=== PATIENT | male | born 1940 | race African-American/Black ===

== ENCOUNTER 2017-11-29 15:18 | Emergency (ER) | payer OTHER ==
[2017-11-29 15:54] LABS: Absolute Lymphocytes (CBC) 2.2 K/uL (0.7-4.9); Absolute Monocytes 0.5 K/uL (0.1-1.3); Absolute Neutrophil 1.8 K/uL (1.8-8.0); Basophils % 1.3 % (0-1.3); Eosinophils % 7.2 % (0-4.4); Hematocrit 39.6 % (39.6-49.0); Lymphocytes % 45.1 % (15.3-44.8); MCH 29.2 pg (27.0-35.0); MCV 89.7 fL (80-100); MPV 8.9 fL (7.6-11.3); Monocytes % 9.9 % (3.3-12.3); RBC Red Blood Cell Count 4.41 M/uL (4.33-5.43)
[2017-11-29 16:01] LABS: Protime INR 0.99
[2017-11-29 16:14] LABS: Albumin 3.4 g/dL (3.4-5.0); Bilirubin Direct 0.1 mg/dL (0-0.2); Bilirubin Total 0.4 mg/dL (0.2-1.0); Magnesium 2.3 mg/dL (1.8-2.4); Protein, Total 7.1 g/dL (6.4-8.2)
--- NOTE | 2017-11-29 17:22 | RAD REPORT ---
EXAM DESCRIPTION: [facility] Single View11/29/2017 3:54 pm CLINICAL HISTORY: Chest pain COMPARISON: May 2017 FINDINGS: The lungs appear clear of acute infiltrate. The heart is normal size IMPRESSION: No acute abnormalities displayed
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
[2017-11-29] MEDS ORDERED: ASPIRIN 81 MG CHEWABLE TABLET ONE (17:38)
[2017-11-29] MEDS ORDERED: PANTOPRAZOLE 40MG TABLET PO ONE (17:39)
[2017-11-29 17:42] LABS: Urine Blood NEGATIVE (NEG); Urine Glucose NEGATIVE (NEG); Urine Protein NEGATIVE (NEG); Urine Specific Gravity 1.015 (1.005-1.030)
[2017-11-29] MEDS ORDERED: NA CHLORIDE 0.9% 500 ML ONE (17:49)
--- NOTE | 2017-11-29 17:53 | ER ---
Nurse's Notes [facility] Name: Ruperto Villegas Age: 77 yrs Sex: Male : 1940 Arrival Date: 11/29/2017 Time: 15:20 Bed 8 Private MD: Moiz Buenrostro Diagnosis: Chest pain, unspecified Presentation: 11/29 15:21 Presenting complaint: Patient states: "my blood pressure was 167/95 Friday and today I aa5 woke up with dizziness, tired, blurry spots, and now the left side of my chest hurts". Pt also reports SOB. 15:21 Transition of care: patient was not received from another setting of care. Onset of aa5 symptoms was November 29, 2017. Risk Assessment: Do you want to hurt yourself or someone else? Patient reports no desire to harm self or others. Initial Sepsis Screen: Does the patient meet any 2 criteria? No. Patient's initial sepsis screen is negative. Does the patient have a suspected source of infection? No. Patient's initial sepsis screen is negative. Care prior to arrival: None. 15:21 Method Of Arrival: Ambulatory aa5 15:21 Acuity: HENRIK 3 aa5 Historical: - Home Meds: 16:08 Tramadol Oral [Active]; Metoprolol Tartrate Oral [Active]; benzonatate Oral [Active]; tw2 cyanocobalamin (vit B-12) miscellaneous [Active]; Famotidine Oral [Active]; ferrous fumarate Oral [Active]; loratadine Oral [Active]; prazosin 5 mg Oral cap at bedtime [Active]; multivitamin Oral [Active]; pregabalin Oral [Active]; - PMHx: 15:27 Diabetes - NIDDM; Hypertension; Myocardial infarction; Prostate Cancer; aa5 - PSHx: 15:27 Appendectomy; rotator cuff- right; aa5 - Immunization history:: Adult Immunizations. - Ebola Screening: : No symptoms or risks identified at this time. - Social history:: Smoking status: Patient/guardian denies using tobacco. Screenin:08 Abuse screen: Denies threats or abuse. Nutritional screening: No deficits noted. tw2 Tuberculosis screening: No symptoms or risk factors identified. Fall Risk None identified. Assessment: 15:35 General: Appears in no apparent distress. Behavior is calm, cooperative, appropriate tw2 for age. Pain: Complains of pain in anterior aspect of left upper chest Pain radiates to left arm Pain began 1 day ago. Neuro: Level of Consciousness is awake, alert, obeys commands, Oriented to person, place, time, situation. Cardiovascular: Reports chest pain, shortness of breath. Cardiovascular: Reports fatigue, Heart tones S1 S2 Capillary refill < 3 seconds Patient's skin is warm and dry. Respiratory: Airway is patent Respiratory effort is even, unlabored, Respiratory pattern is regular, symmetrical, Breath sounds are clear bilaterally. GI: Abdomen is round obese, Bowel sounds present X 4 quads. : No signs and/or symptoms were reported regarding the genitourinary system. Derm: Skin is intact, is healthy with good turgor, Skin is dry. Musculoskeletal: Range of motion:. 16:00 Reassessment: Per provider, hold aspirin until CT results reviewed by provider. ae1 16:50 Reassessment: Patient appears in no apparent distress at this time. No changes from tw2 previously documented assessment. Patient and/or family updated on plan of care and expected duration. Pain level reassessed. Patient is alert, oriented x 3, equal unlabored respirations, skin warm/dry/pink. 17:35 Reassessment: Patient appears in no apparent distress at this time. No changes from tw2 previously documented assessment. Patient and/or family updated on plan of care and expected duration. Pain level reassessed. Patient is alert, oriented x 3, equal unlabored respirations, skin warm/dry/pink. provider at bedside at this time going over results. 18:27 Reassessment: Patient appears in no apparent distress at this time. No changes from tw2 previously documented assessment. Patient and/or family updated on plan of care and expected duration. Pain level reassessed. Patient is alert, oriented x 3, equal unlabored respirations, skin warm/dry/pink. Vital Signs: 15:23 BP 176 / 102; Pulse 70; Resp 18 S; Pulse Ox 98% on R/A; aa5 16:08 BP 147 / 87; Pulse 57; Resp 18; Pulse Ox 96% on R/A; tw2 17:22 BP 165 / 88; Pulse 54; Resp 14; Pulse Ox 98% on R/A; tw2 17:40 Pulse 48; tw2 17:41 Temp 97.9; tw2 18:03 BP 155 / 91; Pulse 65; Resp 20; Pulse Ox 100% on R/A; tw2 18:06 Pulse 43; tw2 18:12 Pulse 60; tw2 18:12 Pulse 43; tw2 18:25 BP 155 / 91; Pulse 59; Resp 17; Pulse Ox 100% ; tw2 17:40 pt asymptomatic, provider notified. no further orders at this time, will continue to tw2 monitor 18:06 pt asymptomatic, NAD, A\\T\\O3 provider notified. tw2 18:12 pt asymptomatic, NAD, provider notified, no further orders tw2 18:25 provider aware of heart rate drops, no further orders, discharge as ordered tw2 ED Course: 15:20 Patient arrived in ED. mr 15:21 Moiz Buenrostro MD is Private Physician. mr 15:21 Chintan Hallman, ADRI is PHCP. pm1 15:21 Fareed Mac MD is Attending Physician. pm1 15:21 Arm band placed on. aa5 15:25 No provider procedures requiring assistance completed. Inserted saline lock: 20 gauge tw2 in right antecubital area, using aseptic technique. Blood collected. Patient maintains SpO2 saturation greater than 95% on room air. 15:26 Triage completed. aa5 15:28 Keesha Avila, DELIO is Primary Nurse. tw2 15:29 Placed in gown. Bed in low position. potline monitor on. Pulse ox on. NIBP on. tw2 15:49 Radiology exam delayed due to lab results not completed at this time. (BUN/Creatinine). cw1 15:53 X-ray completed. Portable x-ray completed in exam room. Patient tolerated procedure la2 well. 15:54 XRAY Chest (1 view) In Process Unspecified. EDMS 16:58 CT Traumagram (Head C Spine CAP W Con) In Process Unspecified. EDMS 16:58 CT completed. Patient tolerated procedure well. Patient moved back from CT. vr 17:52 Amadeo Velasquez MD is Referral Physician. pm1 17:53 Awaiting: awaiting completion of IV fluids PRIOR to discharge. tw2 18:29 IV discontinued, intact, bleeding controlled, No redness/swelling at site. Pressure tw2 dressing applied. Administered Medications: 17:38 Drug: Aspirin Chewable Tablet 324 mg Route: PO; tw2 17:38 Follow up: Response: No adverse reaction tw2 17:38 Drug: Pantoprazole 40 mg Route: PO; tw2 17:38 Follow up: Response: No adverse reaction tw2 17:48 Drug: NS 0.9% 500 ml Route: IV; Rate: bolus; Site: right antecubital; tw2 18:25 Follow up: Response: No adverse reaction; IV Status: Completed infusion; IV Intake: tw2 500ml Intake: 18:25 IV: 500ml; Total: 500ml. tw2 Outcome: 17:52 Discharge ordered by MD. pm1 18:28 Discharged to home ambulatory. tw2 18:28 Condition: stable 18:28 Discharge instructions given to patient, Instructed on discharge instructions, follow up and referral plans. medication usage, Pt has appt with Dr. Velasquez 8:30 am Friday, pt VU Demonstrated understanding of instructions, follow-up care, medications, Prescriptions given X 1. 18:29 Patient left the ED. tw2 Signatures: Dispatcher [employer] EDMN Shiela Cowan Audri, RN RN bc5 Phylicia Crawford Crystal cw1 Chintan Hallman, ADRI COMMUTATOR UNDERCUTTER pm1 Keesha Avila RN RN tw2 Rich Andrade RN RN ae1 Ligia Hankins la2 Corrections: (The following items were deleted from the chart) 18:13 17:40 Pulse 48bpm; provider notified.; tw2 tw2 18:28 18:06 Pulse 43bpm; provider notified.; tw2 tw2 18:28 17:40 Pulse 48bpm; provider notified. no further orders at this time, will continue to tw2 monitor; tw2 18:28 18:12 Pulse 43bpm; provider notified, no further orders; tw2 tw2
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
[2017-11-29 19:01] VITALS: TEMP 97.9
[2017-11-29 19:03] VITALS: BP 125/81; O2SAT 99
--- NOTE | 2017-12-01 07:45 | EKG ---
Test Date: 2017-11-29 Test Time: 15:28:23 Chinese Medicine Practitioner: MB MEASUREMENT RESULTS: Intervals: Rate: 66 MA: 156 QRSD: 96 QT: 378 QTc: 396 [place]: P: 45 MA: 156 QRS: -10 T: 25 INTERPRETIVE STATEMENTS: Normal sinus rhythm Minimal voltage criteria for LVH, may be normal variant Borderline ECG Compared to ECG 11/28/2016 06:44:52 Left ventricular hypertrophy now present Sinus bradycardia no longer present Sinus arrhythmia no longer present Electronically Signed On 12-01-17 07:44:43 CDT by Cleveland Jensen
== END 2017-11-29 18:29 | disposition home or self-care (01) ==
LOC: ER 15:18
DX: R07.9 Chest pain, unspecified (principal); I10 Essential (primary) hypertension; E11.9 Type 2 diabetes mellitus without complications; I25.2 Old myocardial infarction; Z85.46 Personal history of malignant neoplasm of prostate
CPT/HCPCS: 36415; 70450; 71045; 71260; 72125; 74177; 80048; 80076; 81003; 82550; 82553; 83735; 83880; 84484; 85025; 85610; 85730; 93005; 96360; 99285; Q9967

== ENCOUNTER 2017-12-26 11:16 | Emergency (ER) | payer OTHER ==
[2017-12-26] MEDS ORDERED: HYDROCODONE/APAP 5/325 MG TAB ONE (12:33)
--- NOTE | 2017-12-26 13:31 | RAD REPORT ---
EXAM DESCRIPTION: US - Scrotum Testicles - 12/26/2017 1:13 pm CLINICAL HISTORY: Right-sided scrotal pain COMPARISON: None. FINDINGS: Testicles are similar in size. Testicular tissue is heterogeneous over what is typically s een. The pattern is similar within each testicle. No focal testicular mass identifiable. Doppler eval uation shows a normal blood flow pattern within each testicle. Moderate-size left varicocele is present. A 4 millimeter right epididymal cyst is present. Epididymal tissue is heterogeneous and relatively hyperemic. Minimal hydroceles are present. IMPRESSION: Blood flow is demonstrated within each testicle. Torsion is not suspected. Heterogeneous epididymal tissue. An epididymo-orchitis would be a consideration. Moderate-size left varicocele.
[2017-12-26 13:40] LABS: Urine Bacteria 20-50 /HPF (NONE SEEN); Urine Culture Reflex Order REFLEXED; Urine RBC <5 /HPF (NONE SEEN)
[2017-12-26 13:41] LABS: Urine Blood NEGATIVE (NEG); Urine Glucose NEGATIVE (NEG); Urine Protein NEGATIVE (NEG); Urine Specific Gravity >1.030 (1.005-1.030); Urine pH 5.5 (5.0-7.0)
[2017-12-26 13:41] LABS: Urine Mucus 2+ /HPF (NONE SEEN)
--- NOTE | 2017-12-26 13:41 | EDPHYS ---
Physician Documentation [facility] Name: Ruperto Villegas Age: 77 yrs Sex: Male : 1940 Arrival Date: 12/26/2017 Time: 11:19 Bed 19 Private MD: Moiz Buenrostro ED Physician Yun Cory HPI: 12/26 12:17 This 77 yrs old Black Male presents to ER via Ambulatory with complaints of Testicular jmm Swelling, Abdominal Pain. 12:17 The patient presents with scrotal pain, of the right side, in the area of the jmm epidydimis, with swelling. Onset: The symptoms/episode began/occurred gradually, 2 day(s) ago. Associated signs and symptoms: Pertinent positives: abdominal pain, dysuria, Pertinent negatives: fever. This is a 77 year old male that presents to the ED with right sided scrotal pain for approx 1 year worsening over the past 2 days with dysuria and scrotal swelling. Patient denies fever. States the pain radiates into his abdomen. Denies vomiting, diarrhea. Patient has had an appendectomy in the past. . Historical: - Allergies: 11:33 No Known Allergies; la1 - PMHx: 11:33 Diabetes - NIDDM; Hypertension; Myocardial infarction; Prostate Cancer; la1 - Immunization history:: Adult Immunizations up to date. - Social history:: Smoking status: Patient/guardian denies using tobacco. - Ebola Screening: : No symptoms or risks identified at this time. ROS: 12:17 Constitutional: Negative for fever, chills, and weight loss, Cardiovascular: Negative jmm for chest pain, palpitations, and edema, Respiratory: Negative for shortness of breath, cough, wheezing, and pleuritic chest pain. 12:17 Constitutional: Negative for fever. 12:17 Abdomen/GI: Positive for abdominal pain. 12:17 : Positive for testicular pain 12:17 All other systems are negative. Exam: 12:17 Constitutional: This is a well developed, well nourished patient who is awake, alert, jmm and in no acute distress. Head/Face: atraumatic. Chest/axilla: Normal chest wall appearance and motion. Cardiovascular: Regular rate and rhythm. No edema appreciated Respiratory: Normal respirations, no respiratory distress appreciated 12:17 Abdomen/GI: Inspection: abdomen appears normal, Bowel sounds: normal, Palpation: abdomen is soft and non-tender, in all quadrants. 12:17 Back: ROM is normal. 12:17 : Male external genitalia: tenderness, of the epididymis area, that is moderate. 12:17 Skin: Appearance: Color: normal in color. 12:17 Neuro: Orientation: is normal, Mentation: is normal, Memory: is normal. 12:17 Psych: Behavior/mood is pleasant, cooperative. Vital Signs: 11:33 Pulse 64; Resp 15; Temp 97.2(TE); Pulse Ox 97% on R/A; Weight 117.93 kg; Height 5 ft. 6 la1 in. (167.64 cm); 11:33 BP 118 / 83; la1 12:45 BP 139 / 75; Pulse 71; Resp 16; Pulse Ox 99% on R/A; Pain 5/10; em 13:23 BP 130 / 82; Pulse 64; Resp 17; Pulse Ox 99% ; mh5 14:06 BP 132 / 87; Pulse 62; Resp 17; Pulse Ox 98% on R/A; Pain 2/10; em 11:33 Body Mass Index 41.96 (117.93 kg, 167.64 cm) la1 MDM: 12:03 Patient medically screened. [facility] 12:20 Data reviewed: vital signs, nurses notes. [facility] 13:40 Data reviewed: radiologic studies, ultrasound. Counseling: I had a detailed discussion geovani with the patient and/or guardian regarding: the historical points, exam findings, and any diagnostic results supporting the discharge/admit diagnosis, radiology results, the need for outpatient follow up, to return to the emergency department if symptoms worsen or persist or if there are any questions or concerns that arise at home. 12/26 13:20 Order name: Urine Microscopic Only; Complete Time: 13:42 em 12/26 13:29 Order name: Urine Dipstick--Ancillary (enter results); Complete Time: 13:42 12/26 12:07 Order name: US Scrotum Testicles; Complete Time: 13:35 [facility] 12/26 12:07 Order name: Urine Dipstick-Ancillary (obtain specimen); Complete Time: 13:20 [facility] 12/26 13:41 Order name: Urine Culture EDMS Administered Medications: 12:34 Drug: Golden 5 mg-325 mg 1 tabs Route: PO; em 14:05 Follow up: Response: No adverse reaction; Pain is decreased em Disposition: 12/26/17 13:40 Discharged to Home. Impression: Epididymo-orchitis. - Condition is Stable. - Discharge Instructions: Epididymitis, Orchitis. - Prescriptions for Cephalexin 500 mg Oral Capsule - take 1 capsule by ORAL route every 12 hours for 10 days; 20 capsule. Tylenol- Codeine #3 300-30 mg Oral Tablet - take 1 tablet by ORAL route every 6 hours As needed; 20 tablet. - Medication Reconciliation Form, Thank You Letter, Antibiotic Education, Prescription Opioid Use form. - Follow up: Daisy Al MD; When: 2 - 3 days; Reason: Recheck today's complaints, Continuance of care, Re-evaluation by your physician. Addendum: 12/27/2017 16:06 Co-signature as Attending Physician, Cory Malcolm MD. g s Signatures: Dispatcher [employer] EDMS Ritesh Collazo PA PA jmm Munoz, Edgar, STEREO EQUIPMENT INSTALLER STEREO EQUIPMENT INSTALLER em Harris Zhu RN RN la1 Cory Malcolm MD MD Corrections: (The following items were deleted from the chart) 12/26 14:08 13:40 12/26/2017 13:40 Discharged to Home. Impression: Epididymo-orchitis. Condition is em Stable. Forms are Medication Reconciliation Form, Thank You Letter, Antibiotic Education, Prescription Opioid Use. Follow up: Daisy Al; When: 2 - 3 days; Reason: Recheck today's complaints, Continuance of care, Re-evaluation by your physician. raúl
--- NOTE | 2017-12-26 13:41 | ER ---
Nurse's Notes [facility] Name: Ruperto Villegas Age: 77 yrs Sex: Male : 1940 Arrival Date: 12/26/2017 Time: 11:19 Bed 19 Private MD: Moiz Buenrostro Diagnosis: Epididymo-orchitis Presentation: 12/26 11:31 Presenting complaint: Patient states: Right testicular pain for one year, right la1 testicular pain radiating to right flank for one week, pain with urination, frequency, blood in urine for the last week and erectile dysfunction for the past year. Hx of prostate CA with radiation [place] in 1999. Transition of care: patient was not received from another setting of care. Onset of symptoms was December 26, 2017. Risk Assessment: Do you want to hurt yourself or someone else? Patient reports no desire to harm self or others. Initial Sepsis Screen: Does the patient meet any 2 criteria? No. Patient's initial sepsis screen is negative. Does the patient have a suspected source of infection? No. Patient's initial sepsis screen is negative. Care prior to arrival: None. 11:31 Method Of Arrival: Ambulatory la1 11:31 Acuity: HENRIK 3 la1 Historical: - Allergies: 11:33 No Known Allergies; la1 - PMHx: 11:33 Diabetes - NIDDM; Hypertension; Myocardial infarction; Prostate Cancer; la1 - Immunization history:: Adult Immunizations up to date. - Social history:: Smoking status: Patient/guardian denies using tobacco. - Ebola Screening: : No symptoms or risks identified at this time. Screenin:46 Abuse screen: Denies threats or abuse. Nutritional screening: No deficits noted. em Tuberculosis screening: No symptoms or risk factors identified. Fall Risk None identified. Assessment: 12:10 General: Appears in no apparent distress. distressed, Behavior is calm, cooperative. em Pain: Complains of pain in left testicle Pain radiates to abdomen Pain currently is 6 out of 10 on a pain scale. Neuro: Level of Consciousness is awake, alert, obeys commands, Oriented to person, place, time, situation. Cardiovascular: Capillary refill < 3 seconds Patient's skin is warm and dry. Respiratory: Airway is patent Respiratory effort is even, unlabored, Respiratory pattern is regular, symmetrical. GI: Abdomen is round Bowel sounds present X 4 quads. Abd is soft and non tender X 4 quads. : Genitalia appear normal on penis on scrotum Reports burning with urination, pain urinary frequency. EENT: No signs and/or symptoms were reported regarding the EENT system. Derm: Skin is intact, Skin is pink, warm \T\ dry. Musculoskeletal: Capillary refill < 3 seconds, Range of motion: intact in all extremities. 12:20 Reassessment: Patient appears in no apparent distress at this time. I agree with above iw assessment by Miguel Teixeira LVN. 13:00 Reassessment: Patient appears in no apparent distress at this time. Patient and/or em family updated on plan of care and expected duration. Pain level reassessed. Patient is alert, oriented x 3, equal unlabored respirations, skin warm/dry/pink. 14:06 Reassessment: Patient appears in no apparent distress at this time. Patient and/or em family updated on plan of care and expected duration. Pain level reassessed. Patient is alert, oriented x 3, equal unlabored respirations, skin warm/dry/pink. rates pain 2/10 Patient states feeling better. Vital Signs: 11:33 Pulse 64; Resp 15; Temp 97.2(TE); Pulse Ox 97% on R/A; Weight 117.93 kg; Height 5 ft. 6 la1 in. (167.64 cm); 11:33 BP 118 / 83; la1 12:45 BP 139 / 75; Pulse 71; Resp 16; Pulse Ox 99% on R/A; Pain 5/10; em 13:23 BP 130 / 82; Pulse 64; Resp 17; Pulse Ox 99% ; mh5 14:06 BP 132 / 87; Pulse 62; Resp 17; Pulse Ox 98% on R/A; Pain 2/10; em 11:33 Body Mass Index 41.96 (117.93 kg, 167.64 cm) la1 ED Course: 11:19 Patient arrived in ED. mr 11:19 Moiz Buenrostro MD is Private Physician. mr 11:32 Triage completed. la1 11:33 Arm band placed on left wrist. la1 11:50 Ritesh Collazo PA is PHCP. [facility] 11:50 Cory Malcolm MD is Attending Physician. [facility] 12:01 Teixeira, Miguel, SKIN CARVER is Primary Nurse. em 12:32 Note: us done portable/bedside. aa4 12:46 Patient has correct armband on for positive identification. Placed in gown. Bed in low em position. Call light in reach. Adult w/ patient. 12:46 No provider procedures requiring assistance completed. em 13:07 Ultrasound completed. Patient tolerated well. aa4 13:07 US Scrotum Testicles In Process Unspecified. EDMS 13:40 Daisy Al MD is Referral Physician. [facility] 14:07 Patient did not have IV access during this emergency room visit. em Administered Medications: 12:34 Drug: Euclid 5 mg-325 mg 1 tabs Route: PO; em 14:05 Follow up: Response: No adverse reaction; Pain is decreased em Outcome: 13:40 Discharge ordered by MD. [facility] 14:07 Discharged to home ambulatory, with family. em 14:07 Condition: good 14:07 Discharge instructions given to patient, family, Instructed on discharge instructions, follow up and referral plans. no drinking with medication, no driving heavy equipment, medication usage, Demonstrated understanding of instructions, follow-up care, medications, Prescriptions given X 2. 14:08 Patient left the ED. em Addendum: 12/30/2017 08:26 Addendum: Culture Results: Positive urine culture. Bacteria is resistant to, has s s intermediate sensitivity, or is not tested against prescribed antibiotics. Report given to HALIMA for further evaluation and then to capacitor pack press operator for follow up with patient. Phone call Attempt #1 ATTEMPTED TO CALL TO FOLLOW UP WITH PATIENT. NO ANSWER, LEFT VOICEMAIL. Certified letter sent to listed address for patient. 12/31/2017 09:52 Addendum: Other pt called back, called in prescription to [facility] Suprax 200 mg 1 i w tab PO BID # 20, no refills. Signatures: Dispatcher [employer] EDMS Ritesh Collazo PA PA jmm Rivera, Maria mr Puneet, Miguel, SKIN CARVER SKIN CARVER em Lisbeth Esparza RN RN iw Frazier, Amanda aa4 Keerthi Burns RN RN ss Harris Zhu RN RN Shiela Little [facility]
[2017-12-26 14:12] VITALS: TEMP 97.2
[2017-12-26 14:16] VITALS: BP 132/87; O2SAT 98
== END 2017-12-26 14:08 | disposition home or self-care (01) ==
LOC: ER 11:16
DX: N45.3 Epididymo-orchitis (principal); I10 Essential (primary) hypertension; I25.2 Old myocardial infarction; Z85.46 Personal history of malignant neoplasm of prostate
CPT/HCPCS: 76870; 81003; 81015; 87077; 87086; 87088; 87186; 99283

== ENCOUNTER 2018-09-28 08:31 | Day surgery (SDC) | payer OTHER ==
--- NOTE | 2018-09-25 09:11 | RAD REPORT ---
EXAM DESCRIPTION: RAD - Chest Pa And Lat (2 Views) - 09/25/2018 9:01 am CLINICAL HISTORY: preop Chest pain. COMPARISON: Chest Single View dated 11/29/2017; Chest Pa And Lat (2 Views) dated 05/21/2017; Chest Sin gle View dated 11/27/2016; Abdomen 1 View (KUB) dated 02/14/2016 FINDINGS: The lungs are clear. The heart is normal in size. No displaced fractures. IMPRESSION: No acute or concerning finding suspected.
[2018-09-25 09:59] LABS: Absolute Lymphocytes (CBC) 1.7 K/uL (0.7-4.9); Absolute Monocytes 0.4 K/uL (0.1-1.3); Absolute Neutrophil 1.5 K/uL (1.8-8.0); Basophils % 1.1 % (0-1.3); Eosinophils % 11.5 % (0-4.4); Hematocrit 38.3 % (39.6-49.0); Lymphocytes % 41.3 % (15.3-44.8)
[2018-09-25 10:13] LABS: Potassium 3.9 mmol/L (3.5-5.1)
--- NOTE | 2018-09-25 14:45 | EKG ---
Test Date: 2018-09-25 Test Time: 08:40:10 Assembler Camper: ABIODUN MEASUREMENT RESULTS: Intervals: Rate: 76 MN: 154 QRSD: 96 QT: 392 QTc: 441 [place]: P: 46 MN: 154 QRS: 12 T: 33 INTERPRETIVE STATEMENTS: Normal sinus rhythm Normal ECG Compared to ECG 11/29/2017 15:28:23 Left ventricular hypertrophy no longer present Electronically Signed On 09-25-18 14:44:49 CDT by Cleveland Jensen
[2018-09-28] MEDS ORDERED: Ringers Lactate 1,000 ML IV ONE (09:04)
[2018-09-28] MEDS ORDERED: CEFAZOLIN/SWI 1gm 1 GM/10 ML SYR ONE (09:38)
[2018-09-28] MEDS ORDERED: FENTANYL CITR 100 MCG/2 ML ONE (10:06)
[2018-09-28] MEDS ORDERED: PROPOFOL 200 MG/20 ML VIAL IV ONE (10:06)
[2018-09-28] MEDS ORDERED: LIDOCAINE 2% MPF 5 ML VIAL ONE (10:06)
[2018-09-28] MEDS ORDERED: ONDANSETRON 4 MG/2 ML VIAL ONE (10:13)
[2018-09-28] MEDS ORDERED: GLYCOPYRROLATE 0.2 MG/ML SYR ONE (10:27)
[2018-09-28] MEDS ORDERED: EPHEDRINE SULF 50 MG/ML VIAL ONE (10:28)
--- NOTE | 2018-09-28 10:37 | P.BOP ---
Preoperative diagnosis: tender upper back subcutaneous mass Postoperative diagnosis: same Primary procedure: Excisional biopsy of tender upper back subcutaneous mass 7x6cm Estimated blood loss: <10cc Specimen: mass Findings: see dictation Anesthesia: General Complications: None Transferred to: Recovery Room Condition: Good
[2018-09-28] MEDS: HYDROMORPHONE HCL 1 MG/ML INJ ONE ×2 (11:14→11:21)
[2018-09-28 11:27] VITALS: O2SAT 95
[2018-09-28] MEDS ORDERED: CODEINE 30MG/APAP 300MG TAB PO ONE (12:00)
[2018-09-28] MEDS ORDERED: CODEINE 30MG/APAP 300MG TAB ONE (12:06)
[2018-09-28 15:42] VITALS: BP 172/97; TEMP 98
--- NOTE | 2018-09-28 18:16 | DS ---
Date of Discharge: 09/28/2018 Diagnosis: Tender upper back subcutaneous mass. Procedure: Excisional biopsy of tender upper back subcutaneous mass. Disposition: Home. Activity: As tolerated. No heavy lifting. Followup: Follow up in my office in 1 week. Call for appointment [phone]. Keep area dry for 48 delvis rs, then may shower. Keep Steri-Strips intact. MARY/ENEDELIA Voice ID: [id number] Report ID: [id number]
--- NOTE | 2018-09-28 18:34 | OP ---
Date of Procedure: 09/28/2018 Surgeon: Reynaldo Dawn MD Preoperative Diagnosis: Tender upper back subcutaneous mass. Postoperative Diagnosis: Tender upper back subcutaneous mass. Procedure: Excisional biopsy of tender upper back subcutaneous mass 7 x 6 cm. Anesthesia: General plus local. Indications: This is a case of a 78-year-old patient, comes to us with a tender upper mass, want to excise. Benefits, alternatives and risks of excision fully explained, which include but are not limi nathaniel to infection, bleeding, damage to adjacent structures, anesthesia complication, recurrence, AR, a nd even . He also understands this may not relieve any symptoms. He might need more than one s urgical intervention. The area of concern was marked by me and the patient in the holding room. Description Of Procedure: The patient was brought to the operating room, placed in supine position. Anesthesia was done without complication. The patient was placed in lateral decubitus position with proper protection. The area was prepped and draped in a sterile fashion. A time-out was called. A n incision was made over the area of the mass. Incision was carried down to deep subcutaneous tissue . This mass lies right on the top muscle and fascia deep to the subcutaneous tissue, but it was comp letely found, the compartments were opened carefully allowing the mass to come with blunt dissection completely with finger-like projections. The mass was removed in one unit. A mass next to it was al so removed with the specimen, probably a small tumor of the same kind. The area was irrigated. Hemo stasis was obtained and then this area was closed in layers with 2-0 chromic deep and 3-0 chromic mor e superficial. The patient tolerated the procedure well. Hemostasis was obtained. The patient was sent to Recovery in stable condition. I have to mention at the beginning of the case, we put some local anes thetic. MARY/ENEDELIA Voice ID: [id number] Report ID: [id number]
== END 2018-09-28 12:40 | disposition home or self-care (01) ==
LOC: OR 08:31
PROVIDERS: ATTEND Surgery
PROC: 0JB70ZZ Excision of Back Subcutaneous Tissue and Fascia, Open Approach (ICD-10-PCS; principal; 2018-09-28 10:30)
DX: D17.1 Benign lipomatous neoplasm of skin and subcutaneous tissue of trunk (principal); R22.2 Localized swelling, mass and lump, trunk
CPT/HCPCS: 21931; 93005; 85025; 80048; 36415; 88304; 71046; J2704; J3010; J1170; J0690; J2405

== ENCOUNTER 2020-12-19 13:08 | Emergency (ER) | payer OTHER ==
--- OUTSIDE RECORDS SUMMARY | 2020-12-19 13:16 | XMS REPORT | Continuity of Care Document ---
:1940 Author Organization [facility] t Address [address] [place] [address] Care Team Providers Name Role Phone Unavailable Unavailable Unavailable Problems This patient has no known problems. Allergies, Adverse Reactions, Alerts Allergy Allergy Status Severity Reaction(s) Onset Inactive Treating Comm ents Source Name Type Date Date Clinician Jalil Adverse Active Info Not [facility] Medications Ordered Filled Start Stop Current Ordering Indication Dosage Frequency Signature Comments Components Source Medication Medication Date Date Medication? Clinician (SIG) Name Name Juan Martinez 2019-0 2020- No Manjula [address] [facility] 8 11-06 [facility] :00 l [facility] Clinics Enalapril Enalapril 2019-0 Yes Manjula [address] [facility] Maleate Maleate 2-18 Millender as needed [facility]: for BP > [facility] 00 or = l 150[facility] Prazosin Prazosin Yes Manjula [address] HCl HCl Millender at bedtime [facility] Finasteride Finasteride Yes Manjula [address] [facility] [address] [facility] Procedures This patient has no known procedures. Encounters Start End Encounter Admission Attending Care Care Encounter Source Date/Time Date/Time Type Type Clinicians Facility Department ID 2020-08-30 2020-08-30 [facility] [id number] [facility] 2020-05-23 2020-05-23 [facility] [id number] [facility] 2020-05-19 2020-05-19 Out[facility] [id number] [facility] 2020-05-14 2020-05-14 [facility] [id number] [facility] 2020-05-10 2020-05-10 Out[facility] [id number] [facility] 2020-05-09 2020-05-09 Out[facility] [id number] [facility] 2020-04-20 2020-04-20 Out[facility] [id number] [facility] 2020-04-04 2020-04-04 Out[facility] [id number] [facility] 2019-12-22 2019-12-22 [facility] [id number] [facility] 13:19:00 13:19:00 [facility] Clinics 2019-12-19 2019-12-19 [facility] [id number] 01:36:00 01:36:00 t [facility] Out[facility] Clinics 2019-12-17 2019-12-17 [facility] [id number] 14:34:00 14:34:00 t [facility] Road [facility] Outpat[facility] Clinics 2019-12-14 2019-12-14 [facility] [id number] 16:40:00 16:40:00 [facility] 2019-10-05 2019-10-05 Outpatient Madhav Dickinson [id number] [facility] 16:31:00 16:31:00 [facility] 2019-06-29 2019-06-29 Outpatient Madhav Dickinson [id number] 11:00:00 11:00:00 [facility] 2019-06-03 2019-06-03 Outpatient Madhav Dickinson [id number] 14:00:00 14:00:00 [facility] ent Clinics Results This patient has no known results.
[2020-12-19 14:29] LABS: Absolute Lymphocytes (CBC) 0.8 K/uL (0.7-4.9); Basophils % 0.4 % (0-1.3); Lymphocytes % 9.7 % (15.3-44.8); MPV 8.4 fL (7.6-11.3); RBC Red Blood Cell Count 4.31 M/uL (4.33-5.43)
[2020-12-19] MEDS ORDERED: ACETAMINOPHEN 325 MG TABLET ONE (14:38)
[2020-12-19 14:42] LABS: Ferritin 1202.8 ng/mL (26-388); Potassium 3.6 mmol/L (3.5-5.1)
--- NOTE | 2020-12-19 14:59 | RAD REPORT ---
EXAM DESCRIPTION: RAD - Chest Pa And Lat (2 Views) - 12/19/2020 2:34 pm CLINICAL HISTORY: PAIN Chest pain. COMPARISON: Chest Pa And Lat (2 Views) dated 09/25/2018; Chest Single View dated 11/29/2017; Chest Pa And Lat (2 Views) dated 05/21/2017; Chest Single View dated 11/27/2016 FINDINGS: Mild bilateral pulmonary opacities are noted, greatest in the right lung base. This likely represents pulmonary infection/ developing pneumonia, particularly in the right base. The heart is m ildly prominent in size. No displaced fractures.
[2020-12-19 15:41] LABS: SARS-COV-2 RT PCR POSITIVE (NEGATIVE)
--- NOTE | 2020-12-19 16:52 | EDPHYS ---
Physician Documentation [facility] Name: Ruperto Villegas Age: 80 yrs Sex: Male : 1940 Arrival Date: 12/19/2020 Time: 13:12 Bed 11 Private MD: ED Physician Fareed Mac HPI: 12/19 14:38 This 80 yrs old Black Male presents to ER via Ambulatory with complaints of Fever, rn Dizziness, Cough, fatigue. 14:38 The patient reports fever, that was measured at 101.2 degrees Fahrenheit. Onset: The rn symptoms/episode began/occurred 3 day(s) ago. Modifying factors: there are no obvious modifying factors. Associated signs and symptoms: Pertinent positives: chills, cough, myalgias, Pertinent negatives: abdominal pain, altered mental status, skin rash, swelling, vomiting. Severity of symptoms: At their worst the symptoms were mild in the emergency department the symptoms are unchanged. The patient has experienced a previous episode. The patient has not recently seen a physician. Patient reports 3 days of fever, chills, myalgias, cough. When out of town to [place] 1 week ago. Is Covid vaccinated. Denies abdominal issues. No chest pain.. Historical: - Allergies: 13:42 No Known Allergies; kg - Home Meds: 13:42 Tramadol Oral [Active]; pregabalin Oral [Active]; prazosin 5 mg Oral cap at bedtime kg [Active]; multivitamin Oral [Active]; Metoprolol Tartrate Oral [Active]; loratadine Oral [Active]; ferrous fumarate Oral [Active]; Famotidine Oral [Active]; cyanocobalamin (vit B-12) miscellaneous [Active]; benzonatate Oral [Active]; finasteride oral [Active]; tamsulosin 0.4 mg oral cap [Active]; - PMHx: 13:42 Hypertension; Myocardial infarction; Prostate Cancer; kg - Immunization history:: Client reports receiving the 2nd dose of the Covid vaccine, Date received: July 2020 [id number] Client reports receiving the 1st dose of the Covid vaccine, June 2020 [id number]. - Social history:: Smoking status: Patient denies any tobacco usage or history of. - Family history:: not pertinent. - Hospitalizations: : No recent hospitalization is reported. ROS: 14:38 Constitutional: Positive for fever and chills Eyes: Negative for injury, pain, redness, rn and discharge, ENT: Negative for injury, pain, and discharge, Neck: Negative for injury, pain, and swelling, Cardiovascular: Negative for chest pain, palpitations, and edema, Respiratory: Positive for cough and mild shortness of breath Abdomen/GI: Negative for abdominal pain, nausea, vomiting, diarrhea, and constipation, Back: Negative for injury and pain, MS/Extremity: Negative for injury and deformity, Skin: Negative for injury, rash, and discoloration, Neuro: Negative for headache, numbness, tingling, and seizure. 14:41 All other systems are negative. rn Exam: 14:38 Constitutional: This is a well developed, well nourished patient who is awake, alert, rn and in no acute distress. Head/Face: Normocephalic, atraumatic. Eyes: Pupils equal round and reactive to light, extra-ocular motions intact. Lids and lashes normal. Conjunctiva and sclera are non-icteric and not injected. Cornea within normal limits. Periorbital areas with no swelling, redness, or edema. ENT: No stridor Cardiovascular: Regular rate and rhythm with a normal S1 and S2. No gallops, murmurs, or rubs. Normal PMI, no JVD. No pulse deficits. Respiratory: Mild tachypnea, no retractions. Speaking full sentences Abdomen/GI: Soft, non-tender Skin: Warm, dry MS/ Extremity: Pulses equal, no cyanosis. Neuro: Awake and alert, GCS 15 Vital Signs: 13:40 BP 117 / 70; Pulse 103; Resp 20; Temp 101; Pulse Ox 95% on R/A; Weight 108.86 kg (R); kg Height 5 ft. 7 in. (170.18 cm); Pain 4/10; 13:52 BP 123 / 69; Pulse 99; Resp 17; Temp 101.2(O); Pulse Ox 97% on R/A; Weight 108.8 kg; ld1 Height 5 ft. 11 in. (180.34 cm); 15:32 BP 118 / 83; Pulse 90; Resp 16; Pulse Ox 95% on R/A; ld1 16:48 BP 107 / 73; Pulse 87; Resp 18; Temp 98.9(O); Pulse Ox 96% on R/A; ld1 13:52 Body Mass Index 33.45 (108.80 kg, 180.34 cm) ld1 MDM: 13:50 Patient medically screened. rn 16:47 Differential diagnosis: viral Infection, bacterial infection, URI, bronchitis, rn pneumonia. Data reviewed: vital signs, nurses notes, lab test result(s), radiologic studies, plain films, and as a result, I will discharge patient. 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 Interpretation: acceptable. Test interpretation: by ED physician or midlevel provider: plain radiologic studies, Chest x-ray with mild bilateral infiltrates consistent with pneumonia.. Counseling: I had a detailed discussion with the patient and/or guardian regarding: the historical points, exam findings, and any diagnostic results supporting the discharge/admit diagnosis, lab results, radiology results, the need for outpatient follow up, to return to the emergency department if symptoms worsen or persist or if there are any questions or concerns that arise at home. Response to treatment: the patient's symptoms have mildly improved after treatment, and as a result, I will admit patient. Special discussion: I discussed with the patient/guardian in detail that at this point there is no indication for admission to the hospital. It is understood, however, that if the symptoms persist or worsen the patient needs to return immediately for re-evaluation. Based on the history and exam findings, there is no indication for further emergent testing or inpatient evaluation. I discussed with the patient/guardian the need to see the primary care provider for further evaluation of the symptoms. ED course: Patient without indication for emergent admission, oxygen 95 to 96%, but does meet requirement for Regeneron given age and comorbidities. Will DC home with return precautions and PCP follow-up. Advised patient to notify other people that they were in contact with given they traveled out of town in a group in the same vehicle.. 12/19 13:57 Order name: CBC with Diff; Complete Time: 15:03 rn 12/19 13:57 Order name: Basic Metabolic Panel; Complete Time: 15:03 rn 12/19 13:57 Order name: Blood Culture Adult (2) rn 12/19 13:57 Order name: Procalcitonin; Complete Time: 15:27 rn 12/19 13:40 Order name: XRAY Chest Pa And Lat (2 Views); Complete Time: 15:03 kg 12/19 13:57 Order name: IV Start; Complete Time: 14:14 rn 12/19 13:57 Order name: Ferritin; Complete Time: 15:03 rn 12/19 15:41 Order name: COVID-19/FLU A+B EDMS Administered Medications: 14:17 Drug: Tylenol 650 mg Route: PO; ld1 17:23 Drug: REGEN-COV Dose Pack 120 mg/mL-120 mg/mL (EUA) 600 mg Route: IV; Rate: calculated iw rate; Site: left antecubital; Disposition Summary: 12/19/20 16:51 Discharge Ordered Location: Home rn Problem: new rn Symptoms: have improved rn Condition: Stable rn Diagnosis - Pneumonia due to SARS-associated coronavirus rn - Fever, unspecified rn Followup: rn - With: Private Physician - When: As needed - Reason: Recheck today's complaints, Re-evaluation by your physician Discharge Instructions: - Discharge Summary Sheet rn - Fever, Adult rn - COVID-19 rn Forms: - Medication Reconciliation Form rn - Thank You Letter rn - Antibiotic securities attorney - Prescription Opioid Use rn Signatures: Dispatcher [employer] EDLisbeth Pruett RN RN iw Fareed Mac MD MD rn Dibbern, Lauren, RN RN ld1 Elham Lambert, DELIO RN kg Corrections: (The following items were deleted from the chart) 13:45 13:42 PMHx: Diabetes - NIDDM; kg kg 14:36 13:41 CORONAVIRUS+MR.LAB.BRZ ordered. EDMS EDMS 14:52 13:41 Influenza Screen (A \T\ B)+BA.LAB.BRZ ordered. EDMS EDMS
--- NOTE | 2020-12-19 16:52 | ER ---
Nurse's Notes [facility] Name: Ruperto Villegas Age: 80 yrs Sex: Male : 1940 Arrival Date: 12/19/2020 Time: 13:12 Bed 11 Private MD: Diagnosis: Pneumonia due to SARS-associated coronavirus;Fever, unspecified Presentation: 12/19 13:40 Chief complaint: Patient states: Cough, Pain in chest with coughing, Fever x 3 days. kg Coronavirus screen: Client denies travel out of the [place] in the last 14 days. At this time, unable to obtain information related to travel outside the [place] Coronavirus screen: Client presents with at least one sign or symptom that may indicate coronavirus-19. Standard/surgical mask placed on the client. Provider contacted for isolation considerations. Ebola Screen: Patient negative for fever greater than or equal to 101.5 degrees Fahrenheit, and additional compatible Ebola Virus Disease symptoms Patient denies exposure to infectious person. Patient denies travel to an Ebola-affected area in the 21 days before illness onset. Initial Sepsis Screen: Does the patient meet any 2 criteria? No. Patient's initial sepsis screen is negative. Does the patient have a suspected source of infection? No. Patient's initial sepsis screen is negative. Risk Assessment: Do you want to hurt yourself or someone else? Patient reports no desire to harm self or others. Onset of symptoms was December 16, 2020. 13:40 Method Of Arrival: Ambulatory kg 13:40 Acuity: HENRIK 4 kg 13:57 Acuity: HENRIK 3 iw Triage Assessment: 13:46 General: Appears in no apparent distress. Behavior is calm, cooperative, quiet. Pain: kg Complains of pain in anterior aspect of right upper chest, anterior aspect of left upper chest, mid-sternal area, right breast and left breast Pain currently is 0 out of 10 on a pain scale. at worst was 4 out of 10 on a pain scale. level that patient reports is acceptable is 3 out of 10 on a pain scale. Quality of pain is described as sharp, stabbing. Historical: - Allergies: 13:42 No Known Allergies; kg - Home Meds: 13:42 Tramadol Oral [Active]; pregabalin Oral [Active]; prazosin 5 mg Oral cap at bedtime kg [Active]; multivitamin Oral [Active]; Metoprolol Tartrate Oral [Active]; loratadine Oral [Active]; ferrous fumarate Oral [Active]; Famotidine Oral [Active]; cyanocobalamin (vit B-12) miscellaneous [Active]; benzonatate Oral [Active]; finasteride oral [Active]; tamsulosin 0.4 mg oral cap [Active]; - PMHx: 13:42 Hypertension; Myocardial infarction; Prostate Cancer; kg - Immunization history:: Client reports receiving the 2nd dose of the Covid vaccine, Date received: July 2020 [employer] Client reports receiving the 1st dose of the Covid vaccine, June 2020 [employer]. - Social history:: Smoking status: Patient denies any tobacco usage or history of. - Family history:: not pertinent. - Hospitalizations: : No recent hospitalization is reported. Screenin:47 Abuse screen: Denies threats or abuse. Denies injuries from another. Nutritional kg screening: No deficits noted. Tuberculosis screening: No symptoms or risk factors identified. Fall Risk None identified. Assessment: 13:52 General: Appears in no apparent distress. uncomfortable, Behavior is calm, cooperative, ld1 appropriate for age. Pain: Denies pain. Neuro: Level of Consciousness is awake, alert, obeys commands, Oriented to person, place, time, situation. Cardiovascular: Capillary refill < 3 seconds Patient's skin is warm and dry. Respiratory: Reports cough that is Airway is patent Respiratory effort is even, unlabored, Respiratory pattern is regular, symmetrical. GI: Abdomen is flat, non-distended. : No signs and/or symptoms were reported regarding the genitourinary system. EENT: No signs and/or symptoms were reported regarding the EENT system. Derm: No signs and/or symptoms reported regarding the dermatologic system. Musculoskeletal: No signs and/or symptoms reported regarding the musculoskeletal system. 15:32 Reassessment: Patient appears in no apparent distress at this time. Patient is alert, ld1 oriented x 3, equal unlabored respirations, skin warm/dry/pink. Patient denies pain at this time. 16:48 Reassessment: Patient appears in no apparent distress at this time. Patient and/or ld1 family updated on plan of care and expected duration. Pain level reassessed. Patient is alert, oriented x 3, equal unlabored respirations, skin warm/dry/pink. 17:24 Reassessment: Patient appears in no apparent distress at this time. Patient and/or iw family updated on plan of care and expected duration. Pain level reassessed. Patient is alert, oriented x 3, equal unlabored respirations, skin warm/dry/pink. Vital Signs: 13:40 BP 117 / 70; Pulse 103; Resp 20; Temp 101; Pulse Ox 95% on R/A; Weight 108.86 kg (R); kg Height 5 ft. 7 in. (170.18 cm); Pain 4/10; 13:52 BP 123 / 69; Pulse 99; Resp 17; Temp 101.2(O); Pulse Ox 97% on R/A; Weight 108.8 kg; ld1 Height 5 ft. 11 in. (180.34 cm); 15:32 BP 118 / 83; Pulse 90; Resp 16; Pulse Ox 95% on R/A; ld1 16:48 BP 107 / 73; Pulse 87; Resp 18; Temp 98.9(O); Pulse Ox 96% on R/A; ld1 13:52 Body Mass Index 33.45 (108.80 kg, 180.34 cm) ld1 ED Course: 13:12 Patient arrived in ED. mr 13:42 Triage completed. kg 13:46 Arm band placed on left wrist. kg 13:47 Patient has correct armband on for positive identification. kg 13:47 No provider procedures requiring assistance completed. kg 13:50 Fareed Mac MD is Attending Physician. rn 13:52 Elvira Pelaez RN is Primary Nurse. ld1 14:34 XRAY Chest Pa And Lat (2 Views) In Process Unspecified. EDMS 17:24 Primary Nurse role handed off by Elvira Pelaez, DELIO iw 17:24 Lisbeth Esparza, DELIO is Primary Nurse. iw Administered Medications: 14:17 Drug: Tylenol 650 mg Route: PO; ld1 17:23 Drug: REGEN-COV Dose Pack 120 mg/mL-120 mg/mL (EUA) 600 mg Route: IV; Rate: calculated iw rate; Site: left antecubital; Outcome: 16:51 Discharge ordered by . rn 18:44 Patient left the ED. iw Signatures: Dispatcher [employer] EDND [place] mr Lisbeth Esparza, RN Fareed Joseph MD MD rn Dibbern, Lauren, RN RN ld1 Elham Lambert RN RN kg Corrections: (The following items were deleted from the chart) 13:45 13:42 PMHx: Diabetes - NIDDM; kg kg
[2020-12-19] MEDS ORDERED: CASIRIVIMAB/IMDEVIMAB 10 ML in NA CHLORIDE 0.9% 250 ML IV ONE (17:00)
[2020-12-19 18:56] VITALS: BP 107/73; TEMP 98.9; O2SAT 96
== END 2020-12-19 18:44 | disposition home or self-care (01) ==
LOC: ER 13:08
DX: U07.1 COVID-19 (principal); J12.82 Pneumonia due to coronavirus disease 2019; I10 Essential (primary) hypertension; I25.2 Old myocardial infarction
CPT/HCPCS: 87040 ×2; 85025; 80048; 36415; 82728; 84145; 0240U; 71046; 96374; 99283; J7050

== ENCOUNTER 2020-12-29 15:43 | Emergency (ER) | payer OTHER ==
--- OUTSIDE RECORDS SUMMARY | 2020-12-29 15:48 | XMS REPORT | Continuity of Care Document ---
:1940 Author Organization [facility] Address [address] [place] [address] Care Team Providers Name Role Phone Unavailable Unavailable Unavailable Problems This patient has no known problems. Allergies, Adverse Reactions, Alerts Allergy Allergy Status Severity Reaction(s) Onset Inactive Treating Comm ents Source Name Type Date Date Clinician Jalil Adverse Active Info Not [facility] Reaction Available [facility] ent Clinics Medications Ordered Filled Start Stop Current Ordering Indication Dosage Frequency Signature Comments Components Source Medication Medication Date Date Medication? Clinician (SIG) Name Name Juan Martinez 2020-0 2020- No Manjula [address] [facility] 8-09 11-06 [facility]00 l [facility] ent [facility] Enalapril Enalapril 2020-0 Yes Manjula [address] [facility] Maleate [facility]ate 2-18 Millender as needed [facility] - 00[facility]: for BP > [facility] 00 or = l 150/90 [facility] ent Clinics Prazosin Prazosin Yes Manjula [address] HCl HCl Millender at bedtime [facility] ent Clinics Finasteride Finasteride Yes Manjula [address] [facility] [address] [facility] ent Clinics Procedures This patient has no known procedures. Encounters Start End Encounter Admission Attending Care Care Encounter Source Date/Time Date/Time Type Type Clinicians Facility Department ID 2020-08-30 2020-08-30 Outpatient [facility] [id number] [facility] 2020-05-23 2020-05-23 Outpatient [facility] [id number] [facility] 2020-05-19 2020-05-19 Outpatient [facility] [id number] [facility] 2020-05-14 2020-05-14 Outpatient [facility] [id number] [facility] 2020-05-10 2020-05-10 Outpatient [facility] [id number] [facility] 2020-05-09 2020-05-09 Outpatient [facility] [id number] [facility] 2020-04-20 2020-04-20 Outpatient [facility] [id number] [facility] 2020-04-04 2020-04-04 Outpatient [facility] [id number] [facility] 2019-12-22 2019-12-22 [facility] [id number] [facility] 13:19:00 13:19:00 t [facility] Medicine Outpat[facility] Clinics 2019-12-19 2019-12-19 [facility] [id number] 01:36:00 01:36:00 t [facility] Medicine Outpat[facility] Clinics 2019-12-17 2019-12-17 [facility] [id number] [facility] 14:34:00 14:34:00 t [facility] Medicine l Medicine Outpati ent Clinics 2019-12-14 2019-12-14 [facility] [id number] [facility] 16[facility]40:00 16:40:00 t [facility] Outpat[facility] Clinics 2019-10-05 2019-10-05 Outpatient Madhav Dickinson [id number] [facility] 16:31:00 16:31:00 [facility] 2019-06-29 2019-06-29 Outpatient Madhav Dickinson [id number] [facility] 11:00:00 11:00:00 [facility] 2019-06-03 2019-06-03 Outpatient Madhav Dickinson [id number] [facility] 14:00:00 14:00:00 [facility] ent Clinics Results This patient has no known results.
--- NOTE | 2020-12-29 17:18 | RAD REPORT ---
EXAM DESCRIPTION: [place] Single View12/29/2020 5:08 pm CLINICAL HISTORY: Chest pain COMPARISON: December 20, 2019 FINDINGS: Moderate bilateral pulmonary opacities have progressed. Heart is normal size IMPRESSION: Moderate bilateral pulmonary opacities probably pneumonia
[2020-12-29 18:10] LABS: Protime INR 1.15
[2020-12-29 18:28] LABS: ALT/SGPT 33 U/L (12-78); AST/SGOT 17 U/L (15-37); Alkaline Phosphatase 60 U/L (45-117); BUN Blood Urea Nitrogen 17 mg/dL (7-18); Bicarbonate 26 mmol/L (21-32); Bilirubin Direct 0.1 mg/dL (0-0.2); Bilirubin Total 0.4 mg/dL (0.2-1.0); Glucose Level 76 mg/dL (74-106); Magnesium 2.4 mg/dL (1.8-2.4); NT PRO-BNP 61 pg/mL (<450); Potassium 4.3 mmol/L (3.5-5.1); Sodium Level 139 mmol/L (136-145); Troponin (Emerg Dept Use Only) < 0.02 ng/mL (0.0-0.045)
[2020-12-29 18:46] LABS: Absolute Lymphocytes (CBC) 2.1 K/uL (0.7-4.9); Basophils % 1.3 % (0-1.3); Hematocrit 37.3 % (39.6-49.0); Lymphocytes % 36.6 % (15.3-44.8); RBC Red Blood Cell Count 4.19 M/uL (4.33-5.43)
--- NOTE | 2020-12-29 19:45 | RAD REPORT ---
EXAM DESCRIPTION: CT - Chest For Pe Angio - 12/29/2020 7:32 pm CLINICAL HISTORY: sob COMPARISON: 2016 TECHNIQUE: Dynamically enhanced axial 3 mm thick images of the chest were obtained during administra tion of <100> mL Isovue 370 IV contrast. Coronal and oblique reconstruction images were generated and reviewed. Exam utilizes a protocol for optimal evaluation of pulmonary arterial tree. Maximum intensity projections 3D imaging was utilized All CT scans are performed using dose optimization technique as appropriate and may include automated exposure control or mA/KV adjustment according to patient size. FINDINGS: A pulmonary embolus is not seen. A thoracic aortic aneurysm is not noted. A pleural effusion is not seen. A pericardial effusion is not seen. Moderate bilateral ground-glass opacities within the lungs our IMPRESSION: Negative for a pulmonary embolism. Moderate bilateral ground-glass opacities within the lungs can be seen with Covid pneumonia
--- NOTE | 2020-12-29 20:27 | EDPHYS ---
Physician Documentation [facility] Name: Ruperto Villegas Age: 80 yrs Sex: Male : 1940 Arrival Date: 12/29/2020 Time: 15:45 Bed 14 Private MD: ED Physician Benton Starr HPI: 12/29 16:55 This 80 yrs old Black Male presents to ER via Ambulatory with complaints of covid+, jmm Cough, Chest Tightness, General Weakness. 16:55 Onset: The symptoms/episode began/occurred gradually, 1 week(s) ago. Modifying factors: jmm The symptoms are alleviated by nothing. the symptoms are aggravated by nothing. Associated signs and symptoms: Pertinent positives: chest pain, with cough. This is an 80-year-old male with a history of hypertension that presents to the emergency department with complaints of progressively worsening shortness of breath over the past week. Patient was recently diagnosed with coronavirus. Patient is currently taking azithromycin.. Historical: - Allergies: 16:39 No Known Allergies; kg - Home Meds: 16:39 benzonatate Oral [Active]; cyanocobalamin (vit B-12) miscellaneous [Active]; Famotidine kg Oral [Active]; ferrous fumarate Oral [Active]; finasteride Oral [Active]; loratadine Oral [Active]; Metoprolol Tartrate Oral [Active]; multivitamin Oral [Active]; prazosin 5 mg Oral cap at bedtime [Active]; pregabalin Oral [Active]; tamsulosin 0.4 mg Oral cap [Active]; Tramadol Oral [Active]; - PMHx: 16:39 Hypertension; Myocardial infarction; Prostate Cancer; kg - Immunization history:: Adult Immunizations up to date, Client reports receiving the 2nd dose of the Covid vaccine, Date received: July 07, 2020 [employer] Client reports receiving the 1st dose of the Covid vaccine, June 09, 2020 [employer]. - Social history:: Smoking status: Patient denies any tobacco usage or history of. Patient uses. ROS: 16:55 Constitutional: Negative for fever, chills, and weight loss, Cardiovascular: Negative jmm for chest pain, palpitations, and edema. 16:55 Abdomen/GI: Negative for abdominal pain, nausea, vomiting, diarrhea, and constipation, Back: Negative for injury and pain, Skin: Negative for injury, rash, and discoloration. 16:55 Respiratory: Positive for cough. 16:55 All other systems are negative. Exam: 16:55 Constitutional: This is a well developed, well nourished patient who is awake, alert, jmm and in no acute distress. Head/Face: atraumatic. Eyes: EOMI, no conjunctival erythema appreciated ENT: Moist Mucus Membranes Neck: Trachea midline, Supple Chest/axilla: Normal chest wall appearance and motion. Cardiovascular: Regular rate and rhythm. No edema appreciated Respiratory: Normal respirations, no respiratory distress appreciated Abdomen/GI: Non distended, soft Back: Normal ROM Skin: General appearance color normal MS/ Extremity: Moves all extremities, no obvious deformities appreciated, no edema noted to the lower extremities Neuro: Awake and alert, normal gait Psych: Behavior is normal, Mood is normal, Patient is cooperative and pleasant Vital Signs: 16:34 BP 139 / 95; Pulse 81; Resp 20; Temp 98.2(O); Pulse Ox 99% on R/A; Weight 108.86 kg kg (R); Height 5 ft. 7 in. (170.18 cm); Pain 0/10; 19:51 BP 153 / 89; Pulse 73; Resp 18; Pulse Ox 96% ; Pain 0/10; zb 16:34 Body Mass Index 37.59 (108.86 kg, 170.18 cm) kg MDM: 16:55 Patient medically screened. [facility] 20:25 Data reviewed: vital signs, nurses notes. Counseling: I had a detailed discussion with [facility] the patient and/or guardian regarding: the historical points, exam findings, and any diagnostic results supporting the discharge/admit diagnosis, lab results, radiology results, the need for outpatient follow up, to return to the emergency department if symptoms worsen or persist or if there are any questions or concerns that arise at home. ED course: Patient is alert and nontoxic in appearance in the ER. Pulse oximetry is normal. CTA of the chest does not show signs of pulmonary embolism. Patient will be prescribed with medication to help relieve symptomatology and is otherwise given strict return precautions. Patient understood and agrees to plan of care.. 12/29 16:55 Order name: Basic Metabolic Panel [facility] 12/29 16:55 Order name: CBC with Diff [facility] 12/29 16: Order name: LFT's; Complete Time: 18:34 [facility] 12/29 16:55 Order name: Magnesium; Complete Time: 18:34 [facility] 12/29 16:55 Order name: NT PRO-BNP; Complete Time: 18:34 [facility] 12/29 16:55 Order name: PT-INR; Complete Time: 18:34 [facility] 12/29 16:55 Order name: Troponin (emerg Dept Use Only); Complete Time: 18:34 [facility] 12/29 16:55 Order name: XRAY Chest (1 view); Complete Time: 17:20 [facility] 12/29 16:55 Order name: EKG; Complete Time: 16:56 [facility] 12/29 16:55 Order name: Cardiac monitoring; Complete Time: 19:46 [facility] 12/29 16:55 Order name: EKG - Nurse/Tech; Complete Time: 19:46 [facility] 12/29 16:56 Order name: Basic Metabolic Panel; Complete Time: 18:34 [facility] 12/29 16:56 Order name: CBC with Automated Diff; Complete Time: 18:52 [facility] 12/29 18:59 Order name: CT Chest For PE Angio; Complete Time: 19:47 [facility] 12/29 16:55 Order name: IV Saline Lock; Complete Time: 19:49 [facility] 12/29 16:55 Order name: Labs collected and sent; Complete Time: 19:49 [facility] 12/29 16:55 Order name: O2 Per Protocol; Complete Time: 19:49 [facility] 12/29 16:55 Order name: O2 Sat Monitoring; Complete Time: 19:49 [facility] Administered Medications: No medications were administered Disposition Summary: 12/29/20 20:26 Discharge Ordered Location: Home [facility] Condition: Stable [facility] Diagnosis - Coronavirus infection, unspecified [facility] Followup: [facility] - With: Private Physician - When: 2 - 3 days - Reason: Recheck today's complaints, Continuance of care, Re-evaluation by your physician Discharge Instructions: - Discharge Summary Sheet [facility] - COVID-19 [facility] Forms: - Medication Reconciliation Form [facility] - Thank You Letter [facility] - Antibiotic Education [facility] - Prescription Opioid Use [facility] Prescriptions: - ivermectin 3 mg Oral tablet - take 6 tablet by ORAL route as directed 6 tablets now and another 6 on day 3; [facility] 12 tablet; Refills: 0, Product Selection Permitted - Prednisone 20 mg Oral Tablet - take 3 tablets by ORAL route once daily for 5 days; 15 tablet; Refills: 0, raúl Product Selection Permitted Addendum: 12/31/2020 09:08 Co-signature as Attending Physician, Benton Starr MD I agree with the assessment and k plan of care. Signatures: Dispatcher [employer] EDBenton Cannon MD MD kdr Mickail, Joel, PA PA jmm Graham, Kristen, RN RN kg
--- NOTE | 2020-12-29 20:27 | ER ---
Nurse's Notes [facility] Name: Ruperto Villegas Age: 80 yrs Sex: Male : 1940 Arrival Date: 12/29/2020 Time: 15:45 Bed 14 Private MD: Diagnosis: Coronavirus infection, unspecified Presentation: 12/29 16:34 Chief complaint: Patient states: Coughing, chest pain, abdominal pain x1 day was sent kg over Dr. Bro. Coronavirus screen: Client denies travel out of the [place] in the last 14 days. At this time, unable to obtain information related to travel outside the [place] Client presents with at least one sign or symptom that may indicate coronavirus-19. Standard/surgical mask placed on the client. Provider contacted for isolation considerations. Client reports previous positive COVID test result. 16:34 Method Of Arrival: Ambulatory kg 16:34 Coronavirus screen: Client reports previous positive COVID test result. Date of kg collection: December 20, 2020. Ebola Screen: Patient negative for fever greater than or equal to 101.5 degrees Fahrenheit, and additional compatible Ebola Virus Disease symptoms Patient denies exposure to infectious person. Patient denies travel to an Ebola-affected area in the 21 days before illness onset. Initial Sepsis Screen: Does the patient meet any 2 criteria? No. Patient's initial sepsis screen is negative. Does the patient have a suspected source of infection? No. Patient's initial sepsis screen is negative. Risk Assessment: Do you want to hurt yourself or someone else? Patient reports no desire to harm self or others. Onset of symptoms was December 29, 2020. 16:34 Acuity: HENRIK 4 kg Triage Assessment: 16:39 General: Appears in no apparent distress. Behavior is calm, cooperative, appropriate kg for age, quiet. Pain: Complains of pain in epigastric area Pain currently is 4 out of 10 on a pain scale. at worst was 8 out of 10 on a pain scale. level that patient reports is acceptable is 3 out of 10 on a pain scale. Cardiovascular: Reports chest pain. Respiratory: Reports shortness of breath at rest cough that is productive. Historical: - Allergies: 16:39 No Known Allergies; kg - Home Meds: 16:39 benzonatate Oral [Active]; cyanocobalamin (vit B-12) miscellaneous [Active]; Famotidine kg Oral [Active]; ferrous fumarate Oral [Active]; finasteride Oral [Active]; loratadine Oral [Active]; Metoprolol Tartrate Oral [Active]; multivitamin Oral [Active]; prazosin 5 mg Oral cap at bedtime [Active]; pregabalin Oral [Active]; tamsulosin 0.4 mg Oral cap [Active]; Tramadol Oral [Active]; - PMHx: 16:39 Hypertension; Myocardial infarction; Prostate Cancer; kg - Immunization history:: Adult Immunizations up to date, Client reports receiving the 2nd dose of the Covid vaccine, Date received: July 07, 2020 [employer] Client reports receiving the 1st dose of the Covid vaccine, June 09, 2020 [employer]. - Social history:: Smoking status: Patient denies any tobacco usage or history of. Patient uses. Screenin:42 Abuse screen: Denies threats or abuse. Denies injuries from another. Nutritional kg screening: No deficits noted. Tuberculosis screening: No symptoms or risk factors identified. Fall Risk None identified. Assessment: 20:50 Also complains of no other symptoms. Pain: Denies pain. Neuro: No deficits noted. ms4 Cardiovascular: No deficits noted. Respiratory: No deficits noted. 20:51 Pain: Pain began suddenly. ms4 20:52 Pain: Pain does not radiate. ms4 Vital Signs: 16:34 BP 139 / 95; Pulse 81; Resp 20; Temp 98.2(O); Pulse Ox 99% on R/A; Weight 108.86 kg kg (R); Height 5 ft. 7 in. (170.18 cm); Pain 0/10; 19:51 BP 153 / 89; Pulse 73; Resp 18; Pulse Ox 96% ; Pain 0/10; zb 16:34 Body Mass Index 37.59 (108.86 kg, 170.18 cm) kg ED Course: 15:45 Patient arrived in ED. am2 16:39 Triage completed. kg 16:39 Ritesh Collazo PA is PHCP. [facility] 16:39 Benton Starr MD is Attending Physician. [facility] 16:39 Arm band placed on right wrist. kg 16:42 Patient has correct armband on for positive identification. kg 16:42 Patient maintains SpO2 saturation greater than 95% on room air. kg 17:08 XRAY Chest (1 view) In Process Unspecified. EDMS 19:31 CT Chest For PE Angio In Process Unspecified. EDMS 19:48 Basic Metabolic Panel Sent. zb 19:49 CBC with Diff Sent. zb 20:50 No provider procedures requiring assistance completed. IV discontinued, intact, ms4 bleeding controlled. 20:51 monitoring coordinator on. ms4 Administered Medications: No medications were administered Outcome: 20:26 Discharge ordered by . jmm 20:51 Discharged to home ambulatory. ms4 20:51 Condition: stable 20:51 Discharge instructions given to patient, Instructed on discharge instructions, follow up and referral plans. Demonstrated understanding of instructions, follow-up care, Prescriptions given X 2. 20:52 Patient left the ED. ms4 Signatures: Dispatcher [employer] EDMS Ritesh Collazo PA PA Lina Shine Zipporah, RN RN zb Graham, Kristen, RN RN kg Velia Saavedra RN RN ms4
[2020-12-29 20:58] VITALS: TEMP 98.2
[2020-12-29 20:59] VITALS: BP 153/89; O2SAT 96
--- NOTE | 2020-12-31 10:43 | EKG ---
Test Date: 2020-12-29 Test Time: 19:41:48 Butcher Assistant: KAREN MEASUREMENT RESULTS: Intervals: Rate: 74 IA: 170 QRSD: 90 QT: 404 QTc: 448 Brock: P: 51 IA: 170 QRS: 23 T: 42 INTERPRETIVE STATEMENTS: Normal sinus rhythm Normal ECG Compared to ECG 09/25/2018 08:40:10 No significant changes Electronically Signed On 12-31-20 10:40:09 CDT by Amadeo Velasquez
== END 2020-12-29 20:52 | disposition home or self-care (01) ==
LOC: ER 15:43
DX: U07.1 COVID-19 (principal); I10 Essential (primary) hypertension; I25.2 Old myocardial infarction; Z85.46 Personal history of malignant neoplasm of prostate
CPT/HCPCS: 93005; 85025; 80048; 36415; 83735; 85610; 80076; 84484; 83880; 71275; 71045; 99284; Q9967

== ENCOUNTER 2021-02-26 16:53 | Emergency (ER) | payer OTHER ==
--- NOTE | 2021-02-26 18:00 | RAD REPORT ---
EXAM DESCRIPTION: RAD - Chest Single View - 02/26/2021 5:39 pm CLINICAL HISTORY: Cough;Congestion COMPARISON: December [address] chest TECHNIQUE: AP portable chest image was obtained 02/26/2021 5:39 pm . FINDINGS: Lung volumes are low. Portable technique and body habitus further accentuate the exam limi tations. No new mass or consolidations seen. Interstitial markings are prominent. There is some minimal lower lung field airspace opacification which could be acute edema, acute infiltrate or remnant from the si gnificant pneumonia findings seen late December. Heart size is prominent. Central vasculature mildly prominent as well. No measurable pleural effusio n and no pneumothorax. No acute bony abnormality seen. No acute aortic findings suspected. IMPRESSION: Heart, vasculature and lung markings are mildly prominent. Pattern suggests mild failure or volume overload. This needs clinical correlation. Minimal lung base opacification may be remnant from the significant pneumonia findings seen in December . Recurrent infiltrate or acute edema are possible.
[2021-02-26 18:26] LABS: ALT/SGPT 25 U/L (12-78); AST/SGOT 17 U/L (15-37); Albumin 3.1 g/dL (3.4-5.0); Alkaline Phosphatase 58 U/L (45-117); BUN Blood Urea Nitrogen 14 mg/dL (7-18); Bicarbonate 28 mmol/L (21-32); Bilirubin Direct < 0.1 mg/dL (0-0.2); Bilirubin Total 0.4 mg/dL (0.2-1.0); Glucose Level 83 mg/dL (74-106); NT PRO-BNP 48 pg/mL (<450); Potassium 3.9 mmol/L (3.5-5.1); Protein, Total 6.7 g/dL (6.4-8.2); Sodium Level 142 mmol/L (136-145); Troponin (Emerg Dept Use Only) < 0.02 ng/mL (0.0-0.045)
--- NOTE | 2021-02-26 19:15 | EDPHYS ---
Physician Documentation [facility] Name: Ruperto Villegas Age: 81 yrs Sex: Male : 1940 Arrival Date: 02/26/2021 Time: 16:59 Bed 8 Private MD: ED Physician Roxy Bro HPI: 02/26 17:29 This 81 yrs old Black Male presents to ER via Ambulatory with complaints of Cough, kb Congestion. 17:29 The patient or guardian reports cough, that is intermittent, described as moderate, kb with productive sputum. Onset: The symptoms/episode began/occurred 18 day(s) ago. Severity of symptoms: At their worst the symptoms were moderate, in the emergency department the symptoms are unchanged. Modifying factors: The symptoms are alleviated by nothing, the symptoms are aggravated by nothing. Associated signs and symptoms: Pertinent positives: chest pain, Pertinent negatives: diarrhea, ear ache, fever, nausea, rhinorrhea, sore throat, vomiting. The patient has not experienced similar symptoms in the past. The patient has not recently seen a physician. Pt reports cough, congestion and chest pain that started on 02/09/21 after getting a covid booster and flu shot. 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 States chest pain on left side of chest, worse with cough, but always there. Had covid in December and tested negative since then. . Historical: - Allergies: 17:13 No Known Allergies; ld1 - Home Meds: 17:13 tamsulosin 0.4 mg Oral cap [Active]; losartan 25 mg oral tab [Active]; omeprazole 20 mg ld1 Oral TbEC [Active]; - PMHx: 17:13 Hypertension; Myocardial infarction; Prostate Cancer; ld1 - PSHx: 17:13 right shoulder; ld1 17:14 Appendectomy; ld1 - Immunization history:: Adult Immunizations Adult Immunizations up to date, Client reports receiving the 2nd dose of the Covid vaccine. - Social history:: Smoking status: Patient denies any tobacco usage or history of. Patient/guardian denies using alcohol, street drugs. ROS: 17:28 Constitutional: Negative for fever, chills, and weight loss. kb 17:28 Cardiovascular: Positive for chest pain, of the anterior aspect of left upper chest. 17:28 Respiratory: Positive for cough, "sounds productive". 17:28 All other systems are negative. Exam: 17:29 Constitutional: This is a well developed, well nourished patient who is awake, alert, kb and in no acute distress. Head/Face: Normocephalic, atraumatic. ENT: Moist Mucous membranes Cardiovascular: Regular rate and rhythm with a normal S1 and S2. No gallops, murmurs, or rubs. No pulse deficits. Respiratory: Respirations even and unlabored. No increased work of breathing, no retractions or nasal flaring. Skin: Warm, dry with normal turgor. Normal color. MS/ Extremity: Pulses equal, no cyanosis. Neurovascular intact. Full, normal range of motion. Neuro: Awake and alert, GCS 15, oriented to person, place, time, and situation. Moves all extremities. Normal gait. Psych: Awake, alert, with orientation to person, place and time. Behavior, mood, and affect are within normal limits. Vital Signs: 17:09 BP 135 / 80; Pulse 65; Resp 18; Temp 98.3(O); Pulse Ox 98% on R/A; Weight 110.22 kg; ld1 Height 5 ft. 7 in. (170.18 cm); Pain 8/10; 17:58 BP 130 / 83; Pulse 59; Resp 21; Pulse Ox 97% on R/A; mh5 19:00 BP 139 / 78; Pulse 54; Resp 17; Pulse Ox 100% ; bp 17:09 Body Mass Index 38.06 (110.22 kg, 170.18 cm) ld1 MDM: 17:18 Patient medically screened. kb 17:28 Data reviewed: vital signs, nurses notes. Data interpreted: Pulse oximetry: on room air kb is 98 %. Interpretation: normal. 19:14 Counseling: I had a detailed discussion with the patient and/or guardian regarding: the kb historical points, exam findings, and any diagnostic results supporting the discharge/admit diagnosis, lab results, radiology results, the need for outpatient follow up, a family practitioner, to return to the emergency department if symptoms worsen or persist or if there are any questions or concerns that arise at home. 19:44 ED course: Discussed admission with pt. Pt does not want to be admitted at this time. kb States he has already been cleared by cardiology and will follow up with Dr Bro. States he just needs something for the cough and congestion. 02/26 17:27 Order name: Basic Metabolic Panel kb 02/26 17:27 Order name: CBC with Diff kb 02/26 17:27 Order name: LFT's; Complete Time: 18:28 kb 02/26 17:27 Order name: Magnesium; Complete Time: 18:28 kb 02/26 17:27 Order name: NT PRO-BNP; Complete Time: 18:28 kb 02/26 17:27 Order name: PT-INR; Complete Time: 19:28 kb 02/26 17:18 Order name: Chest Single View XRAY; Complete Time: 18:01 kb 02/26 17:27 Order name: Troponin (emerg Dept Use Only); Complete Time: 18:28 kb 02/26 17:27 Order name: EKG; Complete Time: 17:27 kb 02/26 17:27 Order name: Cardiac monitoring; Complete Time: 17:56 kb 02/26 17:27 Order name: Basic Metabolic Panel; Complete Time: 18:28 EDMS 02/26 17:27 Order name: CBC with Automated Diff; Complete Time: 19:28 EDMS 02/26 17:27 Order name: EKG - Nurse/Tech; Complete Time: 17:56 kb 02/26 17:27 Order name: IV Saline Lock; Complete Time: 17:56 kb 02/26 17:27 Order name: Labs collected and sent; Complete Time: 17:56 kb 02/26 17:27 Order name: O2 Per Protocol; Complete Time: 17:56 kb 02/26 17:27 Order name: O2 Sat Monitoring; Complete Time: 17:56 kb Administered Medications: 19:25 Drug: Rocephin (cefTRIAXone) 1 grams Route: IV; Rate: calculated rate; Site: left df1 antecubital; 19:40 Drug: Zofran (Ondansetron) 4 mg Route: IVP; Site: left antecubital; df1 Disposition: 02/27 14:24 Co-signature as Attending Physician, Roxy Bro MD I agree with the assessment and sp3 plan of care. Disposition Summary: 02/26/21 19:14 Discharge Ordered Location: Home kb Condition: Stable kb Diagnosis - Cough kb Followup: kb - With: Emergency Department - When: As needed - Reason: Worsening of condition Followup: kb - With: Private Physician - When: 2 - 3 days - Reason: Recheck today's complaints, Continuance of care, Re-evaluation by your physician Discharge Instructions: - Discharge Summary Sheet kb - Cough, Adult, [id number] kb Forms: - Medication Reconciliation Form kb - Thank You Letter kb - Antibiotic Education kb - Prescription Opioid Use kb Prescriptions: - Tessalon Perles 100 mg Oral Capsule - take 1 capsule by ORAL route every 8 hours As needed; 15 capsule; Refills: 0, kb Product Selection Permitted - Zithromax 500 mg Oral Tablet - take 1 tablet by ORAL route once daily for 5 days; 5 tablet; Refills: 0, kb Product Selection Permitted Signatures: Dispatcher [employer] EDJayne Farmer, JONATHAN-C JONATHAN-Elvira Byrd RN RN ld1 Roxy Bro MD MD sp3 Jenny Aguilar df1
--- NOTE | 2021-02-26 19:15 | ER ---
Nurse's Notes [facility] Name: Ruperto Villegas Age: 81 yrs Sex: Male : 1940 Arrival Date: 02/26/2021 Time: 16:59 Bed 8 Private MD: Diagnosis: Cough Presentation: 02/26 17:09 Chief complaint: Patient states: "I got my booster shot and flu shot on 02/08/2021." ld1 Cough, congestion since 02/09/2021. C/O chest pain due to coughing. Pt saw Dr. Sierra 02/22/2021, reports no issues. Denies fever. Coronavirus screen: Client presents with at least one sign or symptom that may indicate coronavirus-19. Ebola Screen: No symptoms or risks identified at this time. Initial Sepsis Screen: Does the patient meet any 2 criteria? No. Patient's initial sepsis screen is negative. Does the patient have a suspected source of infection? No. Patient's initial sepsis screen is negative. Risk Assessment: Do you want to hurt yourself or someone else? Patient reports no desire to harm self or others. Onset of symptoms was February 09, 2021. 17:09 Method Of Arrival: Ambulatory ld1 17:09 Acuity: HENRIK 3 ld1 Triage Assessment: 17:14 General: Appears in no apparent distress. comfortable, Behavior is calm, cooperative, ld1 appropriate for age. Pain: Complains of pain in anterior aspect of left upper chest and left breast Pain radiates to right subscapular area Pain currently is 8 out of 10 on a pain scale. Quality of pain is described as pressure, throbbing, Pain began Is intermittent. EENT: No signs and/or symptoms were reported regarding the EENT system. Neuro: Level of Consciousness is awake, alert, obeys commands, Oriented to person, place, time, situation. Cardiovascular: Reports chest pain, Capillary refill < 3 seconds Patient's skin is warm and dry. Respiratory: Airway is patent Respiratory effort is even, unlabored, Respiratory pattern is regular, symmetrical, Breath sounds are clear bilaterally. GI: Abdomen is round non-distended. : No signs and/or symptoms were reported regarding the genitourinary system. Derm: No signs and/or symptoms reported regarding the dermatologic system. Musculoskeletal: Reports pain in left scapular area, left subscapular area, anterior aspect of left upper chest and left breast. Historical: - Allergies: 17:13 No Known Allergies; ld1 - Home Meds: 17:13 tamsulosin 0.4 mg Oral cap [Active]; losartan 25 mg oral tab [Active]; omeprazole 20 mg ld1 Oral TbEC [Active]; - PMHx: 17:13 Hypertension; Myocardial infarction; Prostate Cancer; ld1 - PSHx: 17:13 right shoulder; ld1 17:14 Appendectomy; ld1 - Immunization history:: Adult Immunizations Adult Immunizations up to date, Client reports receiving the 2nd dose of the Covid vaccine. - Social history:: Smoking status: Patient denies any tobacco usage or history of. Patient/guardian denies using alcohol, street drugs. Screenin:15 Abuse screen: Denies threats or abuse. Denies injuries from another. Nutritional bp screening: No deficits noted. Tuberculosis screening: No symptoms or risk factors identified. Fall Risk None identified. Assessment: 17:15 General: SEE TRIAGE NOTE. bp Vital Signs: 17:09 BP 135 / 80; Pulse 65; Resp 18; Temp 98.3(O); Pulse Ox 98% on R/A; Weight 110.22 kg; ld1 Height 5 ft. 7 in. (170.18 cm); Pain 8/10; 17:58 BP 130 / 83; Pulse 59; Resp 21; Pulse Ox 97% on R/A; mh5 19:00 BP 139 / 78; Pulse 54; Resp 17; Pulse Ox 100% ; bp 17:09 Body Mass Index 38.06 (110.22 kg, 170.18 cm) ld1 ED Course: 16:59 Patient arrived in ED. ds1 17:13 Triage completed. ld1 17:14 Arm band placed on right wrist. ld1 17:18 Jayne Bess FNP-C is PHCP. kb 17:18 Roxy Bro MD is Attending Physician. kb 17:39 Chest Single View XRAY In Process Unspecified. EDMS 17:56 Basic Metabolic Panel Sent. mh5 17:56 CBC with Automated Diff Sent. mh5 17:56 Basic Metabolic Panel Sent. mh5 17:56 CBC with Diff Sent. mh5 17:56 LFT's Sent. mh5 17:57 Patient has correct armband on for positive identification. Bed in low position. Call [facility] light in reach. Side rails up X 1. Warm blanket given. monitor car operator on. Pulse ox on. NIBP on. 17:[address] [facility] 17:57 NT PRO-BNP Sent. [facility] 17:57 PT-INR Sent. [facility] 17:57 Troponin (emerg Dept Use Only) Sent. [facility] 17:57 Initial lab(s) drawn, by nm, sent to lab. Inserted saline lock: [address] [facility] antecubital area, using aseptic technique. Blood collected. 19:02 Roni Curran, RN is Primary Nurse. bp 19:54 No provider procedures requiring assistance completed. IV discontinued, intact. df1 Administered Medications: 19:25 Drug: Rocephin (cefTRIAXone) 1 grams Route: IV; Rate: calculated rate; Site: left df1 antecubital; 19:40 Drug: Zofran (Ondansetron) 4 mg Route: IVP; Site: left antecubital; df1 Outcome: 19:14 Discharge ordered by . kb 19:54 Discharged to home ambulatory. df1 19:54 Condition: good 19:54 Discharge instructions given to patient, Instructed on discharge instructions, Demonstrated understanding of instructions, follow-up care, medications, Prescriptions given X 2. 19:56 Patient left the ED. df1 Signatures: Dispatcher [employer] EDMS Jayne Bess, JET BLADE POLISHERMainor JET BLADE POLISHER-Yareli Motley dsShiela [facility] Roni Curran, RN RN bp Elvira Pelaez RN RN ld1 Jenny Aguilar df1
[2021-02-26 19:23] LABS: Absolute Lymphocytes (CBC) 2.3 K/uL (0.7-4.9); Basophils % 0.9 % (0-1.3); Hematocrit 36.5 % (39.6-49.0); Lymphocytes % 47.9 % (15.3-44.8); MPV 8.3 fL (7.6-11.3); Protime INR 1.09; RBC Red Blood Cell Count 4.08 M/uL (4.33-5.43)
[2021-02-26] MEDS ORDERED: CEFTRIAXONE 1000 MG/VIAL ONE (19:45)
[2021-02-26] MEDS ORDERED: ONDANSETRON 4 MG/2 ML VIAL ONE (19:54)
[2021-02-26 20:02] VITALS: TEMP 98.3
[2021-02-26 20:05] VITALS: BP 139/78; O2SAT 100
--- NOTE | 2021-02-27 16:45 | EKG ---
Test Date: 2021-02-26 Test Time: 17:38:45 Glove Parts Inspector: KAREN MEASUREMENT RESULTS: Intervals: Rate: 63 CA: 152 QRSD: 94 QT: 420 QTc: 429 Newman: P: 54 CA: 152 QRS: 8 T: 25 INTERPRETIVE STATEMENTS: Sinus rhythm with premature supraventricular complexes Minimal voltage criteria for LVH, may be normal variant Borderline ECG Compared to ECG 12/29/2020 19:41:48 Atrial premature complex(es) now present Left ventricular hypertrophy now present Electronically Signed On 02-27-21 16:41:16 CDT by Amadeo Velasquez
== END 2021-02-26 19:56 | disposition home or self-care (01) ==
LOC: ER 16:53
DX: R05.9 Cough, unspecified (principal); I10 Essential (primary) hypertension; I25.2 Old myocardial infarction; Z86.16 Personal history of COVID-19; Z85.46 Personal history of malignant neoplasm of prostate
CPT/HCPCS: 93005; 85025; 80048; 36415; 83735; 85610; 80076; 84484; 83880; 71045; 96375; 96374; 99284; J2405

== ENCOUNTER 2021-06-19 08:01 | Day surgery (SDC) | payer OTHER ==
[2021-06-14 13:19] LABS: Hematocrit 39.8 % (39.6-49.0); Lymphocytes % 41.1 % (15.3-44.8); MPV 8.3 fL (7.6-11.3); Protime INR 0.97; RBC Red Blood Cell Count 4.36 M/uL (4.33-5.43)
--- NOTE | 2021-06-14 13:27 | RAD REPORT ---
EXAM DESCRIPTION: RAD - Chest Pa And Lat (2 Views) - 06/14/2021 1:08 pm CLINICAL HISTORY: pre op pending turp Chest pain. COMPARISON: Chest Single View dated 02/26/2021; Chest Single View dated 12/29/2020; Chest Pa And Lat (2 Views) dated 12/19/2020; Chest Pa And Lat (2 Views) dated 09/25/2018 FINDINGS: The lungs are clear. The heart is upper limit of normal in size. No displaced fractures.
[2021-06-14 14:04] LABS: BUN Blood Urea Nitrogen 13 mg/dL (7-18); Bicarbonate 28 mmol/L (21-32); Glucose Level 92 mg/dL (74-106); Potassium 4.2 mmol/L (3.5-5.1); Sodium Level 140 mmol/L (136-145)
[2021-06-14 15:05] LABS: Blood Morphology Comment NOT SEEN (NOT SEEN); Platelet Estimate ADEQ
[~2021-06-19 08:01] MED LIST: AMPICILLIN SODIUM 2 GM in NA CHLORIDE 0.9% 100 ML IVPB SCH; Gentamicin Inj 240 MG in NA CHLORIDE 0.9% 100 ML IV SCH
[2021-06-19] MEDS ORDERED: Ringers Lactate 1,000 ML IV ONE (08:27)
[2021-06-19] MEDS ORDERED: CELECOXIB 100 MG CAPSULE ONE (08:46)
[2021-06-19] MEDS ORDERED: ACETAMINOPHEN 500 MG TAB ONE (08:46)
[2021-06-19] MEDS ORDERED: FENTANYL CITR 100 MCG/2 ML ONE (10:03)
[2021-06-19] MEDS ORDERED: LIDOCAINE 1% MPF 5 ML VIAL ONE (10:04)
[2021-06-19] MEDS ORDERED: propofoL 200 MG/20 ML VIAL IV ONE (10:04)
[2021-06-19] MEDS ORDERED: ONDANSETRON 4 MG/2 ML VIAL ONE ×2 (10:29→11:52)
[2021-06-19] MEDS ORDERED: KETOROLAC 30 MG/ML INJ ONE (10:36)
[2021-06-19] MEDS: HYDROMORPHONE HCL 1 MG/ML INJ ONE ×4 (11:42→11:49)
[2021-06-19 11:52] VITALS: O2SAT 99
[2021-06-19] MEDS ORDERED: OPIUM/BELLADONNA SUPPOS (30-16.2 MG) PR ONE (11:54)
[2021-06-19 12:15] VITALS: TEMP 96.8
[2021-06-19] MEDS ORDERED: CODEINE 30MG/APAP 300MG TAB ONE ×2 (13:09→14:53)
[2021-06-19] MEDS: CODEINE 30MG/APAP 300MG TAB PO PRN ×2 (13:10→14:53)
--- NOTE | 2021-06-19 13:25 | OP ---
Surgeon: REAL HAWK Preoperative Diagnosis: Benign prostatic hypertrophy with lower urinary tract obstruction and sympto ms. Postoperative Diagnosis: Benign prostatic hypertrophy with lower urinary tract obstruction and sympt oms. Principle Procedure: 1.Bipolar transurethral resection of the prostate. 2.Meatal dilation using sounds. Indication For Procedure: Mr. Villegas is an 81-year-old gentleman, who presented to the Urology Clini c with bothersome urinary symptoms and cystoscopic evidence of significant lateral lobar hypertrophy with median lobar intravesical projection causing obstruction. He was counseled on options for manag ement and recommended for bipolar TURP given the intravesical component of his gland. Risks and side effects were discussed in detail and he consented to proceed today. Procedure In Detail: The patient was consented in the preoperative holding area before being transfe rred to operative suite where general anesthesia was induced. He was given ampicillin 2 g and gentam icin IV antimicrobial prophylaxis. Pneumo boots were provided for DVT prophylaxis. He was placed in the lithotomy position, padded and secured to the table appropriately. His genitalia were prepped u sing Hibiclens and draped in standard fashion. The case was begun using urethral sounds to dilate th e meatus and fossa navicularis to 30-Persian. Then using a visual obturator and the 26-Persian resecto scope, the urethra was traversed and the bladder entered. Of note, there was some mild strictured na rrowing in the region of the bulb, which was able to be traversed via pressure with the resectoscope. The prostatic urethra was traversed and the bladder was entered. It was decompressed of fluid and urine, and then refilled and distended accordingly. The ureteral orifices were then visualized and t he median lobar intravesical projection was then resected removing it from abutting the trigone with each ureteral orifice under direct visualization before the remainder of the median lobe was resected down to the level of the bladder neck. The resection then continued down through the midportion of the prostate to the level of the verumontanum creating a nice smooth trough. Once created, I then co ntinued the resection up the left lateral wall of the prostate to the anterior zone, initially at the bladder neck and then resecting the adenoma extending apically. I then completed the same approach on the right side until a nice trough was created. Prostate chips were Ellik evacuated from the [facility] em at various stages along the process, and continued resection was performed in order to create a s mooth trough from the bladder neck down to the level of the verumontanum. The interdigitating and ov erlapping anterior apical overhanging was resected until the lateral lobes were no longer kissing at the level of the verumontanum. Once completely resected, I carefully fulgurated each and all bleedin g vessels, and again Fidel evacuated any prostate chips from within the bladder. With the bladder de compressed, additional fulguration was performed of any venous ooze until the prostatic fossa was com pletely hemostatic. I then filled the bladder and removed the resectoscope before replacing a 24-Donte nch 3-way Mendez catheter into his bladder with ease. A 50 cc of sterile water was placed in the ball oon and the catheter was placed on moderate traction. He was taken out of the lithotomy position, aw akened from general anesthesia, transferred to a stretcher and then transferred to the recovery room in good condition. Complications: None. Discharge Disposition: He should follow up in the Urology Clinic on Friday or Friday for catheter re moval and voiding trial. If done on Friday, we will provide an additional dose of antimicrobial prop hylaxis, but if done on Friday, he has a prescription for Bactrim that will carry him through. VIK/ENEDELIA Voice ID: [id number] Report ID: [id number]
[2021-06-19 15:33] VITALS: BP 153/90
--- NOTE | 2021-06-20 12:50 | EKG ---
Test Date: 2021-06-19 Test Time: 09:00:13 Policy Checker: ALEJANDRO MEASUREMENT RESULTS: Intervals: Rate: 55 MD: 166 QRSD: 92 QT: 414 QTc: 396 [place]: P: 83 MD: 166 QRS: 24 T: 37 INTERPRETIVE STATEMENTS: Sinus bradycardia Otherwise normal ECG Compared to ECG 02/26/2021 17:38:45 Sinus rhythm no longer present Atrial premature complex(es) no longer present Left ventricular hypertrophy no longer present Electronically Signed On 06-20-21 12:46:54 DEPARTMENT CLERK by Amadeo Velasquez
== END 2021-06-19 14:55 | disposition home or self-care (01) ==
LOC: OR 08:01
PROVIDERS: ATTEND Urology
PROC: 0T7D8ZZ Dilation of Urethra, Via Natural or Artificial Opening Endoscopic (ICD-10-PCS; 2021-06-19)
PROC: 0VT08ZZ Resection of Prostate, Via Natural or Artificial Opening Endoscopic (ICD-10-PCS; principal; 2021-06-19 09:00)
DX: N40.1 Benign prostatic hyperplasia with lower urinary tract symptoms (principal); Z20.822 Contact with and (suspected) exposure to COVID-19
CPT/HCPCS: 93005; 87088; 85025; 87086; 80048; 36415; 85610; 88305; 71046; 52601; 52281; U0002; J2704; J1580; J3010; J1170; J7120; J2405 ×2; J0290

== ENCOUNTER 2021-10-02 16:46 | Emergency (ER) | payer OTHER ==
--- OUTSIDE RECORDS SUMMARY | 2021-10-02 16:49 | XMS REPORT | Continuity of Care Document ---
:1940 Author Organization [facility] t Address [address] [place] [address] Dr. Segovia [address] [place] [address] Care Team Providers Name Role Phone Anthony Bro Attending Clinician Unavailable Simin Attending Clinician Unavailable Anthony MENDOZA Attending Clinician Unavailable Payers Payer Name Policy Type Policy Number Effective Date Expiration Date S [place] [facility] [id number] 2019 00:00:00 HMO Problems This patient has no known problems. Allergies, Adverse Reactions, Alerts Allergy Allergy Status Severity Reaction(s) Onset Inactive Treating Comm ents Source Name Type Date Date Clinician NO KNOWN Drug Active [facility]ERGIE [facility] Adverse Active Info Not Commo n in HCl Reaction Available Sp[facility] t [facility] Medications Ordered Filled Start Stop Current Ordering Indication Dosage Frequency Signature Comments Components Source Medication Medication Date Date Medication? Clinician (SIG) Name Name Juan Martinez 2020- No Manjula 1 capsule Common 12-18 11-06 [facility] 00:00: 00:00 - [facility] 00 :00 [facility] Enalapril Enalapril 2019-0 Yes Manjula 1 tablet Common Maleate Maleate 2-18 Millender as needed Spirit 00:00: for BP > - [facility] 00 or = [facility] 150[facility]90 [facility] Prazosin Prazosin Yes Manjula 1 capsule C ommon HCl HCl Millender at bedtime Spir it - [facility] Finasteride Finasteride Yes Manjula 1 tablet Common [facility] - [facility] Procedures This patient has no known procedures. Encounters Start End Encounter Admission Attending Care Care Encounter Source Date/Time Date/Time Type Type Clinicians Facility Department ID 2021-10-02 Outpatient Bro, [facility] Common 10:41:01 [facility] 2021-07-03 Outpatient Bro, [facility] Common 09:55:00 [facility] 2021-06-06 Outpatient Bro, [facility] Common 14:08:59 [facility] 2021-06-06 Outpatient Bro, [facility] Common 13:56:13 Alfredo [id number] [facility] 2021-06-06 Outpatient Bro, [facility] Common 13:55:45 Alfredo [id number] [facility] 2021-06-06 Outpatient Bro, [facility] Common 13:55:30 Alfredo [id number] [facility] 2021-06-06 Outpatient Bro, [facility] Common 13:48:21 Alfredo [facility] 2021-06-06 Outpatient Bro, [facility] Common 13:38:04 Alfredo [id number] [facility] 2021-06-06 Outpatient Bro, [facility] Common 12:54:27 Alfredo [id number] [facility] 2021-06-06 Outpatient Bro, [facility] Common 12:32:42 Alfredo [id number] [facility] 2021-06-06 Outpatient Bro, [facility] Common 12:31:53 Alfredo [id number] [facility] 2021-06-06 Outpatient Bro, [facility] Common 12:24:28 Alfredo [id number] [facility] 2021-06-06 Outpatient [facility] [id number] Common 12:07:49 [id number] [facility] 2021-06-06 Outpatient Millender, [facility]C [facility] [id number] Common 12:07:22 Manjula [id number] [facility] 2021-06-06 Outpatient Millender, [facility] [id number] Common 11:02:56 Manjula [id number] [facility] 2021-06-06 Outpatient Millender, [facility]C [facility] [id number] Common 11:02:49 Manjula [id number] [facility] 2021-09-20 2021-09-20 ambulatory [facility] [id number] Common 00:00:00 00:00:00 [facility] 2021-09-12 2021-09-12 ambulatory [facility] [id number] Common 00:00:00 00:00:00 [facility] 2021-09-12 2021-09-12 ambulatory [facility] [id number] Common 00:00:00 00:00:00 [facility] 2021-08-22 2021-08-22 ambulatory [facility] [id number] Common 00:00:00 00:00:00 [facility] 2021-07-19 2021-07-19 ambulatory [facility] [id number] Common 00:00:00 00:00:00 [facility] 2021-07-03 2021-07-03 ambulatory [facility] [id number] Common 00:00:00 00:00:00 [facility] 2021-07-03 2021-07-03 ambulatory [facility] [id number] Common 00:00:00 00:00:00 [facility] 2021-06-29 2021-06-29 ambulatory [facility] [id number] Common 00:00:00 00:00:00 [facility] 2021-06-22 2021-06-22 ambulatory [facility] [id number] Common 00:00:00 00:00:00 [facility] 2021-05-28 2021-05-28 ambulatory [facility] [id number] Common 00:00:00 00:00:00 [facility] 2021-05-23 2021-05-23 ambulatory [facility] [id number] Common 00:00:00 00:00:00 [facility] 2021-03-15 2021-03-15 ambulatory [facility] [id number] Common 00:00:00 00:00:00 [facility] 2021-03-07 2021-03-07 Outpatient [facility] [id number] Common 00:00:00 00:00:00 [facility] 2021-02-26 2021-02-26 Outpatient [facility] [id number] Common 00:00:00 00:00:00 [facility] 2021-02-12 2021-02-12 Outpatient [facility] [id number] Common 00:00:00 00:00:00 [facility] 2021-02-12 2021-02-12 Outpatient [facility] [id number] Common 00:00:00 00:00:00 [facility] 2021-02-12 2021-02-12 Outpatient [facility] [id number] Common 00:00:00 00:00:00 [facility] 2021-01-03 2021-01-03 Outpatient [facility] [id number] Common 00:00:00 00:00:00 [facility] 2021-01-03 2021-01-03 Outpatient [facility] [id number] Common 00:00:00 00:00:00 [facility] 2020-12-29 2020-12-29 Outpatient [facility] [id number] Common 00:00:00 00:00:00 [facility] 2020-08-30 2020-08-30 Outpatient [facility] [id number] Common 00:00:00 00:00:00 [facility] 2020-07-07 2020-07-07 Outpatient R [facility] [id number] Univers 10:30:00 10:30:00 [id number] [facility] 2020-07-07 2020-07-07 Outpatient R REJI, [facility] [id number] Univers 10:30:00 10:30:00 MARISEL [facility] 2020-06-30 2020-06-30 Outpatient R REJI, [facility] [id number] Univers 10:30:00 10:30:00 MARISEL [id number] [facility] 2020-06-30 2020-06-30 Outpatient R REJI, [facility] [id number] Univers 10:30:00 10:30:00 [facility]ISEL [facility] 2020-06-09 2020-06-09 Outpatient R REJI, [facility] [id number] Univers 09:50:00 09:50:00 MARISEL [facility] 2020-05-23 2020-05-23 Outpatient [facility] [id number] Common 00:00:00 00:00:00 [facility] 2020-05-19 2020-05-19 Outpatient [facility] [id number] Common 00:00:00 00:00:00 [facility] 2020-05-14 2020-05-14 Outpatient [facility] [id number] Common 00:00:00 00:00:00 [facility] 2020-05-10 2020-05-10 Outpatient [facility] [id number] Common 00:00:00 00:00:00 [facility] 2020-05-09 2020-05-09 Outpatient [facility] [id number] Common 00:00:00 00:00:00 [facility] 2020-04-20 2020-04-20 Outpatient [facility] [id number] Common 00:00:00 00:00:00 [facility] 2020-04-04 2020-04-04 Outpatient [facility] [id number] Common 00:00:00 00:00:00 [facility] 2019-12-22 2019-12-22 [id number] Common 13:19:00 13:19:[address] [facility] 2019-12-19 2019-12-19 [facility] [id number] Common 01:36:00 01:36:[address] [facility] 2019-12-17 2019-12-17 [facility] [id number] Common 14:34:00 14:34:[address] [facility] 2019-12-14 2019-12-14 [facility] [id number] Common 16:40:00 16:40:[address] [facility] 2019-10-05 2019-10-05 [facility] [id number] Common 16:31:00 16:31:[address] [facility] 2019-06-29 2019-06-29 [facility] [id number] Common 11:00:00 11:00:[address] [facility] 2019-06-03 2019-06-03 [facility] [id number] Common 14:00:00 14:00:[address] [facility] Results This patient has no known results.
[2021-10-02] MEDS ORDERED: NA CHLORIDE 0.9% 500 ML ONE (17:37)
[2021-10-02 17:57] LABS: Absolute Lymphocytes (CBC) 2.5 K/uL (0.7-4.9); Hematocrit 38.9 % (39.6-49.0); Lymphocytes % 46.2 % (15.3-44.8); MPV 8.1 fL (7.6-11.3)
[2021-10-02 18:16] LABS: Potassium 3.8 mmol/L (3.5-5.1)
[2021-10-02] MEDS ORDERED: OSELTAMIVIR 75 MG CAP ONE (18:31)
--- NOTE | 2021-10-02 18:51 | EDPHYS ---
Physician Documentation [facility] Name: Ruperto Villegas Age: 81 yrs Sex: Male : 1940 Arrival Date: 10/02/2021 Time: 16:48 Bed 17 Private MD: Dieud[facility] ED Physician Fareed Mac HPI: 10/02 17:58 This 81 yrs old Black Male presents to ER via Ambulatory with complaints of Dizziness, rn Weakness, Cough, Fatigue. 18:00 The patient or guardian reports cough, that is intermittent, described as mild, with rn productive sputum. Onset: The symptoms/episode began/occurred 4 day(s) ago. Severity of symptoms: At their worst the symptoms were mild, in the emergency department the symptoms are unchanged. Modifying factors: The symptoms are alleviated by nothing, the symptoms are aggravated by nothing. Associated signs and symptoms: Pertinent positives: rhinorrhea, Pertinent negatives: chest pain, fever, vomiting. The patient has experienced similar episodes in the past. The patient has not recently seen a physician. Pt reports 4-5 days of cough, productive sputum, sinus pressure, congestion, chills, fatigue, malaise. NO sob. Reports hx of pneumonia. . Historical: - Allergies: 17:14 No Known Allergies; aa5 - PMHx: 17:14 Hypertension; Myocardial infarction; Prostate Cancer; aa5 - PSHx: 17:14 Appendectomy; right shoulder; aa5 - Immunization history:: Adult Immunizations up to date. - Social history:: Smoking status: Patient denies any tobacco usage or history of. - Family history:: not pertinent. - Hospitalizations: : No recent hospitalization is reported. ROS: 18:00 Constitutional: Negative for fever, chills, and weight loss, Eyes: Negative for injury, rn pain, redness, and discharge, ENT: + sinus pressure and congestion Cardiovascular: Negative for chest pain, palpitations, and edema, Respiratory: + cough Abdomen/GI: Negative for abdominal pain, nausea, vomiting, diarrhea, and constipation, MS/Extremity: Negative for injury and deformity, Skin: Negative for injury, rash, and discoloration, Neuro: + generalized weakness Exam: 18:00 Constitutional: This is a well developed, well nourished patient who is awake, alert, rn and in no acute distress. Ambulatory to and from bathroom without assistance. Head/Face: Normocephalic, atraumatic. Eyes: Periorbital areas with no swelling, redness, or edema. Cardiovascular: Regular rate and rhythm. No pulse deficits. Respiratory: No increased work of breathing, no retractions or nasal flaring. Abdomen/GI: soft, non-tender Skin: Warm, dry MS/ Extremity: Pulses equal, no cyanosis. Neuro: Awake and alert, GCS 15 Vital Signs: 17:14 BP 140 / 81; Pulse 81; Resp 16 S; Temp 97.7(O); Pulse Ox 98% on R/A; Weight 111.58 kg aa5 (R); Height 5 ft. 7 in. (170.18 cm) (R); 17:55 BP 142 / 93; Pulse 64; Pulse Ox 97% on R/A; ap3 18:42 BP 136 / 81; ap3 17:14 Body Mass Index 38.53 (111.58 kg, 170.18 cm) aa5 MDM: 17:18 Patient medically screened. rn 18:43 Differential Diagnosis: Bronchitis Influenza Upper Respiratory Infection Sinusitis rn Pharyngitis Viral Syndrome Pneumonia. 18:50 Data reviewed: vital signs, nurses notes, lab test result(s), radiologic studies, plain rn films, and as a result, I will discharge patient. Counseling: I had a detailed discussion with the patient and/or guardian regarding: the historical points, exam findings, and any diagnostic results supporting the discharge/admit diagnosis, lab results, radiology results, the need for outpatient follow up, to return to the emergency department if symptoms worsen or persist or if there are any questions or concerns that arise at home. Medical screen evaluation completed. [facility] emergency medical condition absent. Response to treatment: the patient's symptoms have mildly improved after treatment, and as a result, I will discharge patient. Special discussion: I discussed with the patient/guardian in detail that at this point there is no indication for admission to the hospital. It is understood, however, that if the symptoms persist or worsen the patient needs to return immediately for re-evaluation. 10/02 17:30 Order name: CBC with Diff; Complete Time: 18:10 rn 10/02 17:30 Order name: Basic Metabolic Panel; Complete Time: 18:17 rn 10/02 17:30 Order name: Procalcitonin; Complete Time: 18:42 rn 10/02 17:30 Order name: Flu; Complete Time: 18:42 rn 10/02 17:30 Order name: SARS-COV-2 RT PCR (Document "Date of Onset" if Symptomatic); Complete Time: rn 18:50 10/02 17:30 Order name: Strep; Complete Time: 18:17 rn 10/02 17:30 Order name: IV Start; Complete Time: 17:47 rn 10/02 17:30 Order name: XRAY Chest (1 view) rn 10/02 17:30 Order name: Cardiac monitoring; Complete Time: 17:47 rn 10/02 17:30 Order name: O2 Sat Monitoring; Complete Time: 17:30 rn 10/02 18:17 Order name: Throat Culture EDMS Administered Medications: 17:47 Drug: NS 0.9% 500 ml Route: IV; Rate: bolus; Site: left antecubital; ap3 18:32 Drug: Tamiflu (oseltamivir) 75 mg Route: PO; ap3 18:58 Follow up: Response: No adverse reaction ap3 Disposition Summary: 10/02/21 18:50 Discharge Ordered Location: Home rn Problem: new rn Symptoms: have improved rn Condition: Stable rn Diagnosis - Influenza due to other identified influenza virus with other respiratory rn manifestations Followup: rn - With: Private Physician - When: As needed - Reason: Recheck today's complaints, Re-evaluation by your physician Discharge Instructions: - Discharge Summary Sheet rn - Influenza, Adult rn Forms: - Medication Reconciliation Form rn - Thank You Letter rn - Antibiotic field return repairer - Prescription Opioid Use rn Prescriptions: - Tamiflu 75 mg Oral Capsule - take 1 tablet by ORAL route every 12 hours for 5 days; 10 tablet; Refills: 0, rn Product Selection Permitted Signatures: Dispatcher [employer] EDMS Fareed Mac MD MD rn Calderon, Audri, RN RN aa5 Lina Sanchez RN RN ap3
--- NOTE | 2021-10-02 18:51 | ER ---
Nurse's Notes [facility] Name: Ruperto Villegas Age: 81 yrs Sex: Male : 1940 Arrival Date: 10/02/2021 Time: 16:48 Bed 17 Private MD: Alfredo Bro Diagnosis: Influenza due to other identified influenza virus with other respiratory manifestations Presentation: 10/02 17:13 Chief complaint: Patient states: fatigue, cough, generalized weakness, headache, chest aa5 pain, and chills that began 5 days ago. 17:13 Method Of Arrival: Ambulatory aa5 17:13 Acuity: HENRIK 3 aa5 17:13 Onset of symptoms was September 2021. aa5 17:14 Coronavirus screen: cough unrelated to allergies, fatigue. Ebola Screen: No symptoms or aa5 risks identified at this time. Initial Sepsis Screen: Does the patient meet any 2 criteria? No. Patient's initial sepsis screen is negative. Does the patient have a suspected source of infection? No. Patient's initial sepsis screen is negative. Risk Assessment: Do you want to hurt yourself or someone else? Patient reports no desire to harm self or others. Triage Assessment: 17:20 General: Appears in no apparent distress. comfortable, Behavior is calm, cooperative, ap3 appropriate for age. Historical: - Allergies: 17:14 No Known Allergies; aa5 - PMHx: 17:14 Hypertension; Myocardial infarction; Prostate Cancer; aa5 - PSHx: 17:14 Appendectomy; right shoulder; aa5 - Immunization history:: Adult Immunizations up to date. - Social history:: Smoking status: Patient denies any tobacco usage or history of. - Family history:: not pertinent. - Hospitalizations: : No recent hospitalization is reported. Screenin:20 Abuse screen: Denies threats or abuse. Nutritional screening: No deficits noted. ap3 Tuberculosis screening: No symptoms or risk factors identified. Fall Risk None identified. Assessment: 17:29 General: Appears in no apparent distress. comfortable, Behavior is calm, cooperative, ap3 appropriate for age. Pain: Complains of pain in generalized body aches Pain began gradually, 2-3 days ago. Neuro: Level of Consciousness is awake, alert, obeys commands, Oriented to person, place, time, situation, Appropriate for age Gait is steady, Speech is normal. Cardiovascular: Patient's skin is warm and dry. Respiratory: Reports cough that is non-productive, Airway is patent Respiratory effort is even, unlabored. 18:42 Reassessment: Patient and/or family updated on plan of care and expected duration. Pain ap3 level reassessed. Patient is alert, oriented x 3, equal unlabored respirations, skin warm/dry/pink. Vital Signs: 17:14 BP 140 / 81; Pulse 81; Resp 16 S; Temp 97.7(O); Pulse Ox 98% on R/A; Weight 111.58 kg aa5 (R); Height 5 ft. 7 in. (170.18 cm) (R); 17:55 BP 142 / 93; Pulse 64; Pulse Ox 97% on R/A; ap3 18:42 BP 136 / 81; ap3 17:14 Body Mass Index 38.53 (111.58 kg, 170.18 cm) aa5 ED Course: 16:48 Patient arrived in ED. mr 16:48 Alfredo Bro, is Private Physician. mr 17:13 Arm band placed on. aa5 17:14 Triage completed. aa5 17:18 Fareed Mac MD is Attending Physician. rn 17:19 Lina Sanchez, DELIO is Primary Nurse. ap3 17:19 Patient has correct armband on for positive identification. Bed in low position. Call ap3 light in reach. Side rails up X 1. Door closed. Noise minimized. 17:46 Inserted saline lock: 20 gauge in left antecubital area, using aseptic technique. Blood ap3 collected. 17:47 Flu Sent. ap3 17:47 Strep Sent. ap3 17:47 SARS-COV-2 RT PCR (Document "Date of Onset" if Symptomatic) Sent. ap3 17:47 Initial lab(s) drawn, by me, sent to lab. COVID swab sent to lab. Flu and/or RSV swab ap3 sent to lab. Strep swab sent to lab. 18:18 ED physician to see patient. ap3 18:19 No provider procedures requiring assistance completed. ap3 18:28 XRAY Chest (1 view) In Process Unspecified. EDMS 18:58 IV discontinued, intact, bleeding controlled, No redness/swelling at site. Pressure ap3 dressing applied. Administered Medications: 17:47 Drug: NS 0.9% 500 ml Route: IV; Rate: bolus; Site: left antecubital; ap3 18:32 Drug: Tamiflu (oseltamivir) 75 mg Route: PO; ap3 18:58 Follow up: Response: No adverse reaction ap3 Medication: 17:20 VIS not applicable for this client. ap3 Outcome: 18:50 Discharge ordered by . rn 18:58 Discharged to home ambulatory. ap3 18:58 Condition: good 18:58 Discharge instructions given to patient, Instructed on discharge instructions, follow up and referral plans. medication usage, Demonstrated understanding of instructions, follow-up care, medications, Prescriptions given X 1. 18:58 Patient left the ED. ap3 Signatures: Dispatcher [employer] [facility] Le Cowan Roman, MD MD rn Calderon, Audri RN RN aa5 Lina Sanchez RN RN ap3
--- NOTE | 2021-10-02 19:17 | RAD REPORT ---
EXAM DESCRIPTION: RAD - Chest Single View - 10/02/2021 6:27 pm CLINICAL HISTORY: COUGH COMPARISON: Two view chest 06/14/2021 TECHNIQUE: AP portable chest image was obtained 10/02/2021 6:27 pm . FINDINGS: Lung volumes are low. Large body habitus and under penetrated technique accentuate chest f indings. No focal mass or consolidation. Heart and vasculature are normal. No measurable pleural effu sravan and no pneumothorax. No acute bony abnormality seen. No acute aortic findings suspected. IMPRESSION: Limited portable study without acute cardiopulmonary finding.
[2021-10-02 19:26] VITALS: TEMP 97.7
[2021-10-02 19:27] VITALS: O2SAT 97
[2021-10-02 19:28] VITALS: BP 136/81
== END 2021-10-02 18:58 | disposition home or self-care (01) ==
LOC: ER 16:46
DX: J10.1 Influenza due to other identified influenza virus with other respiratory manifestations (principal); I10 Essential (primary) hypertension; I25.2 Old myocardial infarction; Z20.822 Contact with and (suspected) exposure to COVID-19; Z85.46 Personal history of malignant neoplasm of prostate
CPT/HCPCS: 87070; 85025; 80048; 36415; 87081; 84145; 87804 ×2; 71045; 99284; U0003; J7040

== ENCOUNTER 2023-08-17 20:10 | Emergency (ER) | payer MEDICARE, OTHER ==
--- OUTSIDE RECORDS SUMMARY | 2023-08-17 20:18 | XMS REPORT | Continuity of Care Document ---
Author Name Unknown Address [address] [place] [address] [facility] thconnect Address [address] [place] [address] Care Team Providers Care Dice Table Operator Name Role Phone Alfredo Bro Primary Care Physician [phone] Alfredo Bro Attending Clinician Unavailable Manjula Duval Attending Clinician Unavailable Adri Infante MD Attending Clinician [phone] Heaven Walters Attending Clinician Doctor Unassigned, [place] Attending Clinician U navailable BREEZY JEAN BAPTISTE Attending Clinician Unavailable Breezy Jean Baptiste MD Attending Clinician [phone] ADRI INFANTE Attending Clinician Unavailable Cam Del Valle MD Attending Clinician [phone] CAM DEL VALLE Attending Clinician Unavail able CAM DEL VALLE Attending Clinician Unavail able NEISHA BRUCE Attending Clinician Unavailable Neisha Bruce MD Attending Clinician [phone] MARISEL MENDOZA Attending Clinician Unavailable Alfredo Bro Admitting Clinician Unavailable NEISHA BRUCE Admitting Clinician Unavailable Payers Payer Name Policy Type Policy Number Effective Date Expirati on Date Source [employer] [place] O [id number] 2023 00:00:00 [place] [id number] 2021 00:00:00 [place] [id number] 2021 00:00:00 [place] [id number] 2021 00:00:00 [facility] HUMANA GOLD PLS O [id number] 2019 00:00:00 Problems Condition Name Condition Details Condition Category Status Onset Date Resolution Date Last Treatment Date Treating Clinician Comments Source History of TIA (transient ischemic attack) History of TIA (transient ischemic attack) Disease Active 2022-05 00:00: 00 [facility] Hypertensi on, unspecifie d type Hypertensi on, unspecifie d type Disease Active 2022-05 00:00: 00 [facility] 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 Disease Active 2022-05 00:00: 00 [facility] [id number] History of prostate cancer Problem [facility] [id number] Constipati on, unspecifie d constipati on type Problem [facility] [id number] Mixed hyperlipid emia Problem [facility] [id number] Lumbago with sciatica, left side Problem [facility] [id number] Forgetfuln ess Problem [facility] Obesity Obesity (BMI 30-39.9) Problem [facility] [id number] OAB (overactiv e bladder) Problem [facility] [id number] BPH loc w urin obs/LUTS Problem [facility] [id number] S/P radiation therapy Problem [facility] [id number] S/P TURP Problem Commo n [facility] [id number] Adenocarci noma of prostate Problem [facility] Allergic rhinitis Acute allergic rhinitis due to fungal spores Problem [facility] [id number] Redundant prepuce Problem [facility] [id number] Cancer of prostate with intermedia te recurrence risk (stage T2b-c or Carmela 7 or PSA 10-20) Problem [facility] [id number] Chronic fatigue Problem [facility] [id number] Urge incontinen ce Problem Common [facility] Amnesia Memory changes Problem [facility] [id number] 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 Problem [facility] [id number] Gross hematuria Problem [facility] [id number] Acute cystitis with hematuria Problem [facility] [id number] Postproced ural bulbous urethral stricture Problem [facility] Postoperat rodolfo urethral stricture Postproced ural bulbous urethral stricture, male Problem [facility] [id number] Fever with chills Problem [facility] [id number] Glaucoma of both eyes, unspecifie d glaucoma type Problem [facility] [id number] Right testicular pain Problem [facility] [id number] Pain in right leg Problem [facility] [id number] Pain in left leg Problem [facility] [id number] Other chronic pain Problem [facility] [id number] Lumbago with sciatica, right side Problem [facility] [id number] Encounter for general adult medical examinatio n with abnormal findings Problem [facility] [id number] Sore throat Problem [facility] [id number] Cough Problem [facility] [id number] Essential (primary) hypertensi on Problem [facility] [id number] GERD without esophagiti s Problem [facility] [id number] Testicular swelling Problem [facility] [id number] Elevated blood pressure reading without diagnosis of hypertensi on Problem [facility] [id number] Detrusor instabilit y Problem [facility] Impotence of organic origin Erectile dysfunctio n, unspecifie d erectile dysfunctio n type Problem [facility] [id number] Morbid obesity due to excess calories Problem [facility] Left testicular pain Left testicular pain Problem [facility] Allergies, Adverse Reactions, Alerts Allergy Name Allergy Type Status Severity Reaction(s) Onset Date Inactive Date Treating Clinician Comments Source STRAWBER RY DRUG INGREDI Active Unknown-Cmnt 2022-05 00:00: 00 [facility] Strawber ry Propensi ty to adverse reaction s Active Unknown - See comments 2022-05 00:00: 00 [facility] NO KNOWN ALLERGIE S Drug Class Active [facility] Social History Social Habit Start Date Stop Date Quantity Comments Source [facility] of [facility] use Passive smoker [facility] Tobacco use and exposure 2023-03-25 00:00:00 2023-03-25 00:00:00 Smokeless tobacco non-user [facility] History of Social function 2023-03-25 00:00:00 2023-03-25 00:00:00 [facility] Sex Ass[birth year] At 1940 00:00:00 1940 00:00:00 [facility] Smoking Status Start Date Stop Date Source Tobacco smoking consumption unknown [facility] Never Smoker [facility] Ex-smoker 2023-03-25 00:00:00 2023-03-25 00:00:00 [facility] Medications Ordered Medication Name Filled Medication Name Start Date Stop Date Current Medication? Ordering Clinician Indication Dosage Frequency Signature (SIG) Comments Components Source aspirin 81 mg chewable tablet 08-14 09:49: 31 Yes 81mg Take 1 tablet by mouth in the morning. [facility] metoprolol tartrate 25 mg tablet 08-14 09:48: 51 Yes 12.5mg Take 0.5 tablets by mouth in the morning and 0.5 tablets in the evening. [facility] NaCl 0.9% (NS) injection 6 mL 06-10 21:00: 00 06-10 20:17 :00 No [id number] 6mL [facility] alprostadiL (EDEX) injection 25 mcg 06-10 20:45: 00 06-10 20:17 :00 No [id number] 25ug [facility] phenylephri ne (VAZCULEP) injection 0.2 mg 06-10 20:45: 00 06-10 20:17 :00 No [id number] .2mg [facility] phenylephri ne (VAZCULEP) injection 0.2 mg 06-10 20:45: 00 06-10 20:17 :00 No [id number] 200ug 0.2 mg (200 mcg), Intravenou s, ONCE, 1 dose, On Fri06/10/23 at 1445, Routine [facility] sulfur hexafluorid e microsphr (LUMASON) injection 5 mL 05-14 22:00: 00 05-14 21:50 :00 No [id number] 5mL 5 mL, Intravenou s, ONCE, 1 dose, On Fri05/14/23 at 1600, Routine
member services representative approving Restricted medication : CAL VELARDE [facility] donepeziL 5 mg tablet 2022-05 2-04 00:00: 00 Yes [facility] sildenafiL 100 mg tablet 2022-05 00:00: 00 Yes PLEASE SEE ATTACHED FOR DETAILED DIRECTIONS [facility] atorvastati n 20 mg tablet 2022-05- 00:00: 00 Yes [id number] 20mg Take 1 tablet by mouth in the morning. [facility] aspirin tablet 325 mg 2022-05 23:30: 00 03-02 23:31 :00 No 325mg 325 mg, Oral, ONCE, 1 dose, On 03/02/23 at 1830, STAT [facility] iopamidol (ISOVUE 370-500 mL) injection 90 mL 2022-05 23:15: 00 03-02 23:15 :00 No [id number] 90mL 90 mL, Intravenou s, ONCE, 1 dose, On Fri03/02/23 at 1815, Routine [facility] NaCl 0.9% (NS) injection 5 mL 2022-05 21:43: 56 Yes 5mL 5 mL, Slow IV Push, PRN - SEE INSTRUCTIO NS, Starting on Fri03/02/23 at 1643, Until Discontinu ed, 10 mL [facility] Benzonatate 200 MG Benzonatate 200 MG 2022-05 0 00:00: 00 No 1{capsu le_as_n eeded} Benzonatat e 200 MG methylPREDN ISolone 4 MG methylPREDN ISolone 4 MG 2022-05 0 00:00: 00 No QD methylPRED NISolone 4 MG Azithromyci n 250 MG Azithromyci n 250 MG 2022-05 00:00: 00 No QD Azithromyc in 250 MG LUMIGAN 0.01 % ophthalmic drops 2022-05 0 00:00: 00 Yes [facility] solifenacin 10 mg tablet 02-04 00:00: 00 Yes [facility] finasteride 5 mg tablet 12-10 00:00: 00 Yes 5mg 1 tablet. [facility] gabapentin 300 mg capsule 12-10 00:00: 00 Yes 300mg 1 capsule. [facility] tamsulosin 0.4 mg 24 hr capsule 12-10 00:00: 00 Yes .8mg 2 capsules. [facility] furosemide 40 mg tablet 12-10 00:00: 00 Yes 40mg 1 tablet. [facility] enalapril 10 mg tablet 12-10 00:00: 00 08-14 00:00 :00 No 10mg Take 1 tablet by mouth in the morning and 1 tablet in the evening. [facility] Viagra 100 MG Viagra 100 MG 2021-05 2 00:00: 00 11-07 00:00 :00 No QD Viagra 100 MG Viagra 100 MG Viagra 100 MG 2021-05 2- 00:00: 00 11-07 00:00 :00 No QD Viagra 100 MG Viagra 100 MG Viagra 100 MG 2021-05 2- 00:00: 00 11-07 00:00 :00 No QD Viagra 100 MG Viagra 100 MG Viagra 100 MG 2021-05 2- 00:00: 00 11-07 00:00 :00 No QD Viagra 100 MG Viagra 100 MG Viagra 100 MG 2021-05 00:00: 00 11-07 00:00 :00 No QD Viagra 100 MG Benzonatate 200 MG Benzonatate 200 MG 2021-05 00:00: 00 04-23 00:00 :00 No 1{capsu le_as_n eeded} Benzonatat e 200 MG Benzonatate 200 MG Benzonatate 200 MG 2021-05 00:00: 00 04-23 00:00 :00 No 1{capsu le_as_n eeded} Benzonatat e 200 MG Benzonatate 200 MG Benzonatate 200 MG 2021-05 00:00: 00 04-23 00:00 :00 No 1{capsu le_as_n eeded} Benzonatat e 200 MG Benzonatate 200 MG Benzonatate 200 MG 2021-05 00:00: 00 04-23 00:00 :00 No 1{capsu le_as_n eeded} Benzonatat e 200 MG Benzonatate 200 MG Benzonatate 200 MG 2021-05 00:00: 00 04-23 00:00 :00 No 1{capsu le_as_n eeded} Benzonatat e 200 MG methylPREDN ISolone 4 MG methylPREDN ISolone 4 MG 2021-05 00:00: 00 04-15 00:00 :00 No QD methylPRED NISolone 4 MG methylPREDN ISolone 4 MG methylPREDN ISolone 4 MG 2021-05 00:00: 00 04-15 00:00 :00 No QD methylPRED NISolone 4 MG methylPREDN ISolone 4 MG methylPREDN ISolone 4 MG 2021-05 00:00: 00 04-15 00:00 :00 No QD methylPRED NISolone 4 MG methylPREDN ISolone 4 MG methylPREDN ISolone 4 MG 2021-05 00:00: 00 04-15 00:00 :00 No QD methylPRED NISolone 4 MG Azithromyci n 250 MG Azithromyci n 250 MG 2021-05 00:00: 00 04-14 00:00 :00 No QD Azithromyc in 250 MG Azithromyci n 250 MG Azithromyci n 250 MG 2021-05 00:00: 00 04-14 00:00 :00 No QD Azithromyc in 250 MG Azithromyci n 250 MG Azithromyci n 250 MG 2021-05 00:00: 00 04-14 00:00 :00 No QD Azithromyc in 250 MG Myrbetriq 25 MG Myrbetriq 25 MG 2-0 8-03 00:00: 00 08-13 00:00 :00 No 1{table t} QD Myrbetriq 25 MG Myrbetriq 25 MG Myrbetriq 25 MG 2-0 8-03 00:00: 00 08-13 00:00 :00 No 1{table t} QD Myrbetriq 25 MG Myrbetriq 25 MG Myrbetriq 25 MG 2-0 8-03 00:00: 00 08-13 00:00 :00 No 1{table t} QD Myrbetriq 25 MG Myrbetriq 25 MG Myrbetriq 25 MG 2-0 8-03 00:00: 00 08-13 00:00 :00 No 1{table t} QD Myrbetriq 25 MG Myrbetriq 25 MG Myrbetriq 25 MG 2-0 8-03 00:00: 00 04-11 00:00 :00 No 1{table t} QD Myrbetriq 25 MG Myrbetriq 25 MG Myrbetriq 25 MG 2022-0 8-03 00:00: 00 04-11 00:00 :00 No 1{table t} QD Myrbetriq 25 MG Myrbetriq 25 MG Myrbetriq 25 MG 2022-0 8-03 00:00: 00 04-11 00:00 :00 No 1{table t} QD Myrbetriq 25 MG Myrbetriq 25 MG Myrbetriq 25 MG 2022-0 8-03 00:00: 00 04-11 00:00 :00 No 1{table t} QD Myrbetriq 25 MG Myrbetriq 25 MG Myrbetriq 25 MG 2-0 8-03 00:00: 00 04-11 00:00 :00 No 1{table t} QD Myrbetriq 25 MG Myrbetriq 25 MG Myrbetriq 25 MG 2-0 8-03 00:00: 00 04-11 00:00 :00 No 1{table t} QD Myrbetriq 25 MG Myrbetriq 25 MG Myrbetriq 25 MG 2-0 8-03 00:00: 00 04-11 00:00 :00 No 1{table t} QD Myrbetriq 25 MG Myrbetriq 25 MG Myrbetriq 25 MG 2022-0 8-03 00:00: 00 04-11 00:00 :00 No 1{table t} QD Myrbetriq 25 MG Myrbetriq 25 MG Myrbetriq 25 MG 2-0 8-03 00:00: 00 04-11 00:00 :00 No 1{table t} QD Myrbetriq 25 MG Amoxicillin -Pot Clavulanate 875-125 MG Amoxicillin -Pot Clavulanate 875-125 MG 2-0 7-05 00:00: 00 11-23 00:00 :00 No 1{table t} BID Amoxicilli n-Pot Clavulanat e 875-125 MG VESIcare 10 MG VESIcare 10 MG 2-0 5-04 00:00: 00 No 1{table t} QD VESIcare 10 MG VESIcare 10 MG VESIcare 10 MG 2022-0 5-04 00:00: 00 No 1{table t} QD VESIcare 10 MG VESIcare 10 MG VESIcare 10 MG 2022-0 5-04 00:00: 00 No 1{table t} QD VESIcare 10 MG VESIcare 10 MG VESIcare 10 MG 2022-0 5-04 00:00: 00 No 1{table t} QD VESIcare 10 MG VESIcare 10 MG VESIcare 10 MG 2022-0 5-04 00:00: 00 No 1{table t} QD VESIcare 10 MG VESIcare 10 MG VESIcare 10 MG 2022-0 5-04 00:00: 00 No 1{table t} QD VESIcare 10 MG VESIcare 10 MG VESIcare 10 MG 2022-0 5-04 00:00: 00 No 1{table t} QD VESIcare 10 MG VESIcare 10 MG VESIcare 10 MG 2022-0 5-04 00:00: 00 No 1{table t} QD VESIcare 10 MG VESIcare 10 MG VESIcare 10 MG 2022-0 5-04 00:00: 00 No 1{table t} QD VESIcare 10 MG VESIcare 10 MG VESIcare 10 MG 2022-0 5-04 00:00: 00 No 1{table t} QD VESIcare 10 MG VESIcare 10 MG VESIcare 10 MG 2022-0 5-04 00:00: 00 No 1{table t} QD VESIcare 10 MG VESIcare 10 MG VESIcare 10 MG 2022-0 5-04 00:00: 00 30 00:00 :00 No 1{table t} QD VESIcare 10 MG VESIcare 10 MG VESIcare 10 MG 2022-0 5-04 00:00: 00 -30 00:00 :00 No 1{table t} QD VESIcare 10 MG VESIcare 10 MG VESIcare 10 MG 2022-0 5-04 00:00: 00 01-10 00:00 :00 No 1{table t} QD VESIcare 10 MG VESIcare 10 MG VESIcare 10 MG 2022-0 5-04 00:00: 00 01-10 00:00 :00 No 1{table t} QD VESIcare 10 MG VESIcare 5 MG VESIcare 5 MG 4-13 00:00: 00 01-19 00:00 :00 No 1{table t} QD VESIcare 5 MG VESIcare 5 MG VESIcare 5 MG 2020-05 1-04 00:00: 00 06-12 00:00 :00 No 1{table t} QD VESIcare 5 MG VESIcare 5 MG 2020-05 1-04 00:00: 00 06-12 00:00 :00 No 1{table t} QD VESIcare 5 MG ProAir HFA 108 (90 Base) MCG/ACT ProAir HFA 108 (90 Base) MCG/ACT 2020- 8 00:00: 00 No 2{puffs _as_nee ded} ProAir HFA 108 (90 Base) MCG/ACT ProAir HFA 108 (90 Base) MCG/ACT ProAir HFA 108 (90 Base) MCG/ACT 2020-01-03 00:00: 00 No 2{puffs _as_nee ded} ProAir HFA 108 (90 Base) MCG/ACT Pulse Oximeter For Finger - Pulse Oximeter For Finger - 2020-1 2 00:00: 00 No Pulse Oximeter For Finger - Pulse Oximeter For Finger - Pulse Oximeter For Finger - 2020-1 2 00:00: 00 No Pulse Oximeter For Finger - Pulse Oximeter For Finger - Pulse Oximeter For Finger - 2020-1 2 00:00: 00 No Pulse Oximeter For Finger - Pulse Oximeter For Finger - Pulse Oximeter For Finger - 2020-1 230 00:00: 00 No Pulse Oximeter For Finger - Pulse Oximeter For Finger - Pulse Oximeter For Finger - 2020-1 2 00:00: 00 No Pulse Oximeter For Finger - Pulse Oximeter For Finger - Pulse Oximeter For Finger - 2020-1 2 00:00: 00 No Pulse Oximeter For Finger - Pulse Oximeter For Finger - Pulse Oximeter For Finger - 2020-1 2 00:00: 00 No Pulse Oximeter For Finger - Pulse Oximeter For Finger - Pulse Oximeter For Finger - 2020-1 2 00:00: 00 No Pulse Oximeter For Finger - Pulse Oximeter For Finger - Pulse Oximeter For Finger - 2019-05 00:00: 00 No Pulse Oximeter For Finger - Pulse Oximeter For Finger - Pulse Oximeter For Finger - 2019-05 00:00: 00 No Pulse Oximeter For Finger - Pulse Oximeter For Finger - Pulse Oximeter For Finger - 2019-05 00:00: 00 No Pulse Oximeter For Finger - Pulse Oximeter For Finger - Pulse Oximeter For Finger - 2019-05 00:00: 00 No Pulse Oximeter For Finger - Pulse Oximeter For Finger - Pulse Oximeter For Finger - 2019-05 00:00: 00 No Pulse Oximeter For Finger - Pulse Oximeter For Finger - Pulse Oximeter For Finger - 2019-05 00:00: 00 No Pulse Oximeter For Finger - Pulse Oximeter For Finger - Pulse Oximeter For Finger - 2019-05 00:00: 00 No Pulse Oximeter For Finger - Pulse Oximeter For Finger - Pulse Oximeter For Finger - 2019-05 00:00: 00 No Pulse Oximeter For Finger - Albuterol Sulfate HFA 108 (90 Base) MCG/ACT Albuterol Sulfate HFA 108 (90 Base) MCG/ACT 2019-05 00:00: 00 No 2{puffs _as_nee ded} 6xD Albuterol Sulfate HFA 108 (90 Base) MCG/ACT Pulse Oximeter For Finger - Pulse Oximeter For Finger - 2019-05 00:00: 00 No Pulse Oximeter For Finger - Pulse Oximeter For Finger - Pulse Oximeter For Finger - 2019-05 00:00: 00 No Pulse Oximeter For Finger - Fluticasone Propionate 50 MCG/ACT Fluticasone Propionate 50 MCG/ACT 2019-05 00:00: 00 No 2{spray s_in_ea ch_nost ril} BID Fluticason e Propionate 50 MCG/ACT Meclizine HCl 12.5 MG Meclizine HCl 12.5 MG 2019-05 00:00: 00 No 2{table ts_as_n eeded} QD Meclizine HCl 12.5 MG Pulse Oximeter For Finger - Pulse Oximeter For Finger - 2019-05 00:00: 00 No Pulse Oximeter For Finger - Fluticasone Propionate 50 MCG/ACT Fluticasone Propionate 50 MCG/ACT 2019- 00:00: 00 No 2{spray s_in_ea ch_nost ril} BID Fluticason e Propionate 50 MCG/ACT Albuterol Sulfate HFA 108 (90 Base) MCG/ACT Albuterol Sulfate HFA 108 (90 Base) MCG/ACT 2019- 00:00: 00 No 2{puffs _as_nee ded} 6xD Albuterol Sulfate HFA 108 (90 Base) MCG/ACT Pulse Oximeter For Finger - Pulse Oximeter For Finger - 2019- 00:00: 00 No Pulse Oximeter For Finger - Meclizine HCl 12.5 MG Meclizine HCl 12.5 MG 2019-05 00:00: 00 No 2{table ts_as_n eeded} QD Meclizine HCl 12.5 MG Pulse Oximeter For Finger - Pulse Oximeter For Finger - 2019- 00:00: 00 No Pulse Oximeter For Finger - Pulse Oximeter For Finger - Pulse Oximeter For Finger - 2019- 00:00: 00 No Pulse Oximeter For Finger - Pulse Oximeter For Finger - Pulse Oximeter For Finger - 2019-1 00:00: 00 No Pulse Oximeter For Finger - Pulse Oximeter For Finger - Pulse Oximeter For Finger - 2019- 00:00: 00 No Pulse Oximeter For Finger - Pulse Oximeter For Finger - Pulse Oximeter For Finger - 2019-1 00:00: 00 No Pulse Oximeter For Finger - Pulse Oximeter For Finger - Pulse Oximeter For Finger - 2019-1 00:00: 00 No Pulse Oximeter For Finger - Pulse Oximeter For Finger - Pulse Oximeter For Finger - 2019-1 00:00: 00 No Pulse Oximeter For Finger - Pulse Oximeter For Finger - Pulse Oximeter For Finger - 2019-1 00:00: 00 No Pulse Oximeter For Finger - Pulse Oximeter For Finger - Pulse Oximeter For Finger - 2019-1 00:00: 00 No Pulse Oximeter For Finger - Pulse Oximeter For Finger - Pulse Oximeter For Finger - 2019-05 00:00: 00 No Pulse Oximeter For Finger - Pulse Oximeter For Finger - Pulse Oximeter For Finger - 2019-05 00:00: 00 No Pulse Oximeter For Finger - Pulse Oximeter For Finger - Pulse Oximeter For Finger - 2019-05 00:00: 00 No Pulse Oximeter For Finger - Pulse Oximeter For Finger - Pulse Oximeter For Finger - 2019-05 00:00: 00 No Pulse Oximeter For Finger - Pulse Oximeter For Finger - Pulse Oximeter For Finger - 2019-05 00:00: 00 No Pulse Oximeter For Finger - Pulse Oximeter For Finger - Pulse Oximeter For Finger - 2019-05 00:00: 00 No Pulse Oximeter For Finger - Lumigan 0.01 % Lumigan 0.01 % 12-18 00:00: 00 No QD Lumigan 0.01 % Lumigan 0.01 % Lumigan 0.01 % 12-18 00:00: 00 No QD Lumigan 0.01 % Lumigan 0.01 % Lumigan 0.01 % 12-18 00:00: 00 No QD Lumigan 0.01 % Lumigan 0.01 % Lumigan 0.01 % 12-18 00:00: 00 No QD Lumigan 0.01 % Lumigan 0.01 % Lumigan 0.01 % 0 12-18 00:00: 00 No QD Lumigan 0.01 % Lumigan 0.01 % Lumigan 0.01 % 12-18 00:00: 00 No QD Lumigan 0.01 % Lumigan 0.01 % Lumigan 0.01 % 0 12-18 00:00: 00 No QD Lumigan 0.01 % Lumigan 0.01 % Lumigan 0.01 % 0 12-18 00:00: 00 No QD Lumigan 0.01 % Lumigan 0.01 % Lumigan 0.01 % 12-18 00:00: 00 No QD Lumigan 0.01 % Lumigan 0.01 % Lumigan 0.01 % 12-18 00:00: 00 No QD Lumigan 0.01 % Lumigan 0.01 % Lumigan 0.01 % 12-18 00:00: 00 No QD Lumigan 0.01 % Lumigan 0.01 % Lumigan 0.01 % 12-18 00:00: 00 No QD Lumigan 0.01 % Lumigan 0.01 % Lumigan 0.01 % 12-18 00:00: 00 No QD Lumigan 0.01 % Lumigan 0.01 % Lumigan 0.01 % 12-18 00:00: 00 No QD Lumigan 0.01 % Lumigan 0.01 % Lumigan 0.01 % 12-18 00:00: 00 No QD Lumigan 0.01 % Lumigan 0.01 % Lumigan 0.01 % 12-18 00:00: 00 No QD Lumigan 0.01 % Lumigan 0.01 % Lumigan 0.01 % 12-18 00:00: 00 No QD Lumigan 0.01 % Lumigan 0.01 % Lumigan 0.01 % 12-18 00:00: 00 No QD Lumigan 0.01 % Lumigan 0.01 % Lumigan 0.01 % 12-18 00:00: 00 No QD Lumigan 0.01 % Lumigan 0.01 % Lumigan 0.01 % 12-18 00:00: 00 No QD Lumigan 0.01 % Lumigan 0.01 % Lumigan 0.01 % 12-18 00:00: 00 No QD Lumigan 0.01 % Lumigan 0.01 % Lumigan 0.01 % 12-18 00:00: 00 No QD Lumigan 0.01 % Lumigan 0.01 % Lumigan 0.01 % 12-18 00:00: 00 No QD Lumigan 0.01 % Lumigan 0.01 % Lumigan 0.01 % 12-18 00:00: 00 No QD Lumigan 0.01 % Lumigan 0.01 % Lumigan 0.01 % 12-18 00:00: 00 No QD Lumigan 0.01 % Lumigan 0.01 % Lumigan 0.01 % 12-18 00:00: 00 No QD Lumigan 0.01 % Lumigan 0.01 % Lumigan 0.01 % 12-18 00:00: 00 No QD Lumigan 0.01 % Lumigan 0.01 % Lumigan 0.01 % 12-18 00:00: 00 No QD Lumigan 0.01 % Lumigan 0.01 % Lumigan 0.01 % 12-18 00:00: 00 No QD Lumigan 0.01 % Lumigan 0.01 % Lumigan 0.01 % 12-18 00:00: 00 No QD Lumigan 0.01 % Lumigan 0.01 % Lumigan 0.01 % 12-18 00:00: 00 No QD Lumigan 0.01 % Lumigan 0.01 % Lumigan 0.01 % 12-18 00:00: 00 No QD Lumigan 0.01 % Lumigan 0.01 % Lumigan 0.01 % 12-18 00:00: 00 No QD Lumigan 0.01 % Lumigan 0.01 % Lumigan 0.01 % 12-18 00:00: 00 No QD Lumigan 0.01 % Lumigan 0.01 % Lumigan 0.01 % 12-18 00:00: 00 No QD Lumigan 0.01 % Linzess Linzess 12-18 00:00: 00 03-17 00:00 :00 No Manjula Millender 1 capsule [facility] Enalapril Maleate Enalapril Maleate 06-29 00:00: 00 Yes Manjula Millender 1 tablet as needed for BP > or = 150/90 [facility] Prazosin HCl Prazosin HCl Yes Manjula Millender 1 capsule at bedtime [facility] Finasteride Finasteride Yes Manjula Millender 1 tablet [facility] Aspirin 81 81 MG Aspirin 81 81 MG No 1{table t} QD Aspirin 81 81 MG VESIcare 10 MG VESIcare 10 MG No 1{table t} QD VESIcare 10 MG Losartan Potassium 25 MG Losartan Potassium 25 MG No Losartan Potassium 25 MG Tadalafil 20 MG Tadalafil 20 MG No 1{table t_as_ne eded} Tadalafil 20 MG Fluticasone Propionate 50 MCG/ACT Fluticasone Propionate 50 MCG/ACT No 2{spray s_in_ea ch_nost ril} BID Fluticason e Propionate 50 MCG/ACT Fluticasone Propionate 50 MCG/ACT Fluticasone Propionate 50 MCG/ACT No 2{spray s_in_ea ch_nost ril} BID Fluticason e Propionate 50 MCG/ACT Aspirin 81 81 MG Aspirin 81 81 MG No 1{table t} QD Aspirin 81 81 MG Losartan Potassium 25 MG Losartan Potassium 25 MG No Losartan Potassium 25 MG Tadalafil 20 MG Tadalafil 20 MG No 1{table t_as_ne eded} Tadalafil 20 MG VESIcare 10 MG VESIcare 10 MG No 1{table t} QD VESIcare 10 MG Fluticasone Propionate 50 MCG/ACT Fluticasone Propionate 50 MCG/ACT No 2{spray s_in_ea ch_nost ril} BID Fluticason e Propionate 50 MCG/ACT Aspirin 81 81 MG Aspirin 81 81 MG No 1{table t} QD Aspirin 81 81 MG Losartan Potassium 25 MG Losartan Potassium 25 MG No Losartan Potassium 25 MG Tadalafil 20 MG Tadalafil 20 MG No 1{table t_as_ne eded} Tadalafil 20 MG VESIcare 10 MG VESIcare 10 MG No 1{table t} QD VESIcare 10 MG Fluticasone Propionate 50 MCG/ACT Fluticasone Propionate 50 MCG/ACT No 2{spray s_in_ea ch_nost ril} BID Fluticason e Propionate 50 MCG/ACT Aspirin 81 81 MG Aspirin 81 81 MG No 1{table t} QD Aspirin 81 81 MG Losartan Potassium 25 MG Losartan Potassium 25 MG No Losartan Potassium 25 MG Tadalafil 20 MG Tadalafil 20 MG No 1{table t_as_ne eded} Tadalafil 20 MG VESIcare 10 MG VESIcare 10 MG No 1{table t} QD VESIcare 10 MG Omeprazole 20 MG Omeprazole 20 MG No QD Omeprazole 20 MG Fluticasone Propionate 50 MCG/ACT Fluticasone Propionate 50 MCG/ACT No 2{spray s_in_ea ch_nost ril} BID Fluticason e Propionate 50 MCG/ACT Aspirin 81 81 MG Aspirin 81 81 MG No 1{table t} QD Aspirin 81 81 MG Losartan Potassium 25 MG Losartan Potassium 25 MG No Losartan Potassium 25 MG Tadalafil 20 MG Tadalafil 20 MG No 1{table t_as_ne eded} Tadalafil 20 MG VESIcare 10 MG VESIcare 10 MG No 1{table t} QD VESIcare 10 MG Omeprazole 20 MG Omeprazole 20 MG No QD Omeprazole 20 MG Fluticasone Propionate 50 MCG/ACT Fluticasone Propionate 50 MCG/ACT No 2{spray s_in_ea ch_nost ril} BID Fluticason e Propionate 50 MCG/ACT Aspirin 81 81 MG Aspirin 81 81 MG No 1{table t} QD Aspirin 81 81 MG Losartan Potassium 25 MG Losartan Potassium 25 MG No Losartan Potassium 25 MG Tadalafil 20 MG Tadalafil 20 MG No 1{table t_as_ne eded} Tadalafil 20 MG VESIcare 10 MG VESIcare 10 MG No 1{table t} QD VESIcare 10 MG Omeprazole 20 MG Omeprazole 20 MG No QD Omeprazole 20 MG Omeprazole 20 MG Omeprazole 20 MG No QD Omeprazole 20 MG Fluticasone Propionate 50 MCG/ACT Fluticasone Propionate 50 MCG/ACT No 2{spray s_in_ea ch_nost ril} BID Fluticason e Propionate 50 MCG/ACT Fluticasone Propionate 50 MCG/ACT Fluticasone Propionate 50 MCG/ACT No 2{spray s_in_ea ch_nost ril} BID Fluticason e Propionate 50 MCG/ACT Aspirin 81 81 MG Aspirin 81 81 MG No 1{table t} QD Aspirin 81 81 MG Losartan Potassium 25 MG Losartan Potassium 25 MG No Losartan Potassium 25 MG Tadalafil 20 MG Tadalafil 20 MG No 1{table t_as_ne eded} Tadalafil 20 MG VESIcare 10 MG VESIcare 10 MG No 1{table t} QD VESIcare 10 MG Omeprazole 20 MG Omeprazole 20 MG No QD Omeprazole 20 MG Aspirin 81 81 MG Aspirin 81 81 MG No 1{table t} QD Aspirin 81 81 MG Fluticasone Propionate 50 MCG/ACT Fluticasone Propionate 50 MCG/ACT No 2{spray s_in_ea ch_nost ril} BID Fluticason e Propionate 50 MCG/ACT Aspirin 81 81 MG Aspirin 81 81 MG No 1{table t} QD Aspirin 81 81 MG Losartan Potassium 25 MG Losartan Potassium 25 MG No Losartan Potassium 25 MG Tadalafil 20 MG Tadalafil 20 MG No 1{table t_as_ne eded} Tadalafil 20 MG VESIcare 10 MG VESIcare 10 MG No 1{table t} QD VESIcare 10 MG Omeprazole 20 MG Omeprazole 20 MG No QD Omeprazole 20 MG Fluticasone Propionate 50 MCG/ACT Fluticasone Propionate 50 MCG/ACT No 2{spray s_in_ea ch_nost ril} BID Fluticason e Propionate 50 MCG/ACT Aspirin 81 81 MG Aspirin 81 81 MG No 1{table t} QD Aspirin 81 81 MG Tadalafil 20 MG Tadalafil 20 MG No 1{table t_as_ne eded} Tadalafil 20 MG Losartan Potassium 25 MG Losartan Potassium 25 MG No Losartan Potassium 25 MG Tadalafil 20 MG Tadalafil 20 MG No 1{table t_as_ne eded} Tadalafil 20 MG VESIcare 10 MG VESIcare 10 MG No 1{table t} QD VESIcare 10 MG Omeprazole 20 MG Omeprazole 20 MG No QD Omeprazole 20 MG Fluticasone Propionate 50 MCG/ACT Fluticasone Propionate 50 MCG/ACT No 2{spray s_in_ea ch_nost ril} BID Fluticason e Propionate 50 MCG/ACT Aspirin 81 81 MG Aspirin 81 81 MG No 1{table t} QD Aspirin 81 81 MG Losartan Potassium 25 MG Losartan Potassium 25 MG No Losartan Potassium 25 MG Docusate Sodium Docusate Sodium No Docusate Sodium Tadalafil 20 MG Tadalafil 20 MG No 1{table t_as_ne eded} Tadalafil 20 MG VESIcare 10 MG VESIcare 10 MG No 1{table t} QD VESIcare 10 MG Omeprazole 20 MG Omeprazole 20 MG No QD Omeprazole 20 MG traMADol HCl 50 MG traMADol HCl 50 MG No traMADol HCl 50 MG Fluticasone Propionate 50 MCG/ACT Fluticasone Propionate 50 MCG/ACT No 2{spray s_in_ea ch_nost ril} BID Fluticason e Propionate 50 MCG/ACT Aspirin 81 81 MG Aspirin 81 81 MG No 1{table t} QD Aspirin 81 81 MG Losartan Potassium 25 MG Losartan Potassium 25 MG No Losartan Potassium 25 MG Tadalafil 20 MG Tadalafil 20 MG No 1{table t_as_ne eded} Tadalafil 20 MG VESIcare 10 MG VESIcare 10 MG No 1{table t} QD VESIcare 10 MG Losartan Potassium 25 MG Losartan Potassium 25 MG No Losartan Potassium 25 MG Omeprazole 20 MG Omeprazole 20 MG No QD Omeprazole 20 MG HYDROcodone -Acetaminop hen 5-325 MG HYDROcodone -Acetaminop hen 5-325 MG No HYDROcodon e-Acetamin ophen 5-325 MG VESIcare 10 MG VESIcare 10 MG No 1{table t} QD VESIcare 10 MG Losartan Potassium 25 MG Losartan Potassium 25 MG No Losartan Potassium 25 MG Fluticasone Propionate 50 MCG/ACT Fluticasone Propionate 50 MCG/ACT No 2{spray s_in_ea ch_nost ril} BID Fluticason e Propionate 50 MCG/ACT Tadalafil 20 MG Tadalafil 20 MG No 1{table t_as_ne eded} Tadalafil 20 MG Aspirin 81 81 MG Aspirin 81 81 MG No 1{table t} QD Aspirin 81 81 MG Omeprazole 20 MG Omeprazole 20 MG No QD Omeprazole 20 MG VESIcare 10 MG VESIcare 10 MG No 1{table t} QD VESIcare 10 MG Losartan Potassium 25 MG Losartan Potassium 25 MG No Losartan Potassium 25 MG Fluticasone Propionate 50 MCG/ACT Fluticasone Propionate 50 MCG/ACT No 2{spray s_in_ea ch_nost ril} BID Fluticason e Propionate 50 MCG/ACT Tadalafil 20 MG Tadalafil 20 MG No 1{table t_as_ne eded} Tadalafil 20 MG Aspirin 81 81 MG Aspirin 81 81 MG No 1{table t} QD Aspirin 81 81 MG Omeprazole 20 MG Omeprazole 20 MG No QD Omeprazole 20 MG VESIcare 10 MG VESIcare 10 MG No 1{table t} QD VESIcare 10 MG Losartan Potassium 25 MG Losartan Potassium 25 MG No Losartan Potassium 25 MG Fluticasone Propionate 50 MCG/ACT Fluticasone Propionate 50 MCG/ACT No 2{spray s_in_ea ch_nost ril} BID Fluticason e Propionate 50 MCG/ACT Tadalafil 20 MG Tadalafil 20 MG No 1{table t_as_ne eded} Tadalafil 20 MG Aspirin 81 81 MG Aspirin 81 81 MG No 1{table t} QD Aspirin 81 81 MG Omeprazole 20 MG Omeprazole 20 MG No Omeprazole 20 MG Losartan Potassium 25 MG Losartan Potassium 25 MG No Losartan Potassium 25 MG Omeprazole 20 MG Omeprazole 20 MG No Omeprazole 20 MG Fluticasone Propionate 50 MCG/ACT Fluticasone Propionate 50 MCG/ACT No 2{spray s_in_ea ch_nost ril} BID Fluticason e Propionate 50 MCG/ACT VESIcare 10 MG VESIcare 10 MG No 1{table t} QD VESIcare 10 MG Tadalafil 20 MG Tadalafil 20 MG No 1{table t_as_ne eded} Tadalafil 20 MG Aspirin 81 81 MG Aspirin 81 81 MG No 1{table t} QD Aspirin 81 81 MG HYDROcodone -Acetaminop hen 5-325 MG HYDROcodone -Acetaminop hen 5-325 MG No HYDROcodon e-Acetamin ophen 5-325 MG Losartan Potassium 25 MG Losartan Potassium 25 MG No Losartan Potassium 25 MG Omeprazole 20 MG Omeprazole 20 MG No Omeprazole 20 MG Fluticasone Propionate 50 MCG/ACT Fluticasone Propionate 50 MCG/ACT No 2{spray s_in_ea ch_nost ril} BID Fluticason e Propionate 50 MCG/ACT VESIcare 10 MG VESIcare 10 MG No 1{table t} QD VESIcare 10 MG Tadalafil 20 MG Tadalafil 20 MG No 1{table t_as_ne eded} Tadalafil 20 MG Aspirin 81 81 MG Aspirin 81 81 MG No 1{table t} QD Aspirin 81 81 MG Tadalafil 20 MG Tadalafil 20 MG No 1{table t_as_ne eded} Tadalafil 20 MG Losartan Potassium 25 MG Losartan Potassium 25 MG No Losartan Potassium 25 MG Omeprazole 20 MG Omeprazole 20 MG No QD Omeprazole 20 MG Fluticasone Propionate 50 MCG/ACT Fluticasone Propionate 50 MCG/ACT No 2{spray s_in_ea ch_nost ril} BID Fluticason e Propionate 50 MCG/ACT VESIcare 10 MG VESIcare 10 MG No 1{table t} QD VESIcare 10 MG Tadalafil 20 MG Tadalafil 20 MG No 1{table t_as_ne eded} Tadalafil 20 MG Aspirin 81 81 MG Aspirin 81 81 MG No 1{table t} QD Aspirin 81 81 MG Omeprazole 20 MG Omeprazole 20 MG No QD Omeprazole 20 MG Docusate Sodium Docusate Sodium No Docusate Sodium traMADol HCl 50 MG traMADol HCl 50 MG No traMADol HCl 50 MG Losartan Potassium 25 MG Losartan Potassium 25 MG No Losartan Potassium 25 MG Prazosin HCl 5 MG Prazosin HCl 5 MG No 1{capsu le_at_b edtime} QD Omeprazole 20 MG Omeprazole 20 MG No QD Omeprazole 20 MG Losartan Potassium 25 MG Losartan Potassium 25 MG No Losartan Potassium 25 MG Docusate Sodium Docusate Sodium No Docusate Sodium traMADol HCl 50 MG traMADol HCl 50 MG No traMADol HCl 50 MG Tadalafil 20 MG Tadalafil 20 MG No 1{table t_as_ne eded} Tadalafil 20 MG Prazosin HCl 5 MG Prazosin HCl 5 MG No 1{capsu le_at_b edtime} QD Prazosin HCl 5 MG HYDROcodone -Acetaminop hen 5-325 MG HYDROcodone -Acetaminop hen 5-325 MG No HYDROcodon e-Acetamin ophen 5-325 MG Finasteride 5 MG Finasteride 5 MG No 1{table t} QD Finasterid e 5 MG Aspirin 81 81 MG Aspirin 81 81 MG No 1{table t} QD Aspirin 81 81 MG Tamsulosin HCl 0.4 MG Tamsulosin HCl 0.4 MG No 1{capsu le} QD Tamsulosin HCl 0.4 MG Tadalafil 20 MG Tadalafil 20 MG No 1{table t_as_ne eded} Tadalafil 20 MG traMADol HCl 50 MG traMADol HCl 50 MG No traMADol HCl 50 MG HYDROcodone -Acetaminop hen 5-325 MG HYDROcodone -Acetaminop hen 5-325 MG No HYDROcodon e-Acetamin ophen 5-325 MG Docusate Sodium Docusate Sodium No Docusate Sodium Finasteride 5 MG Finasteride 5 MG No 1{table t} QD Finasterid e 5 MG Prazosin HCl 5 MG Prazosin HCl 5 MG No 1{capsu le_at_b edtime} QD Prazosin HCl 5 MG Losartan Potassium 25 MG Losartan Potassium 25 MG No Losartan Potassium 25 MG Aspirin 81 81 MG Aspirin 81 81 MG No 1{table t} QD Aspirin 81 81 MG Omeprazole 20 MG Omeprazole 20 MG No QD Omeprazole 20 MG Fluticasone Propionate 50 MCG/ACT Fluticasone Propionate 50 MCG/ACT No 2{spray s_in_ea ch_nost ril} BID Fluticason e Propionate 50 MCG/ACT Tamsulosin HCl 0.4 MG Tamsulosin HCl 0.4 MG No 1{capsu le} QD Tamsulosin HCl 0.4 MG Docusate Sodium Docusate Sodium No Docusate Sodium HYDROcodone -Acetaminop hen 5-325 MG HYDROcodone -Acetaminop hen 5-325 MG No HYDROcodon e-Acetamin ophen 5-325 MG Tadalafil 20 MG Tadalafil 20 MG No 1{table t_as_ne eded} Tadalafil 20 MG Omeprazole 20 MG Omeprazole 20 MG No QD Omeprazole 20 MG Tamsulosin HCl 0.4 MG Tamsulosin HCl 0.4 MG No 1{capsu le} QD Tamsulosin HCl 0.4 MG Losartan Potassium 25 MG Losartan Potassium 25 MG No Losartan Potassium 25 MG Aspirin 81 81 MG Aspirin 81 81 MG No 1{table t} QD Aspirin 81 81 MG Finasteride 5 MG Finasteride 5 MG No 1{table t} QD Finasterid e 5 MG Fluticasone Propionate 50 MCG/ACT Fluticasone Propionate 50 MCG/ACT No 2{spray s_in_ea ch_nost ril} BID Fluticason e Propionate 50 MCG/ACT traMADol HCl 50 MG traMADol HCl 50 MG No traMADol HCl 50 MG Fluticasone Propionate 50 MCG/ACT Fluticasone Propionate 50 MCG/ACT No 2{spray s_in_ea ch_nost ril} BID Fluticason e Propionate 50 MCG/ACT Losartan Potassium 25 MG Losartan Potassium 25 MG No Losartan Potassium 25 MG Omeprazole 20 MG Omeprazole 20 MG No QD Omeprazole 20 MG Finasteride 5 MG Finasteride 5 MG No 1{table t} QD Finasterid e 5 MG Aspirin 81 81 MG Aspirin 81 81 MG No 1{table t} QD Aspirin 81 81 MG Tamsulosin HCl 0.4 MG Tamsulosin HCl 0.4 MG No 1{capsu le} QD Tamsulosin HCl 0.4 MG Docusate Sodium Docusate Sodium No Docusate Sodium traMADol HCl 50 MG traMADol HCl 50 MG No traMADol HCl 50 MG HYDROcodone -Acetaminop hen 5-325 MG HYDROcodone -Acetaminop hen 5-325 MG No HYDROcodon e-Acetamin ophen 5-325 MG Tadalafil 20 MG Tadalafil 20 MG No 1{table t_as_ne eded} Tadalafil 20 MG Fluticasone Propionate 50 MCG/ACT Fluticasone Propionate 50 MCG/ACT No 2{spray s_in_ea ch_nost ril} BID Fluticason e Propionate 50 MCG/ACT Aspirin 81 81 MG Aspirin 81 81 MG No 1{table t} QD Aspirin 81 81 MG Docusate Sodium Docusate Sodium No Docusate Sodium Omeprazole 20 MG Omeprazole 20 MG No QD Omeprazole 20 MG Tadalafil 20 MG Tadalafil 20 MG No 1{table t_as_ne eded} Tadalafil 20 MG HYDROcodone -Acetaminop hen 5-325 MG HYDROcodone -Acetaminop hen 5-325 MG No HYDROcodon e-Acetamin ophen 5-325 MG traMADol HCl 50 MG traMADol HCl 50 MG No traMADol HCl 50 MG Losartan Potassium 25 MG Losartan Potassium 25 MG No Losartan Potassium 25 MG Fluticasone Propionate 50 MCG/ACT Fluticasone Propionate 50 MCG/ACT No 2{spray s_in_ea ch_nost ril} BID Fluticason e Propionate 50 MCG/ACT Aspirin 81 81 MG Aspirin 81 81 MG No 1{table t} QD Aspirin 81 81 MG Docusate Sodium Docusate Sodium No Docusate Sodium Omeprazole 20 MG Omeprazole 20 MG No QD Omeprazole 20 MG Tadalafil 20 MG Tadalafil 20 MG No 1{table t_as_ne eded} Tadalafil 20 MG HYDROcodone -Acetaminop hen 5-325 MG HYDROcodone -Acetaminop hen 5-325 MG No HYDROcodon e-Acetamin ophen 5-325 MG traMADol HCl 50 MG traMADol HCl 50 MG No traMADol HCl 50 MG Losartan Potassium 25 MG Losartan Potassium 25 MG No Losartan Potassium 25 MG Fluticasone Propionate 50 MCG/ACT Fluticasone Propionate 50 MCG/ACT No 2{spray s_in_ea ch_nost ril} BID Fluticason e Propionate 50 MCG/ACT Aspirin 81 81 MG Aspirin 81 81 MG No 1{table t} QD Aspirin 81 81 MG Docusate Sodium Docusate Sodium No Docusate Sodium Omeprazole 20 MG Omeprazole 20 MG No QD Omeprazole 20 MG Tadalafil 20 MG Tadalafil 20 MG No 1{table t_as_ne eded} Tadalafil 20 MG HYDROcodone -Acetaminop hen 5-325 MG HYDROcodone -Acetaminop hen 5-325 MG No HYDROcodon e-Acetamin ophen 5-325 MG traMADol HCl 50 MG traMADol HCl 50 MG No traMADol HCl 50 MG Losartan Potassium 25 MG Losartan Potassium 25 MG No Losartan Potassium 25 MG Fluticasone Propionate 50 MCG/ACT Fluticasone Propionate 50 MCG/ACT No 2{spray s_in_ea ch_nost ril} BID Fluticason e Propionate 50 MCG/ACT Aspirin 81 81 MG Aspirin 81 81 MG No 1{table t} QD Aspirin 81 81 MG Docusate Sodium Docusate Sodium No Docusate Sodium Omeprazole 20 MG Omeprazole 20 MG No QD Omeprazole 20 MG Tadalafil 20 MG Tadalafil 20 MG No 1{table t_as_ne eded} Tadalafil 20 MG HYDROcodone -Acetaminop hen 5-325 MG HYDROcodone -Acetaminop hen 5-325 MG No HYDROcodon e-Acetamin ophen 5-325 MG traMADol HCl 50 MG traMADol HCl 50 MG No traMADol HCl 50 MG Losartan Potassium 25 MG Losartan Potassium 25 MG No Losartan Potassium 25 MG HYDROcodone -Acetaminop hen 5-325 MG HYDROcodone -Acetaminop hen 5-325 MG No HYDROcodon e-Acetamin ophen 5-325 MG Fluticasone Propionate 50 MCG/ACT Fluticasone Propionate 50 MCG/ACT No 2{spray s_in_ea ch_nost ril} BID Fluticason e Propionate 50 MCG/ACT Aspirin 81 81 MG Aspirin 81 81 MG No 1{table t} QD Aspirin 81 81 MG Omeprazole 20 MG Omeprazole 20 MG No QD Omeprazole 20 MG Tadalafil 20 MG Tadalafil 20 MG No 1{table t_as_ne eded} Tadalafil 20 MG Docusate Sodium Docusate Sodium No Docusate Sodium Losartan Potassium 25 MG Losartan Potassium 25 MG No Losartan Potassium 25 MG traMADol HCl 50 MG traMADol HCl 50 MG No traMADol HCl 50 MG HYDROcodone -Acetaminop hen 5-325 MG HYDROcodone -Acetaminop hen 5-325 MG No HYDROcodon e-Acetamin ophen 5-325 MG Fluticasone Propionate 50 MCG/ACT Fluticasone Propionate 50 MCG/ACT No 2{spray s_in_ea ch_nost ril} BID Fluticason e Propionate 50 MCG/ACT Aspirin 81 81 MG Aspirin 81 81 MG No 1{table t} QD Aspirin 81 81 MG Omeprazole 20 MG Omeprazole 20 MG No QD Omeprazole 20 MG Tadalafil 20 MG Tadalafil 20 MG No 1{table t_as_ne eded} Tadalafil 20 MG Docusate Sodium Docusate Sodium No Docusate Sodium Losartan Potassium 25 MG Losartan Potassium 25 MG No Losartan Potassium 25 MG traMADol HCl 50 MG traMADol HCl 50 MG No traMADol HCl 50 MG traMADol HCl 50 MG traMADol HCl 50 MG No traMADol HCl 50 MG HYDROcodone -Acetaminop hen 5-325 MG HYDROcodone -Acetaminop hen 5-325 MG No HYDROcodon e-Acetamin ophen 5-325 MG Aspirin 81 81 MG Aspirin 81 81 MG No 1{table t} QD Aspirin 81 81 MG Omeprazole 20 MG Omeprazole 20 MG No QD Omeprazole 20 MG Docusate Sodium Docusate Sodium No Docusate Sodium Losartan Potassium 25 MG Losartan Potassium 25 MG No Losartan Potassium 25 MG Fluticasone Propionate 50 MCG/ACT Fluticasone Propionate 50 MCG/ACT No 2{spray s_in_ea ch_nost ril} BID Fluticason e Propionate 50 MCG/ACT Tadalafil 20 MG Tadalafil 20 MG No 1{table t_as_ne eded} Tadalafil 20 MG Aspirin 81 81 MG Aspirin 81 81 MG No 1{table t} QD Aspirin 81 81 MG Fluticasone Propionate 50 MCG/ACT Fluticasone Propionate 50 MCG/ACT No 2{spray s_in_ea ch_nost ril} BID Fluticason e Propionate 50 MCG/ACT Omeprazole 20 MG Omeprazole 20 MG No QD Omeprazole 20 MG Tadalafil 20 MG Tadalafil 20 MG No 1{table t_as_ne eded} Tadalafil 20 MG HYDROcodone -Acetaminop hen 5-325 MG HYDROcodone -Acetaminop hen 5-325 MG No HYDROcodon e-Acetamin ophen 5-325 MG Docusate Sodium Docusate Sodium No Docusate Sodium Losartan Potassium 25 MG Losartan Potassium 25 MG No Losartan Potassium 25 MG traMADol HCl 50 MG traMADol HCl 50 MG No traMADol HCl 50 MG Aspirin 81 81 MG Aspirin 81 81 MG No 1{table t} QD Aspirin 81 81 MG Fluticasone Propionate 50 MCG/ACT Fluticasone Propionate 50 MCG/ACT No 2{spray s_in_ea ch_nost ril} BID Fluticason e Propionate 50 MCG/ACT Omeprazole 20 MG Omeprazole 20 MG No QD Omeprazole 20 MG Tadalafil 20 MG Tadalafil 20 MG No 1{table t_as_ne eded} Tadalafil 20 MG HYDROcodone -Acetaminop hen 5-325 MG HYDROcodone -Acetaminop hen 5-325 MG No HYDROcodon e-Acetamin ophen 5-325 MG Docusate Sodium Docusate Sodium No Docusate Sodium Losartan Potassium 25 MG Losartan Potassium 25 MG No Losartan Potassium 25 MG traMADol HCl 50 MG traMADol HCl 50 MG No traMADol HCl 50 MG Omeprazole 20 MG Omeprazole 20 MG No QD Omeprazole 20 MG Aspirin 81 81 MG Aspirin 81 81 MG No 1{table t} QD Aspirin 81 81 MG Docusate Sodium Docusate Sodium No Docusate Sodium Fluticasone Propionate 50 MCG/ACT Fluticasone Propionate 50 MCG/ACT No 2{spray s_in_ea ch_nost ril} BID Fluticason e Propionate 50 MCG/ACT Losartan Potassium 25 MG Losartan Potassium 25 MG No Losartan Potassium 25 MG traMADol HCl 50 MG traMADol HCl 50 MG No traMADol HCl 50 MG Tadalafil 20 MG Tadalafil 20 MG No 1{table t_as_ne eded} Tadalafil 20 MG HYDROcodone -Acetaminop hen 5-325 MG HYDROcodone -Acetaminop hen 5-325 MG No HYDROcodon e-Acetamin ophen 5-325 MG Tadalafil 20 MG Tadalafil 20 MG No 1{table t_as_ne eded} Tadalafil 20 MG Omeprazole 20 MG Omeprazole 20 MG No QD Omeprazole 20 MG Docusate Sodium Docusate Sodium No Docusate Sodium Losartan Potassium 25 MG Losartan Potassium 25 MG No Losartan Potassium 25 MG Fluticasone Propionate 50 MCG/ACT Fluticasone Propionate 50 MCG/ACT No 2{spray s_in_ea ch_nost ril} BID Fluticason e Propionate 50 MCG/ACT Aspirin 81 81 MG Aspirin 81 81 MG No 1{table t} QD Aspirin 81 81 MG traMADol HCl 50 MG traMADol HCl 50 MG No traMADol HCl 50 MG HYDROcodone -Acetaminop hen 5-325 MG HYDROcodone -Acetaminop hen 5-325 MG No HYDROcodon e-Acetamin ophen 5-325 MG Tadalafil 20 MG Tadalafil 20 MG No 1{table t_as_ne eded} Tadalafil 20 MG VESIcare 10 MG VESIcare 10 MG No 1{table t} QD VESIcare 10 MG Aspirin 81 81 MG Aspirin 81 81 MG No 1{table t} QD Aspirin 81 81 MG Losartan Potassium 25 MG Losartan Potassium 25 MG No Losartan Potassium 25 MG Omeprazole 20 MG Omeprazole 20 MG No QD Omeprazole 20 MG Fluticasone Propionate 50 MCG/ACT Fluticasone Propionate 50 MCG/ACT No 2{spray s_in_ea ch_nost ril} BID Fluticason e Propionate 50 MCG/ACT Finasteride 5 MG Finasteride 5 MG 05-13 00:00 :00 No 1{table t} QD Finasterid e 5 MG Immunizations Ordered Immunization Name Filled Immunization Name Date Status Comments Source Pfizer COVID-19 Vaccine Pfizer COVID-19 Vaccine 2021-02-08 10:32:00 Completed [facility] Pfizer COVID-19 Vaccine Pfizer COVID-19 Vaccine 2021-02-08 10:32:00 Completed [facility] Pfizer COVID-19 Vaccine Pfizer COVID-19 Vaccine 2021-02-08 10:32:00 Completed [facility] Pfizer COVID-19 Vaccine Pfizer COVID-19 Vaccine 2021-02-08 10:32:00 Completed [facility] Pfizer COVID-19 Vaccine Pfizer COVID-19 Vaccine 2021-02-08 10:32:00 Completed [facility] Pfizer COVID-19 Vaccine Pfizer COVID-19 Vaccine 2021-02-08 10:32:00 Completed [facility] Pfizer COVID-19 Vaccine Pfizer COVID-19 Vaccine 2021-02-08 10:32:00 Completed [facility] Pfizer COVID-19 Vaccine Pfizer COVID-19 Vaccine 2021-02-08 10:32:00 Completed [facility] Pfizer COVID-19 Vaccine Pfizer COVID-19 Vaccine 2021-02-08 10:32:00 Completed [facility] Pfizer COVID-19 Vaccine Pfizer COVID-19 Vaccine 2021-02-08 10:32:00 Completed [facility] Pfizer COVID-19 Vaccine Pfizer COVID-19 Vaccine 2021-02-08 10:32:00 Completed [facility] Pfizer COVID-19 Vaccine Pfizer COVID-19 Vaccine 2021-02-08 10:32:00 Completed [facility] Pfizer COVID-19 Vaccine Pfizer COVID-19 Vaccine 2021-02-08 10:32:00 Completed [facility] Pfizer COVID-19 Vaccine Pfizer COVID-19 Vaccine 2021-02-08 10:32:00 Completed [facility] Pfizer COVID-19 Vaccine Pfizer COVID-19 Vaccine 2021-02-08 10:32:00 Completed [facility] Pfizer COVID-19 Vaccine Pfizer COVID-19 Vaccine 2021-02-08 10:32:00 Completed [facility] Pfizer COVID-19 Vaccine Pfizer COVID-19 Vaccine 2021-02-08 10:32:00 Completed [facility] Pfizer COVID-19 Vaccine Pfizer COVID-19 Vaccine 2021-02-08 10:32:00 Completed [facility] Pfizer COVID-19 Vaccine Pfizer COVID-19 Vaccine 2021-02-08 10:32:00 Completed [facility] Pfizer COVID-19 Vaccine Pfizer COVID-19 Vaccine 2021-02-08 10:32:00 Completed [facility] Pfizer COVID-19 Vaccine Pfizer COVID-19 Vaccine 2021-02-08 10:32:00 Completed [facility] Pfizer COVID-19 Vaccine Pfizer COVID-19 Vaccine 2021-02-08 10:32:00 Completed [facility] Pfizer COVID-19 Vaccine Pfizer COVID-19 Vaccine 2021-02-08 10:32:00 Completed [facility] Pfizer COVID-19 Vaccine Pfizer COVID-19 Vaccine 2021-02-08 10:32:00 Completed [facility] Pfizer COVID-19 Vaccine Pfizer COVID-19 Vaccine 2021-02-08 10:32:00 Completed [facility] Pfizer COVID-19 Vaccine Pfizer COVID-19 Vaccine 2021-02-08 10:32:00 Completed [facility] Pfizer COVID-19 Vaccine Pfizer COVID-19 Vaccine 2021-02-08 10:32:00 Completed [facility] Pfizer COVID-19 Vaccine Pfizer COVID-19 Vaccine 2021-02-08 10:32:00 Completed [facility] Pfizer COVID-19 Vaccine Pfizer COVID-19 Vaccine 2021-02-08 10:32:00 Completed [facility] Pfizer COVID-19 Vaccine Pfizer COVID-19 Vaccine 2021-02-08 10:32:00 Completed [facility] Pfizer COVID-19 Vaccine Pfizer COVID-19 Vaccine 2021-02-08 10:32:00 Completed [facility] Pfizer COVID-19 Vaccine Pfizer COVID-19 Vaccine 2021-02-08 10:32:00 Completed [facility] Pfizer COVID-19 Vaccine Pfizer COVID-19 Vaccine 2021-02-08 10:32:00 Completed [facility] Pfizer COVID-19 Vaccine Pfizer COVID-19 Vaccine 2021-02-08 10:32:00 Completed [facility] FLUZONE HIGH DOSE OVER 65 FLUZONE HIGH DOSE OVER 65 2021-02-08 10:31:00 Completed [facility] FLUZONE HIGH DOSE OVER 65 FLUZONE HIGH DOSE OVER 65 2021-02-08 10:31:00 Completed [facility] FLUZONE HIGH DOSE OVER 65 FLUZONE HIGH DOSE OVER 65 2021-02-08 10:31:00 Completed [facility] FLUZONE HIGH DOSE OVER 65 FLUZONE HIGH DOSE OVER 65 2021-02-08 10:31:00 Completed [facility] FLUZONE HIGH DOSE OVER 65 FLUZONE HIGH DOSE OVER 65 2021-02-08 10:31:00 Completed [facility] FLUZONE HIGH DOSE OVER 65 FLUZONE HIGH DOSE OVER 65 2021-02-08 10:31:00 Completed [facility] FLUZONE HIGH DOSE OVER 65 FLUZONE HIGH DOSE OVER 65 2021-02-08 10:31:00 Completed [facility] FLUZONE HIGH DOSE OVER 65 FLUZONE HIGH DOSE OVER 65 2021-02-08 10:31:00 Completed [facility] FLUZONE HIGH DOSE OVER 65 FLUZONE HIGH DOSE OVER 65 2021-02-08 10:31:00 Completed [facility] FLUZONE HIGH DOSE OVER 65 FLUZONE HIGH DOSE OVER 65 2021-02-08 10:31:00 Completed [facility] FLUZONE HIGH DOSE OVER 65 FLUZONE HIGH DOSE OVER 65 2021-02-08 10:31:00 Completed [facility] FLUZONE HIGH DOSE OVER 65 FLUZONE HIGH DOSE OVER 65 2021-02-08 10:31:00 Completed [facility] FLUZONE HIGH DOSE OVER 64 FLUZONE HIGH DOSE OVER 65 2021-02-08 10:31:00 Completed [facility] FLUZONE HIGH DOSE OVER 65 FLUZONE HIGH DOSE OVER 65 2021-02-08 10:31:00 Completed [facility] FLUZONE HIGH DOSE OVER 64 FLUZONE HIGH DOSE OVER 65 2021-02-08 10:31:00 Completed [facility] FLUZONE HIGH DOSE OVER 65 FLUZONE HIGH DOSE OVER 65 2021-02-08 10:31:00 Completed [facility] FLUZONE HIGH DOSE OVER 65 FLUZONE HIGH DOSE OVER 65 2021-02-08 10:31:00 Completed [facility] FLUZONE HIGH DOSE OVER 64 FLUZONE HIGH DOSE OVER 65 2021-02-08 10:31:00 Completed [facility] FLUZONE HIGH DOSE OVER 65 FLUZONE HIGH DOSE OVER 65 2021-02-08 10:31:00 Completed [facility] FLUZONE HIGH DOSE OVER 65 FLUZONE HIGH DOSE OVER 65 2021-02-08 10:31:00 Completed [facility] FLUZONE HIGH DOSE OVER 65 FLUZONE HIGH DOSE OVER 65 2021-02-08 10:31:00 Completed [facility] FLUZONE HIGH DOSE OVER 65 FLUZONE HIGH DOSE OVER 65 2021-02-08 10:31:00 Completed [facility] FLUZONE HIGH DOSE OVER 65 FLUZONE HIGH DOSE OVER 65 2021-02-08 10:31:00 Completed [facility] FLUZONE HIGH DOSE OVER 65 FLUZONE HIGH DOSE OVER 65 2021-02-08 10:31:00 Completed [facility] FLUZONE HIGH DOSE OVER 65 FLUZONE HIGH DOSE OVER 65 2021-02-08 10:31:00 Completed [facility] FLUZONE HIGH DOSE OVER 65 FLUZONE HIGH DOSE OVER 65 2021-02-08 10:31:00 Completed [facility] FLUZONE HIGH DOSE OVER 65 FLUZONE HIGH DOSE OVER 65 2021-02-08 10:31:00 Completed [facility] FLUZONE HIGH DOSE OVER 65 FLUZONE HIGH DOSE OVER 65 2021-02-08 10:31:00 Completed [facility] FLUZONE HIGH DOSE OVER 65 FLUZONE HIGH DOSE OVER 65 2021-02-08 10:31:00 Completed [facility] FLUZONE HIGH DOSE OVER 65 FLUZONE HIGH DOSE OVER 65 2021-02-08 10:31:00 Completed [facility] FLUZONE HIGH DOSE OVER 65 FLUZONE HIGH DOSE OVER 65 2021-02-08 10:31:00 Completed [facility] FLUZONE HIGH DOSE OVER 65 FLUZONE HIGH DOSE OVER 65 2021-02-08 10:31:00 Completed [facility] FLUZONE HIGH DOSE OVER 65 FLUZONE HIGH DOSE OVER 65 2021-02-08 10:31:00 Completed [facility] FLUZONE HIGH DOSE OVER 65 FLUZONE HIGH DOSE OVER 65 2021-02-08 10:31:00 Completed [facility] Pfizer COVID-19 Vaccine Pfizer COVID-19 Vaccine 2020-07-07 10:31:00 Completed [facility] Pfizer COVID-19 Vaccine Pfizer COVID-19 Vaccine 2020-07-07 10:31:00 Completed [facility] Pfizer COVID-19 Vaccine Pfizer COVID-19 Vaccine 2020-07-07 10:31:00 Completed [facility] Pfizer COVID-19 Vaccine Pfizer COVID-19 Vaccine 2020-07-07 10:31:00 Completed [facility] Pfizer COVID-19 Vaccine Pfizer COVID-19 Vaccine 2020-07-07 10:31:00 Completed [facility] Pfizer COVID-19 Vaccine Pfizer COVID-19 Vaccine 2020-07-07 10:31:00 Completed [facility] Pfizer COVID-19 Vaccine Pfizer COVID-19 Vaccine 2020-07-07 10:31:00 Completed [facility] Pfizer COVID-19 Vaccine Pfizer COVID-19 Vaccine 2020-07-07 10:31:00 Completed [facility] Pfizer COVID-19 Vaccine Pfizer COVID-19 Vaccine 2020-07-07 10:31:00 Completed [facility] Pfizer COVID-19 Vaccine Pfizer COVID-19 Vaccine 2020-07-07 10:31:00 Completed [facility] Pfizer COVID-19 Vaccine Pfizer COVID-19 Vaccine 2020-07-07 10:31:00 Completed [facility] Pfizer COVID-19 Vaccine Pfizer COVID-19 Vaccine 2020-07-07 10:31:00 Completed [facility] Pfizer COVID-19 Vaccine Pfizer COVID-19 Vaccine 2020-07-07 10:31:00 Completed [facility] Pfizer COVID-19 Vaccine Pfizer COVID-19 Vaccine 2020-07-07 10:31:00 Completed [facility] Pfizer COVID-19 Vaccine Pfizer COVID-19 Vaccine 2020-07-07 10:31:00 Completed [facility] Pfizer COVID-19 Vaccine Pfizer COVID-19 Vaccine 2020-07-07 10:31:00 Completed [facility] Pfizer COVID-19 Vaccine Pfizer COVID-19 Vaccine 2020-07-07 10:31:00 Completed [facility] Pfizer COVID-19 Vaccine Pfizer COVID-19 Vaccine 2020-07-07 10:31:00 Completed [facility] Pfizer COVID-19 Vaccine Pfizer COVID-19 Vaccine 2020-07-07 10:31:00 Completed [facility] Pfizer COVID-19 Vaccine Pfizer COVID-19 Vaccine 2020-07-07 10:31:00 Completed [facility] Pfizer COVID-19 Vaccine Pfizer COVID-19 Vaccine 2020-07-07 10:31:00 Completed [facility] Pfizer COVID-19 Vaccine Pfizer COVID-19 Vaccine 2020-07-07 10:31:00 Completed [facility] Pfizer COVID-19 Vaccine Pfizer COVID-19 Vaccine 2020-07-07 10:31:00 Completed [facility] Pfizer COVID-19 Vaccine Pfizer COVID-19 Vaccine 2020-07-07 10:31:00 Completed [facility] Pfizer COVID-19 Vaccine Pfizer COVID-19 Vaccine 2020-07-07 10:31:00 Completed [facility] Pfizer COVID-19 Vaccine Pfizer COVID-19 Vaccine 2020-07-07 10:31:00 Completed [facility] Pfizer COVID-19 Vaccine Pfizer COVID-19 Vaccine 2020-07-07 10:31:00 Completed [facility] Pfizer COVID-19 Vaccine Pfizer COVID-19 Vaccine 2020-07-07 10:31:00 Completed [facility] Pfizer COVID-19 Vaccine Pfizer COVID-19 Vaccine 2020-07-07 10:31:00 Completed [facility] Pfizer COVID-19 Vaccine Pfizer COVID-19 Vaccine 2020-07-07 10:31:00 Completed [facility] Pfizer COVID-19 Vaccine Pfizer COVID-19 Vaccine 2020-07-07 10:31:00 Completed [facility] Pfizer COVID-19 Vaccine Pfizer COVID-19 Vaccine 2020-07-07 10:31:00 Completed [facility] Pfizer COVID-19 Vaccine Pfizer COVID-19 Vaccine 2020-07-07 10:31:00 Completed [facility] Pfizer COVID-19 Vaccine Pfizer COVID-19 Vaccine 2020-07-07 10:31:00 Completed [facility] Pfizer COVID-19 Vaccine Pfizer COVID-19 Vaccine 2020-06-09 10:31:00 Completed [facility] Pfizer COVID-19 Vaccine Pfizer COVID-19 Vaccine 2020-06-09 10:31:00 Completed [facility] Pfizer COVID-19 Vaccine Pfizer COVID-19 Vaccine 2020-06-09 10:31:00 Completed [facility] Pfizer COVID-19 Vaccine Pfizer COVID-19 Vaccine 2020-06-09 10:31:00 Completed [facility] Pfizer COVID-19 Vaccine Pfizer COVID-19 Vaccine 2020-06-09 10:31:00 Completed [facility] Pfizer COVID-19 Vaccine Pfizer COVID-19 Vaccine 2020-06-09 10:31:00 Completed [facility] Pfizer COVID-19 Vaccine Pfizer COVID-19 Vaccine 2020-06-09 10:31:00 Completed [facility] Pfizer COVID-19 Vaccine Pfizer COVID-19 Vaccine 2020-06-09 10:31:00 Completed [facility] Pfizer COVID-19 Vaccine Pfizer COVID-19 Vaccine 2020-06-09 10:31:00 Completed [facility] Pfizer COVID-19 Vaccine Pfizer COVID-19 Vaccine 2020-06-09 10:31:00 Completed [facility] Pfizer COVID-19 Vaccine Pfizer COVID-19 Vaccine 2020-06-09 10:31:00 Completed [facility] Pfizer COVID-19 Vaccine Pfizer COVID-19 Vaccine 2020-06-09 10:31:00 Completed [facility] Pfizer COVID-19 Vaccine Pfizer COVID-19 Vaccine 2020-06-09 10:31:00 Completed [facility] Pfizer COVID-19 Vaccine Pfizer COVID-19 Vaccine 2020-06-09 10:31:00 Completed [facility] Pfizer COVID-19 Vaccine Pfizer COVID-19 Vaccine 2020-06-09 10:31:00 Completed [facility] Pfizer COVID-19 Vaccine Pfizer COVID-19 Vaccine 2020-06-09 10:31:00 Completed [facility] Pfizer COVID-19 Vaccine Pfizer COVID-19 Vaccine 2020-06-09 10:31:00 Completed [facility] Pfizer COVID-19 Vaccine Pfizer COVID-19 Vaccine 2020-06-09 10:31:00 Completed [facility] Pfizer COVID-19 Vaccine Pfizer COVID-19 Vaccine 2020-06-09 10:31:00 Completed [facility] Pfizer COVID-19 Vaccine Pfizer COVID-19 Vaccine 2020-06-09 10:31:00 Completed [facility] Pfizer COVID-19 Vaccine Pfizer COVID-19 Vaccine 2020-06-09 10:31:00 Completed [facility] Pfizer COVID-19 Vaccine Pfizer COVID-19 Vaccine 2020-06-09 10:31:00 Completed [facility] Pfizer COVID-19 Vaccine Pfizer COVID-19 Vaccine 2020-06-09 10:31:00 Completed [facility] Pfizer COVID-19 Vaccine Pfizer COVID-19 Vaccine 2020-06-09 10:31:00 Completed [facility] Pfizer COVID-19 Vaccine Pfizer COVID-19 Vaccine 2020-06-09 10:31:00 Completed [facility] Pfizer COVID-19 Vaccine Pfizer COVID-19 Vaccine 2020-06-09 10:31:00 Completed [facility] Pfizer COVID-19 Vaccine Pfizer COVID-19 Vaccine 2020-06-09 10:31:00 Completed [facility] Pfizer COVID-19 Vaccine Pfizer COVID-19 Vaccine 2020-06-09 10:31:00 Completed [facility] Pfizer COVID-19 Vaccine Pfizer COVID-19 Vaccine 2020-06-09 10:31:00 Completed [facility] Pfizer COVID-19 Vaccine Pfizer COVID-19 Vaccine 2020-06-09 10:31:00 Completed [facility] Pfizer COVID-19 Vaccine Pfizer COVID-19 Vaccine 2020-06-09 10:31:00 Completed [facility] Pfizer COVID-19 Vaccine Pfizer COVID-19 Vaccine 2020-06-09 10:31:00 Completed [facility] Pfizer COVID-19 Vaccine Pfizer COVID-19 Vaccine 2020-06-09 10:31:00 Completed [facility] Pfizer COVID-19 Vaccine Pfizer COVID-19 Vaccine 2020-06-09 10:31:00 Completed [facility] Pneumovax (PPSV23) Pneumovax (PPSV23) 2017-02-09 10:30:00 Completed [facility] Pneumovax (PPSV23) Pneumovax (PPSV23) 2017-02-09 10:30:00 Completed [facility] Pneumovax (PPSV23) Pneumovax (PPSV23) 2017-02-09 10:30:00 Completed [facility] Pneumovax (PPSV23) Pneumovax (PPSV23) 2017-02-09 10:30:00 Completed [facility] Pneumovax (PPSV23) Pneumovax (PPSV23) 2017-02-09 10:30:00 Completed [facility] Pneumovax (PPSV23) Pneumovax (PPSV23) 2017-02-09 10:30:00 Completed [facility] Pneumovax (PPSV23) Pneumovax (PPSV23) 2017-02-09 10:30:00 Completed [facility] Pneumovax (PPSV23) Pneumovax (PPSV23) 2017-02-09 10:30:00 Completed [facility] Pneumovax (PPSV23) Pneumovax (PPSV23) 2017-02-09 10:30:00 Completed [facility] Pneumovax (PPSV23) Pneumovax (PPSV23) 2017-02-09 10:30:00 Completed [facility] Pneumovax (PPSV23) Pneumovax (PPSV23) 2017-02-09 10:30:00 Completed [facility] Pneumovax (PPSV23) Pneumovax (PPSV23) 2017-02-09 10:30:00 Completed [facility] Pneumovax (PPSV23) Pneumovax (PPSV23) 2017-02-09 10:30:00 Completed [facility] Pneumovax (PPSV23) Pneumovax (PPSV23) 2017-02-09 10:30:00 Completed [facility] Pneumovax (PPSV23) Pneumovax (PPSV23) 2017-02-09 10:30:00 Completed [facility] Pneumovax (PPSV23) Pneumovax (PPSV23) 2017-02-09 10:30:00 Completed [facility] Pneumovax (PPSV23) Pneumovax (PPSV23) 2017-02-09 10:30:00 Completed [facility] Pneumovax (PPSV23) Pneumovax (PPSV23) 2017-02-09 10:30:00 Completed [facility] Pneumovax (PPSV23) Pneumovax (PPSV23) 2017-02-09 10:30:00 Completed [facility] Pneumovax (PPSV23) Pneumovax (PPSV23) 2017-02-09 10:30:00 Completed [facility] Pneumovax (PPSV23) Pneumovax (PPSV23) 2017-02-09 10:30:00 Completed [facility] Pneumovax (PPSV23) Pneumovax (PPSV23) 2017-02-09 10:30:00 Completed [facility] Pneumovax (PPSV23) Pneumovax (PPSV23) 2017-02-09 10:30:00 Completed [facility] Pneumovax (PPSV23) Pneumovax (PPSV23) 2017-02-09 10:30:00 Completed [facility] Pneumovax (PPSV23) Pneumovax (PPSV23) 2017-02-09 10:30:00 Completed [facility] Pneumovax (PPSV23) Pneumovax (PPSV23) 2017-02-09 10:30:00 Completed [facility] Pneumovax (PPSV23) Pneumovax (PPSV23) 2017-02-09 10:30:00 Completed [facility] Pneumovax (PPSV23) Pneumovax (PPSV23) 2017-02-09 10:30:00 Completed [facility] Pneumovax (PPSV23) Pneumovax (PPSV23) 2017-02-09 10:30:00 Completed [facility] Pneumovax (PPSV23) Pneumovax (PPSV23) 2017-02-09 10:30:00 Completed [facility] Pneumovax (PPSV23) Pneumovax (PPSV23) 2017-02-09 10:30:00 Completed [facility] Pneumovax (PPSV23) Pneumovax (PPSV23) 2017-02-09 10:30:00 Completed [facility] Pneumovax (PPSV23) Pneumovax (PPSV23) 2017-02-09 10:30:00 Completed [facility] Pneumovax (PPSV23) Pneumovax (PPSV23) 2017-02-09 10:30:00 Completed [facility] Pfizer COVID-19 Vaccine Pfizer COVID-19 Vaccine Unknown Completed [facility] Pfizer COVID-19 Vaccine Pfizer COVID-19 Vaccine Unknown Completed [facility] Pfizer COVID-19 Vaccine Pfizer COVID-19 Vaccine Unknown Completed [facility] Pneumovax (PPSV23) Pneumovax (PPSV23) Unknown Completed [facility] FLUZONE HIGH DOSE OVER 65 FLUZONE HIGH DOSE OVER 65 Unknown Completed [facility] Pfizer COVID-19 Vaccine Pfizer COVID-19 Vaccine Unknown Completed [facility] Pfizer COVID-19 Vaccine Pfizer COVID-19 Vaccine Unknown Completed [facility] Pfizer COVID-19 Vaccine Pfizer COVID-19 Vaccine Unknown Completed [facility] Pneumovax (PPSV23) Pneumovax (PPSV23) Unknown Completed [facility] FLUZONE HIGH DOSE OVER 65 FLUZONE HIGH DOSE OVER 65 Unknown Completed [facility] Pfizer COVID-19 Vaccine Pfizer COVID-19 Vaccine Unknown Completed [facility] Pfizer COVID-19 Vaccine Pfizer COVID-19 Vaccine Unknown Completed [facility] Pfizer COVID-19 Vaccine Pfizer COVID-19 Vaccine Unknown Completed [facility] Pneumovax (PPSV23) Pneumovax (PPSV23) Unknown Completed [facility] FLUZONE HIGH DOSE OVER 65 FLUZONE HIGH DOSE OVER 65 Unknown Completed [facility] Pfizer COVID-19 Vaccine Pfizer COVID-19 Vaccine Unknown Completed [facility] Pfizer COVID-19 Vaccine Pfizer COVID-19 Vaccine Unknown Completed [facility] Pfizer COVID-19 Vaccine Pfizer COVID-19 Vaccine Unknown Completed [facility] Pneumovax (PPSV23) Pneumovax (PPSV23) Unknown Completed [facility] FLUZONE HIGH DOSE OVER 65 FLUZONE HIGH DOSE OVER 65 Unknown Completed [facility] Pfizer COVID-19 Vaccine Pfizer COVID-19 Vaccine Unknown Completed [facility] Pfizer COVID-19 Vaccine Pfizer COVID-19 Vaccine Unknown Completed [facility] Pfizer COVID-19 Vaccine Pfizer COVID-19 Vaccine Unknown Completed [facility] Pneumovax (PPSV23) Pneumovax (PPSV23) Unknown Completed [facility] FLUZONE HIGH DOSE OVER 65 FLUZONE HIGH DOSE OVER 65 Unknown Completed [facility] Pfizer COVID-19 Vaccine Pfizer COVID-19 Vaccine Unknown Completed [facility] Pfizer COVID-19 Vaccine Pfizer COVID-19 Vaccine Unknown Completed [facility] Pfizer COVID-19 Vaccine Pfizer COVID-19 Vaccine Unknown Completed [facility] Pneumovax (PPSV23) Pneumovax (PPSV23) Unknown Completed [facility] FLUZONE HIGH DOSE OVER 65 FLUZONE HIGH DOSE OVER 65 Unknown Completed [facility] Pfizer COVID-19 Vaccine Pfizer COVID-19 Vaccine Unknown Completed [facility] Pfizer COVID-19 Vaccine Pfizer COVID-19 Vaccine Unknown Completed [facility] Pfizer COVID-19 Vaccine Pfizer COVID-19 Vaccine Unknown Completed [facility] Pneumovax (PPSV23) Pneumovax (PPSV23) Unknown Completed [facility] FLUZONE HIGH DOSE OVER 65 FLUZONE HIGH DOSE OVER 65 Unknown Completed [facility] Pfizer COVID-19 Vaccine Pfizer COVID-19 Vaccine Unknown Completed [facility] Pfizer COVID-19 Vaccine Pfizer COVID-19 Vaccine Unknown Completed [facility] Pfizer COVID-19 Vaccine Pfizer COVID-19 Vaccine Unknown Completed [facility] Pneumovax (PPSV23) Pneumovax (PPSV23) Unknown Completed [facility] FLUZONE HIGH DOSE OVER 65 FLUZONE HIGH DOSE OVER 65 Unknown Completed [facility] Pfizer COVID-19 Vaccine Pfizer COVID-19 Vaccine Unknown Completed [facility] Pfizer COVID-19 Vaccine Pfizer COVID-19 Vaccine Unknown Completed [facility] Pfizer COVID-19 Vaccine Pfizer COVID-19 Vaccine Unknown Completed [facility] Pneumovax (PPSV23) Pneumovax (PPSV23) Unknown Completed [facility] FLUZONE HIGH DOSE OVER 65 FLUZONE HIGH DOSE OVER 65 Unknown Completed [facility] Pfizer COVID-19 Vaccine Pfizer COVID-19 Vaccine Unknown Completed [facility] Pfizer COVID-19 Vaccine Pfizer COVID-19 Vaccine Unknown Completed [facility] Pfizer COVID-19 Vaccine Pfizer COVID-19 Vaccine Unknown Completed [facility] Pneumovax (PPSV23) Pneumovax (PPSV23) Unknown Completed [facility] FLUZONE HIGH DOSE OVER 65 FLUZONE HIGH DOSE OVER 65 Unknown Completed [facility] Pfizer COVID-19 Vaccine Pfizer COVID-19 Vaccine Unknown Completed [facility] Pfizer COVID-19 Vaccine Pfizer COVID-19 Vaccine Unknown Completed [facility] Pfizer COVID-19 Vaccine Pfizer COVID-19 Vaccine Unknown Completed [facility] Pneumovax (PPSV23) Pneumovax (PPSV23) Unknown Completed [facility] FLUZONE HIGH DOSE OVER 65 FLUZONE HIGH DOSE OVER 65 Unknown Completed [facility] Pfizer COVID-19 Vaccine Pfizer COVID-19 Vaccine Unknown Completed [facility] Pfizer COVID-19 Vaccine Pfizer COVID-19 Vaccine Unknown Completed [facility] Pfizer COVID-19 Vaccine Pfizer COVID-19 Vaccine Unknown Completed [facility] Pneumovax (PPSV23) Pneumovax (PPSV23) Unknown Completed [facility] FLUZONE HIGH DOSE OVER 65 FLUZONE HIGH DOSE OVER 65 Unknown Completed [facility] Pfizer COVID-19 Vaccine Pfizer COVID-19 Vaccine Unknown Completed [facility] Pfizer COVID-19 Vaccine Pfizer COVID-19 Vaccine Unknown Completed [facility] Pfizer COVID-19 Vaccine Pfizer COVID-19 Vaccine Unknown Completed [facility] Pneumovax (PPSV23) Pneumovax (PPSV23) Unknown Completed [facility] FLUZONE HIGH DOSE OVER 65 FLUZONE HIGH DOSE OVER 65 Unknown Completed [facility] Pfizer COVID-19 Vaccine Pfizer COVID-19 Vaccine Unknown Completed [facility] Pfizer COVID-19 Vaccine Pfizer COVID-19 Vaccine Unknown Completed [facility] Pfizer COVID-19 Vaccine Pfizer COVID-19 Vaccine Unknown Completed [facility] Pneumovax (PPSV23) Pneumovax (PPSV23) Unknown Completed [facility] FLUZONE HIGH DOSE OVER 65 FLUZONE HIGH DOSE OVER 65 Unknown Completed [facility] Pfizer COVID-19 Vaccine Pfizer COVID-19 Vaccine Unknown Completed [facility] Pfizer COVID-19 Vaccine Pfizer COVID-19 Vaccine Unknown Completed [facility] Pfizer COVID-19 Vaccine Pfizer COVID-19 Vaccine Unknown Completed [facility] Pneumovax (PPSV23) Pneumovax (PPSV23) Unknown Completed [facility] FLUZONE HIGH DOSE OVER 65 FLUZONE HIGH DOSE OVER 65 Unknown Completed [facility] Pfizer COVID-19 Vaccine Pfizer COVID-19 Vaccine Unknown Completed [facility] Pfizer COVID-19 Vaccine Pfizer COVID-19 Vaccine Unknown Completed [facility] Pfizer COVID-19 Vaccine Pfizer COVID-19 Vaccine Unknown Completed [facility] Pneumovax (PPSV23) Pneumovax (PPSV23) Unknown Completed [facility] FLUZONE HIGH DOSE OVER 65 FLUZONE HIGH DOSE OVER 65 Unknown Completed [facility] Pfizer COVID-19 Vaccine Pfizer COVID-19 Vaccine Unknown Completed [facility] Pfizer COVID-19 Vaccine Pfizer COVID-19 Vaccine Unknown Completed [facility] Pfizer COVID-19 Vaccine Pfizer COVID-19 Vaccine Unknown Completed [facility] Pneumovax (PPSV23) Pneumovax (PPSV23) Unknown Completed [facility] FLUZONE HIGH DOSE OVER 65 FLUZONE HIGH DOSE OVER 65 Unknown Completed [facility] SARS-COV-2 COVID-19 PFIZER VACCINE Unknown Completed [facility] SARS-COV-2 COVID-19 PFIZER VACCINE Unknown Completed [facility] SARS-COV-2 COVID-19 PFIZER VACCINE Unknown Completed [facility] SARS-COV-2 COVID-19 PFIZER VACCINE Unknown Completed [facility] SARS-COV-2 COVID-19 PFIZER VACCINE Unknown Completed [facility] SARS-COV-2 COVID-19 PFIZER VACCINE Unknown Completed [facility] SARS-COV-2 COVID-19 PFIZER VACCINE Unknown Completed [facility] SARS-COV-2 COVID-19 PFIZER VACCINE Unknown Completed [facility] SARS-COV-2 COVID-19 PFIZER VACCINE Unknown Completed [facility] SARS-COV-2 COVID-19 PFIZER VACCINE Unknown Completed [facility] SARS-COV-2 COVID-19 PFIZER VACCINE Unknown Completed [facility] SARS-COV-2 COVID-19 PFIZER VACCINE Unknown Completed [facility] SARS-COV-2 COVID-19 PFIZER VACCINE Unknown Completed [facility] SARS-COV-2 COVID-19 PFIZER VACCINE Unknown Completed [facility] SARS-COV-2 COVID-19 PFIZER VACCINE Unknown Completed [facility] SARS-COV-2 COVID-19 PFIZER VACCINE Unknown Completed [facility] SARS-COV-2 COVID-19 PFIZER VACCINE Unknown Completed [facility] SARS-COV-2 COVID-19 PFIZER VACCINE Unknown Completed [facility] SARS-COV-2 COVID-19 PFIZER VACCINE Unknown Completed [facility] SARS-COV-2 COVID-19 PFIZER VACCINE Unknown Completed [facility] SARS-COV-2 COVID-19 PFIZER VACCINE Unknown Completed [facility] SARS-COV-2 COVID-19 PFIZER VACCINE Unknown Completed [facility] SARS-COV-2 COVID-19 PFIZER VACCINE Unknown Completed [facility] SARS-COV-2 COVID-19 PFIZER VACCINE Unknown Completed [facility] SARS-COV-2 COVID-19 PFIZER VACCINE Unknown Completed [facility] SARS-COV-2 COVID-19 PFIZER VACCINE Unknown Completed [facility] SARS-COV-2 COVID-19 PFIZER VACCINE Unknown Completed [facility] SARS-COV-2 COVID-19 PFIZER VACCINE Unknown Completed [facility] SARS-COV-2 COVID-19 PFIZER VACCINE Unknown Completed [facility] SARS-COV-2 COVID-19 PFIZER VACCINE Unknown Completed [facility] Vital Signs Vital Name Observation Time Observation Value Comments S [place] height 2023-07-17 13:50:00 67 [in_i] Commo n [facility] weight 2023-07-17 13:50:00 250.0 [lb_av] Co mmon [facility] temperature 2023-07-17 13:50:00 97.4 [degF] Com mon [facility] bmi 2023-07-17 13:50:00 39.15 kg/m2 Comm on [facility] oximetry 2023-07-17 13:50:00 96 % Commo n [facility] respiratory rate 2023-07-17 13:50:00 17 /min [facility] blood pressure systolic 2023-07-17 13:50:00 130 mm[Hg] [facility] blood pressure diastolic 2023-07-17 13:50:00 73 mm[Hg] [facility] Systolic blood pressure 2023-06-10 20:16:00 134 mm[Hg] Post [facility] Diastolic blood pressure 2023-06-10 20:16:00 79 mm[Hg] Post [facility] Heart rate 2023-06-10 16:41:00 82 /min [facility] Body temperature 2023-06-10 16:41:00 36.72 Joya [facility] Respiratory rate 2023-06-10 16:41:00 18 /min [facility] Body height 2023-06-10 16:41:00 170.2 cm [facility] Body weight 2023-06-10 16:41:00 116.574 kg [facility] BMI 2023-06-10 16:41:00 40.25 kg/m2 [facility] Oxygen saturation in Arterial blood by Pulse oximetry 2023-06-10 16:41:00 94 /min [facility] height 2023-06-04 15:00:00 67 [in_i] Commo n [facility] weight 2023-06-04 15:00:00 260.0 [lb_av] Co mmon [facility] temperature 2023-06-04 15:00:00 97.7 [degF] Com mon [facility] bmi 2023-06-04 15:00:00 40.72 kg/m2 Comm on [facility] oximetry 2023-06-04 15:00:00 97 % Commo n [facility] respiratory rate 2023-06-04 15:00:00 18 /min Common [facility] blood pressure systolic 2023-06-04 15:00:00 141 mm[Hg] Common [facility] blood pressure diastolic 2023-06-04 15:00:00 81 mm[Hg] [facility] Systolic blood pressure 2023-04-15 16:34:00 114 mm[Hg] [facility] Diastolic blood pressure 2023-04-15 16:34:00 72 mm[Hg] [facility] Heart rate 2023-04-15 16:34:00 71 /min [facility] Body temperature 2023-04-15 16:34:00 36.28 Joya [facility] Respiratory rate 2023-04-15 16:34:00 18 /min [facility] Body height 2023-04-15 16:34:00 170.2 cm [facility] Body weight 2023-04-15 16:34:00 116.711 kg [facility] BMI 2023-04-15 16:34:00 40.30 kg/m2 [facility] Oxygen saturation in Arterial blood by Pulse oximetry 2023-04-15 16:34:00 95 /min [facility] Systolic blood pressure 2023-03-25 20:07:00 141 mm[Hg] [facility] Diastolic blood pressure 2023-03-25 20:07:00 88 mm[Hg] [facility] Heart rate 2023-03-25 19:50:00 58 /min [facility] Body height 2023-03-25 19:50:00 170.2 cm [facility] Body weight 2023-03-25 19:50:00 115.577 kg [facility] BMI 2023-03-25 19:50:00 39.91 kg/m2 [facility] height 2023-03-20 10:50:00 67 [in_i] Commo n [facility] weight 2023-03-20 10:50:00 252.0 [lb_av] Co mmon [facility] temperature 2023-03-20 10:50:00 97.7 [degF] Com mon [facility] bmi 2023-03-20 10:50:00 39.46 kg/m2 Comm on [facility] oximetry 2023-03-20 10:50:00 98 % Commo n [facility] respiratory rate 2023-03-20 10:50:00 16 /min [facility] blood pressure systolic 2023-03-20 10:50:00 138 mm[Hg] [facility] blood pressure diastolic 2023-03-20 10:50:00 74 mm[Hg] [facility] Systolic blood pressure 2023-03-02 23:30:00 145 mm[Hg] [facility] Diastolic blood pressure 2023-03-02 23:30:00 88 mm[Hg] [facility] Heart rate 2023-03-02 23:30:00 62 /min [facility] Respiratory rate 2023-03-02 23:30:00 20 /min [facility] Oxygen saturation in Arterial blood by Pulse oximetry 2023-03-02 23:30:00 96 /min [facility] Body temperature 2023-03-02 21:45:00 36.39 Joya [facility] Body height 2023-03-02 21:45:00 170.2 cm [facility] Body weight 2023-03-02 21:45:00 111.131 kg [facility] BMI 2023-03-02 21:45:00 38.37 kg/m2 [facility] height 2023-02-19 14:20:00 67 [in_i] Commo n [facility] weight 2023-02-19 14:20:00 250 [lb_av] Comm on [facility] bmi 2023-02-19 14:20:00 39.15 kg/m2 Comm on [facility] height 2022-11-26 10:20:00 67 [in_i] Commo n [facility] weight 2022-11-26 10:20:00 254 [lb_av] Comm on [facility] temperature 2022-11-26 10:20:00 97.7 [degF] Com [facility] bmi 2022-11-26 10:20:00 39.78 kg/m2 Comm on [facility] oximetry 2022-11-26 10:20:00 93 % Commo n [facility] respiratory rate 2022-11-26 10:20:00 16 /min [facility] blood pressure systolic 2022-11-26 10:20:00 138 mm[Hg] [facility] blood pressure diastolic 2022-11-26 10:20:00 80 mm[Hg] [facility] height 2022-11-26 10:40:00 67 [in_i] Commo n [facility] weight 2022-11-26 10:40:00 254 [lb_av] Comm on [facility] temperature 2022-11-26 10:40:00 97.7 [degF] Com [facility] bmi 2022-11-26 10:40:00 39.78 kg/m2 Comm on [facility] oximetry 2022-11-26 10:40:00 93 % Commo n [facility] respiratory rate 2022-11-26 10:40:00 16 /min [facility] blood pressure systolic 2022-11-26 10:40:00 138 mm[Hg] Common [facility] blood pressure diastolic 2022-11-26 10:40:00 80 mm[Hg] [facility] height 2022-11-21 08:45:00 67 [in_i] Commo n [facility] weight 2022-11-21 08:45:00 253 [lb_av] Comm on [facility] temperature 2022-11-21 08:45:00 98.0 [degF] Com [facility] bmi 2022-11-21 08:45:00 39.62 kg/m2 Comm on [facility] oximetry 2022-11-21 08:45:00 97 % Commo n [facility] respiratory rate 2022-11-21 08:45:00 18 /min [facility] blood pressure systolic 2022-11-21 08:45:00 134 mm[Hg] Common [facility] blood pressure diastolic 2022-11-21 08:45:00 82 mm[Hg] Common [facility] height 2022-07-26 10:30:00 67 [in_i] Commo n [facility] weight 2022-07-26 10:30:00 254 [lb_av] Comm on [facility] temperature 2022-07-26 10:30:00 97.4 [degF] Com [facility] bmi 2022-07-26 10:30:00 39.78 kg/m2 Comm on [facility] oximetry 2022-07-26 10:30:00 96 % Commo n [facility] respiratory rate 2022-07-26 10:30:00 16 /min Common [facility] blood pressure systolic 2022-07-26 10:30:00 139 mm[Hg] Common [facility] blood pressure diastolic 2022-07-26 10:30:00 87 mm[Hg] Common [facility] height 2022-04-11 13:00:00 67 [in_i] Commo n [facility] weight 2022-04-11 13:00:00 250 [lb_av] Comm on [facility] temperature 2022-04-11 13:00:00 99.0 [degF] Com mon [facility] bmi 2022-04-11 13:00:00 39.15 kg/m2 Comm on [facility] oximetry 2022-04-11 13:00:00 96 % Commo n [facility] respiratory rate 2022-04-11 13:00:00 16 /min Common [facility] blood pressure systolic 2022-04-11 13:00:00 161 mm[Hg] Common [facility] blood pressure diastolic 2022-04-11 13:00:00 96 mm[Hg] Common [facility] height 2022-04-09 11:20:00 67 [in_i] Commo n [facility] weight 2022-04-09 11:20:00 250 [lb_av] Comm on [facility] temperature 2022-04-09 11:20:00 97.5 [degF] Com [facility] bmi 2022-04-09 11:20:00 39.15 kg/m2 Comm on [facility] height 2022-03-19 09:20:00 67 [in_i] Commo n [facility] weight 2022-03-19 09:20:00 250.0 [lb_av] Co mmon [facility] temperature 2022-03-19 09:20:00 97.2 [degF] Com [facility] bmi 2022-03-19 09:20:00 39.15 kg/m2 Comm on [facility] oximetry 2022-03-19 09:20:00 94 % Commo n [facility] respiratory rate 2022-03-19 09:20:00 16 /min Common [facility] blood pressure systolic 2022-03-19 09:20:00 139 mm[Hg] [facility] blood pressure diastolic 2022-03-19 09:20:00 74 mm[Hg] Common [facility] height 2022-03-19 09:30:00 67 [in_i] Commo n [facility] weight 2022-03-19 09:30:00 250.0 [lb_av] Co mmon [facility] temperature 2022-03-19 09:30:00 97.2 [degF] Com mon [facility] bmi 2022-03-19 09:30:00 39.15 kg/m2 Comm on [facility] oximetry 2022-03-19 09:30:00 94 % Commo n [facility] respiratory rate 2022-03-19 09:30:00 16 /min Common [facility] blood pressure systolic 2022-03-19 09:30:00 139 mm[Hg] Common [facility] blood pressure diastolic 2022-03-19 09:30:00 74 mm[Hg] Common [facility] height 2022-01-10 13:00:00 67 [in_i] Commo n [facility] weight 2022-01-10 13:00:00 257 [lb_av] Comm on [facility] temperature 2022-01-10 13:00:00 97.2 [degF] Com mon [facility] bmi 2022-01-10 13:00:00 40.25 kg/m2 Comm on [facility] oximetry 2022-01-10 13:00:00 99 % Commo n [facility] respiratory rate 2022-01-10 13:00:00 16 /min Common [facility] blood pressure systolic 2022-01-10 13:00:00 183 mm[Hg] Common [facility] blood pressure diastolic 2022-01-10 13:00:00 104 mm[Hg] Common [facility] height 2021-12-12 10:00:00 67 [in_i] Commo n [facility] weight 2021-12-12 10:00:00 253 [lb_av] Comm on [facility] temperature 2021-12-12 10:00:00 98.2 [degF] Com mon [facility] bmi 2021-12-12 10:00:00 39.62 kg/m2 Comm on [facility] oximetry 2021-12-12 10:00:00 99 % Commo n [facility] respiratory rate 2021-12-12 10:00:00 18 /min [facility] blood pressure systolic 2021-12-12 10:00:00 135 mm[Hg] Common [facility] blood pressure diastolic 2021-12-12 10:00:00 76 mm[Hg] Common [facility] height 2021-11-13 09:50:00 67 [in_i] Commo n [facility] weight 2021-11-13 09:50:00 250 [lb_av] Comm on [facility] temperature 2021-11-13 09:50:00 97 [degF] Comm on [facility] bmi 2021-11-13 09:50:00 39.15 kg/m2 Comm on [facility] blood pressure systolic 2021-11-13 09:50:00 129 mm[Hg] Common [facility] blood pressure diastolic 2021-11-13 09:50:00 84 mm[Hg] Common [facility] height 2021-10-02 15:00:00 67 [in_i] Commo n [facility] weight 2021-10-02 15:00:00 256 [lb_av] Comm on [facility] bmi 2021-10-02 15:00:00 40.09 kg/m2 Comm on [facility] height 2021-09-12 11:45:00 67 [in_i] Commo n [facility] weight 2021-09-12 11:45:00 256 [lb_av] Comm on [facility] temperature 2021-09-12 11:45:00 97.6 [degF] Com [facility] bmi 2021-09-12 11:45:00 40.09 kg/m2 Comm on [facility] oximetry 2021-09-12 11:45:00 96 % Commo n [facility] respiratory rate 2021-09-12 11:45:00 16 /min Common [facility] blood pressure systolic 2021-09-12 11:45:00 176 mm[Hg] Common [facility] blood pressure diastolic 2021-09-12 11:45:00 91 mm[Hg] Common [facility] height 2021-08-22 13:00:00 67 [in_i] Commo n [facility] weight 2021-08-22 13:00:00 252 [lb_av] Comm on [facility] temperature 2021-08-22 13:00:00 97.7 [degF] Com [facility] bmi 2021-08-22 13:00:00 39.46 kg/m2 Comm on [facility] oximetry 2021-08-22 13:00:00 94 % Commo n [facility] respiratory rate 2021-08-22 13:00:00 16 /min Common [facility] blood pressure systolic 2021-08-22 13:00:00 149 mm[Hg] Common [facility] blood pressure diastolic 2021-08-22 13:00:00 81 mm[Hg] Common [facility] height 2021-07-19 13:30:00 67 [in_i] Commo n [facility] weight 2021-07-19 13:30:00 252 [lb_av] Comm on [facility] temperature 2021-07-19 13:30:00 97.0 [degF] Com mon [facility] bmi 2021-07-19 13:30:00 39.46 kg/m2 Comm on [facility] oximetry 2021-07-19 13:30:00 96 % Commo n [facility] respiratory rate 2021-07-19 13:30:00 17 /min Common [facility] blood pressure systolic 2021-07-19 13:30:00 140 mm[Hg] [facility] blood pressure diastolic 2021-07-19 13:30:00 89 mm[Hg] Common [facility] height 2021-07-03 09:40:00 67 [in_i] Commo n [facility] weight 2021-07-03 09:40:00 257 [lb_av] Comm on [facility] temperature 2021-07-03 09:40:00 97.3 [degF] Com [facility] bmi 2021-07-03 09:40:00 40.25 kg/m2 Comm on [facility] oximetry 2021-07-03 09:40:00 96 % Commo n [facility] respiratory rate 2021-07-03 09:40:00 19 /min Common [facility] blood pressure systolic 2021-07-03 09:40:00 134 mm[Hg] Common [facility] blood pressure diastolic 2021-07-03 09:40:00 82 mm[Hg] Common [facility] height 2021-06-22 10:30:00 67 [in_i] Commo n [facility] weight 2021-06-22 10:30:00 244 [lb_av] Comm on [facility] temperature 2021-06-22 10:30:00 97.8 [degF] Com [facility] bmi 2021-06-22 10:30:00 38.21 kg/m2 Comm on [facility] oximetry 2021-06-22 10:30:00 99 % Commo n [facility] respiratory rate 2021-06-22 10:30:00 18 /min [facility] blood pressure systolic 2021-06-22 10:30:00 160 mm[Hg] Common [facility] blood pressure diastolic 2021-06-22 10:30:00 83 mm[Hg] Common [facility] height 2021-05-28 16:45:00 67 [in_i] Commo n [facility] weight 2021-05-28 16:45:00 245 [lb_av] Comm on [facility] temperature 2021-05-28 16:45:00 98 [degF] Comm on [facility] bmi 2021-05-28 16:45:00 38.37 kg/m2 Comm on [facility] oximetry 2021-05-28 16:45:00 98 % Commo n [facility] respiratory rate 2021-05-28 16:45:00 18 /min [facility] blood pressure systolic 2021-05-28 16:45:00 111 mm[Hg] Common [facility] blood pressure diastolic 2021-05-28 16:45:00 65 mm[Hg] Common [facility] height 2021-05-23 11:00:00 67 [in_i] Commo n [facility] weight 2021-05-23 11:00:00 245 [lb_av] Comm on [facility] temperature 2021-05-23 11:00:00 97.5 [degF] Com mon [facility] bmi 2021-05-23 11:00:00 38.37 kg/m2 Comm on [facility] oximetry 2021-05-23 11:00:00 97 % Commo n [facility] respiratory rate 2021-05-23 11:00:00 18 /min Common [facility] blood pressure systolic 2021-05-23 11:00:00 165 mm[Hg] Common [facility] blood pressure diastolic 2021-05-23 11:00:00 85 mm[Hg] Common [facility] height 2021-03-15 13:30:00 67 [in_i] Commo n [facility] weight 2021-03-15 13:30:00 253 [lb_av] Comm on [facility] temperature 2021-03-15 13:30:00 97.2 [degF] Com [facility] bmi 2021-03-15 13:30:00 39.62 kg/m2 Comm on [facility] oximetry 2021-03-15 13:30:00 96 % Commo n [facility] blood pressure systolic 2021-03-15 13:30:00 137 mm[Hg] Common [facility] blood pressure diastolic 2021-03-15 13:30:00 72 mm[Hg] Common [facility] height 2021-03-07 08:50:00 67 [in_i] Commo n [facility] weight 2021-03-07 08:50:00 251.2 [lb_av] Co mmon [facility] temperature 2021-03-07 08:50:00 97.0 [degF] Com [facility] bmi 2021-03-07 08:50:00 39.34 kg/m2 Comm on [facility] oximetry 2021-03-07 08:50:00 86 % Commo n [facility] respiratory rate 2021-03-07 08:50:00 18 /min Common [facility] blood pressure systolic 2021-03-07 08:50:00 133 mm[Hg] Common [facility] blood pressure diastolic 2021-03-07 08:50:00 82 mm[Hg] Common [facility] Procedures Procedure Date / Time Performed Performing Clinician Source DISCLOSURE AND CONSENT, MEDICAL AND SURGICAL PROCEDURES 2023-06-19 06:01:00 Doctor Unassigned, [facility] PATIENT QUESTIONNAIRE 2023-06-10 06:01:00 Doctor Unassigned, [facility] INSURANCE CORRESPONDENCE 2023-05-15 06:01:00 Doc tor Unassigned, [facility] TRANSTHORACIC ECHO (TTE) COMPLETE W/ CONTRAST 2023-05-14 22:03:51 Adri Infante [facility] INSURANCE CORRESPONDENCE 2023-05-07 06:01:00 Doc tor Unassigned, [facility] URINALYSIS 2023-03-02 23:05:00 Neisha [facility] STROKE ANGIOGRAM HEAD 2023-03-02 22:22:25 Garcia Bruce [facility] CT STROKE ANGIOGRAM NECK 2023-03-02 22:22[facility]AGE >30DAYS[facility] 2023-03-02 21:55:00 Neisha Bruce [facility] POCT GLUCOSE (AUTOMATED) 2023-03-02 21:54[facility]00 [facility] 2023-03-02 21:51:00 Neisha [facility] BASIC METABOLIC PANEL (NA, K, CL, CO2, GLUCOSE, BUN, CREATININE, CA) 2023-03-02 21:51:00 Neisha Bruce [facility] CBC WITHOUT DIFF 2023-03-02 21:51:00 Neisha Bruce [facility] PROTHROMBIN TIME / INR 2023-03-02 21:51:00 Edgard Bruce [facility] ACTIVATED PARTIAL THRMPLAS JUAN ALBERTO 2023-03-02 21:51:00 Neisha Bruce [facility] NOTICE OF PRIVACY PRACTICES 2023-03-02 21:35:44 Doctor Unassigned, [facility] CONSENT/REFUSAL FOR DIAGNOSIS AND TREATMENT 2023-03-02 21:35:17 Doctor Unassigned, [facility] PVR 2022-11-21 00:00:00 Common S [facility] Encounters Start Date/Time End Date/Time Encounter Type Admission Type Attending Clinicians Care Facility Care Department Encounter ID Source 2023-07-17 13:43:00 Outpatient Bro, Alfredo STLC STLMLC [id number] [facility] 2023-07-15 15:06:00 Outpatient Bro, Alfredo STLC STLML[facility] [id number] [facility] 2023-07-14 11:14:00 Outpatient Bro, Alfredo STLC STLML[facility] [id number] [facility] 2022-11-26 10:24:00 Outpatient Bro, Alfredo STLC STLMLC [id number] [facility] 2022-03-21 14:37:01 Outpatient Bro, Alfredo STLC STLMLC [id number] [facility] 2022-03-15 10:09:00 Outpatient Bro, Alfredo STLC STLMLC [id number] [facility] 2021-10-02 10:41:01 Outpatient Bro, Alfredo STLC STL[facility] [id number] [facility] 2021-07-03 09:55:00 Outpatient Bro, Alfredo ST[facility] STL[facility] [id number] [facility] 2021-06-06 14:08:59 Outpatient Bro, Alfredo [facility] STL[facility] [id number] [facility] 2021-06-06 13:56:13 Outpatient Bro, Aflredo STLC STLMLC [id number] [facility] 2021-06-06 13:55:45 Outpatient Bro, Alfredo STLC STLMLC [id number] [facility] 2021-06-06 13:55:30 Outpatient Bro, Alfredo ST[facility] STLML[facility] [id number] [facility] 2021-06-06 13:48:21 Outpatient Bro, Alfredo STSRIKAN[facility] ST[facility] [id number] [facility] 2021-06-06 13:38:04 Outpatient Bro, Alfredo STLC STLC [id number] [facility] 2021-06-06 12:54:27 Outpatient Bro, Alfredo STLC STLC [id number] [facility] 2021-06-06 12:32:42 Outpatient Bro, Alfredo STLC STLC [id number] [facility] 2021-06-06 12:31:53 Outpatient Bro, Alfredo STLC STLC [id number] [facility] 2021-06-06 12:24:28 Outpatient Bro, Alfredo [facility] ST[facility] [id number] [facility] 2021-06-06 12:07:49 Outpatient STSRIKAN[facility] ST[facility] [id number] [facility] 2021-06-06 12:07:22 Outpatient Manjula Duval [facility]CHR[facility] ST[facility] [id number] [facility] 2021-06-06 11:02:56 Outpatient Manjula Duval ST[facility] STLC [id number] [facility] 2021-06-06 11:02:49 Outpatient Manjula Duval [facility] STLC [id number] [facility] 2023-08-15 00:00:00 2023-08-15 00:00:00 Telephone Adri Infante [facility] [id number] [facility] 2023-08-12 00:00:00 2023-08-12 00:00:00 (TEL) [facility] [id number] [facility] 2023-08-05 13:00:00 2023-08-05 14:00:00 Initial D2Me Sera Iyanoye [id number] [address] 2023-07-28 00:00:00 2023-07-28 00:00:00 (TEL) [facility] [id number] [facility] 2023-07-17 00:00:00 2023-07-17 00:00:00 OFFICE VISIT ESTAB PT LEVEL 4 [facility] [id number] [facility] 2023-06-19 00:00:00 2023-06-19 00:00:00 Orders Only Doctor Unassigned, [facility] 1..114 [id number] [facility] 2023-06-17 14:30:00 2023-06-17 14:30:00 Outpatient R ISMAEL [facility] [id number] [facility] 2023-06-10 10:30:00 2023-06-10 12:18:41 Outpatient R SHANDRA [facility] [id number] [facility] 2023-06-10 10:30:00 2023-06-10 12:18:41 [facility] [place] [place] 1..114 [id number] [facility] 2023-06-10 00:00:00 2023-06-10 00:00:00 Orders Only Doctor Unassigned, [facility] 1.0.114 [id number] 4.2.7.2.686 [id number] [facility] 2023-06-04 00:00:00 2023-06-04 00:00:00 OFFICE VISIT ESTAB PT LEVEL 5 STLMLC STLC [id number] [facility] 2023-05-28 00:00:00 2023-05-28 00:00:00 (TEL) STLMLC STLMLC [id number] [facility] 2023-05-25 00:00:00 2023-05-25 00:00:00 (TEL) STLMLC STLC [id number] [facility] 2023-05-15 00:00:00 2023-05-15 00:00:00 Orders Only Doctor Unassigned, [facility] 1..114 350.1.13.10 4.2.7.2.686 [id number] [facility] 2023-05-14 15:56:26 2023-05-14 23:59:00 Outpatient R [facility]LIS [facility] [id number] [facility] 2023-05-14 15:56:26 2023-05-14 23:59:00 Hospital Encounter [facility] BUILDING 1.84.114 350.1.13.10 4.2.7.2.686 [id number] [facility] 2023-05-14 15:00:00 2023-05-14 15:55:00 Hospital Encounter [facility] BUILDING 1.840.114 350.1.13.10 4.2.7.2.686 [id number] [facility] 2023-05-07 00:00:00 2023-05-07 00:00:00 Orders Only Doctor Unassigned, [facility] 1.0.114 350.1.13.10 4.2.7.2.686 [id number] [facility] 2023-04-15 10:30:00 2023-04-15 11:15:50 [facility] 1..840.114 350.1.13.10 4.2.7.2.686 [id number] [facility] 2023-04-15 10:30:00 2023-04-15 11:15:50 [facility] [id number] [facility] 2023-04-01 00:00:00 2023-04-01 00:00:00 Refill Eligio Cam [facility] BU[facility] 1..840.114 350.1.13.10 4.2.7.2.686 [id number] [facility] 2023-03-25 14:00:00 2023-03-25 16:09:54 Outpatient CAM PETTITOCHCAM Gordillo [facility] [id number] [facility] 2023-03-25 14:00:00 2023-03-25 16:09:54 Office Visit Cam Del Valle [facility] MEDICAL OFFICE BUILDING 1..840.114 350.1.13.10 4.2.7.2.686 [id number] [facility] 2023-03-20 00:00:00 2023-03-20 00:00:00 OFFICE VISIT ESTAB PT LEVEL 4 STLMLC STLMLC [id number] [facility] 2023-03-02 16:35:00 2023-03-02 18:47:00 Emergency X NEISHA BRUCE [facility] [id number] [facility] 2023-03-02 16:35:00 2023-03-02 18:47:00 Emergency Neisha Bruce [facility] 1..840.114 350.1.13.10 4.2.7.2.686 [id number] [facility] 2023-02-19 00:00:00 2023-02-19 00:00:00 OFFICE VISIT ESTAB PT LEVEL 3 STLMLC STLMLC [id number] [facility] 2023-02-19 00:00:00 2023-02-19 00:00:00 (TEL) STLMLC STLMLC [id number] [facility] 2023-01-16 00:00:00 2023-01-16 00:00:00 (TEL) STLMLC STLMLC [id number] [facility] 2022-11-26 00:00:00 2022-11-26 00:00:00 OFFICE VISIT ESTAB PT LEVEL 4 STLMLC STLMLC [id number] [facility] 2022-11-26 00:00:00 2022-11-26 00:00:00 SUB ANNUAL [facility] WELLNESS VISIT STLMLC STLMLC [id number] [facility] 2022-11-26 00:00:00 2022-11-26 00:00:00 (TEL) STLMLC STLMLC [id number] [facility] 2022-11-21 00:00:00 2022-11-21 00:00:00 OFFICE VISIT ESTAB PT LEVEL 4 STLMLC STLMLC [id number] [facility] 2022-10-10 00:00:00 2022-10-10 00:00:00 (PROC) Procedure STLMLC STLMLC [id number] [facility] 2022-09-27 00:00:00 2022-09-27 00:00:00 (TEL) STLMLC STLMLC [id number] [facility] 2022-07-26 00:00:00 2022-07-26 00:00:00 OFFICE VISIT ESTAB PT LEVEL 4 STLMLC STLMLC [id number] [facility] 2022-06-19 00:00:00 2022-06-19 00:00:00 (TEL) STLMLC STLMLC [id number] [facility] 2022-04-12 00:00:00 2022-04-12 00:00:00 (TEL) STLMLC STLMLC [id number] [facility] 2022-04-11 00:00:00 2022-04-11 00:00:00 OFFICE VISIT EST PT LEVEL 3 STLMLC STLMLC [id number] [facility] 2022-04-09 00:00:00 2022-04-09 00:00:00 (TEL) STLMLC STLMLC [id number] [facility] 2022-04-09 00:00:00 2022-04-09 00:00:00 OFFICE VISIT EST PT LEVEL 3 STLMLC STLMLC [id number] [facility] 2022-04-08 00:00:00 2022-04-08 00:00:00 (TEL) STLMLC STLMLC [id number] [facility] 2022-04-08 00:00:00 2022-04-08 00:00:00 (TEL) STLMLC STLMLC [id number] [facility] 2022-04-08 00:00:00 2022-04-08 00:00:00 (TEL) STLMLC STLMLC [id number] [facility] 2022-03-21 00:00:00 2022-03-21 00:00:00 (TEL) STLMLC STLMLC [id number] [facility] 2022-03-19 00:00:00 2022-03-19 00:00:00 OFFICE VISIT ESTAB PT LEVEL 4 STLMLC STLMLC [id number] [facility] 2022-03-19 00:00:00 2022-03-19 00:00:00 SUB ANNUAL [facility] WELLNESS VISIT STLMLC STLMLC [id number] [facility] 2022-02-14 00:00:00 2022-02-14 00:00:00 (TEL) STLMLC STLMLC [id number] [facility] 2022-01-10 00:00:00 2022-01-10 00:00:00 OFFICE VISIT EST PT LEVEL 3 STLMLC STLMLC [id number] [facility] 2021-12-17 00:00:00 2021-12-17 00:00:00 (TEL) STLMLC STLMLC [id number] [facility] 2021-12-12 00:00:00 2021-12-12 00:00:00 OFFICE VISIT ESTAB PT LEVEL 4 STLMLC STLMLC [id number] [facility] 2021-11-30 00:00:00 2021-11-30 00:00:00 (TEL) STLMLC STLMLC [id number] [facility] 2021-11-13 00:00:00 2021-11-13 00:00:00 OFFICE VISIT ESTAB PT LEVEL 4 STLMLC STLMLC [id number] [facility] 2021-10-02 00:00:00 2021-10-02 00:00:00 OFFICE VISIT EST PT LEVEL 3 STLMLC STLMLC [id number] [facility] 2021-10-02 00:00:00 2021-10-02 00:00:00 (TEL) STLMLC STLMLC [id number] [facility] 2021-09-20 00:00:00 2021-09-20 00:00:00 (TEL) STLMLC STLMLC [id number] [facility] 2021-09-12 00:00:00 2021-09-12 00:00:00 OFFICE VISIT ESTAB PT LEVEL 5 STLMLC STLMLC [id number] [facility] 2021-09-12 00:00:00 2021-09-12 00:00:00 (TEL) STLMLC STLMLC [id number] [facility] 2021-08-22 00:00:00 2021-08-22 00:00:00 OFFICE VISIT EST PT LEVEL 3 STLMLC STLMLC [id number] [facility] 2021-07-19 00:00:00 2021-07-19 00:00:00 OFFICE VISIT ESTAB PT LEVEL 2 STLMLC STLMLC [id number] [facility] 2021-07-03 00:00:00 2021-07-03 00:00:00 OFFICE VISIT ESTAB PT LEVEL 4 STLMLC STLMLC [id number] [facility] 2021-07-03 00:00:00 2021-07-03 00:00:00 (TEL) STLMLC STLMLC [id number] [facility] 2021-06-29 00:00:00 2021-06-29 00:00:00 (TEL) STLMLC STLMLC [id number] [facility] 2021-06-22 00:00:00 2021-06-22 00:00:00 Postop visit STLMLC STLMLC [id number] [facility] 2021-05-28 00:00:00 2021-05-28 00:00:00 OFFICE VISIT ESTAB PT LEVEL 2 STLMLC STLMLC [id number] [facility] 2021-05-23 00:00:00 2021-05-23 00:00:00 OFFICE VISIT ESTAB PT LEVEL 4 STLMLC STLMLC [id number] [facility] 2021-03-15 00:00:00 2021-03-15 00:00:00 OFFICE VISIT NEW PT LEVEL 5 STLMLC STLMLC [id number] [facility] 2021-03-07 00:00:00 2021-03-07 00:00:00 OFFICE VISIT EST PT LEVEL 3 STLMLC STLMLC [id number] [facility] 2021-02-26 00:00:00 2021-02-26 00:00:00 (TEL) STLMLC STLMLC [id number] [facility] 2021-02-12 00:00:00 2021-02-12 00:00:00 Outpatient STLMLC STLMLC [id number] [facility] 2021-02-12 00:00:00 2021-02-12 00:00:00 Outpatient STLMLC STLMLC [id number] [facility] 2021-02-12 00:00:00 2021-02-12 00:00:00 Outpatient STLMLC STLMLC [id number] [facility] 2021-01-03 00:00:00 2021-01-03 00:00:00 Outpatient STLMLC STLMLC [id number] [facility] 2021-01-03 00:00:00 2021-01-03 00:00:00 Outpatient STLMLC STLMLC [id number] [facility] 2020-12-29 00:00:00 2020-12-29 00:00:00 Outpatient STLMLC STLMLC [id number] [facility] 2020-08-30 00:00:00 2020-08-30 00:00:00 Outpatient STLMLC STLMLC [id number] [facility] 2020-07-07 10:30:00 2020-07-07 10:30:00 Outpatient R [facility] [id number] [facility] 2020-07-07 10:30:00 2020-07-07 10:30:00 Outpatient MARISEL BRADY [facility] [id number] [facility] 2020-06-30 10:30:00 2020-06-30 10:30:00 Outpatient MARISEL BRADY [facility] [id number] [facility] 2020-06-30 10:30:00 2020-06-30 10:30:00 Outpatient MARISEL BRADY [facility] [id number] [facility] 2020-06-09 09:50:00 2020-06-09 09:50:00 Outpatient MARISEL BRADY [facility] [id number] [facility] 2020-05-23 00:00:00 2020-05-23 00:00:00 Outpatient STLMLC STLMLC [id number] [facility] 2020-05-19 00:00:00 2020-05-19 00:00:00 Outpatient STLMLC STLMLC [id number] [facility] 2020-05-14 00:00:00 2020-05-14 00:00:00 Outpatient STLMLC STLMLC [id number] [facility] 2020-05-10 00:00:00 2020-05-10 00:00:00 Outpatient STLMLC STLMLC [id number] [facility] 2020-05-09 00:00:00 2020-05-09 00:00:00 Outpatient STLMLC STLMLC [id number] [facility] 2020-04-20 00:00:00 2020-04-20 00:00:00 Outpatient STLMLC STLMLC [id number] [facility] 2020-04-04 00:00:00 2020-04-04 00:00:00 Outpatient STLMLC STLMLC [id number] [facility] 2019-12-22 13:19:00 2019-12-22 13:19:00 [facility] [id number] [facility] 2019-12-19 01:36:00 2019-12-19 01:36:00 [facility] [id number] [facility] 2019-12-17 14:34:00 2019-12-17 14:34:[address] [facility] [id number] [facility] 2019-12-14 16:40:00 2019-12-14 16:40:[address] [facility] [facility] [address] [address] [facility] [id number] [facility] 2019-10-05 16:31:00 2019-10-05 16:31:[address] [place] [facility] [id number] [facility] 2019-06-29 11:00:00 2019-06-29 11:00:00 [facility] [id number] 2019-06-03 14:00:00 2019-06-03 14:00:00 Outpatient [facility] [id number] [facility] Results Test Description Test Time Test Comments Results Result Co mments Source [facility] [id number] 00:00:00* Test Item Value Reference Range Interpretation Comme nts HEMOGLOBIN A1c (test code = 4548-4) 5.2 % See_Comment [Automated messa ge] The system which generated this result transmitted reference range: 4.2-5.6 %. The reference range was not used to interpret this result as normal/abnormal. TSH REFLEX TO FREE [id number] 00:00:00* Test Item Value Reference Range Interpretation Comme nts TSH REFLEX TO FREE T4 (test code = 40986-2) 1.220 UIU/ML See_Comment [Automated messa ge] The system which generated this result transmitted reference range: 0.400-4.100 UIU/ML. The reference range was not used to interpret this result as normal/abnormal. LIPID PANEL WITH REFLEX DIRECT [id number] 00:00:00* Test Item Value Reference Range Interpretation Comme nts CALC LDL CHOL (test code = 20729-7) 123 MG/DL See_Comment H [Automated messa ge] The system which generated this result transmitted reference range: <100 MG/DL. The reference range was not used to interpret this result as normal/abnormal. CHOLESTEROL (test code = 2093-3) 190 MG/DL See_Comment [Automated messa ge] The system which generated this result transmitted reference range: <200 MG/DL. The reference range was not used to interpret this result as normal/abnormal. HDL CHOLESTEROL (test code = 2085-9) 41 MG/DL See_Comment [Automated messa ge] The system which generated this result transmitted reference range: >39 MG/DL. The reference range was not used to interpret this result as normal/abnormal. RISK RATIO LDL/HDL (test code = 22576-5) 3.00 RATIO See_Comment [Automated message] The system which generated this result transmitted reference range: <3.55 RATIO. The reference range was not used to interpret this result as normal/abnormal. TRIGLYCERIDES (test code = 2571-8) 144 MG/DL See_Comment [Automated messa ge] The system which generated this result transmitted reference range: <150 MG/DL. The reference range was not used to interpret this result as normal/abnormal. PATHOLOGIST SMEAR [id number] 00:00:00* Test Item Value Reference Range Interpretation Comme nts BASOPHILS (test code = 96425-4) 0.9 % DIAGNOSIS: (test code = 49390-7) (NOTE) COMMENTS (test code = 60122-1) (NOTE) EOSINOPHILS (test code = 91566-0) 12.3 % HEMATOCRIT (test code = 86294-3) 37.8 % See_Comment L [Automated messa ge] The system which generated this result transmitted reference range: 40.0-51.0 %. The reference range was not used to interpret this result as normal/abnormal. HEMOGLOBIN (test code = 718-7) 12.1 G/DL See_Comment L [Automated messa ge] The system which generated this result transmitted reference range: 13.5-17.0 G/DL. The reference range was not used to interpret this result as normal/abnormal. LYMPHOCYTES (test code = 22794-6) 41.8 % MCH (test code = 37004-8) 29.5 PG See_Comment [Automated messa ge] The system which generated this result transmitted reference range: 25.0-33.0 PG. The reference range was not used to interpret this result as normal/abnormal. MCHC (test code = 98206-4) 32.0 G/DL See_Comment [Automated messa ge] The system which generated this result transmitted reference range: 31.0-36.0 G/DL. The reference range was not used to interpret this result as normal/abnormal. MCV (test code = 40177-7) 92.2 fL See_Comment [Automated messa ge] The system which generated this result transmitted reference range: 80.0-99.0 fL. The reference range was not used to interpret this result as normal/abnormal. MONOCYTES (test code = 21847-7) 9.0 % NEUTROPHILS (test code = 52992-3) 35.6 % NUCLEATED RBCS (test code = 24070-3) 0.0 /100 WBC'S See_Comment [Automated messa ge] The system which generated this result transmitted reference range: 0.0 /100 WBC'S. The reference range was not used to interpret this result as normal/abnormal. PATHOLOGIST: (test code = 36069-9) (NOTE) PLATELET COUNT (test code = 63789-0) 168 K/UL See_Comment [Automated messa ge] The system which generated this result transmitted reference range: 130-400 K/UL. The reference range was not used to interpret this result as normal/abnormal. RBC (test code = 80423-6) 4.10 M/UL See_Comment L [Automated messa ge] The system which generated this result transmitted reference range: 4.50-6.10 M/UL. The reference range was not used to interpret this result as normal/abnormal. RDW (test code = 82244-7) 12.1 % See_Comment [Automated messa ge] The system which generated this result transmitted reference range: 11.5-15.0 %. The reference range was not used to interpret this result as normal/abnormal. WBC (test code = 07656-0) 4.6 K/UL See_Comment [Automated messa ge] The system which generated this result transmitted reference range: 3.5-11.0 K/UL. The reference range was not used to interpret this result as normal/abnormal. COMPREHENSIVE METABOLIC [id number] 00:00:00* Test Item Value Reference Range Interpretation Comme nts ALBUMIN (test code = 1751-7) 3.6 G/DL See_Comment [Automated messa ge] The system which generated this result transmitted reference range: 3.5-5.2 G/DL. The reference range was not used to interpret this result as normal/abnormal. ALKALINE PHOSPHATASE (test code = 6768-6) 77 U/L See_Comment [Automated message] The system which generated this result transmitted reference range: 40-125 U/L. The reference range was not used to interpret this result as normal/abnormal. BILIRUBIN, TOTAL (test code = 1975-2) 0.2 MG/DL See_Comment [Automated message] The system which generated this result transmitted reference range: <=1.2 MG/DL. The reference range was not used to interpret this result as normal/abnormal. BUN (test code = 3094-0) 17 MG/DL See_Comment [Automated messa ge] The system which generated this result transmitted reference range: 8-23 MG/DL. The reference range was not used to interpret this result as normal/abnormal. CALCIUM (test code = 67782-4) 8.7 MG/DL See_Comment [Automated messa ge] The system which generated this result transmitted reference range: 8.5-10.5 MG/DL. The reference range was not used to interpret this result as normal/abnormal. CALC A/G RATIO (test code = 1759-0) 1.6 RATIO See_Comment [Automated messa ge] The system which generated this result transmitted reference range: 1.0-2.6 RATIO. The reference range was not used to interpret this result as normal/abnormal. CALC BUN/CREAT (test code = 3097-3) 17 RATIO See_Comment [Automated messa ge] The system which generated this result transmitted reference range: 6-28 RATIO. The reference range was not used to interpret this result as normal/abnormal. CALC GLOBULIN (test code = 17673-1) 2.2 G/DL See_Comment [Automated messa ge] The system which generated this result transmitted reference range: 1.9-3.7 G/DL. The reference range was not used to interpret this result as normal/abnormal. CARBON DIOXIDE (test code = 1963-8) 26 MEQ/L See_Comment [Automated messa ge] The system which generated this result transmitted reference range: 19-31 MEQ/L. The reference range was not used to interpret this result as normal/abnormal. CHLORIDE (test code = 2075-0) 109 MEQ/L See_Comment H [Automated messa ge] The system which generated this result transmitted reference range: 95-107 MEQ/L. The reference range was not used to interpret this result as normal/abnormal. CREATININE (test code = 2160-0) 1.02 MG/DL See_Comment [Automated messa ge] The system which generated this result transmitted reference range: 0.80-1.40 MG/DL. The reference range was not used to interpret this result as normal/abnormal. eGFR (2020 CKD-EPI) (test code = 04748-4) 72 ML/MIN/1.73 See_Comment [Automated messa ge] The system which generated this result transmitted reference range: >60 ML/MIN/1.73. The reference range was not used to interpret this result as normal/abnormal. GLUCOSE (test code = 1558-6) 101 MG/DL See_Comment H [Automated messa ge] The system which generated this result transmitted reference range: 70-99 MG/DL. The reference range was not used to interpret this result as normal/abnormal. POTASSIUM (test code = 2823-3) 4.4 MEQ/L See_Comment [Automated messa ge] The system which generated this result transmitted reference range: 3.5-5.4 MEQ/L. The reference range was not used to interpret this result as normal/abnormal. PROTEIN, TOTAL (test code = 2885-2) 5.8 G/DL See_Comment L [Automated messa ge] The system which generated this result transmitted reference range: 6.1-8.3 G/DL. The reference range was not used to interpret this result as normal/abnormal. AST (test code = 1920-8) 14 U/L See_Comment [Automated messa ge] The system which generated this result transmitted reference range: 9-50 U/L. The reference range was not used to interpret this result as normal/abnormal. ALT (test code = 1742-6) 12 U/L See_Comment [Automated messa ge] The system which generated this result transmitted reference range: 5-50 U/L. The reference range was not used to interpret this result as normal/abnormal. SODIUM (test code = 2951-2) 143 MEQ/L See_Comment [Automated messa ge] The system which generated this result transmitted reference range: 133-146 MEQ/L. The reference range was not used to interpret this result as normal/abnormal. Troponin I - Code [id number] 22:19:23* Test Item Value Reference Range Interpretation Comme nts TROPONIN I (test code = 2993290978) 0.001 ng/mL <=0.034 REY (test code = REY) Reference (Normal) Range (defined by the 99th percentile reference limit): <= 0.034 ng/mL Note: Cardiac troponin begins to rise 3-4 hours after the onset of ischemia. Repeat in 4-6 hours if the sample was drawn within 3-4 hours of the onset of the symptom and found normal. Diagnosis of myocardial injury is made with acute changes in cTn concentrations with at least one serial sample above the 99th percentile upper reference limit (URL), taken together with the patient's clinical presentation. Biotin has been reported to cause a negative bias, interpret results relative to patient's use of biotin. Lab Interpretation (test code = 98974-3) Normal [facility] - Code [id number] 22:09:00* Test Item Value Reference Range Interpretation Comme nts APTT Patient (test code = 3173-2) 25 See_Comment [Automated message] The system which generated this result transmitted reference range: 23 - 38 Seconds. The reference range was not used to interpret this result as normal/abnormal. REY (test code = REY) The [facility] patient population mean normal value for aPTT is 30 seconds. Lab Interpretation (test code = 55897-8) Normal [facility] (NA, K, CL, CO2, Glucose, BUN, Creatinine, CA) - Code [id number] 22:07:20* Test Item Value Reference Range Interpretation Comme [facility] NA (test code = 5979319264) 139 mmol/L 135-145 K (test code = 9113986011) 3.9 mmol/L 3.5-5.0 CL (test code = 6798723105) 105 mmol/L 98-108 CO2 TOTAL (test code = 6544585949) 25 mmol/L 23-31 AGAP (test code = 5906610943) 9 2-16 BUN (test code = 6565118757) 21 mg/dL 7-23 GLUCOSE (test code = 4359351797) 89 mg/dL 70-110 CREATININE (test code = 7607015080) 0.87 mg/dL 0.60-1.25 CALCIUM (test code = 0612285761) 8.6 mg/dL 8.6-10.6 eGFR (test code = 2662926678) 83.6 mL/min/1.73m2 REY (test code = REY) Association of Glomerular Filtration Rate (GFR) and Staging of Kidney Disease* + + +- +| GFR (mL/min/1.73 m2) ?| With Kidney Damage ?| ?Without Kidney Damage+ ------+ ----+ ------+| ?>90 ?| ?Stage one ?| ? Normal ?+ -+ + -+| ?60-89 ?| ?Stage two ?| ? Decreased GFR ? + + +- +| ?30-59 ?| ?Stage three ?| ? Stage three ? + + +- +| ?15-29 ?| ?Stage four ? | ? Stage four ?+ -+ + -+| ?<15 (or dialysis) ? ?| ?Stage five ? | ? Stage five ?+ -+ + -+ *Each stage assumes the associated GFR level has been in effect for at least three months. ?Stages 1 to 5, with or without kidney disease, indicate chronic kidney disease. Notes: Determination of stages one and two (with eGFR >59mL/min/1.73 m2) requires estimation of kidney damage for at least three months as defined by structural or functional abnormalities of the kidney, manifested by either:Pathological abnormalities or Markers of kidney damage (including abnormalities in the composition of the blood or urine or abnormalities in imaging tests). [facility] CenterProth[facility]bin Time / INR - Code [id number] 22:06:59* Test Item Value Reference Range Interpretation Comme nts PROTIME PATIENT (test code = 5964-2) 13.4 See_Comment [Traity] The system which generated this result transmitted reference range: 12.0 - 14.7 Seconds. The reference range was not used to interpret this result as normal/abnormal. INR (test code = 6301-6) 1.0 Normal INR <1.1; Warfarin Therapeutic range 2.0 to 3.0 or 2.5 to 3.5, depending upon the indications. Lab Interpretation (test code = 41901-6) [facility] [id number] 21:58:20* Test Item Value Reference Range Interpretation Comme nts WBC (test code = 6690-2) 5.90 See_Comment [Automated [employer]] The system which generated this result transmitted reference range: 4.20 - 10.70 10*3/?L. The reference range was not used to interpret this result as normal/abnormal. RBC (test code = 789-8) 4.27 See_Comment [Traity] The system which generated this result transmitted reference range: 4.26 - 5.52 10*6/?L. The reference range was not used to interpret this result as normal/abnormal. HGB (test code = 718-7) 12.6 g/dL 12.2-16.4 HCT (test code = 4544-3) 39.7 % 38.4-49.3 MCH (test code = 785-6) 29.5 pg 26.1-32.7 MCV (test code = 787-2) 93.0 fL 81.7-95.6 MCHC (test code = 786-4) 31.7 g/dL 31.2-35.0 PLT (test code = 777-3) 169 See_Comment [Automated messa ge] The system which generated this result transmitted reference range: 150 - 328 10*3/?L. The reference range was not used to interpret this result as normal/abnormal. MPV (test code = 90687-0) 10.1 fL 9.8-13.0 RDW-CV (test code = 788-0) 13.3 % 12.1-15.4 RDW-SD (test code = 95445-8) 44.8 fL 38.5-51.6 NRBC x10^3 (test code = 4723892358) See_Comment [Automated me ssage] The system which generated this result transmitted reference range: 10*3/?L. The reference range was not used to interpret this result as normal/abnormal. NRBC/100 WBC (test code = 6745852330) 0.0 See_Comment [Automated me ssage] The system which generated this result transmitted reference range: 0.0 - 10.0 /100 WBCs. The reference range was not used to interpret this result as normal/abnormal. IPF % (test code = 2749242986) [facility] GLUCOSE (AUTOMATED)2023-03-02 21:57:10* Test Item Value Reference Range Interpretation Comme nts POCT GLU (test code = 7278806075) 54 mg/dL 70-110 L Lab Interpretation (test cod e = 11179-4) Abnormal [facility] Glucose (Age >30 Days) - Code Stroke 2023-03-02 21:55:00* Test Item Value Reference Range Interpretation Comme nts POCT Glu (age>30days) (test code = 3342) 54 mg/dL 70-110 A Lab Interpretation (test cod e = 70036-4) [facility] [id number] 00:00:00* Test Item Value Reference Range Interpretation Comme nts BASOPHILS (test code = 10849-1) 0.8 % DIAGNOSIS: (test code = 96834-5) (NOTE) COMMENTS (test code = 57693-7) (NOTE) EOSINOPHILS (test code = 43373-2) 10.9 % HEMATOCRIT (test code = 20564-1) 37.4 % See_Comment L [Automated messa ge] The system which generated this result transmitted reference range: 40.0-51.0 %. The reference range was not used to interpret this result as normal/abnormal. HEMOGLOBIN (test code = 718-7) 12.0 G/DL See_Comment L [Automated messa ge] The system which generated this result transmitted reference range: 13.5-17.0 G/DL. The reference range was not used to interpret this result as normal/abnormal. LYMPHOCYTES (test code = 40331-3) 41.4 % MCH (test code = 63852-2) 28.8 PG See_Comment [Automated messa ge] The system which generated this result transmitted reference range: 25.0-33.0 PG. The reference range was not used to interpret this result as normal/abnormal. MCHC (test code = 60946-2) 32.1 G/DL See_Comment [Automated messa ge] The system which generated this result transmitted reference range: 31.0-36.0 G/DL. The reference range was not used to interpret this result as normal/abnormal. MCV (test code = 20793-9) 89.9 fL See_Comment [Automated messa ge] The system which generated this result transmitted reference range: 80.0-99.0 fL. The reference range was not used to interpret this result as normal/abnormal. MICROSCOPIC DESCRIPTION: (test code = 02007-2) (NOTE) MONOCYTES (test code = 62846-8) 9.5 % NEUTROPHILS (test code = 72216-5) 37.0 % NUCLEATED RBCS (test code = 01850-0) 0.0 /100 WBC'S See_Comment [Automated messa ge] The system which generated this result transmitted reference range: 0.0 /100 WBC'S. The reference range was not used to interpret this result as normal/abnormal. PATHOLOGIST: (test code = 93371-9) (NOTE) PLATELET COUNT (test code = 27965-4) 190 K/UL See_Comment [Automated messa ge] The system which generated this result transmitted reference range: 130-400 K/UL. The reference range was not used to interpret this result as normal/abnormal. RBC (test code = 05272-1) 4.16 M/UL See_Comment L [Automated messa ge] The system which generated this result transmitted reference range: 4.50-6.10 M/UL. The reference range was not used to interpret this result as normal/abnormal. RDW (test code = 67413-9) 12.1 % See_Comment [Automated [employer]] The system which generated this result transmitted reference range: 11.5-15.0 %. The reference range was not used to interpret this result as normal/abnormal. WBC (test code = 22838-7) 4.9 K/UL See_Comment [Automated messa ge] The system which generated this result transmitted reference range: 3.5-11.0 K/UL. The reference range was not used to interpret this result as normal/abnormal. COMPREHENSIVE METABOLIC [id number] 00:00:00* Test Item Value Reference Range Interpretation Comme nts ALBUMIN (test code = 1751-7) 3.8 G/DL See_Comment [Automated [employer]] The system which generated this result transmitted reference range: 3.5-5.2 G/DL. The reference range was not used to interpret this result as normal/abnormal. ALKALINE PHOSPHATASE (test code = 6768-6) 76 U/L See_Comment [Automated message] The system which generated this result transmitted reference range: 40-125 U/L. The reference range was not used to interpret this result as normal/abnormal. BILIRUBIN, TOTAL (test code = 1975-2) 0.3 MG/DL See_Comment [Automated message] The system which generated this result transmitted reference range: <=1.2 MG/DL. The reference range was not used to interpret this result as normal/abnormal. BUN (test code = 3094-0) 14 MG/DL See_Comment [Automated messa ge] The system which generated this result transmitted reference range: 8-23 MG/DL. The reference range was not used to interpret this result as normal/abnormal. CALCIUM (test code = 20543-7) 8.6 MG/DL See_Comment [Automated messa ge] The system which generated this result transmitted reference range: 8.5-10.5 MG/DL. The reference range was not used to interpret this result as normal/abnormal. CALC A/G RATIO (test code = 1759-0) 1.6 RATIO See_Comment [Automated messa ge] The system which generated this result transmitted reference range: 1.0-2.6 RATIO. The reference range was not used to interpret this result as normal/abnormal. CALC BUN/CREAT (test code = 3097-3) 13 RATIO See_Comment [Automated messa ge] The system which generated this result transmitted reference range: 6-28 RATIO. The reference range was not used to interpret this result as normal/abnormal. CALC GLOBULIN (test code = 05952-6) 2.4 G/DL See_Comment [Automated messa ge] The system which generated this result transmitted reference range: 1.9-3.7 G/DL. The reference range was not used to interpret this result as normal/abnormal. CARBON DIOXIDE (test code = 1963-8) 25 MEQ/L See_Comment [Automated messa ge] The system which generated this result transmitted reference range: 19-31 MEQ/L. The reference range was not used to interpret this result as normal/abnormal. CHLORIDE (test code = 2075-0) 108 MEQ/L See_Comment H [Automated messa ge] The system which generated this result transmitted reference range: 95-107 MEQ/L. The reference range was not used to interpret this result as normal/abnormal. CREATININE (test code = 2160-0) 1.07 MG/DL See_Comment [Automated messa ge] The system which generated this result transmitted reference range: 0.80-1.40 MG/DL. The reference range was not used to interpret this result as normal/abnormal. eGFR (2020 CKD-EPI) (test code = 23894-3) 69 ML/MIN/1.73 See_Comment [Automated messa ge] The system which generated this result transmitted reference range: >60 ML/MIN/1.73. The reference range was not used to interpret this result as normal/abnormal. GLUCOSE (test code = 1558-6) 102 MG/DL See_Comment H [Automated messa ge] The system which generated this result transmitted reference range: 70-99 MG/DL. The reference range was not used to interpret this result as normal/abnormal. POTASSIUM (test code = 2823-3) 4.1 MEQ/L See_Comment [Automated messa ge] The system which generated this result transmitted reference range: 3.5-5.4 MEQ/L. The reference range was not used to interpret this result as normal/abnormal. PROTEIN, TOTAL (test code = 2885-2) 6.2 G/DL See_Comment [Automated messa ge] The system which generated this result transmitted reference range: 6.1-8.3 G/DL. The reference range was not used to interpret this result as normal/abnormal. AST (test code = 1920-8) 14 U/L See_Comment [Automated messa ge] The system which generated this result transmitted reference range: 9-50 U/L. The reference range was not used to interpret this result as normal/abnormal. ALT (test code = 1742-6) 13 U/L See_Comment [Automated messa ge] The system which generated this result transmitted reference range: 5-50 U/L. The reference range was not used to interpret this result as normal/abnormal. SODIUM (test code = 2951-2) 144 MEQ/L See_Comment [Automated messa ge] The system which generated this result transmitted reference range: 133-146 MEQ/L. The reference range was not used to interpret this result as normal/abnormal. Notes Date/Time Note Provider Source 2023-08-15 09:45:22 [id number]+[id number] 09:45:22 Images from the original note were not included.Patient notified of results. He verbalized understanding of results/recommendations via teach back. No further questions or concerns at this time.While on the phone patient mentioned that [facility] had taken him off enalapril and placed him on metoprolol. He reports he is still taking aspirin and atorvastatin. He states since the medication change he has been feeling more tired and sleeping more but otherwise feeling well/no symptoms. Encouraged patient to discuss this with PCP/possible side effect of beta titus. He verbalized understanding via teach back.Adri Infante MD P Cardiology NursePlease let Mr. 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 This finding is unlikely to be related to any of your symptoms.I believe we need to continue on the same treatment as of now. Most importantly baby aspirin (as long as it is tolerated) and atorvastatin.Regards,Danie Boateng professor.Division of cardiovascular medicineUT 76017-3Rswjgyciw encounter [id number]:50:23Telephone encounter [id number]. [id number] for patient whhy31135-4QgkgBYYMYZRGDQGBmidhudir C-CDA narrative [id number] Belen [address] M[id number] 2ORYQMHJQAEHPZVQBWBYGPT5717-88-10T4 9:50:231.2.840.351062.1.72.3.15|1.2 .840.0[id number]_2 [id number] Sanjana Glover RN [facility]"
[2023-08-17] MEDS ORDERED: HYDROCODONE/APAP 10/325 TAB ONE (20:49)
--- NOTE | 2023-08-17 21:06 | RAD REPORT ---
EXAM DESCRIPTION: CT - CTHCSPWOC - 08/17/2023 8:58 pm CLINICAL HISTORY: Trauma, head and neck injury. TRAUMA COMPARISON: No comparisons TECHNIQUE: Axial 5 mm thick images of the head were obtained. Axial 2 mm thick images of the cervical spine were obtained with sagittal and coronal reconstruction images generated and reviewed. All CT scans are performed using dose optimization technique as appropriate and may include automated exposure control or mA/KV adjustment according to patient size. FINDINGS: CT HEAD WITHOUT CONTRAST: No acute hemorrhage, hydrocephalus or extra-axial collection is identified.No areas of brain edema or midline shift. Mild chronic small vessel ischemic changes. The paranasal sinuses and mastoids are clear.The calvarium is intact. CT CERVICAL SPINE WITHOUT CONTRAST: No fracture or subluxation.No prevertebral soft tissues swelling is identified. Multilevel degenerati ve changes are present in the spine. Varying degrees of neural foraminal narrowing. No high-grade stan tral spinal stenosis identified . IMPRESSION: No acute intracranial or cervical spine findings.
--- NOTE | 2023-08-17 21:09 | RAD REPORT ---
EXAM DESCRIPTION: CT - CTFB CLINICAL HISTORY: TRAUMA COMPARISON: Head C Spine Mpr Wo Con dated 08/17/2023 TECHNIQUE: Axial 2 mm thick images of the face were obtained with sagittal and coronal reconstructio n images. All CT scans are performed using dose optimization technique as appropriate and may include automated exposure control or mA/KV adjustment according to patient size. FINDINGS: No acute facial bone fracture is seen.The mandible is intact. The globes and orbital contents are grossly unremarkable.Mild thickening in left maxillary sinus. The frontal sinus opacification. Scattered ethmoid air cell thickening. IMPRESSION: Negative for facial bone fracture.
--- NOTE | 2023-08-17 21:19 | EDPHYS ---
Physician Documentation [facility] Name: Ruperto Villegas Age: 83 yrs Sex: Male : 1940 Arrival Date: 08/17/2023 Time: 20:10 Bed 13 Private MD: ED Physician Cornelius Jenkins HPI: 08/16 20:48 This 83 yrs old Black Male presents to ER via Ambulatory with complaints of Fall rt Injury, Nose Pain, Headache, Dizziness. 20:48 Patient presents to the ED with mechanical trip and fall 2 days ago. Patient did hit rt his nose. Reported some nosebleeding at that time. States that he is up-to-date on his tetanus immunization. Reports a bite to his lower lip, small laceration there. Reports intermittent headache since then. Denies loss of consciousness. Denies other injuries, other acute complaints, symptoms are moderate severity, no other aggravating or alleviating factors.. Historical: - Allergies: 20:37 No Known Allergies; bm8 - Home Meds: 20:37 enalapril maleate 2.5 mg oral tablet 0.5 tabs 2 times per day [Active]; tamsulosin 0.4 bm8 mg Oral cap [Active]; unknown memory medication 0.4 mg Oral cap [Active]; - PMHx: 20:37 Hypertension; Myocardial infarction; Prostate Cancer; bm8 - PSHx: 20:37 Appendectomy; right shoulder; bm8 - Immunization history:: Adult Immunizations up to date. - Infectious Disease History:: Denies. - Social history:: Smoking status: Patient denies any tobacco usage or history of. Patient/guardian denies using alcohol, street drugs. - Family history:: not pertinent. ROS: 20:48 Constitutional: Negative for fever, chills, and weight loss, Cardiovascular: Negative rt for chest pain, palpitations, and edema, Respiratory: Negative for shortness of breath, cough, wheezing, and pleuritic chest pain, Abdomen/GI: Negative for abdominal pain, nausea, vomiting, diarrhea, and constipation, Skin: Negative for injury, rash, and discoloration, 20:48 ENT: Positive for Nasal pain, epistaxis, 20:48 Neuro: Positive for headache, Negative for loss of consciousness, Exam: 20:48 Constitutional: This is a well developed, well nourished patient who is awake, alert, rt and in no acute distress. Head/Face: Normocephalic, atraumatic. Chest/axilla: Normal chest wall appearance and motion. Nontender with no deformity. No lesions are appreciated. Cardiovascular: Regular rate and rhythm with a normal S1 and S2. No gallops, murmurs, or rubs. Normal PMI, no JVD. No pulse deficits. Respiratory: Lungs have equal breath sounds bilaterally, clear to auscultation and percussion. No rales, rhonchi or wheezes noted. No increased work of breathing, no retractions or nasal flaring. Abdomen/GI: Soft, non-tender, with normal bowel sounds. No distension or tympany. No guarding or rebound. No evidence of tenderness throughout. Skin: Warm, dry with normal turgor. Normal color with no rashes, no lesions, and no evidence of cellulitis. MS/ Extremity: Pulses equal, no cyanosis. Neurovascular intact. Full, normal range of motion. Neuro: Awake and alert, GCS 15, oriented to person, place, time, and situation. Cranial nerves II-XII grossly intact. Motor strength 5/5 in all extremities. Sensory grossly intact. Cerebellar exam normal. Normal gait. 20:48 ENT: Partially healed laceration to the bridge of the nose, no active epistaxis, there is a partially healed 0.5 cm laceration to the mucosa of the lower lip.. 20:48 Neck: No posterior cervical midline tenderness, Vital Signs: 20:34 BP 161 / 81; Pulse 56; Resp 18; Temp 98.2; Pulse Ox 94% on R/A; Weight 113.4 kg; Height bm8 5 ft. 7 in. ; Pain 8/10; 20:34 Body Mass Index 39.16 (113.40 kg, 170.18 cm) bm8 20:34 Pain Scale: Adult bm8 Kent Coma Score: 20:34 Eye Response: spontaneous(4). Motor Response: obeys commands(6). Verbal Response: bm8 oriented(5). Total: 15. MDM: 20:29 Patient medically screened. rt 21:19 Differential diagnosis: abrasion, closed head injury, contusion. Data reviewed: vital rt signs, nurses notes, radiologic studies. Independent interpretation of the following test(s) in the Emergency Department CT Scan: My interpretation is No intracranial hemorrhage syndrome interpretation of CT scan images. Care significantly affected by the following chronic conditions: Hypertension. Counseling: I had a detailed discussion with the patient and/or guardian regarding the historical points, exam findings, and any diagnostic results supporting the discharge/admit diagnosis, radiology results, the need for outpatient follow up, to return to the emergency department if symptoms worsen or persist or if there are any questions or concerns that arise at home. 08/16 20:44 Order name: CT Head C Spine; Complete Time: 21:12 rt 08/16 20:44 Order name: Facial Bones W/O Con CT; Complete Time: 21:12 rt Administered Medications: 20:51 Drug: Phillips PO 10 mg-325 mg 1 tabs PO once Route: PO; cp4 21:25 Follow up: Response: No adverse reaction; Pain is decreased cp4 Disposition Summary: 08/17/23 21:18 Discharge Ordered Notes: Location: Home rt Problem: new rt Symptoms: have improved rt Condition: Stable rt Diagnosis - Closed head injury rt - Abrasion of nose rt Followup: rt - With: Private Physician - When: 2 - 3 days - Reason: Discharge Instructions: - Discharge Summary Sheet rt - Head Injury, Adult rt Forms: - Medication Reconciliation Form rt - Thank You Letter rt - Antibiotic Education rt - Prescription Opioid Use rt - Patient Portal Instructions rt - Leadership Thank You Letter rt Signatures: Dispatcher [employer] Cornelius Beeeb MD MD rt Ninoska White cp4 Amauri Edwards, RN RN bm8
--- NOTE | 2023-08-17 21:19 | ER ---
Nurse's Notes [facility] Name: Ruperto Villegas Age: 83 yrs Sex: Male : 1940 Arrival Date: 08/17/2023 Time: 20:10 Bed 13 Private MD: Diagnosis: Closed head injury;Abrasion of nose Presentation: 08/16 20:34 Chief complaint: Patient states: I was walking up a ramp that wasn't well maintained bm8 and tripped. I struck my face on the concrete. I have headache and nose pain. this happened around 1530 on Friday. Coronavirus screen: Vaccine status: Patient reports receiving the 2nd dose of the covid vaccine. At this time, the client does not indicate any symptoms associated with coronavirus-19. Ebola Screen: Patient negative for fever greater than or equal to 101.5 degrees Fahrenheit, and additional compatible Ebola Virus Disease symptoms Patient denies exposure to infectious person. Patient denies travel to an Ebola-affected area in the 21 days before illness onset. No symptoms or risks identified at this time. Mechanism of Injury: resulted from impacting a hard surface, hitting concrete. Initial Sepsis Screen: Does the patient meet any 2 criteria? No. Patient's initial sepsis screen is negative. Does the patient have a suspected source of infection? No. Patient's initial sepsis screen is negative. Risk Assessment: Do you want to hurt yourself or someone else? Patient reports no desire to harm self or others. 20:34 Method Of Arrival: Ambulatory bm8 20:34 Acuity: HENRIK 3 bm8 21:27 Onset of symptoms was August 14, 2023. cp4 Triage Assessment: 20:37 General: Appears in no apparent distress. comfortable, Behavior is calm, cooperative, bm8 appropriate for age. Pain: Complains of pain in face Pain does not radiate. Pain currently is 8 out of 10 on a pain scale. Quality of pain is described as aching. EENT: No deficits noted. No signs and/or symptoms were reported regarding the EENT system. Nares abrasion to bridge of nose. swelling to both lips. Neuro: Level of Consciousness is awake, alert, obeys commands, Oriented to person, place, time, situation, Appropriate for age Gunner Mate are equal bilaterally Moves all extremities. Full function Gait is steady, Reports dizziness, since [place] afternoon headache frontal area. Cardiovascular: No deficits noted. Heart tones S1 S2 present Capillary refill < 3 seconds Patient's skin is warm and dry. Respiratory: No deficits noted. Airway is patent Respiratory effort is even, unlabored, Respiratory pattern is regular, symmetrical. GI: No deficits noted. No signs and/or symptoms were reported involving the gastrointestinal system. : No deficits noted. No signs and/or symptoms were reported regarding the genitourinary system. Derm: Wound noted nose and left eye Wound is abrasion to bridge of nose, mild swelling to both lips of mouth. Historical: - Allergies: 20:37 No Known Allergies; bm8 - Home Meds: 20:37 enalapril maleate 2.5 mg oral tablet 0.5 tabs 2 times per day [Active]; tamsulosin 0.4 bm8 mg Oral cap [Active]; unknown memory medication 0.4 mg Oral cap [Active]; - PMHx: 20:37 Hypertension; Myocardial infarction; Prostate Cancer; bm8 - PSHx: 20:37 Appendectomy; right shoulder; bm8 - Immunization history:: Adult Immunizations up to date. - Infectious Disease History:: Denies. - Social history:: Smoking status: Patient denies any tobacco usage or history of. Patient/guardian denies using alcohol, street drugs. - Family history:: not pertinent. Screenin:25 [facility] [place] ED Fall Risk Assessment (Adult) History of falling in the last 3 months, cp4 including since admission Yes- single mechanical fall (1 pt) Confusion or Disorientation No (0 pts) Intoxicated or Sedated No (0 pts) Impaired Gait No (0 pts) Mobility Assist Device Used No (0 pt) Altered Elimination No (0 pt) Score/Fall Risk Level 0 - 2 = Low Risk Oriented to surroundings, Maintained a safe environment, Assessed \T\ reinforced patient's understanding of fall precautions, Hourly rounding (assess needs \T\ fall precautionary measures) done. Abuse screen: Denies threats or abuse. Nutritional screening: No deficits noted. Tuberculosis screening: No symptoms or risk factors identified. Assessment: 21:25 General: Appears in no apparent distress. Behavior is calm, cooperative, appropriate cp4 for age. Pain:. Vital Signs: 20:34 BP 161 / 81; Pulse 56; Resp 18; Temp 98.2; Pulse Ox 94% on R/A; Weight 113.4 kg; Height bm8 5 ft. 7 in. ; Pain 8/10; 20:34 Body Mass Index 39.16 (113.40 kg, 170.18 cm) bm8 20:34 Pain Scale: Adult bm8 Trent Coma Score: 20:34 Eye Response: spontaneous(4). Motor Response: obeys commands(6). Verbal Response: bm8 oriented(5). Total: 15. ED Course: 20:16 Patient arrived in ED. ra3 20:18 Cornelius Jenkins MD is Attending Physician. rt 20:37 Triage completed. bm8 20:37 Arm band placed on left wrist. Patient placed in an exam room, on a stretcher. bm8 20:45 Ninoska White is Primary Nurse. cp4 20:58 CT Head C Spine In Process Unspecified. EDMS 20:58 Facial Bones W/O Con CT In Process Unspecified. EDMS 21:25 Bed in low position. Call light in reach. Side rails up X 1. Provided Education on: cp4 falls. 21:25 No provider procedures requiring assistance completed. Patient did not have IV access cp4 during this emergency room visit. Administered Medications: 20:51 Drug: Terra [place] PO 10 mg-325 mg 1 tabs PO once Route: PO; cp4 21:25 Follow up: Response: No adverse reaction; Pain is decreased cp4 Medication: 21:25 VIS not applicable for this client. cp4 Outcome: 21:18 Discharge ordered by . rt 21:25 Discharged to home ambulatory, cp4 21:25 Condition: stable 21:25 Discharge instructions given to patient, Instructed on discharge instructions, follow up and referral plans. Demonstrated understanding of instructions, follow-up care, 21:27 Patient left the ED. cp4 Signatures: Dispatcher [employer] [facility] Cornelius Jenkins MD MD rt Ninoska White cp4 Violeta Higgins ra3 Amauri Edwards, RN RN bm8
[2023-08-18 04:40] VITALS: BP 161/81; TEMP 98.2; O2SAT 94
== END 2023-08-17 21:27 | disposition home or self-care (01) ==
LOC: ER 20:10
DX: S09.90XA Unspecified injury of head, initial encounter (principal); S00.31XA Abrasion of nose, initial encounter; I10 Essential (primary) hypertension; I25.2 Old myocardial infarction; W01.0XXA Fall on same level from slipping, tripping and stumbling without subsequent striking against object, initial encounter
CPT/HCPCS: 70450; 70486; 72125; 76377; 99283

== ENCOUNTER 2024-07-30 14:34 | Emergency (ER) | payer OTHER ==
--- OUTSIDE RECORDS SUMMARY | 2024-07-30 14:40 | XMS REPORT | Continuity of Care Document ---
Author Name Unknown Address [address] [place] [address] [facility] Address [address] [place] [address] Care Team Providers Care Director Integrated Name Role Phone GALO BRO Primary Care Physician Unavailab Galo Larry Attending Clinician Unavailable Manjula Duval Attending Clinician Unavailable BREEZY DEVI Attending Clinician Unavailable Adri Infante MD Attending Clinician [phone] Heaven Walters Attending Clinician Doctor Unassigned, [place] Attending Clinician U laverneailBreezy Klein MD Attending Clinician [phone] ADRI INFANTE Attending Clinician Unavailable Cam Del Valle MD Attending Clinician [phone] CAM DEL VALLE Attending Clinician Unavail able CAM DEL VALLE Attending Clinician Unavail able NEISHA BRUCE Attending Clinician Unavailable Neisha Bruce MD Attending Clinician [phone] MARISEL MENDOZA Attending Clinician Unavailable Galo Bro Admitting Clinician Unavailable NEISHA BRUCE Admitting Clinician Unavailable Payers Payer Name Policy Type Policy Number Effective Date Expirati on Date Source [facility] [id number] 2019 00:00:00 [facility] [place] PREMIUM O [id number] 2023 00:00:00 [place] [id number] 2021 00:00:00 [place] [id number] 2021 00:00:00 [place] [id number] 2021 00:00:00 [facility] HUMANA GOLD PLS O [id number] 2019 00:00:00 Problems Condition Name Condition Details [...] Disease Active 2022-05 00:00: 00 [facility] [id number] History of prostate cancer Problem [facility] [id number] Constipati on, unspecifie d constipati on type Problem [facility] [id number] Mixed hyperlipid emia Problem [facility] [id number] Lumbago with sciatica, left side Problem [facility] [id number] Forgetfuln ess Problem [facility] Obesity Obesity (BMI 30-39.9) Problem [facility] [id number] OAB (overactiv e bladder) Problem [facility] [id number] Lower urinary tract symptoms (LUTS) Problem [facility] Anemia Anemia, unspecifie d type Problem [facility] [id number] BPH loc w urin obs/LUTS Problem [facility] [id number] S/P radiation therapy Problem [facility] [id number] S/P TURP (status post transureth ral resection of prostate) Problem [facility] [id number] Adenocarci noma of prostate Problem [facility] Allergic rhinitis Non-season al allergic rhinitis, unspecifie d trigger Problem [facility] [id number] Redundant prepuce Problem [facility] [id number] Cancer of prostate with intermedia te recurrence risk (stage T2b-c or Carmela 7 or PSA 10-20) Problem [facility] 53090052 Chronic fatigue Problem [facility] 37507237 Urge incontinen ce Problem [facility] Amnesia Memory changes Problem [facility] 22413071 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 Problem [facility] 540414889 Gross hematuria Problem [facility] 99027962 Acute cystitis with hematuria Problem [facility] [id number] Postproced ural bulbous urethral stricture Problem [facility] Postoperat rodolfo urethral stricture Postproced ural bulbous urethral stricture, male Problem [facility] [id number] Fever with chills Problem [facility] 95964257 Glaucoma of both eyes, unspecifie d glaucoma type Problem [facility] [id number] Right testicular pain Problem [facility] [id number] Pain in right leg Problem [facility] 359924563 Pain in left leg Problem [facility] 20727124 Other chronic pain Problem [facility] [id number] Lumbago with sciatica, right side Problem [facility] 578848126 Encounter for general adult medical examinatio n with abnormal findings Problem [facility] 304650736 Sore throat Problem [facility] [id number] Cough Problem [facility] 83037285 Essential (primary) hypertensi on Problem [facility] [id number] GERD without esophagiti s Problem [facility] 565839087 Testicular swelling Problem [facility] 752323481 Elevated blood pressure reading without diagnosis of hypertensi on Problem [facility] 841067351 Detrusor instabilit y Problem [facility] 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 of tobacco use Passive smoker [facility] Tobacco use and exposure 2023-03-25 00:00:00 2023-03-25 00:00:00 Smokeless tobacco non-user [facility] History of Social function 2023-03-25 00:00:00 2023-03-25 00:00:00 [facility] Sex Ass[birth year] At 1940 00:00:00 1940 00:00:00 [facility] Smoking Status Start Date Stop Date Source Tobacco smoking consumption unknown [facility] Never Smoker [facility] Ex-smoker 2023-03-25 00:00:00 2023-03-25 00:00:00 [facility] Medications Ordered Medication Name Filled Medication Name Start Date Stop Date Current Medication? Ordering Clinician Indication Dosage Frequency Signature (SIG) Comments Components Source Promethazin e HCl 6.25 MG/5ML Promethazin e HCl 6.25 MG/5ML 2025-0 3-13 00:00: 00 No 10{ml_a s_neede d} TID Promethazi ne HCl 6.25 MG/5ML Azithromyci n 250 MG Azithromyci n 250 MG 07-22 00:00: 00 No QD Azithromyc in 250 MG Albuterol Sulfate HFA 108 (90 Base) MCG/ACT Albuterol Sulfate HFA 108 (90 Base) MCG/ACT 07-22 00:00: 00 No 1{puff_ as_need ed} 6xD Albuterol Sulfate HFA 108 (90 Base) MCG/ACT Nitroglycer in 0.4 MG Nitroglycer in 0.4 MG 06-16 00:00: 00 No TID Nitroglyce rin 0.4 MG aspirin 81 mg chewable tablet 08-14 09:49: 31 Yes 81mg Take 1 tablet by mouth in the morning. [facility] NaCl 0.9% (NS) injection 6 mL 06-10 21:00: 00 06-10 20:17 :00 No [id number] 6mL [facility] alprostadiL (EDEX) injection 25 mcg 06-10 20:45: 00 06-10 20:17 :00 No [id number] 25ug [facility] phenylephri ne (VAZCULEP) injection 0.2 mg 06-10 20:45: 00 06-10 20:17 :00 No [id number] .2mg [facility] phenylephri ne (VAZCULEP) injection 0.2 mg 06-10 20:45: 00 06-10 20:17 :00 No [id number] 200ug 0.2 mg (200 mcg), Intravenou s, ONCE, 1 dose, On Fri06/10/23 at 1445, Routine Univers [facility] sulfur hexafluorid e microsphr (LUMASON) injection 5 mL 05-14 22:00: 00 05-14 21:50 :00 No [id number] 5mL 5 mL, Intravenou s, ONCE, 1 dose, On Fri05/14/23 at 1600, Routine
rail crew member approving Restricted medication : CAL VELARDE [facility] donepeziL 5 mg tablet 2022-05 2-04 00:00: 00 Yes [facility] sildenafiL 100 mg tablet 2022-05 00:00: 00 Yes PLEASE SEE ATTACHED FOR DETAILED DIRECTIONS [facility] atorvastati n 20 mg tablet 2022-05 00:00: 00 Yes [id number] 20mg Take 1 tablet by mouth in the morning. [facility] omeprazole 20 mg capsule 2022-05 00:00: 00 Yes [facility] aspirin tablet 325 mg 2022-05 23:30: 00 03-02 23:31 :00 No 325mg 325 mg, Oral, ONCE, 1 dose, On Fri03/02/23 at 1830, STAT [facility] iopamidol (ISOVUE 370-500 mL) injection 90 mL 2022-05 23:15: 00 03-02 23:15 :00 No [id number] 90mL 90 mL, Intravenou s, ONCE, 1 dose, On Fri03/02/23 at 1815, Routine [facility] NaCl 0.9% (NS) injection 5 mL 2022-05 21:43: 56 Yes 5mL 5 mL, Slow IV Push, PRN - SEE INSTRUCTIO NS, Starting on [place] 03/02/23 at 1643, Until Discontinu ed, 10 mL [facility] LUMIGAN 0.01 % ophthalmic drops 2022-05 00:00: 00 Yes [facility] solifenacin 10 mg tablet 02-04 00:00: 00 Yes [facility] finasteride 5 mg tablet 12-10 00:00: 00 Yes 5mg 1 tablet. [facility] gabapentin 300 mg capsule 12-10 00:00: 00 Yes [facility] t[facility].4 mg 24 hr capsule 12-10 00:00: 00 Yes .8mg 2 capsules. [facility] furosemide 40 mg tablet 12-10 00:00: 00 Yes 40mg 1 tablet. [facility] enalapril 10 mg tablet 12-10 00:00: 00 08-14 00:00 :00 No 10mg Take 1 tablet by mouth in the morning and 1 tablet in the evening. [facility] Pulse Oximeter For Finger - Pulse Oximeter For Finger - 2019- 00:00: 00 No Pulse Oximeter For Finger - Lumigan 0.01 % Lumigan 0.01 % 12-18 00:00: 00 No QD Lumigan 0.01 % VESIcare 10 MG VESIcare 10 MG No 1{table t} QD VESIcare 10 MG Tadalafil 20 MG Tadalafil 20 MG No 1{table t_as_ne eded} Tadalafil 20 MG Fluticasone Propionate 50 MCG/ACT Fluticasone Propionate 50 MCG/ACT No 2{spray s_in_ea ch_nost ril} BID Fluticason e Propionate 50 MCG/ACT Aspirin 81 81 MG Aspirin 81 81 MG No 1{table t} QD Aspirin 81 81 MG Metoprolol Tartrate 25 MG Metoprolol Tartrate 25 MG No BID Metoprolol Tartrate 25 MG methylPREDN ISolone 4 MG methylPREDN ISolone 4 MG No QD methylPRED NISolone 4 MG Benzonatate 200 MG Benzonatate 200 MG No 1{capsu le_as_n eeded} Benzonatat e 200 MG Immunizations Ordered Immunization Name Filled Immunization Name Date Status Comments Source Pfizer COVID-19 Vaccine Pfizer COVID-19 Vaccine 2021-02-08 10:32:00 Completed [facility] Pfizer COVID-19 Vaccine Pfizer COVID-19 Vaccine 2021-02-08 10:32:00 Completed [facility] Pfizer COVID-19 Vaccine Pfizer COVID-19 Vaccine 2021-02-08 10:32:00 Completed [facility] Pfizer COVID-19 Vaccine Pfizer COVID-19 Vaccine 2021-02-08 10:32:00 Completed [facility] Pfizer COVID-19 Vaccine Pfizer COVID-19 Vaccine 2021-02-08 10:32:00 Completed [facility] Pfizer COVID-19 Vaccine Pfizer COVID-19 Vaccine 2021-02-08 10:32:00 Completed [facility] Pfizer COVID-19 Vaccine Pfizer COVID-19 Vaccine 2021-02-08 10:32:00 Completed [facility] Pfizer COVID-19 Vaccine Pfizer COVID-19 Vaccine 2021-02-08 10:32:00 Completed [facility] Pfizer COVID-19 Vaccine Pfizer COVID-19 Vaccine 2021-02-08 10:32:00 Completed [facility] Pfizer COVID-19 Vaccine Pfizer COVID-19 Vaccine 2021-02-08 10:32:00 Completed [facility] Pfizer COVID-19 Vaccine Pfizer COVID-19 Vaccine 2021-02-08 10:32:00 Completed [facility] Pfizer COVID-19 Vaccine Pfizer COVID-19 Vaccine 2021-02-08 10:32:00 Completed [facility] Pfizer COVID-19 Vaccine Pfizer COVID-19 Vaccine 2021-02-08 10:32:00 Completed [facility] Pfizer COVID-19 Vaccine Pfizer COVID-19 Vaccine 2021-02-08 10:32:00 Completed [facility] Pfizer COVID-19 Vaccine Pfizer COVID-19 Vaccine 2021-02-08 10:32:00 Completed [facility] Pfizer COVID-19 Vaccine Pfizer COVID-19 Vaccine 2021-02-08 10:32:00 Completed [facility] Pfizer COVID-19 Vaccine Pfizer COVID-19 Vaccine 2021-02-08 10:32:00 Completed [facility] Pfizer COVID-19 Vaccine Pfizer COVID-19 Vaccine 2021-02-08 10:32:00 Completed [facility] FLUZONE HIGH DOSE OVER 65 FLUZONE HIGH DOSE OVER 65 2021-02-08 10:31:00 Completed [facility] FLUZONE HIGH DOSE OVER 65 FLUZONE HIGH DOSE OVER 65 2021-02-08 10:31:00 Completed [facility] FLUZONE HIGH DOSE OVER 65 FLUZONE HIGH DOSE OVER 65 2021-02-08 10:31:00 Completed [facility] FLUZONE HIGH DOSE OVER 65 FLUZONE HIGH DOSE OVER 65 2021-02-08 10:31:00 Completed [facility] FLUZONE HIGH DOSE OVER 65 FLUZONE HIGH DOSE OVER 65 2021-02-08 10:31:00 Completed [facility] FLUZONE HIGH DOSE OVER 65 FLUZONE HIGH DOSE OVER 65 2021-02-08 10:31:00 Completed [facility] FLUZONE HIGH DOSE OVER 65 FLUZONE HIGH DOSE OVER 65 2021-02-08 10:31:00 Completed [facility] FLUZONE HIGH DOSE OVER 65 FLUZONE HIGH DOSE OVER 65 2021-02-08 10:31:00 Completed [facility] FLUZONE HIGH DOSE OVER 65 FLUZONE HIGH DOSE OVER 65 2021-02-08 10:31:00 Completed [facility] FLUZONE HIGH DOSE OVER 65 FLUZONE HIGH DOSE OVER 65 2021-02-08 10:31:00 Completed [facility] FLUZONE HIGH DOSE OVER 65 FLUZONE HIGH DOSE OVER 65 2021-02-08 10:31:00 Completed [facility] FLUZONE HIGH DOSE OVER 65 FLUZONE HIGH DOSE OVER 65 2021-02-08 10:31:00 Completed [facility] FLUZONE HIGH DOSE OVER 65 FLUZONE HIGH DOSE OVER 65 2021-02-08 10:31:00 Completed [facility] FLUZONE HIGH DOSE OVER 65 FLUZONE HIGH DOSE OVER 65 2021-02-08 10:31:00 Completed [facility] FLUZONE HIGH DOSE OVER 65 FLUZONE HIGH DOSE OVER 65 2021-02-08 10:31:00 Completed [facility] FLUZONE HIGH DOSE OVER 65 FLUZONE HIGH DOSE OVER 65 2021-02-08 10:31:00 Completed [facility] FLUZONE HIGH DOSE OVER 65 FLUZONE HIGH DOSE OVER 65 2021-02-08 10:31:00 Completed [facility] FLUZONE HIGH DOSE OVER 65 FLUZONE HIGH DOSE OVER 65 2021-02-08 10:31:00 Completed [facility] Pfizer COVID-19 Vaccine Pfizer COVID-19 Vaccine 2020-07-07 10:31:00 Completed [facility] Pfizer COVID-19 Vaccine Pfizer COVID-19 Vaccine 2020-07-07 10:31:00 Completed [facility] Pfizer COVID-19 Vaccine Pfizer COVID-19 Vaccine 2020-07-07 10:31:00 Completed [facility] Pfizer COVID-19 Vaccine Pfizer COVID-19 Vaccine 2020-07-07 10:31:00 Completed [facility] Pfizer COVID-19 Vaccine Pfizer COVID-19 Vaccine 2020-07-07 10:31:00 Completed [facility] Pfizer COVID-19 Vaccine Pfizer COVID-19 Vaccine 2020-07-07 10:31:00 Completed [facility] Pfizer COVID-19 Vaccine Pfizer COVID-19 Vaccine 2020-07-07 10:31:00 Completed [facility] Pfizer COVID-19 Vaccine Pfizer COVID-19 Vaccine 2020-07-07 10:31:00 Completed [facility] Pfizer COVID-19 Vaccine Pfizer COVID-19 Vaccine 2020-07-07 10:31:00 Completed [facility] Pfizer COVID-19 Vaccine Pfizer COVID-19 Vaccine 2020-07-07 10:31:00 Completed [facility] Pfizer COVID-19 Vaccine Pfizer COVID-19 Vaccine 2020-07-07 10:31:00 Completed [facility] Pfizer COVID-19 Vaccine Pfizer COVID-19 Vaccine 2020-07-07 10:31:00 Completed [facility] Pfizer COVID-19 Vaccine Pfizer COVID-19 Vaccine 2020-07-07 10:31:00 Completed [facility] Pfizer COVID-19 Vaccine Pfizer COVID-19 Vaccine 2020-07-07 10:31:00 Completed [facility] Pfizer COVID-19 Vaccine Pfizer COVID-19 Vaccine 2020-07-07 10:31:00 Completed [facility] Pfizer COVID-19 Vaccine Pfizer COVID-19 Vaccine 2020-07-07 10:31:00 Completed [facility] Pfizer COVID-19 Vaccine Pfizer COVID-19 Vaccine 2020-07-07 10:31:00 Completed [facility] Pfizer COVID-19 Vaccine Pfizer COVID-19 Vaccine 2020-07-07 10:31:00 Completed [facility] Pfizer COVID-19 Vaccine Pfizer COVID-19 Vaccine 2020-06-09 10:31:00 Completed [facility] Pfizer COVID-19 Vaccine Pfizer COVID-19 Vaccine 2020-06-09 10:31:00 Completed [facility] Pfizer COVID-19 Vaccine Pfizer COVID-19 Vaccine 2020-06-09 10:31:00 Completed [facility] Pfizer COVID-19 Vaccine Pfizer COVID-19 Vaccine 2020-06-09 10:31:00 Completed [facility] Pfizer COVID-19 Vaccine Pfizer COVID-19 Vaccine 2020-06-09 10:31:00 Completed [facility] Pfizer COVID-19 Vaccine Pfizer COVID-19 Vaccine 2020-06-09 10:31:00 Completed [facility] Pfizer COVID-19 Vaccine Pfizer COVID-19 Vaccine 2020-06-09 10:31:00 Completed [facility] Pfizer COVID-19 Vaccine Pfizer COVID-19 Vaccine 2020-06-09 10:31:00 Completed [facility] Pfizer COVID-19 Vaccine Pfizer COVID-19 Vaccine 2020-06-09 10:31:00 Completed [facility] Pfizer COVID-19 Vaccine Pfizer COVID-19 Vaccine 2020-06-09 10:31:00 Completed [facility] Pfizer COVID-19 Vaccine Pfizer COVID-19 Vaccine 2020-06-09 10:31:00 Completed [facility] Pfizer COVID-19 Vaccine Pfizer COVID-19 Vaccine 2020-06-09 10:31:00 Completed [facility] Pfizer COVID-19 Vaccine Pfizer COVID-19 Vaccine 2020-06-09 10:31:00 Completed [facility] Pfizer COVID-19 Vaccine Pfizer COVID-19 Vaccine 2020-06-09 10:31:00 Completed [facility] Pfizer COVID-19 Vaccine Pfizer COVID-19 Vaccine 2020-06-09 10:31:00 Completed [facility] Pfizer COVID-19 Vaccine Pfizer COVID-19 Vaccine 2020-06-09 10:31:00 Completed [facility] Pfizer COVID-19 Vaccine Pfizer COVID-19 Vaccine 2020-06-09 10:31:00 Completed [facility] Pfizer COVID-19 Vaccine Pfizer COVID-19 Vaccine 2020-06-09 10:31:00 Completed [facility] Pneumovax (PPSV23) Pneumovax (PPSV23) 2017-02-09 10:30:00 Completed [facility] Pneumovax (PPSV23) Pneumovax (PPSV23) 2017-02-09 10:30:00 Completed [facility] Pneumovax (PPSV23) Pneumovax (PPSV23) 2017-02-09 10:30:00 Completed [facility] Pneumovax (PPSV23) Pneumovax (PPSV23) 2017-02-09 10:30:00 Completed [facility] Pneumovax (PPSV23) Pneumovax (PPSV23) 2017-02-09 10:30:00 Completed [facility] Pneumovax (PPSV23) Pneumovax (PPSV23) 2017-02-09 10:30:00 Completed [facility] Pneumovax (PPSV23) Pneumovax (PPSV23) 2017-02-09 10:30:00 Completed [facility] Pneumovax (PPSV23) Pneumovax (PPSV23) 2017-02-09 10:30:00 Completed [facility] Pneumovax (PPSV23) Pneumovax (PPSV23) 2017-02-09 10:30:00 Completed [facility] Pneumovax (PPSV23) Pneumovax (PPSV23) 2017-02-09 10:30:00 Completed [facility] Pneumovax (PPSV23) Pneumovax (PPSV23) 2017-02-09 10:30:00 Completed [facility] Pneumovax (PPSV23) Pneumovax (PPSV23) 2017-02-09 10:30:00 Completed [facility] Pneumovax (PPSV23) Pneumovax (PPSV23) 2017-02-09 10:30:00 Completed [facility] Pneumovax (PPSV23) Pneumovax (PPSV23) 2017-02-09 10:30:00 Completed [facility] Pneumovax (PPSV23) Pneumovax (PPSV23) 2017-02-09 10:30:00 Completed [facility] Pneumovax (PPSV23) Pneumovax (PPSV23) 2017-02-09 10:30:00 Completed [facility] Pneumovax (PPSV23) Pneumovax (PPSV23) 2017-02-09 10:30:00 Completed [facility] Pneumovax (PPSV23) Pneumovax (PPSV23) 2017-02-09 10:30:00 Completed [facility] Pfizer COVID-19 Vaccine Pfizer COVID-19 Vaccine Unknown Completed [facility] Pneumovax (PPSV23) Pneumovax (PPSV23) Unknown Completed [facility] FLUZONE HIGH DOSE OVER 65 FLUZONE HIGH DOSE OVER 65 Unknown Completed [facility] Pfizer COVID-19 Vaccine Pfizer COVID-19 Vaccine Unknown Completed [facility] Pneumovax (PPSV23) Pneumovax (PPSV23) Unknown Completed [facility] FLUZONE HIGH DOSE OVER 65 FLUZONE HIGH DOSE OVER 65 Unknown Completed [facility] Pfizer COVID-19 Vaccine Pfizer COVID-19 Vaccine Unknown Completed [facility] Pneumovax (PPSV23) Pneumovax (PPSV23) Unknown Completed [facility] FLUZONE HIGH DOSE OVER 65 FLUZONE HIGH DOSE OVER 65 Unknown Completed [facility] Pfizer COVID-19 Vaccine Pfizer COVID-19 Vaccine Unknown Completed [facility] Pneumovax (PPSV23) Pneumovax (PPSV23) Unknown Completed [facility] FLUZONE HIGH DOSE OVER 65 FLUZONE HIGH DOSE OVER 65 Unknown Completed [facility] Pfizer COVID-19 Vaccine Pfizer COVID-19 Vaccine Unknown Completed [facility] Pneumovax (PPSV23) Pneumovax (PPSV23) Unknown Completed [facility] FLUZONE HIGH DOSE OVER 65 FLUZONE HIGH DOSE OVER 65 Unknown Completed [facility] Pfizer COVID-19 Vaccine Pfizer COVID-19 Vaccine Unknown Completed [facility] Pneumovax (PPSV23) Pneumovax (PPSV23) Unknown Completed [facility] FLUZONE HIGH DOSE OVER 65 FLUZONE HIGH DOSE OVER 65 Unknown Completed [facility] Pfizer COVID-19 Vaccine Pfizer COVID-19 Vaccine Unknown Completed [facility] Pneumovax (PPSV23) Pneumovax (PPSV23) Unknown Completed [facility] FLUZONE HIGH DOSE OVER 65 FLUZONE HIGH DOSE OVER 65 Unknown Completed [facility] Pfizer COVID-19 Vaccine Pfizer COVID-19 Vaccine Unknown Completed [facility] Pneumovax (PPSV23) Pneumovax (PPSV23) Unknown Completed [facility] FLUZONE HIGH DOSE OVER 65 FLUZONE HIGH DOSE OVER 65 Unknown Completed [facility] Pfizer COVID-19 Vaccine Pfizer COVID-19 Vaccine Unknown Completed [facility] Pneumovax (PPSV23) Pneumovax (PPSV23) Unknown Completed [facility] FLUZONE HIGH DOSE OVER 65 FLUZONE HIGH DOSE OVER 65 Unknown Completed [facility] Pfizer COVID-19 Vaccine Pfizer COVID-19 Vaccine Unknown Completed [facility] Pneumovax (PPSV23) Pneumovax (PPSV23) Unknown Completed [facility] FLUZONE HIGH DOSE OVER 65 FLUZONE HIGH DOSE OVER 65 Unknown Completed [facility] Pfizer COVID-19 Vaccine Pfizer COVID-19 Vaccine Unknown Completed [facility] Pneumovax (PPSV23) Pneumovax (PPSV23) Unknown Completed [facility] FLUZONE HIGH DOSE OVER 65 FLUZONE HIGH DOSE OVER 65 Unknown Completed [facility] Pfizer COVID-19 Vaccine Pfizer COVID-19 Vaccine Unknown Completed [facility] Pneumovax (PPSV23) Pneumovax (PPSV23) Unknown Completed [facility] FLUZONE HIGH DOSE OVER 65 FLUZONE HIGH DOSE OVER 65 Unknown Completed [facility] Pfizer COVID-19 Vaccine Pfizer COVID-19 Vaccine Unknown Completed [facility] Pneumovax (PPSV23) Pneumovax (PPSV23) Unknown Completed [facility] FLUZONE HIGH DOSE OVER 65 FLUZONE HIGH DOSE OVER 65 Unknown Completed [facility] Pfizer COVID-19 Vaccine Pfizer COVID-19 Vaccine Unknown Completed [facility] Pneumovax (PPSV23) Pneumovax (PPSV23) Unknown Completed [facility] FLUZONE HIGH DOSE OVER 65 FLUZONE HIGH DOSE OVER 65 Unknown Completed [facility] Pfizer COVID-19 Vaccine Pfizer COVID-19 Vaccine Unknown Completed [facility] Pneumovax (PPSV23) Pneumovax (PPSV23) Unknown Completed [facility] FLUZONE HIGH DOSE OVER 65 FLUZONE HIGH DOSE OVER 65 Unknown Completed [facility] Pfizer COVID-19 Vaccine Pfizer COVID-19 Vaccine Unknown Completed [facility] Pneumovax (PPSV23) Pneumovax (PPSV23) Unknown Completed [facility] FLUZONE HIGH DOSE OVER 65 FLUZONE HIGH DOSE OVER 65 Unknown Completed [facility] Pfizer COVID-19 Vaccine Pfizer COVID-19 Vaccine Unknown Completed [facility] Pneumovax (PPSV23) Pneumovax (PPSV23) Unknown Completed [facility] FLUZONE HIGH DOSE OVER 65 FLUZONE HIGH DOSE OVER 65 Unknown Completed [facility] Pfizer COVID-19 Vaccine Pfizer COVID-19 Vaccine Unknown Completed [facility] Pneumovax (PPSV23) Pneumovax (PPSV23) Unknown Completed [facility] FLUZONE HIGH DOSE OVER 65 FLUZONE HIGH DOSE OVER 65 Unknown Completed [facility] Pfizer COVID-19 Vaccine Pfizer COVID-19 Vaccine Unknown Completed [facility] Pneumovax (PPSV23) Pneumovax (PPSV23) Unknown Completed [facility] FLUZONE HIGH DOSE OVER 65 FLUZONE HIGH DOSE OVER 65 Unknown Completed [facility] SARS-COV-2 COVID-19 PFIZER VACCINE Unknown Completed [facility] SARS-COV-2 COVID-19 PFIZER VACCINE Unknown Completed [facility] SARS-COV-2 COVID-19 PFIZER VACCINE Unknown Completed [facility] SARS-COV-2 COVID-19 PFIZER VACCINE Unknown Completed [facility] SARS-COV-2 COVID-19 PFIZER VACCINE Unknown Completed [facility] SARS-COV-2 COVID-19 PFIZER VACCINE Unknown Completed [facility] SARS-COV-2 COVID-19 PFIZER VACCINE Unknown Completed [facility] SARS-COV-2 COVID-19 PFIZER VACCINE Unknown Completed [facility] SARS-COV-2 COVID-19 PFIZER VACCINE Unknown Completed [facility] SARS-COV-2 COVID-19 PFIZER VACCINE Unknown Completed [facility] SARS-COV-2 COVID-19 PFIZER VACCINE Unknown Completed [facility] SARS-COV-2 COVID-19 PFIZER VACCINE Unknown Completed [facility] Vital Signs Vital Name Observation Time Observation Value Comments S [place] height 2024-07-22 15:20:00 67 [in_i] Commo n [facility] weight 2024-07-22 15:20:00 245 [lb_av] Comm on [facility] temperature 2024-07-22 15:20:00 98.0 [degF] Com [facility] bmi 2024-07-22 15:20:00 38.37 kg/m2 Comm on [facility] blood pressure systolic 2024-07-22 15:20:00 138 mm[Hg] Common [facility] blood pressure diastolic 2024-07-22 15:20:00 86 mm[Hg] [facility] height 2024-05-17 10:00:00 67 [in_i] Commo n [facility] weight 2024-05-17 10:00:00 259.8 [lb_av] Co mmon [facility] temperature 2024-05-17 10:00:00 97.0 [degF] Com [facility] bmi 2024-05-17 10:00:00 40.69 kg/m2 Comm on [facility] oximetry 2024-05-17 10:00:00 97 % Commo n [facility] respiratory rate 2024-05-17 10:00:00 16 /min Common [facility] blood pressure systolic 2024-05-17 10:00:00 134 mm[Hg] Common [facility] blood pressure diastolic 2024-05-17 10:00:00 70 mm[Hg] Common [facility] height 2024-04-28 15:30:00 67 [in_i] Commo n [facility] weight 2024-04-28 15:30:00 252 [lb_av] Comm on [facility] bmi 2024-04-28 15:30:00 39.46 kg/m2 Comm on [facility] height 2023-12-17 17:00:00 67 [in_i] Commo n [facility] weight 2023-12-17 17:00:00 252 [lb_av] Comm on [facility] temperature 2023-12-17 17:00:00 97.9 [degF] Com mon [facility] bmi 2023-12-17 17:00:00 39.46 kg/m2 Comm on [facility] oximetry 2023-12-17 17:00:00 94 % Commo n [facility] blood pressure systolic 2023-12-17 17:00:00 168 mm[Hg] Common [facility] blood pressure diastolic 2023-12-17 17:00:00 87 mm[Hg] Common [facility] height 2023-11-25 15:20:00 67 [in_i] Commo n [facility] weight 2023-11-25 15:20:00 253.6 [lb_av] Co mmon [facility] temperature 2023-11-25 15:20:00 97.2 [degF] Com mon [facility] bmi 2023-11-25 15:20:00 39.72 kg/m2 Comm on [facility] oximetry 2023-11-25 15:20:00 96 % Commo n [facility] blood pressure systolic 2023-11-25 15:20:00 139 mm[Hg] [facility] blood pressure diastolic 2023-11-25 15:20:00 87 mm[Hg] [facility] height 2023-11-25 15:20:00 67 [in_i] Commo n [facility] weight 2023-11-25 15:20:00 253.6 [lb_av] Co mmon [facility] temperature 2023-11-25 15:20:00 97.2 [degF] Com [facility] bmi 2023-11-25 15:20:00 39.72 kg/m2 Comm on [facility] oximetry 2023-11-25 15:20:00 96 % Commo n [facility] blood pressure systolic 2023-11-25 15:20:00 139 mm[Hg] [facility] blood pressure diastolic 2023-11-25 15:20:00 87 mm[Hg] [facility] height 2023-10-16 11:30:00 67 [in_i] Commo n [facility] weight 2023-10-16 11:30:00 251.4 [lb_av] [facility] 2023-10-16 11:30:00 97.3 [degF] Com [facility] bmi 2023-10-16 11:30:00 39.37 kg/m2 Comm on [facility] oximetry 2023-10-16 11:30:00 93 % Commo n [facility] respiratory rate 2023-10-16 11:30:00 18 /min [facility] blood pressure systolic 2023-10-16 11:30:00 171 mm[Hg] [facility] blood pressure diastolic 2023-10-16 11:30:00 85 mm[Hg] [facility] height 2023-08-14 15:45:00 67 [in_i] Commo n [facility] weight 2023-08-14 15:45:00 257.2 [lb_av] [facility] 2023-08-14 15:45:00 97.8 [degF] Com [facility] bmi 2023-08-14 15:45:00 40.28 kg/m2 Comm on [facility] oximetry 2023-08-14 15:45:00 99 % Commo n [facility] respiratory rate 2023-08-14 15:45:00 18 /min [facility] blood pressure systolic 2023-08-14 15:45:00 162 mm[Hg] Common [facility] blood pressure diastolic 2023-08-14 15:45:00 77 mm[Hg] Common [facility] height 2023-07-17 13:50:00 67 [in_i] Commo n [facility] weight 2023-07-17 13:50:00 250.0 [lb_av] Co mmon [facility] temperature 2023-07-17 13:50:00 97.4 [degF] Com mon [facility] bmi 2023-07-17 13:50:00 39.15 kg/m2 Comm on [facility] oximetry 2023-07-17 13:50:00 96 % Commo n [facility] respiratory rate 2023-07-17 13:50:00 17 /min Common [facility] blood pressure systolic 2023-07-17 13:50:00 130 mm[Hg] [facility] blood pressure diastolic 2023-07-17 13:50:00 73 mm[Hg] [facility] Systolic blood pressure 2023-06-10 20:16:00 134 mm[Hg] Post PDDU [facility] Diastolic blood pressure 2023-06-10 20:16:00 79 mm[Hg] [facility] rate 2023-06-10 16:41:00 82 /min [facility] Body temperature 2023-06-10 16:41:00 36.72 Joy[facility] Respiratory rate 2023-06-10 16:41:00 18 /min [facility] Body height 2023-06-10 16:41:00 170.2 cm [facility] Body weight 2023-06-10 16:41:00 116.574 kg [facility] BMI 2023-06-10 16:41:00 40.25 kg/m2 [facility] Oxygen saturation in Arterial blood by Pulse oximetry 2023-06-10 16:41:00 94 /min [facility] height 2023-06-04 15:00:00 67 [in_i] Commo n [facility] weight 2023-06-04 15:00:00 260.0 [lb_av] Co mmon [facility] temperature 2023-06-04 15:00:00 97.7 [degF] Com mon [facility] bmi 2023-06-04 15:00:00 40.72 kg/m2 Comm on [facility] oximetry 2023-06-04 15:00:00 97 % Commo n [facility] respiratory rate 2023-06-04 15:00:00 18 /min [facility] blood pressure systolic 2023-06-04 15:00:00 141 mm[Hg] [facility] blood pressure diastolic 2023-06-04 15:00:00 81 mm[Hg] [facility] Systolic blood pressure 2023-04-15 16:34:00 114 mm[Hg] [facility] Diastolic blood pressure 2023-04-15 16:34:00 72 mm[Hg] [facility] Heart rate 2023-04-15 16:34:00 71 /min [facility] 2023-04-15 16:34:00 36.28 Joy[facility] Respiratory rate 2023-04-15 16:34:00 18 /min [facility] Body height 2023-04-15 16:34:00 170.2 cm [facility] Body weight 2023-04-15 16:34:00 116.711 kg [facility] BMI 2023-04-15 16:34:00 40.30 kg/m2 [facility] Oxygen saturation in Arterial blood by Pulse oximetry 2023-04-15 16:34:00 95 /min [facility] Systolic blood pressure 2023-03-25 20:07:00 141 mm[Hg] [facility] Diastolic blood pressure 2023-03-25 20:07:00 88 mm[Hg] [facility] Heart rate 2023-03-25 19:50:00 58 /min [facility] Body height 2023-03-25 19:50:00 170.2 cm [facility] Body weight 2023-03-25 19:50:00 115.577 kg [facility] BMI 2023-03-25 19:50:00 39.91 kg/m2 [facility] height 2023-03-20 10:50:00 67 [in_i] Commo n [facility] weight 2023-03-20 10:50:00 252.0 [lb_av] Co mmon [facility] temperature 2023-03-20 10:50:00 97.7 [degF] Com mon [facility] bmi 2023-03-20 10:50:00 39.46 kg/m2 Comm on [facility] oximetry 2023-03-20 10:50:00 98 % Commo n [facility] respiratory rate 2023-03-20 10:50:00 16 /min Common [facility] blood pressure systolic 2023-03-20 10:50:00 138 mm[Hg] Common [facility] blood pressure diastolic 2023-03-20 10:50:00 74 mm[Hg] [facility] Systolic blood pressure 2023-03-02 23:30:00 145 mm[Hg] [facility] Diastolic blood pressure 2023-03-02 23:30:00 88 mm[Hg] [facility] Heart rate 2023-03-02 23:30:00 62 /min [facility] Respiratory rate 2023-03-02 23:30:00 20 /min [facility] Oxygen saturation in Arterial blood by Pulse oximetry 2023-03-02 23:30:00 96 /min [facility] Body temperature 2023-03-02 21:45:00 36.39 Joya [facility] Body height 2023-03-02 21:45:00 170.2 cm [facility] Body weight 2023-03-02 21:45:00 111.131 kg [facility] BMI 2023-03-02 21:45:00 38.37 kg/m2 [facility] height 2023-02-19 14:20:00 67 [in_i] Commo n [facility] weight 2023-02-19 14:20:00 250 [lb_av] Comm on [facility] bmi 2023-02-19 14:20:00 39.15 kg/m2 Comm on [facility] height 2022-11-26 10:20:00 67 [in_i] Commo n [facility] weight 2022-11-26 10:20:00 254 [lb_av] Comm on [facility] temperature 2022-11-26 10:20:00 97.7 [degF] Com mon [facility] bmi 2022-11-26 10:20:00 39.78 kg/m2 Comm on [facility] oximetry 2022-11-26 10:20:00 93 % Commo n [facility] respiratory rate 2022-11-26 10:20:00 16 /min Common [facility] blood pressure systolic 2022-11-26 10:20:00 138 mm[Hg] Common [facility] blood pressure diastolic 2022-11-26 10:20:00 80 mm[Hg] Common [facility] height 2022-11-26 10:40:00 67 [in_i] Commo n [facility] weight 2022-11-26 10:40:00 254 [lb_av] Comm on [facility] temperature 2022-11-26 10:40:00 97.7 [degF] Com mon [facility] bmi 2022-11-26 10:40:00 39.78 kg/m2 Comm on [facility] oximetry 2022-11-26 10:40:00 93 % Commo n [facility] respiratory rate 2022-11-26 10:40:00 16 /min [facility] blood pressure systolic 2022-11-26 10:40:00 138 mm[Hg] [facility] blood pressure diastolic 2022-11-26 10:40:00 80 mm[Hg] [facility] height 2022-11-21 08:45:00 67 [in_i] Commo n [facility] weight 2022-11-21 08:45:00 253 [lb_av] Comm on [facility] temperature 2022-11-21 08:45:00 98.0 [degF] Com [facility] bmi 2022-11-21 08:45:00 39.62 kg/m2 Comm on [facility] oximetry 2022-11-21 08:45:00 97 % Commo n [facility] respiratory rate 2022-11-21 08:45:00 18 /min [facility] blood pressure systolic 2022-11-21 08:45:00 134 mm[Hg] [facility] blood pressure diastolic 2022-11-21 08:45:00 82 mm[Hg] [facility] height 2022-07-26 10:30:00 67 [in_i] Commo n [facility] weight 2022-07-26 10:30:00 254 [lb_av] Comm on [facility] temperature 2022-07-26 10:30:00 97.4 [degF] Com [facility] bmi 2022-07-26 10:30:00 39.78 kg/m2 Comm on [facility] oximetry 2022-07-26 10:30:00 96 % Commo n [facility] respiratory rate 2022-07-26 10:30:00 16 /min Common [facility] blood pressure systolic 2022-07-26 10:30:00 139 mm[Hg] Common [facility] t [facility] blood pressure diastolic 2022-07-26 10:30:00 87 mm[Hg] [facility] height 2022-04-11 13:00:00 67 [in_i] Commo n [facility] weight 2022-04-11 13:00:00 250 [lb_av] Comm on [facility] temperature 2022-04-11 13:00:00 99.0 [degF] Com [facility] bmi 2022-04-11 13:00:00 39.15 kg/m2 Comm on [facility] oximetry 2022-04-11 13:00:00 96 % Commo n [facility] respiratory rate 2022-04-11 13:00:00 16 /min [facility] blood pressure systolic 2022-04-11 13:00:00 161 mm[Hg] Common [facility] t [facility] blood pressure diastolic 2022-04-11 13:00:00 96 mm[Hg] [facility] height 2022-04-09 11:20:00 67 [in_i] Commo n [facility] weight 2022-04-09 11:20:00 250 [lb_av] Comm on [facility] temperature 2022-04-09 11:20:00 97.5 [degF] Com mon [facility] bmi 2022-04-09 11:20:00 39.15 kg/m2 Comm on [facility] height 2022-03-19 09:20:00 67 [in_i] Commo n [facility] weight 2022-03-19 09:20:00 250.0 [lb_av] Co mmon [facility] temperature 2022-03-19 09:20:00 97.2 [degF] Com mon [facility] bmi 2022-03-19 09:20:00 39.15 kg/m2 Comm on [facility] oximetry 2022-03-19 09:20:00 94 % Commo n [facility] respiratory rate 2022-03-19 09:20:00 16 /min Common [facility] blood pressure systolic 2022-03-19 09:20:00 139 mm[Hg] [facility] blood pressure diastolic 2022-03-19 09:20:00 74 mm[Hg] [facility] height 2022-03-19 09:30:00 67 [in_i] Commo n [facility] weight 2022-03-19 09:30:00 250.0 [lb_av] Co mmon [facility] temperature 2022-03-19 09:30:00 97.2 [degF] Com [facility] bmi 2022-03-19 09:30:00 39.15 kg/m2 Comm on [facility] oximetry 2022-03-19 09:30:00 94 % Commo n [facility] respiratory rate 2022-03-19 09:30:00 16 /min Common [facility] blood pressure systolic 2022-03-19 09:30:00 139 mm[Hg] [facility] blood pressure diastolic 2022-03-19 09:30:00 74 mm[Hg] [facility] height 2022-01-10 13:00:00 67 [in_i] Commo n [facility] weight 2022-01-10 13:00:00 257 [lb_av] Comm on [facility] temperature 2022-01-10 13:00:00 97.2 [degF] Com [facility] bmi 2022-01-10 13:00:00 40.25 kg/m2 Comm on [facility] oximetry 2022-01-10 13:00:00 99 % Commo n [facility] respiratory rate 2022-01-10 13:00:00 16 /min [facility] blood pressure systolic 2022-01-10 13:00:00 183 mm[Hg] [facility] blood pressure diastolic 2022-01-10 13:00:00 104 mm[Hg] [facility] height 2021-12-12 10:00:00 67 [in_i] Commo n [facility] weight 2021-12-12 10:00:00 253 [lb_av] Comm on [facility] temperature 2021-12-12 10:00:00 98.2 [degF] Com mon [facility] bmi 2021-12-12 10:00:00 39.62 kg/m2 Comm on [facility] oximetry 2021-12-12 10:00:00 99 % Commo n [facility] respiratory rate 2021-12-12 10:00:00 18 /min [facility] blood pressure systolic 2021-12-12 10:00:00 135 mm[Hg] Common [facility] blood pressure diastolic 2021-12-12 10:00:00 76 mm[Hg] [facility] height 2021-11-13 09:50:00 67 [in_i] Commo n [facility] weight 2021-11-13 09:50:00 250 [lb_av] Comm on [facility] temperature 2021-11-13 09:50:00 97 [degF] Comm on [facility] bmi 2021-11-13 09:50:00 39.15 kg/m2 Comm on [facility] blood pressure systolic 2021-11-13 09:50:00 129 mm[Hg] [facility] blood pressure diastolic 2021-11-13 09:50:00 84 mm[Hg] [facility] height 2021-10-02 15:00:00 67 [in_i] Commo n [facility] weight 2021-10-02 15:00:00 256 [lb_av] Comm on [facility] bmi 2021-10-02 15:00:00 40.09 kg/m2 Comm on [facility] height 2021-09-12 11:45:00 67 [in_i] Commo n [facility] weight 2021-09-12 11:45:00 256 [lb_av] Comm on [facility] temperature 2021-09-12 11:45:00 97.6 [degF] Com [facility] bmi 2021-09-12 11:45:00 40.09 kg/m2 Comm on [facility] oximetry 2021-09-12 11:45:00 96 % Commo n [facility] respiratory rate 2021-09-12 11:45:00 16 /min Common [facility] blood pressure systolic 2021-09-12 11:45:00 176 mm[Hg] Common [facility] blood pressure diastolic 2021-09-12 11:45:00 91 mm[Hg] [facility] height 2021-08-22 13:00:00 67 [in_i] Commo n [facility] weight 2021-08-22 13:00:00 252 [lb_av] Comm on [facility] temperature 2021-08-22 13:00:00 97.7 [degF] Com mon [facility] bmi 2021-08-22 13:00:00 39.46 kg/m2 Comm on [facility] oximetry 2021-08-22 13:00:00 94 % Commo n [facility] respiratory rate 2021-08-22 13:00:00 16 /min Common [facility] blood pressure systolic 2021-08-22 13:00:00 149 mm[Hg] [facility] blood pressure diastolic 2021-08-22 13:00:00 81 mm[Hg] [facility] height 2021-07-19 13:30:00 67 [in_i] Commo n [facility] weight 2021-07-19 13:30:00 252 [lb_av] Comm on [facility] temperature 2021-07-19 13:30:00 97.0 [degF] Com [facility] bmi 2021-07-19 13:30:00 39.46 kg/m2 Comm on [facility] oximetry 2021-07-19 13:30:00 96 % Commo n [facility] respiratory rate 2021-07-19 13:30:00 17 /min [facility] blood pressure systolic 2021-07-19 13:30:00 140 mm[Hg] [facility] blood pressure diastolic 2021-07-19 13:30:00 89 mm[Hg] [facility] height 2021-07-03 09:40:00 67 [in_i] Commo n [facility] weight 2021-07-03 09:40:00 257 [lb_av] Comm on [facility] temperature 2021-07-03 09:40:00 97.3 [degF] Com mon [facility] bmi 2021-07-03 09:40:00 40.25 kg/m2 Comm on [facility] oximetry 2021-07-03 09:40:00 96 % Commo n [facility] respiratory rate 2021-07-03 09:40:00 19 /min Common [facility] blood pressure systolic 2021-07-03 09:40:00 134 mm[Hg] [facility] blood pressure diastolic 2021-07-03 09:40:00 82 mm[Hg] Common [facility] height 2021-06-22 10:30:00 67 [in_i] Commo n [facility] weight 2021-06-22 10:30:00 244 [lb_av] Comm on [facility] temperature 2021-06-22 10:30:00 97.8 [degF] Com mon [facility] bmi 2021-06-22 10:30:00 38.21 kg/m2 Comm on [facility] oximetry 2021-06-22 10:30:00 99 % Commo n [facility] respiratory rate 2021-06-22 10:30:00 18 /min [facility] blood pressure systolic 2021-06-22 10:30:00 160 mm[Hg] Common [facility] blood pressure diastolic 2021-06-22 10:30:00 83 mm[Hg] Common [facility] height 2021-05-28 16:45:00 67 [in_i] Commo n [facility] weight 2021-05-28 16:45:00 245 [lb_av] Comm on [facility] temperature 2021-05-28 16:45:00 98 [degF] Comm on [facility] bmi 2021-05-28 16:45:00 38.37 kg/m2 Comm on [facility] oximetry 2021-05-28 16:45:00 98 % Commo n [facility] respiratory rate 2021-05-28 16:45:00 18 /min [facility] blood pressure systolic 2021-05-28 16:45:00 111 mm[Hg] [facility] blood pressure diastolic 2021-05-28 16:45:00 65 mm[Hg] Common [facility] height 2021-05-23 11:00:00 67 [in_i] Commo n [facility] weight 2021-05-23 11:00:00 245 [lb_av] Comm on [facility] temperature 2021-05-23 11:00:00 97.5 [degF] Com mon [facility] bmi 2021-05-23 11:00:00 38.37 kg/m2 Comm on [facility] oximetry 2021-05-23 11:00:00 97 % Commo n [facility] respiratory rate 2021-05-23 11:00:00 18 /min [facility] blood pressure systolic 2021-05-23 11:00:00 165 mm[Hg] [facility] blood pressure diastolic 2021-05-23 11:00:00 85 mm[Hg] Common [facility] height 2021-03-15 13:30:00 67 [in_i] Commo n [facility] weight 2021-03-15 13:30:00 253 [lb_av] Comm on [facility] temperature 2021-03-15 13:30:00 97.2 [degF] Com mon [facility] bmi 2021-03-15 13:30:00 39.62 kg/m2 Comm on [facility] oximetry 2021-03-15 13:30:00 96 % Commo n [facility] blood pressure systolic 2021-03-15 13:30:00 137 mm[Hg] Common [facility] blood pressure diastolic 2021-03-15 13:30:00 72 mm[Hg] [facility] height 2021-03-07 08:50:00 67 [in_i] Commo n [facility] weight 2021-03-07 08:50:00 251.2 [lb_av] Co mmon [facility] temperature 2021-03-07 08:50:00 97.0 [degF] Com mon [facility] bmi 2021-03-07 08:50:00 39.34 kg/m2 Comm on [facility] oximetry 2021-03-07 08:50:00 86 % Commo n [facility] respiratory rate 2021-03-07 08:50:00 18 /min [facility] blood pressure systolic 2021-03-07 08:50:00 133 mm[Hg] [facility] blood pressure diastolic 2021-03-07 08:50:00 82 mm[Hg] [facility] Procedures Procedure Date / Time Performed Performing Clinician Source PVR 2023-08-14 00:00:00 [facility] DISCLOSURE AND CONSENT, MEDICAL AND SURGICAL PROCEDURES 2023-06-19 06:01:00 Doctor Unassigned, [facility] PATIENT QUESTIONNAIRE 2023-06-10 06:01:00 Doctor Unassigned, [facility] INSURANCE CORRESPONDENCE 2023-05-15 06:01:00 Doc tor Unassigned, [facility] TRANSTHORACIC ECHO (TTE) COMPLETE W/ CONTRAST 2023-05-14 22:03:51 Adri Infante [facility] INSURANCE CORRESPONDENCE 2023-05-07 06:01:00 Doc tor Unassigned, [place] [facility] URINALYSIS 2023-03-02 23:05:00 [facility] STROKE ANGIOGRAM HEAD 2023-03-02 22:22:25 Garcia Bruce [facility] CT STROKE ANGIOGRAM NECK 2023-03-02 22:22:25 Garcia Bruce [facility] POCT GLUCOSE(AGE >30DAYS) 2023-03-02 21:55:00 Neisha Bruce [facility] POCT GLUCOSE (AUTOMATED) 2023-03-02 21:54:00 Garcia [facility] TROPONIN I 2023-03-02 21:51:00 [facility] BASIC METABOLIC PANEL (NA, K, CL, CO2, GLUCOSE, BUN, CREATININE, CA) 2023-03-02 21:51:00 Neisha Bruce [facility] CBC WITHOUT DIFF 2023-03-02 21:51:00 [facility] 2023-03-02 21:51:00 Edgard [facility] ACTIVATED PARTIAL THRMPLAS JUAN ALBERTO 2023-03-02 21:51:00 Neisha Bruce [facility] NOTICE OF PRIVACY PRACTICES 2023-03-02 21:35:44 Doctor Unassigned, [place] [facility] CONSENT/REFUSAL FOR DIAGNOSIS AND TREATMENT 2023-03-02 21:35:17 Doctor Unassigned, [place] [facility] PVR 2022-11-21 00:00:00 [facility] Encounters Start Date/Time End Date/Time Encounter Type Admission Type Attending [facility] Care Facility Care Department Encounter ID Source 2024-05-17 07:38:00 [facility] [id number] [facility] 2024-03-26 11:30:00 Outpatient Bro, [facility] [id number] [facility] 2023-11-20 09:12:00 Outpatient Bro, Galo [facility] STLC [id number] [facility] 2023-11-12 08:50:00 Outpatient Bro, [facility] STLC [id number] [facility] 2023-07-17 13:43:00 Outpatient Bro, Galo [facility] STLC [id number] [facility] 2023-07-15 15:06:00 Outpatient Bro, Galo STLC STLMLC [id number] [facility] 2023-07-14 11:14:00 Outpatient Bro, Galo ST[facility] STLC [id number] [facility] 2022-11-26 10:24:00 Outpatient Rbo, Galo [facility] STLC [id number] [facility] 2022-03-21 14:37:01 Outpatient Bro, Galo [facility] STLMLC [id number] [facility] 2022-03-15 10:09:00 Outpatient Bro, Galo STLMLC STLMLC [id number] [facility] 2021-10-02 10:41:01 Outpatient Bro, Galo STLMLC STLMLC [id number] [facility] 2021-07-03 09:55:00 Outpatient Bro, Galo STLMLC STLMLC [id number] [facility] 2021-06-06 14:08:59 Outpatient Bro, Galo STLMLC STLMLC [id number] [facility] 2021-06-06 13:56:13 Outpatient Bro, Galo STLMLC STLMLC [id number] [facility] 2021-06-06 13:55:45 Outpatient Bro, Galo STLMLC STLMLC [id number] [facility] 2021-06-06 13:55:30 Outpatient Bro, Galo STLMLC STLMLC [id number] [facility] 2021-06-06 13:48:21 Outpatient Bro, Galo STLMLC STLMLC [id number] [facility] 2021-06-06 13:38:04 Outpatient Bro, Galo STLMLC STLMLC [id number] [facility] 2021-06-06 12:54:27 Outpatient Bro, Galo STLMLC STLMLC [id number] [facility] 2021-06-06 12:32:42 Outpatient Bro, Galo STLMLC STLMLC [id number] [facility] 2021-06-06 12:31:53 Outpatient Bro, Galo STLMLC STLMLC [id number] [facility] 2021-06-06 12:24:28 Outpatient Bro, Galo STLMLC STLMLC [id number] [facility] 2021-06-06 12:07:49 Outpatient STLMLC STLMLC [id number] [facility] 2021-06-06 12:07:22 Outpatient Manjula Duval STNANDINILC STLMLC [id number] [facility] 2021-06-06 11:02:56 Outpatient Manjula Duval STLMLC STLMLC [id number] [facility] 2021-06-06 11:02:49 Outpatient Manjula Duval STLMLC STLMLC [id number] [facility] 2024-08-03 09:30:00 2024-08-03 09:30:00 [facility]patient [facility] [id number] [facility] 2024-07-27 15:30:00 2024-07-27 15:30:00 Outpatient [facility] [id number] [facility] 2024-07-22 00:00:00 2024-07-22 00:00:00 OFFICE VISIT ESTAB PT LEVEL 4 STLMLC STLMLC [id number] [facility] 2024-07-21 00:00:00 2024-07-21 00:00:00 (TEL) STLMLC STLMLC [id number] [facility] 2024-06-16 00:00:00 2024-06-16 00:00:00 OFFICE VISIT ESTAB PT LEVEL 3 STLMLC STLMLC [id number] [facility] 2024-06-15 00:00:00 2024-06-15 00:00:00 (TEL) STLMLC STLMLC [id number] [facility] 2024-06-01 13:30:00 2024-06-01 13:30:00 Outpatient BREEZY MARIANO [facility] [id number] [facility] 2024-05-17 00:00:00 2024-05-17 00:00:00 OFFICE VISIT ESTAB PT LEVEL 4 STLMLC STLMLC [id number] [facility] 2024-05-14 00:00:00 2024-05-14 00:00:00 (TEL) STLMLC STLMLC [id number] [facility] 2024-05-11 14:30:00 2024-05-11 14:30:00 Outpatient [facility] [id number] [facility] 2024-05-09 00:00:00 2024-05-09 00:00:00 (TEL) STLMLC STLMLC [id number] [facility] 2024-04-28 00:00:00 2024-04-28 00:00:00 (TEL) STLMLC STLMLC [id number] [facility] 2024-04-28 00:00:00 2024-04-28 00:00:00 OFFICE VISIT ESTAB PT LEVEL 3 STLMLC STLMLC [id number] [facility] 2024-04-06 00:00:00 2024-04-06 00:00:00 (TEL) STLMLC STLMLC [id number] [facility] 2024-03-03 14:00:00 2024-03-03 14:00:00 Outpatient BREEZY MARIANO [facility] [id number] [facility] 2024-02-26 00:00:00 2024-02-26 00:00:00 (TEL) STLMLC STLMLC [id number] [facility] 2024-01-07 14:30:00 2024-01-07 14:30:00 Outpatient [facility] [id number] [facility] 2023-12-17 00:00:00 2023-12-17 00:00:00 OFFICE VISIT ESTAB PT LEVEL 4 STLMLC STLMLC [id number] [facility] 2023-11-25 00:00:00 2023-11-25 00:00:00 SUB ANNUAL [facility] VISIT STLMLC STLMLC [id number] [facility] 2023-11-25 00:00:00 2023-11-25 00:00:00 OFFICE VISIT ESTAB PT LEVEL 4 STLMLC STLMLC [id number] [facility] 2023-11-21 00:00:00 2023-11-21 00:00:00 (TEL) STLMLC STLMLC [id number] [facility] 2023-11-20 00:00:00 2023-11-20 00:00:00 (TEL) STLMLC STLMLC [id number] [facility] 2023-10-16 00:00:00 2023-10-16 00:00:00 OFFICE VISIT ESTAB PT LEVEL 4 STLMLC STLC [id number] [facility] 2023-08-15 00:00:00 2023-08-15 00:00:00 Telephone [facility] 1.2.840.114 350.1.13.10 4.2.7.2.686 [id number] [facility] 2023-08-14 00:00:00 2023-08-14 00:00:00 OFFICE VISIT ESTAB PT LEVEL 4 STLMLC STLC [id number] [facility] 2023-08-12 00:00:00 2023-08-12 00:00:00 (TEL) STLC STLC [id number] [facility] 2023-08-05 13:00:00 2023-08-05 14:00:00 Initial D2Me Sera Iyanoye 2.16.840. [id number] 2.16.840.1. [id number] [address] 2023-07-28 00:00:00 2023-07-28 00:00:00 (TEL) STLC STLC [id number] [facility] 2023-07-17 00:00:00 2023-07-17 00:00:00 OFFICE VISIT ESTAB PT LEVEL 4 STLMLC STLMLC [id number] [facility] 2023-06-19 00:00:00 2023-06-19 00:00:00 Orders Only Doctor Unassigned, [facility] 1.2.840.114 350.1.13.10 4.2.7.2.686 [id number] [facility] 2023-06-17 14:30:00 2023-06-17 14:30:00 Outpatient R ISMAEL [facility] [id number] [facility] 2023-06-10 10:30:00 2023-06-10 12:18:41 Outpatient R ITA [facility] [id number] [facility] 2023-06-10 10:30:00 2023-06-10 12:18:41 Office Visit Ita [facility] 1.2.840.114 350.1.13.10 4.2.7.2.686 [id number] [facility] 2023-06-10 00:00:00 2023-06-10 00:00:00 Orders Only Doctor Unassigned, [facility] 1.2.840.114 350.1.13.10 4.2.7.2.686 [id number] [facility] 2023-06-04 00:00:00 2023-06-04 00:00:00 OFFICE VISIT ESTAB PT LEVEL 5 STLMLC STLMLC [id number] [facility] 2023-05-28 00:00:00 2023-05-28 00:00:00 (TEL) STLMLC STLMLC [id number] [facility] 2023-05-25 00:00:00 2023-05-25 00:00:00 (TEL) STLMLC STLMLC [id number] [facility] 2023-05-15 00:00:00 2023-05-15 00:00:00 Orders Only Doctor Unassigned, [facility] 1.2.840.114 350.1.13.10 4.2.7.2.686 [id number] [id number] [facility] 2023-05-14 15:56:26 2023-05-14 23:59:00 Outpatient R ARELIS [facility] [id number] [facility] 2023-05-14 15:56:26 2023-05-14 23:59:00 Hospital Encounter Arelis [facility] 1.2.840.114 350.1.13.10 4.2.7.2.686 [id number] [facility] 2023-05-14 15:00:00 2023-05-14 15:55:00 Hospital Encounter Arelis [facility] 1.2.840.114 350.1.13.10 4.2.7.2.686 [id number] [facility] 2023-05-07 00:00:00 2023-05-07 00:00:00 Orders Only Doctor Unassigned, [facility] 1.2.840.114 350.1.13.10 4.2.7.2.686 [id number] [facility] 2023-04-15 10:30:00 2023-04-15 11:15:50 Office Visit Arelis [facility] 1.2.840.114 350.1.13.10 4.2.7.2.686 [id number] [facility] 2023-04-15 10:30:00 2023-04-15 11:15:50 Outpatient R ARELIS [facility] [id number] [facility] 2023-04-01 00:00:00 2023-04-01 00:00:00 Refill Cam Del Valle [facility]ED [facility] 1.2.840.114 350.1.13.10 4.2.7.2.686 [id number] [facility] 2023-03-25 14:00:00 2023-03-25 16:09:54 Outpatient R CAM [facility]LE [facility] [id number] [facility] 2023-03-25 14:00:00 2023-03-25 16:09:54 Office Visit Cam Del Valle [facility] 1.2.840.114 350.1.13.10 4.2.7.2.686 [id number] [facility] 2023-03-20 00:00:00 2023-03-20 00:00:00 OFFICE VISIT ESTAB PT LEVEL 4 STLMLC STLMLC [id number] [facility] 2023-03-02 16:35:00 2023-03-02 18:47:00 Emergency X NEISHA BRUCE [facility] ERT [id number] [facility] 2023-03-02 16:35:00 2023-03-02 18:47:00 Emergency Neisha Bruce [facility] 1.2.840.114 350.1.13.10 4.2.7.2.686 [id number] [facility] 2023-02-19 00:00:00 2023-02-19 00:00:00 OFFICE VISIT ESTAB PT LEVEL 3 STLMLC STLMLC [id number] [facility] 2023-02-19 00:00:00 2023-02-19 00:00:00 (TEL) STLMLC STLMLC [id number] [facility] 2023-01-16 00:00:00 2023-01-16 00:00:00 (TEL) STLMLC STLMLC [id number] [facility] 2022-11-26 00:00:00 2022-11-26 00:00:00 OFFICE VISIT ESTAB PT LEVEL 4 STLMLC STLMLC [id number] [facility] 2022-11-26 00:00:00 2022-11-26 00:00:00 SUB ANNUAL [facility] VISIT STLMLC STLMLC [id number] [facility] 2022-11-26 00:00:00 2022-11-26 00:00:00 (TEL) STLMLC STLMLC [id number] [facility] 2022-11-21 00:00:00 2022-11-21 00:00:00 OFFICE VISIT ESTAB PT LEVEL 4 STLMLC STLMLC [id number] [facility] 2022-10-10 00:00:00 2022-10-10 00:00:00 (PROC) Procedure STLMLC STLMLC [id number] [facility] 2022-09-27 00:00:00 2022-09-27 00:00:00 (TEL) STLMLC STLMLC [id number] [facility] 2022-07-26 00:00:00 2022-07-26 00:00:00 OFFICE VISIT ESTAB PT LEVEL 4 STLMLC STLMLC [id number] [facility] 2022-06-19 00:00:00 2022-06-19 00:00:00 (TEL) STLMLC STLMLC [id number] [facility] 2022-04-12 00:00:00 2022-04-12 00:00:00 (TEL) STLMLC STLMLC [id number] [facility] 2022-04-11 00:00:00 2022-04-11 00:00:00 OFFICE VISIT EST PT LEVEL 3 STLMLC STLMLC [id number] [facility] 2022-04-09 00:00:00 2022-04-09 00:00:00 (TEL) STLMLC STLMLC [id number] [facility] 2022-04-09 00:00:00 2022-04-09 00:00:00 OFFICE VISIT EST PT LEVEL 3 STLMLC STLMLC [id number] [facility] 2022-04-08 00:00:00 2022-04-08 00:00:00 (TEL) STLMLC STLMLC [id number] [facility] 2022-04-08 00:00:00 2022-04-08 00:00:00 (TEL) STLMLC STLMLC [id number] [facility] 2022-04-08 00:00:00 2022-04-08 00:00:00 (TEL) STLMLC STLMLC [id number] [facility] 2022-03-21 00:00:00 2022-03-21 00:00:00 (TEL) STLMLC STLMLC [id number] [facility] 2022-03-19 00:00:00 2022-03-19 00:00:00 OFFICE VISIT ESTAB PT LEVEL 4 STLMLC STLMLC [id number] [facility] 2022-03-19 00:00:00 2022-03-19 00:00:00 SUB ANNUAL [facility] VISIT STLMLC STLMLC [id number] [facility] 2022-02-14 00:00:00 2022-02-14 00:00:00 (TEL) STLMLC STLMLC [id number] [facility] 2022-01-10 00:00:00 2022-01-10 00:00:00 OFFICE VISIT EST PT LEVEL 3 STLMLC STLMLC [id number] [facility] 2021-12-17 00:00:00 2021-12-17 00:00:00 (TEL) STLMLC STLMLC [id number] [facility] 2021-12-12 00:00:00 2021-12-12 00:00:00 OFFICE VISIT ESTAB PT LEVEL 4 STLMLC STLMLC [id number] [facility] 2021-11-30 00:00:00 2021-11-30 00:00:00 (TEL) STLMLC STLMLC [id number] [facility] 2021-11-13 00:00:00 2021-11-13 00:00:00 OFFICE VISIT ESTAB PT LEVEL 4 STLMLC STLMLC [id number] [facility] 2021-10-02 00:00:00 2021-10-02 00:00:00 OFFICE VISIT EST PT LEVEL 3 STLMLC STLMLC [id number] [facility] 2021-10-02 00:00:00 2021-10-02 00:00:00 (TEL) STLMLC STLMLC [id number] [facility] 2021-09-20 00:00:00 2021-09-20 00:00:00 (TEL) STLMLC STLMLC [id number] [facility] 2021-09-12 00:00:00 2021-09-12 00:00:00 OFFICE VISIT ESTAB PT LEVEL 5 STLMLC STLMLC [id number] [facility] 2021-09-12 00:00:00 2021-09-12 00:00:00 (TEL) STLMLC STLMLC [id number] [facility] 2021-08-22 00:00:00 2021-08-22 00:00:00 OFFICE VISIT EST PT LEVEL 3 STLMLC STLMLC [id number] [facility] 2021-07-19 00:00:00 2021-07-19 00:00:00 OFFICE VISIT ESTAB PT LEVEL 2 STLMLC STLMLC [id number] [facility] 2021-07-03 00:00:00 2021-07-03 00:00:00 OFFICE VISIT ESTAB PT LEVEL 4 STLMLC STLMLC [id number] [facility] 2021-07-03 00:00:00 2021-07-03 00:00:00 (TEL) STLMLC STLMLC [id number] [facility] 2021-06-29 00:00:00 2021-06-29 00:00:00 (TEL) STLMLC STLMLC [id number] [facility] 2021-06-22 00:00:00 2021-06-22 00:00:00 Postop visit STLMLC STLMLC [id number] [facility] 2021-05-28 00:00:00 2021-05-28 00:00:00 OFFICE VISIT ESTAB PT LEVEL 2 STLMLC STLMLC [id number] [facility] 2021-05-23 00:00:00 2021-05-23 00:00:00 OFFICE VISIT ESTAB PT LEVEL 4 STLMLC STLMLC [id number] [facility] 2021-03-15 00:00:00 2021-03-15 00:00:00 OFFICE VISIT NEW PT LEVEL 5 STLMLC STLMLC [id number] [facility] 2021-03-07 00:00:00 2021-03-07 00:00:00 OFFICE VISIT EST PT LEVEL 3 STLMLC STLMLC [id number] [facility] 2021-02-26 00:00:00 2021-02-26 00:00:00 (TEL) STLMLC STLMLC [id number] [facility] 2021-02-12 00:00:00 2021-02-12 00:00:00 Outpatient STLMLC STLMLC [id number] [facility] 2021-02-12 00:00:00 2021-02-12 00:00:00 Outpatient STLMLC STLMLC [id number] [facility] 2021-02-12 00:00:00 2021-02-12 00:00:00 Outpatient STLMLC STLMLC [id number] [facility] 2021-01-03 00:00:00 2021-01-03 00:00:00 Outpatient STLMLC STLMLC [id number] [facility] 2021-01-03 00:00:00 2021-01-03 00:00:00 Outpatient STLMLC STLMLC [id number] [facility] 2020-12-29 00:00:00 2020-12-29 00:00:00 Outpatient STLMLC STLMLC [id number] [facility] 2020-08-30 00:00:00 2020-08-30 00:00:00 Outpatient STLMLC STLMLC [id number] [facility] 2020-07-07 10:30:00 2020-07-07 10:30:00 Outpatient R [facility] [id number] [facility] 2020-07-07 10:30:00 2020-07-07 10:30:00 Outpatient MARISEL BRADY [facility] [id number] [facility] 2020-06-30 10:30:00 2020-06-30 10:30:00 Outpatient MARISEL BRADY [facility] [id number] [facility] 2020-06-30 10:30:00 2020-06-30 10:30:00 Outpatient MARISEL BRADY [facility] [id number] [facility] 2020-06-09 09:50:00 2020-06-09 09:50:00 Outpatient MARISEL BRADY [facility] [id number] [facility] 2020-05-23 00:00:00 2020-05-23 00:00:00 Outpatient STLMLC STLMLC [id number] [facility] 2020-05-19 00:00:00 2020-05-19 00:00:00 Outpatient STLMLC STLMLC [id number] [facility] 2020-05-14 00:00:00 2020-05-14 00:00:00 Outpatient STLMLC STLMLC [id number] [facility] 2020-05-10 00:00:00 2020-05-10 00:00:00 Outpatient STLMLC STLMLC [id number] [facility] 2020-05-09 00:00:00 2020-05-09 00:00:00 Outpatient STLMLC STLMLC [id number] [facility] 2020-04-20 00:00:00 2020-04-20 00:00:00 Outpatient STLMLC STLMLC [id number] [facility] 2020-04-04 00:00:00 2020-04-04 00:00:00 Outpatient STLMLC STLMLC [id number] [facility] 2019-12-22 13:19:00 2019-12-22 13:19:00 [facility] [id number] [facility] 2019-12-19 01:36:00 2019-12-19 01:36:[address] [facility] [id number] [facility] 2019-12-17 14:34:00 2019-12-17 14:34:00 [facility] [address] [facility] [id number] [facility] 2019-12-14 16:40:00 2019-12-14 16:40:00 [facility] [address] [facility] [id number] [facility] 2019-10-05 16:31:00 2019-10-05 16:31:00 [place] [address] [facility] [id number] [facility] 2019-06-29 11:00:00 2019-06-29 11:00:00 [place] [facility] [address] [facility] [id number] [facility] 2019-06-03 14:00:00 2019-06-03 14:00:00 [facility] [address] [facility] [id number] [facility] Results Test Description Test Time Test Comments Results Result Co mments Source [facility] [id number] 00:00:00* Test Item Value Reference Range Interpretation Comme nts HEMOGLOBIN A1c (test code = 4548-4) 5.2 % See_Comment [Automated messa ge] The system which generated this result transmitted reference range: 4.2-5.6 %. The reference range was not used to interpret this result as normal/abnormal. Troponin I - Code [id number] 22:19:23* Test Item Value Reference Range Interpretation Comme [facility] TROPONIN I (test code = 7184053216) 0.001 ng/mL <=0.034 REY (test code = [...] of biotin. Lab Interpretation (test code = 82133-1) Normal [facility] - Code [id number] 22:09:00* Test Item Value Reference Range Interpretation Comme [facility] APTT Patient (test code = 3173-2) 25 See_Comment [Automated message] The system which generated this result transmitted reference range: 23 - 38 Seconds. The reference range was not used to interpret this result as normal/abnormal. REY (test code = REY) The [facility] patient population mean normal value for aPTT is 30 seconds. Lab Interpretation (test code = 73042-6) Normal [facility] (NA, K, CL, CO2, Glucose, BUN, Creatinine, CA) - Code [id number] 22:07:20* Test Item Value Reference Range Interpretation Comme nts NA (test code = 1218015299) 139 mmol/L 135-145 K (test code = 5606806083) 3.9 mmol/L 3.5-5.0 CL (test code = 2843113082) 105 mmol/L 98-108 CO2 TOTAL (test code = 4564496187) 25 mmol/L 23-31 AGAP (test code = 1915639083) 9 2-16 BUN (test code = 1258186691) 21 mg/dL 7-23 GLUCOSE (test code = 7353286854) 89 mg/dL 70-110 CREATININE (test code = 3541271978) 0.87 mg/dL 0.60-1.25 CALCIUM (test code = 2337516024) 8.6 mg/dL 8.6-10.6 eGFR (test code = 8469916101) 83.6 mL/min/1.73m2 REY (test code = REY) [...] or urine or abnormalities in imaging tests). [facility] Time / INR - Code [id number] 22:06:59* Test Item Value Reference Range Interpretation Comme jeniffer KELLOGG PATIENT (test code = 5964-2) 13.4 See_Comment [Automated Signifyd] The system which generated this result transmitted reference range: 12.0 - 14.7 Seconds. The reference range was not used to interpret this result as normal/abnormal. INR (test code = 6301-6) 1.0 Normal INR <1.1; Warfarin Therapeutic range 2.0 to 3.0 or 2.5 to 3.5, depending upon the indications. Lab Interpretation (test code = 16170-0) Normal [facility] without Diff - Code [id number] 21:58:20* Test Item Value Reference Range Interpretation Comme nts WBC (test code = 6690-2) 5.90 See_Comment [Automated messa ge] The system which generated this result transmitted reference range: 4.20 - 10.70 10*3/?L. The reference range was not used to interpret this result as normal/abnormal. RBC (test code = 789-8) 4.27 See_Comment [Automated messa ge] The system which [...] result as normal/abnormal. MPV (test code = 58987-1) 10.1 fL 9.8-13.0 RDW-CV (test code = 788-0) 13.3 % 12.1-15.4 RDW-SD (test code = 51274-7) 44.8 fL 38.5-51.6 NRBC x10^3 (test code = 0390484226) See_Comment [Automated POPSUGAR ssage] The system which generated this result transmitted reference range: 10*3/?L. The reference range was not used to interpret this result as normal/abnormal. NRBC/100 WBC (test code = 8553246499) 0.0 See_Comment [Automated me ssage] The system which generated this result transmitted reference range: 0.0 - 10.0 /100 WBCs. The reference range was not used to interpret this result as normal/abnormal. IPF % (test code = 1953944911) [facility] GLUCOSE (AUTOMATED)2023-03-02 21:57:10* Test Item Value Reference Range Interpretation Comme nts POCT GLU (test code = 4166737667) 54 mg/dL 70-110 L Lab Interpretation (test cod e = 13524-0) Abnormal [facility] Glucose (Age >30 Days) - Code Stroke 2023-03-02 21:55:00* Test Item Value Reference Range Interpretation Comme nts POCT Glu (age>30days) (test code = 3342) 54 mg/dL 70-110 A Lab Interpretation (test cod e = 48380-8) [facility] [id number] 00:00:00* Test Item Value Reference Range Interpretation Comme nts BASOPHILS (test code = 92108-9) 0.8 % DIAGNOSIS: (test code = 15060-1) (NOTE) COMMENTS (test code = 15287-1) (NOTE) EOSINOPHILS (test code = 21637-1) 10.9 % HEMATOCRIT (test code = 01753-4) 37.4 % See_Comment L [Automated messa ge] [...] result as normal/abnormal. LYMPHOCYTES (test code = 68054-9) 41.4 % MCH (test code = 44118-0) 28.8 PG See_Comment [Automated messa ge] The system which generated this result transmitted reference range: 25.0-33.0 PG. The reference range was not used to interpret this result as normal/abnormal. MCHC (test code = 97896-0) 32.1 G/DL See_Comment [Automated messa ge] The system which generated this result transmitted reference range: 31.0-36.0 G/DL. The reference range was not used to interpret this result as normal/abnormal. MCV (test code = 02931-5) 89.9 fL See_Comment [Automated messa ge] The system which generated this result transmitted reference range: 80.0-99.0 fL. The reference range was not used to interpret this result as normal/abnormal. MICROSCOPIC DESCRIPTION: (test code = 04278-8) (NOTE) MONOCYTES (test code = 36429-1) 9.5 % NEUTROPHILS (test code = 35122-1) 37.0 % NUCLEATED RBCS (test code = 81173-3) 0.0 /100 WBC'S See_Comment [Automated messa ge] The system which generated this result transmitted reference range: 0.0 /100 WBC'S. The reference range was not used to interpret this result as normal/abnormal. PATHOLOGIST: (test code = 04082-5) (NOTE) PLATELET COUNT (test code = 68300-7) 190 K/UL See_Comment [Automated messa ge] The system which generated this result transmitted reference range: 130-400 K/UL. The reference range was not used to interpret this result as normal/abnormal. RBC (test code = 00854-4) 4.16 M/UL See_Comment L [Automated messa ge] The system which generated this result transmitted reference range: 4.50-6.10 M/UL. The reference range was not used to interpret this result as normal/abnormal. RDW (test code = 47165-8) 12.1 % See_Comment [Automated messa ge] The system which generated this result transmitted reference range: 11.5-15.0 %. The reference range was not used to interpret this result as normal/abnormal. WBC (test code = 60217-2) 4.9 K/UL See_Comment [Automated messa ge] The system which generated this result transmitted reference range: 3.5-11.0 K/UL. The reference range was not used to interpret this result as normal/abnormal. Notes Date/Time Note Provider Source 2023-08-15 09:45:22 Images from the original note were not included. Patient notified of results. He verbalized understanding of results/recommendations via teach back. No further questions or concerns at this time. While on the phone patient mentioned that his [...] beta titus. He verbalized understanding via teach back. Adri Infante MD P Cardiology Nurse Please let Mr. Abiola Villegas know that the event monitor has been reviewed, it showed insignificant extrabeats, supraventricular tachycardia that didn't last for long time (seconds, few minutes) through out the monitored period. 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 This finding is unlikely to be related to any of your symptoms. I believe we need to continue on the same treatment as of now. Most importantly baby aspirin (as long as it is tolerated) and atorvastatin. Regards, Adri Infante MD organic chemistry professor. Division of cardiovascular medicine [facility] Sanjana Glover RN [facility] [place]"
--- NOTE | 2024-07-30 15:34 | RAD REPORT ---
EXAMINATION: ONE VIEW CHEST XR CLINICAL INDICATION: COUGH TECHNIQUE: Frontal chest projection is submitted. Examination is limited by patient positioning and t echnique. COMPARISON: 10/02/2021 FINDINGS: Lungs are grossly clear. Heart is mildly enlarged in size. No displaced fractures identified. IMPRESSION: No acute intrathoracic abnormalities.
[2024-07-30 16:08] LABS: Absolute Basophils 0.1 K/uL (0-0.5); Absolute Eosinophils 0.3 K/uL (0-0.5); Absolute Lymphocytes (CBC) 2.4 K/uL (0.7-4.9); Absolute Monocytes 0.7 K/uL (0.1-1.3); Absolute Neutrophil 3.7 K/uL (1.8-8.0); Basophils % 0.9 % (0-1.3); Eosinophils % 4.3 % (0-4.4); Hematocrit 39.2 % (39.6-49.0); Lymphocytes % 33.9 % (15.3-44.8); MCH 29.9 pg (27.0-35.0); MCHC 33.2 g/dL (32.0-36.0); MCV 90.2 fL (80-100); MPV 8.3 fL (7.6-11.3); Monocytes % 9.2 % (3.3-12.3); Neutrophils % 51.7 % (41.7-73.7); Nucleated Red Blood Cells % 0.1 % (0-0); Platelets 195 thou/uL (152-406); RBC Red Blood Cell Count 4.34 M/uL (4.33-5.43); Red Cell Distribution Width 13.5 % (12.1-15.2)
[2024-07-30 16:27] LABS: ALT/SGPT 23 U/L (16-61); AST/SGOT 13 U/L (15-37); Albumin 2.9 g/dL (3.4-5.0); Albumin/Globulin Ratio 0.8 (1.1-1.8); Alkaline Phosphatase 68 U/L (45-117); Anion Gap 7.2 mEq/L (5.0-15.0); BUN Blood Urea Nitrogen 22 mg/dL (7-18); Bicarbonate 30 mEq/L (21-32); Bilirubin Total 0.4 mg/dL (0.2-1.0); Globulin 3.6 g/dL (2.3-3.5); Glomerular Filtration Rate 70 ml/min (=/>90); Glucose Level 89 mg/dL (74-106); NT PRO-BNP 53 pg/mL (<450); Potassium 4.2 mEq/L (3.5-5.1); Protein, Total 6.5 g/dL (6.4-8.2); Sodium Level 140 mEq/L (136-145); Troponin High Sensitivity 6.4 pg/mL (<58.9)
[2024-07-30 16:28] LABS: Bilirubin Direct < 0.2 mg/dL (0-0.2); Bilirubin Indirect, Calculated 0.2 mg/dL (0.2-0.8)
[2024-07-30 16:32] LABS: Specific Gravity 1.027 (1.005-1.030); Sqamous Epithelial None Seen /HPF (None Seen); Urine Bacteria None Seen /HPF (<20); Urine Bilirubin NEGATIVE (Negative); Urine Blood Negative (Negative); Urine Clarity Clear (Clear); Urine Color Light-Yellow (Yellow); Urine Culture Reflex Order NOT NEEDED; Urine Glucose NEGATIVE (Negative); Urine Ketones NEGATIVE (Negative); Urine Micro Reflex YN NO BILL MICROSCOPIC; Urine Mucus Slight /HPF (None Seen); Urine Nitrite NEGATIVE (Negative); Urine Protein NEGATIVE (Negative); Urine RBC <5 /HPF (None Seen); Urine Urobilinogen Normal (Normal); Urine WBC <5 /HPF (<5); Urine pH 5.5 (5.0-7.0)
[2024-07-30 16:35] LABS: D-Dimer 0.671 FEUug/mL (0-0.500); PT Prothrombin Time 12.2 SECONDS (10-13.0); Protime INR 1.07
[2024-07-30 17:07] LABS: Influenza A Ag Negative; Influenza B Ag Negative; SARS-CoV-2 Antigen Rapid Res Negative (Negative)
[2024-07-30] MEDS ORDERED: ASPIRIN 81 MG CHEWABLE TABLET ONE (17:54)
--- NOTE | 2024-07-30 18:34 | EDPHYS ---
Physician Documentation [facility] Name: Ruperto Villegas Age: 84 yrs Sex: Male : 1940 Arrival Date: 07/30/2024 Time: 14:34 Bed 7 Private MD: ED Physician Alondra Welch HPI: 07/30 18:34 This 84 yrs old Black Male presents to ER via Ambulatory with complaints of Flu gb1 Symptoms, Painful Cough. 18:34 84-year-old male here with cough and chest pain when he coughs. He has history of gb1 hypertension, NV and prostate cancer. Patient was seen by his primary doctor and was started on antibiotics and steroids and he states that he is feeling better but still not his best. He denies any fever or chills or any diarrhea or nausea vomiting.. Historical: - Allergies: 15:36 No Known Allergies; iw - PMHx: 15:35 Hypertension; Myocardial infarction; Prostate Cancer; iw - PSHx: 15:35 Appendectomy; right shoulder; iw - Immunization history:: Adult Immunizations up to date. - Infectious Disease History:: Denies. - Social history:: Smoking status: Patient denies any tobacco usage or history of. Exam: 18:34 Constitutional: This is a well developed, well nourished patient who is awake, alert, gb1 and in no acute distress. Head/Face: Normocephalic, atraumatic. Eyes: Pupils equal round and reactive to light, extra-ocular motions intact. Lids and lashes normal. Conjunctiva and sclera are non-icteric and not injected. Cornea within normal limits. Periorbital areas with no swelling, redness, or edema. ENT: Nares patent. No nasal discharge, no septal abnormalities noted. Tympanic membranes are normal and external auditory canals are clear. Oropharynx with no redness, swelling, or masses, exudates, or evidence of obstruction, uvula midline. Mucous membranes moist. Neck: Trachea midline, no thyromegaly or masses palpated, and no cervical lymphadenopathy. Supple, full range of motion without nuchal rigidity, or vertebral point tenderness. No Meningismus. Chest/axilla: Normal chest wall appearance and motion. Nontender with no deformity. No lesions are appreciated. Cardiovascular: Regular rate and rhythm with a normal S1 and S2. No gallops, murmurs, or rubs. Normal PMI, no JVD. No pulse deficits. Respiratory: Lungs have equal breath sounds bilaterally, clear to auscultation and percussion. No rales, rhonchi or wheezes noted. No increased work of breathing, no retractions or nasal flaring. Abdomen/GI: Soft, non-tender, with normal bowel sounds. No distension or tympany. No guarding or rebound. No evidence of tenderness throughout. Back: No spinal tenderness. No costovertebral tenderness. Full range of motion. Skin: Warm, dry with normal turgor. Normal color with no rashes, no lesions, and no evidence of cellulitis. MS/ Extremity: Pulses equal, no cyanosis. Neurovascular intact. Full, normal range of motion. Vital Signs: 15:33 Pulse 67; Resp 18; Temp 98; Pulse Ox 98% on R/A; iw 15:36 BP 150 / 83; Weight 114.76 kg; Height 5 ft. 7 in. ; Pain 7/10; iw 18:06 BP 134 / 76; Pulse 59; Resp 17; Pulse Ox 99% on R/A; ap3 15:36 Body Mass Index 39.62 (114.76 kg, 170.18 cm) iw 15:36 Pain Scale: Adult iw MDM: 15:07 Medical Screening Exam initiated gb1 18:34 ED course: 84-year-old male with resolving URI. No focal pneumonia or any signs of gb1 sepsis. His urinalysis is normal and he is feeling much better. His creatinine is normal no white blood cell count and otherwise clinically improved. Discharged home with routine follow-up to which she is compliant. His flu and COVID are also negative.. 07/30 14:39 Order name: COVID-19 Ag + Flu A+B Ag; Complete Time: 17:37 gb1 07/30 15:38 Order name: Basic Metabolic Panel; Complete Time: 16:53 gb1 07/30 15:38 Order name: CBC with Diff; Complete Time: 16:53 gb1 07/30 15:38 Order name: D-Dimer; Complete Time: 16:53 gb1 07/30 15:38 Order name: LFT's; Complete Time: 16:53 gb1 07/30 15:38 Order name: NT PRO-BNP; Complete Time: 16:53 gb1 07/30 15:38 Order name: PT-INR; Complete Time: 16:53 gb1 07/30 15:38 Order name: Troponin HS; Complete Time: 16:53 gb1 07/30 16:06 Order name: UAM; Complete Time: 16:53 hb 07/30 14:39 Order name: CXR XRAY; Complete Time: 15:38 gb1 07/30 15:38 Order name: Cardiac monitoring; Complete Time: 17:59 gb1 07/30 15:38 Order name: EKG - Nurse/Tech; Complete Time: 17:51 gb1 07/30 15:38 Order name: IV Saline Lock; Complete Time: 17:51 gb1 07/30 15:38 Order name: Labs collected and sent; Complete Time: 17:51 gb1 07/30 15:38 Order name: O2 Per Protocol; Complete Time: 17:51 gb1 07/30 15:38 Order name: O2 Sat Monitoring; Complete Time: 17:51 gb1 Administered Medications: 17:59 Drug: Aspirin PO Chewable Tablet 324 mg PO once; 81 mg tablets x 4 Route: PO; ap3 19:12 Follow up: Response: No adverse reaction ap3 Disposition Summary: 07/30/24 18:34 Discharge Ordered Notes: Location: Home gb1 Condition: Stable gb1 Diagnosis - Acute upper respiratory infection, unspecified gb1 Followup: gb1 - With: Private Physician - When: - Reason: If symptoms return Discharge Instructions: - Discharge Summary Sheet gb1 - Viral Respiratory Infection gb1 Forms: - Medication Reconciliation Form gb1 - Antibiotic Education gb1 - Prescription Opioid Use gb1 - Patient Portal Instructions gb1 - Leadership Thank You Letter gb1 Signatures: Dispatcher [employer] Lisbeth Harper RN RN iw Prokisch, Amanda, RN RN ap3 Alondra Welch MD MD gb1 Corrections: (The following items were deleted from the chart) 14:39 14:39 COVID-19 Ag + Flu A+B Ag+I.LAB.BRZ ordered. EDMS EDMS 14:39 14:39 Chest Single View+RAD.RAD.BRZ ordered. EDMS EDMS 15:39 15:39 BASIC METABOLIC PANEL+C.LAB.BRZ ordered. EDMS EDMS 15:39 15:39 CBC+H.LAB.BRZ ordered. EDMS EDMS 15:39 15:39 D-DIMER+COAG.LAB.BRZ ordered. EDMS EDMS 15:39 15:39 HEPATIC FUNCTION+C.LAB.BRZ ordered. EDMS EDMS 15:39 15:39 PROBNP+C.LAB.BRZ ordered. EDMS EDMS 15:39 15:39 PROTIME (+INR)+COAG.LAB.BRZ ordered. EDMS EDMS 15:39 15:39 Troponin High Sensitivity+C.LAB.BRZ ordered. EDMS EDMS
--- NOTE | 2024-07-30 18:34 | ER ---
Nurse's Notes [facility] Name: Ruperto Villegas Age: 84 yrs Sex: Male : 1940 Arrival Date: 07/30/2024 Time: 14:34 Bed 7 Private MD: Diagnosis: Acute upper respiratory infection, unspecified Presentation: 07/30 15:33 Chief complaint: Patient states: fever, chills, cough, headache, neck pain, eye pain X iw 10 days , also having chest pain , has been on steroids and abx and cough syrup. Coronavirus screen: Client presents with at least one sign or symptom that may indicate coronavirus-19. Ebola Screen: No symptoms or risks identified at this time. Initial Sepsis Screen: Does the patient meet any 2 criteria? No. Patient's initial sepsis screen is negative. Does the patient have a suspected source of infection? No. Patient's initial sepsis screen is negative. 15:33 Method Of Arrival: Ambulatory iw 15:33 Acuity: HENRIK 3 iw 15:34 Risk Assessment: Do you want to hurt yourself or someone else? Patient reports no iw desire to harm self or others. Onset of symptoms was July 20, 2024. Historical: - Allergies: 15:36 No Known Allergies; iw - PMHx: 15:35 Hypertension; Myocardial infarction; Prostate Cancer; iw - PSHx: 15:35 Appendectomy; right shoulder; iw - Immunization history:: Adult Immunizations up to date. - Infectious Disease History:: Denies. - Social history:: Smoking status: Patient denies any tobacco usage or history of. Screenin:07 [facility] ED Fall Risk Assessment (Adult) History of falling in the last 3 months, ap3 including since admission No falls in past 3 months (0 pts) Confusion or Disorientation No (0 pts) Intoxicated or Sedated No (0 pts) Impaired Gait No (0 pts) Mobility Assist Device Used No (0 pt) Altered Elimination No (0 pt) Score/Fall Risk Level 0 - 2 = Low Risk Oriented to surroundings, Maintained a safe environment, Educated pt \T\ family on fall prevention, incl call for assistance when getting out of bed, Assessed \T\ reinforced patient's understanding of fall precautions, Hourly rounding (assess needs \T\ fall precautionary measures) done, Used ambulatory aids as needed (educated on \T\ assisted with). Abuse screen: Denies threats or abuse. Nutritional screening: No deficits noted. Tuberculosis screening: No symptoms or risk factors identified. Assessment: 18:06 General: Appears in no apparent distress. Behavior is calm, cooperative, appropriate ap3 for age. Pain: Complains of pain in chest Aggravated by cough. Neuro: Level of Consciousness is awake, alert, obeys commands, Oriented to person, place, time, situation. Cardiovascular: Patient's skin is warm and dry. Respiratory: Reports cough that is pain with cough Airway is patent Respiratory effort is even, unlabored, Respiratory pattern is regular, symmetrical. Vital Signs: 15:33 Pulse 67; Resp 18; Temp 98; Pulse Ox 98% on R/A; iw 15:36 BP 150 / 83; Weight 114.76 kg; Height 5 ft. 7 in. ; Pain 7/10; iw 18:06 BP 134 / 76; Pulse 59; Resp 17; Pulse Ox 99% on R/A; ap3 15:36 Body Mass Index 39.62 (114.76 kg, 170.18 cm) iw 15:36 Pain Scale: Adult iw ED Course: 14:35 Patient arrived in ED. im 14:38 Alondra Welch MD is Attending Physician. gb1 15:14 CXR XRAY In Process Unspecified. EDMS 15:34 Triage completed. iw 17:51 Lina Sanchez, RN is Primary Nurse. ap3 18:07 Arm band placed on right wrist. ap3 18:48 Patient has correct armband on for positive identification. Bed in low position. Call ap3 light in reach. Side rails up X 1. Provided Education on: discharge instructions. 18:48 No provider procedures requiring assistance completed. IV discontinued, intact, ap3 bleeding controlled, No redness/swelling at site. Pressure dressing applied. Administered Medications: 17:59 Drug: Aspirin PO Chewable Tablet 324 mg PO once; 81 mg tablets x 4 Route: PO; ap3 19:12 Follow up: Response: No adverse reaction ap3 Medication: 18:49 VIS not applicable for this client. ap3 Outcome: 18:34 Discharge ordered by MD. gb1 18:48 Discharged to home ambulatory, ap3 18:48 Condition: good 18:48 Discharge instructions given to patient, Instructed on discharge instructions, follow up and referral plans. Demonstrated understanding of instructions, follow-up care, 18:49 Patient left the ED. ap3 Signatures: Dispatcher [employer] Lisbeth Harper RN RN iw Lina Sanchez RN RN ap3 Erika Noonan Gina, MD MD gb1 Corrections: (The following items were deleted from the chart) 15:35 15:33 Acuity: HENRIK 4 iw iw 15:36 15:33 Chief complaint: Patient states: fever, chills, cough, headache, neck pain, eye iw pain X 10 days iw
[2024-07-30 19:21] VITALS: TEMP 98
[2024-07-30 19:23] VITALS: BP 134/76; O2SAT 99
--- NOTE | 2024-08-02 12:08 | EKG ---
Test Date: 2024-07-30 Test Time: 15:44:30 [place]: DIMITRI MEASUREMENT RESULTS: Intervals: Rate: 63 TX: 146 QRSD: 82 QT: 402 QTc: 411 [place]: P: 52 TX: 146 QRS: 5 T: 45 INTERPRETIVE STATEMENTS: Normal sinus rhythm Normal ECG Compared to ECG 06/19/2021 09:00:13 Sinus bradycardia no longer present Electronically Signed On 08-02-24 12:02:37 CDT by Hammad Krause
== END 2024-07-30 18:49 | disposition home or self-care (01) ==
LOC: ER 14:34
DX: J06.9 Acute upper respiratory infection, unspecified (principal); I10 Essential (primary) hypertension; I25.2 Old myocardial infarction; Z11.52 Encounter for screening for COVID-19
CPT/HCPCS: 36415; 71045; 80048; 80076; 81001; 83880; 84484; 85025; 85379; 85610; 87428; 93005; 99283

== ENCOUNTER 2024-12-27 15:32 | Observation (INO) | payer OTHER ==
--- OUTSIDE RECORDS SUMMARY | 2024-12-27 15:40 | XMS REPORT | Continuity of Care Document ---
Author Name Unknown Address [address] [facility] [address] [place] [address] [facility] [place] Address [address] [facility] [address] [place] [address] Care Team Providers Care Physical Integration Practitioner Name Role Phone GALO BRO Primary Care Physician Unavailab Galo Larry Attending Clinician Unavailable Manjula Duval Attending Clinician Unavailable BEREZY DEVI Attending Clinician Unavailable Adri Infante MD Attending Clinician [phone] Heaven Walters Attending Clinician [phone] Doctor Unassigned, Blain Attending Clinician U Breezy Larsen MD Attending Clinician [phone] ADRI INFANTE Attending Clinician Unavailable Cam Del Valle MD Attending Clinician [phone] CAM DEL VALLE Attending Clinician Unavail able CAM DEL VALLE Attending Clinician Unavail able NEISHA BRUCE Attending Clinician Unavailable Neisha Bruce MD Attending Clinician [phone] MARISEL MENDOZA Attending Clinician Unavailable Galo Bro Admitting Clinician Unavailable NEISHA BRUCE Admitting Clinician Unavailable Payers Payer Name Policy Type Policy Number Effective Date Expirati on Date Source [facility] [id number] 2019 00:00:00 [facility] [place]MI[place] O [id number] 2023 00:00:00 [place] [id number] 2021 00:00:00 [place] [id number] 2021 00:00:00 [place] [id number] 2021 00:00:00 [facility] HUMANA GOLD PLS O [id number] 2019 00:00:00 Problems Condition Name Condition Details Condition Category Status Onset Date Resolution Date Last Treatment Date Treating Clinician Comments Source History of TIA (transient ischemic attack) History of TIA (transient ischemic attack) Disease Active 2022-05 00:00: 00 [facility] Hypertensi on, unspecifie d type Hypertensi on, unspecifie d type Disease Active 2022-05 00:00: 00 [facility] 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 Disease Active 2022-05 00:00: 00 [facility] [id number] History of prostate cancer Problem [facility] [id number] Constipati on, unspecifie d constipati on type Problem [facility] [id number] Mixed hyperlipid emia Problem [facility] [id number] Lumbago with sciatica, left side Problem [facility] [id number] Forgetfuln ess Problem [facility] Obesity Obesity (BMI 30-39.9) Problem [facility] [id number] OAB (overactiv e bladder) Problem [facility] [id number] Lower urinary tract symptoms (LUTS) Problem [facility] Anemia Anemia, unspecifie d type Problem [facility] [id number] BPH loc w urin obs/LUTS Problem [facility] [id number] S/P radiation therapy Problem [facility] [id number] S/P TURP (status post transureth ral resection of prostate) Problem [facility] [id number] Adenocarci noma of prostate Problem [facility] Allergic rhinitis Non-season al allergic rhinitis, unspecifie d trigger Problem [facility] [id number] Redundant prepuce Problem [facility] [id number] Cancer of prostate with intermedia te recurrence risk (stage T2b-c or Carmela 7 or PSA 10-20) Problem [facility] [id number] Chronic fatigue Problem [facility] [id number] Urge incontinen ce Problem [facility] Amnesia Memory changes Problem [facility] [id number] 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 Problem [facility] [id number] Gross hematuria Problem [facility] [id number] Acute cystitis with hematuria Problem [facility] [id number] Postproced ural bulbous urethral stricture Problem [facility] Postoperat rodolfo urethral stricture Postproced ural bulbous urethral stricture, male Problem [facility] [id number] Fever with chills Problem [facility] [id number] Glaucoma of both eyes, unspecifie d glaucoma type Problem [facility] [id number] Right testicular pain Problem [facility] [id number] Pain in right leg Problem [facility] 797418950 Pain in left leg Problem [facility] [id number] Other chronic pain Problem [facility] [id number] Lumbago with sciatica, right side Problem [facility] [id number] Encounter for general adult medical examinatio n with abnormal findings Problem [facility] [id number] Sore throat Problem [facility] [id number] Cough Problem [facility] [id number] Essential (primary) hypertensi on Problem [facility] [id number] GERD without esophagiti s Problem [facility] 604846281 Testicular swelling Problem [facility] [id number] Elevated blood pressure reading without diagnosis of hypertensi on Problem [facility] 560032113 Detrusor instabilit y Problem [facility] 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 Problem [facility] [id number] Morbid obesity due to excess calories Problem [facility] Left testicular pain Left testicular pain Problem [facility] Allergies, Adverse Reactions, Alerts Allergy Name Allergy Type Status Severity Reaction(s) Onset Date Inactive Date Treating Clinician Comments Source [facility]I Active Unknown-Cmnt 2022-05 00:00: 00 [facility] Strawber ry Propensi ty to adverse reaction s Active Unknown - See comments 2022-05 00:00: 00 [facility] NO KNOWN ALLERGIE S Drug Class Active [facility] Social History Social Habit Start Date Stop Date Quantity Comments [facility] of tobacco use Passive smoker [facility] Tobacco use and exposure 2023-03-25 00:00:00 2023-03-25 00:00:00 Smokeless tobacco non-user [facility] History of Social function 2023-03-25 00:00:00 2023-03-25 00:00:00 [facility] Sex Assigned At 1940 00:00:00 1940 00:00:00 [facility] Smoking Status Start Date Stop Date Source Tobacco smoking consumption unknown [facility] Never Smoker [facility] Ex-smoker 2023-03-25 00:00:00 2023-03-25 00:00:00 [facility] Medications Ordered Medication Name Filled Medication Name Start Date Stop Date Current Medication? Ordering Clinician Indication Dosage Frequency Signature (SIG) Comments Components Source Promethazin e HCl 6.25 MG/5ML Promethazin e HCl 6.25 MG/5ML 3-13 00:00: 00 No 10{ml_a s_neede d} [...] 1 tablet by mouth in the morning. [facility] NaCl 0.9% (NS) injection 6 mL 06-10 21:00: 06-10 20:17 :00 No [id number] 6mL [facility] alprostadiL (EDEX) injection 25 mcg 06-10 20:45: 00 06-10 20:17 :00 No [id number] 25ug [facility] phenylephri ne (VAZCULEP) injection 0.2 mg 06-10 20:45: 00 06-10 20:17 :00 No [id number] .2mg [facility] phenylephri ne (VAZCULEP) injection 0.2 mg 06-10 20:45: 00 06-10 20:17 :00 No [id number] 200ug 0.2 mg (200 mcg), Intravenou s, ONCE, 1 dose, On Fri06/10/23 at 1445, Routine [facility] sulfur hexafluorid e microsphr (LUMASON) injection 5 mL 05-14 22:00: 00 05-14 21:50 :00 No [id number] 5mL 5 mL, Intravenou s, ONCE, 1 dose, On Fri05/14/23 at 1600, Routine
parole board member approving Restricted medication : CAL VELARDE [facility] donepeziL 5 mg tablet 2022-05 2- 00:00: 00 Yes [facility] sildenafiL 100 mg tablet 2022-05 00:00: 00 Yes PLEASE SEE ATTACHED FOR DETAILED DIRECTIONS [facility] atorvastati n 20 mg tablet 2022-05 00:00: 00 Yes [id number] 20mg Take 1 tablet by mouth in the morning. [facility] omeprazole 20 mg capsule 2022-05 00:00: 00 Yes [facility] aspirin tablet 325 mg 2022-05 23:30: 00 03-02 23:31 :00 No 325mg 325 mg, Oral, ONCE, 1 dose, On Fri03/02/23 at 1830, STAT [facility] iopamidol (ISOVUE 370-500 mL) injection 90 mL 2022-05 23:15: 00 03-02 23:15 :00 No [id number] 90mL 90 mL, Intravenou s, ONCE, 1 dose, On Fri03/02/23 at 1815, Routine [facility] NaCl 0.9% (NS) injection 5 mL 2022-05 21:43: 56 Yes 5mL 5 mL, Slow IV Push, PRN - SEE INSTRUCTIO NS, Starting on [place] 03/02/23 at 1643, Until Discontinu ed, 10 mL [facility] LUMIGAN 0.01 % ophthalmic drops 2022-05 0 00:00: 00 Yes [facility] solifenacin 10 mg tablet 02-04 00:00: 00 Yes [facility] finasteride 5 mg tablet 12-10 00:00: 00 Yes 5mg 1 tablet. [facility] gabapentin 300 mg capsule 12-10 00:00: 00 Yes 300mg 1 capsule. [facility] tamsulosin 0.4 mg 24 hr capsule 12-10 00:00: 00 Yes .8mg 2 capsules. [facility] furosemide 40 mg tablet 12-10 00:00: 00 Yes 40mg 1 tablet. [facility] enalapril 10 mg tablet 12-10 00:00: 00 08-14 00:00 :00 No 10mg Take 1 tablet by mouth in the morning and 1 tablet in the evening. [facility] Pulse Oximeter For Finger - Pulse [...] Pfizer COVID-19 Vaccine 2021-02-08 10:32:00 Completed [facility] Pfizer COVID-19 Vaccine Pfizer COVID-19 Vaccine 2021-02-08 10:32:00 Completed [facility] Pfizer COVID-19 Vaccine Pfizer COVID-19 Vaccine 2021-02-08 10:32:00 Completed [facility] Pfizer COVID-19 Vaccine Pfizer COVID-19 Vaccine 2021-02-08 10:32:00 Completed [facility] Pfizer COVID-19 Vaccine Pfizer COVID-19 Vaccine 2021-02-08 10:32:00 Completed [facility] Pfizer COVID-19 Vaccine Pfizer COVID-19 Vaccine 2021-02-08 10:32:00 Completed [facility] Pfizer COVID-19 Vaccine Pfizer COVID-19 Vaccine 2021-02-08 10:32:00 Completed [facility] Pfizer COVID-19 Vaccine Pfizer COVID-19 Vaccine 2021-02-08 10:32:00 Completed [facility] Pfizer COVID-19 Vaccine Pfizer COVID-19 Vaccine 2021-02-08 10:32:00 Completed [facility] Pfizer COVID-19 Vaccine Pfizer COVID-19 Vaccine 2021-02-08 10:32:00 Completed [facility] Pfizer COVID-19 Vaccine Pfizer COVID-19 Vaccine 2021-02-08 10:32:00 Completed [facility] Pfizer COVID-19 Vaccine Pfizer COVID-19 Vaccine 2021-02-08 10:32:00 Completed [facility] Pfizer COVID-19 Vaccine Pfizer COVID-19 Vaccine 2021-02-08 10:32:00 Completed [facility] Pfizer COVID-19 Vaccine Pfizer COVID-19 Vaccine 2021-02-08 10:32:00 Completed [facility] Pfizer COVID-19 Vaccine Pfizer COVID-19 Vaccine 2021-02-08 10:32:00 Completed [facility] Pfizer COVID-19 Vaccine Pfizer COVID-19 Vaccine 2021-02-08 10:32:00 Completed [facility] Pfizer COVID-19 Vaccine Pfizer COVID-19 Vaccine 2021-02-08 10:32:00 Completed [facility] Pfizer COVID-19 Vaccine Pfizer COVID-19 Vaccine 2021-02-08 10:32:00 Completed [facility] FLUZONE HIGH DOSE OVER 65 FLUZONE HIGH DOSE OVER 65 2021-02-08 10:31:00 Completed [facility] FLUZONE HIGH DOSE OVER 65 FLUZONE HIGH DOSE OVER 65 2021-02-08 10:31:00 Completed [facility] FLUZONE HIGH DOSE OVER 65 FLUZONE HIGH DOSE OVER 65 2021-02-08 10:31:00 Completed [facility] FLUZONE HIGH DOSE OVER 65 FLUZONE HIGH DOSE OVER 65 2021-02-08 10:31:00 Completed [facility] FLUZONE HIGH DOSE OVER 65 FLUZONE HIGH DOSE OVER 65 2021-02-08 10:31:00 Completed [facility] FLUZONE HIGH DOSE OVER 65 FLUZONE HIGH DOSE OVER 65 2021-02-08 10:31:00 Completed [facility] FLUZONE HIGH DOSE OVER 65 FLUZONE HIGH DOSE OVER 65 2021-02-08 10:31:00 Completed [facility] FLUZONE HIGH DOSE OVER 65 FLUZONE HIGH DOSE OVER 65 2021-02-08 10:31:00 Completed [facility] FLUZONE HIGH DOSE OVER 65 FLUZONE HIGH DOSE OVER 65 2021-02-08 10:31:00 Completed [facility] FLUZONE HIGH DOSE OVER 65 FLUZONE HIGH DOSE OVER 65 2021-02-08 10:31:00 Completed [facility] FLUZONE HIGH DOSE OVER 65 FLUZONE HIGH DOSE OVER 65 2021-02-08 10:31:00 Completed [facility] FLUZONE HIGH DOSE OVER 65 FLUZONE HIGH DOSE OVER 65 2021-02-08 10:31:00 Completed [facility] FLUZONE HIGH DOSE OVER 65 FLUZONE HIGH DOSE OVER 65 2021-02-08 10:31:00 Completed [facility] FLUZONE HIGH DOSE OVER 65 FLUZONE HIGH DOSE OVER 65 2021-02-08 10:31:00 Completed [facility] FLUZONE HIGH DOSE OVER 65 FLUZONE HIGH DOSE OVER 65 2021-02-08 10:31:00 Completed [facility] FLUZONE HIGH DOSE OVER 65 FLUZONE HIGH DOSE OVER 65 2021-02-08 10:31:00 Completed [facility] FLUZONE HIGH DOSE OVER 65 FLUZONE HIGH DOSE OVER 65 2021-02-08 10:31:00 Completed [facility] FLUZONE HIGH DOSE OVER 65 FLUZONE HIGH DOSE OVER 65 2021-02-08 10:31:00 Completed [facility] Pfizer COVID-19 Vaccine Pfizer COVID-19 Vaccine 2020-07-07 10:31:00 Completed [facility] Pfizer COVID-19 Vaccine Pfizer COVID-19 Vaccine 2020-07-07 10:31:00 Completed [facility] Pfizer COVID-19 Vaccine Pfizer COVID-19 Vaccine 2020-07-07 10:31:00 Completed [facility] Pfizer COVID-19 Vaccine Pfizer COVID-19 Vaccine 2020-07-07 10:31:00 Completed [facility] Pfizer COVID-19 Vaccine Pfizer COVID-19 Vaccine 2020-07-07 10:31:00 Completed [facility] Pfizer COVID-19 Vaccine Pfizer COVID-19 Vaccine 2020-07-07 10:31:00 Completed [facility] Pfizer COVID-19 Vaccine Pfizer COVID-19 Vaccine 2020-07-07 10:31:00 Completed [facility] Pfizer COVID-19 Vaccine Pfizer COVID-19 Vaccine 2020-07-07 10:31:00 Completed [facility] Pfizer COVID-19 Vaccine Pfizer COVID-19 Vaccine 2020-07-07 10:31:00 Completed [facility] Pfizer COVID-19 Vaccine Pfizer COVID-19 Vaccine 2020-07-07 10:31:00 Completed [facility] Pfizer COVID-19 Vaccine Pfizer COVID-19 Vaccine 2020-07-07 10:31:00 Completed [facility] Pfizer COVID-19 Vaccine Pfizer COVID-19 Vaccine 2020-07-07 10:31:00 Completed [facility] Pfizer COVID-19 Vaccine Pfizer COVID-19 Vaccine 2020-07-07 10:31:00 Completed [facility] Pfizer COVID-19 Vaccine Pfizer COVID-19 Vaccine 2020-07-07 10:31:00 Completed [facility] Pfizer COVID-19 Vaccine Pfizer COVID-19 Vaccine 2020-07-07 10:31:00 Completed [facility] Pfizer COVID-19 Vaccine Pfizer COVID-19 Vaccine 2020-07-07 10:31:00 Completed [facility] Pfizer COVID-19 Vaccine Pfizer COVID-19 Vaccine 2020-07-07 10:31:00 Completed [facility] Pfizer COVID-19 Vaccine Pfizer COVID-19 Vaccine 2020-07-07 10:31:00 Completed [facility] Pfizer COVID-19 Vaccine Pfizer COVID-19 Vaccine 2020-06-09 10:31:00 Completed [facility] Pfizer COVID-19 Vaccine Pfizer COVID-19 Vaccine 2020-06-09 10:31:00 Completed [facility] Pfizer COVID-19 Vaccine Pfizer COVID-19 Vaccine 2020-06-09 10:31:00 Completed [facility] Pfizer COVID-19 Vaccine Pfizer COVID-19 Vaccine 2020-06-09 10:31:00 Completed [facility] Pfizer COVID-19 Vaccine Pfizer COVID-19 Vaccine 2020-06-09 10:31:00 Completed [facility] Pfizer COVID-19 Vaccine Pfizer COVID-19 Vaccine 2020-06-09 10:31:00 Completed [facility] Pfizer COVID-19 Vaccine Pfizer COVID-19 Vaccine 2020-06-09 10:31:00 Completed [facility] Pfizer COVID-19 Vaccine Pfizer COVID-19 Vaccine 2020-06-09 10:31:00 Completed [facility] Pfizer COVID-19 Vaccine Pfizer COVID-19 Vaccine 2020-06-09 10:31:00 Completed [facility] Pfizer COVID-19 Vaccine Pfizer COVID-19 Vaccine 2020-06-09 10:31:00 Completed [facility] Pfizer COVID-19 Vaccine Pfizer COVID-19 Vaccine 2020-06-09 10:31:00 Completed [facility] Pfizer COVID-19 Vaccine Pfizer COVID-19 Vaccine 2020-06-09 10:31:00 Completed [facility] Pfizer COVID-19 Vaccine Pfizer COVID-19 Vaccine 2020-06-09 10:31:00 Completed [facility] Pfizer COVID-19 Vaccine Pfizer COVID-19 Vaccine 2020-06-09 10:31:00 Completed [facility] Pfizer COVID-19 Vaccine Pfizer COVID-19 Vaccine 2020-06-09 10:31:00 Completed [facility] Pfizer COVID-19 Vaccine Pfizer COVID-19 Vaccine 2020-06-09 10:31:00 Completed [facility] Pfizer COVID-19 Vaccine Pfizer COVID-19 Vaccine 2020-06-09 10:31:00 Completed [facility] Pfizer COVID-19 Vaccine Pfizer COVID-19 Vaccine 2020-06-09 10:31:00 Completed [facility] Pneumovax (PPSV23) Pneumovax (PPSV23) 2017-02-09 10:30:00 Completed [facility] Pneumovax (PPSV23) Pneumovax (PPSV23) 2017-02-09 10:30:00 Completed [facility] Pneumovax (PPSV23) Pneumovax (PPSV23) 2017-02-09 10:30:00 Completed [facility] Pneumovax (PPSV23) Pneumovax (PPSV23) 2017-02-09 10:30:00 Completed [facility] Pneumovax (PPSV23) Pneumovax (PPSV23) 2017-02-09 10:30:00 Completed [facility] Pneumovax (PPSV23) Pneumovax (PPSV23) 2017-02-09 10:30:00 Completed [facility] Pneumovax (PPSV23) Pneumovax (PPSV23) 2017-02-09 10:30:00 Completed [facility] Pneumovax (PPSV23) Pneumovax (PPSV23) 2017-02-09 10:30:00 Completed [facility] Pneumovax (PPSV23) Pneumovax (PPSV23) 2017-02-09 10:30:00 Completed [facility] Pneumovax (PPSV23) Pneumovax (PPSV23) 2017-02-09 10:30:00 Completed [facility] Pneumovax (PPSV23) Pneumovax (PPSV23) 2017-02-09 10:30:00 Completed [facility] Pneumovax (PPSV23) Pneumovax (PPSV23) 2017-02-09 10:30:00 Completed [facility] Pneumovax (PPSV23) Pneumovax (PPSV23) 2017-02-09 10:30:00 Completed [facility] Pneumovax (PPSV23) Pneumovax (PPSV23) 2017-02-09 10:30:00 Completed [facility] Pneumovax (PPSV23) Pneumovax (PPSV23) 2017-02-09 10:30:00 Completed [facility] Pneumovax (PPSV23) Pneumovax (PPSV23) 2017-02-09 10:30:00 Completed [facility] Pneumovax (PPSV23) Pneumovax (PPSV23) 2017-02-09 10:30:00 Completed [facility] Pneumovax (PPSV23) Pneumovax (PPSV23) 2017-02-09 10:30:00 Completed [facility] Pfizer COVID-19 Vaccine Pfizer COVID-19 Vaccine Unknown Completed [facility] Pneumovax (PPSV23) Pneumovax (PPSV23) Unknown Completed [facility] FLUZONE HIGH DOSE OVER 65 FLUZONE HIGH DOSE OVER 65 Unknown Completed [facility] Pfizer COVID-19 Vaccine Pfizer COVID-19 Vaccine Unknown Completed [facility] Pneumovax (PPSV23) Pneumovax (PPSV23) Unknown Completed [facility] FLUZONE HIGH DOSE OVER 65 FLUZONE HIGH DOSE OVER 65 Unknown Completed [facility] Pfizer COVID-19 Vaccine Pfizer COVID-19 Vaccine Unknown Completed [facility] Pneumovax (PPSV23) Pneumovax (PPSV23) Unknown Completed [facility] FLUZONE HIGH DOSE OVER 65 FLUZONE HIGH DOSE OVER 65 Unknown Completed [facility] Pfizer COVID-19 Vaccine Pfizer COVID-19 Vaccine Unknown Completed [facility] Pneumovax (PPSV23) Pneumovax (PPSV23) Unknown Completed [facility] FLUZONE HIGH DOSE OVER 65 FLUZONE HIGH DOSE OVER 65 Unknown Completed [facility] Pfizer COVID-19 Vaccine Pfizer COVID-19 Vaccine Unknown Completed [facility] Pneumovax (PPSV23) Pneumovax (PPSV23) Unknown Completed [facility] FLUZONE HIGH DOSE OVER 65 FLUZONE HIGH DOSE OVER 65 Unknown Completed [facility] Pfizer COVID-19 Vaccine Pfizer COVID-19 Vaccine Unknown Completed [facility] Pneumovax (PPSV23) Pneumovax (PPSV23) Unknown Completed [facility] FLUZONE HIGH DOSE OVER 65 FLUZONE HIGH DOSE OVER 65 Unknown Completed [facility] Pfizer COVID-19 Vaccine Pfizer COVID-19 Vaccine Unknown Completed [facility] Pneumovax (PPSV23) Pneumovax (PPSV23) Unknown Completed [facility] FLUZONE HIGH DOSE OVER 65 FLUZONE HIGH DOSE OVER 65 Unknown Completed [facility] Pfizer COVID-19 Vaccine Pfizer COVID-19 Vaccine Unknown Completed [facility] Pneumovax (PPSV23) Pneumovax (PPSV23) Unknown Completed [facility] FLUZONE HIGH DOSE OVER 65 FLUZONE HIGH DOSE OVER 65 Unknown Completed [facility] Pfizer COVID-19 Vaccine Pfizer COVID-19 Vaccine Unknown Completed [facility] Pneumovax (PPSV23) Pneumovax (PPSV23) Unknown Completed [facility] FLUZONE HIGH DOSE OVER 65 FLUZONE HIGH DOSE OVER 65 Unknown Completed [facility] Pfizer COVID-19 Vaccine Pfizer COVID-19 Vaccine Unknown Completed [facility] Pneumovax (PPSV23) Pneumovax (PPSV23) Unknown Completed [facility] FLUZONE HIGH DOSE OVER 65 FLUZONE HIGH DOSE OVER 65 Unknown Completed [facility] Pfizer COVID-19 Vaccine Pfizer COVID-19 Vaccine Unknown Completed [facility] Pneumovax (PPSV23) Pneumovax (PPSV23) Unknown Completed [facility] FLUZONE HIGH DOSE OVER 65 FLUZONE HIGH DOSE OVER 65 Unknown Completed [facility] Pfizer COVID-19 Vaccine Pfizer COVID-19 Vaccine Unknown Completed [facility] Pneumovax (PPSV23) Pneumovax (PPSV23) Unknown Completed [facility] FLUZONE HIGH DOSE OVER 65 FLUZONE HIGH DOSE OVER 65 Unknown Completed [facility] Pfizer COVID-19 Vaccine Pfizer COVID-19 Vaccine Unknown Completed [facility] Pneumovax (PPSV23) Pneumovax (PPSV23) Unknown Completed [facility] FLUZONE HIGH DOSE OVER 65 FLUZONE HIGH DOSE OVER 65 Unknown Completed [facility] Pfizer COVID-19 Vaccine Pfizer COVID-19 Vaccine Unknown Completed [facility] Pneumovax (PPSV23) Pneumovax (PPSV23) Unknown Completed [facility] FLUZONE HIGH DOSE OVER 65 FLUZONE HIGH DOSE OVER 65 Unknown Completed [facility] Pfizer COVID-19 Vaccine Pfizer COVID-19 Vaccine Unknown Completed [facility] Pneumovax (PPSV23) Pneumovax (PPSV23) Unknown Completed [facility] FLUZONE HIGH DOSE OVER 65 FLUZONE HIGH DOSE OVER 65 Unknown Completed [facility] Pfizer COVID-19 Vaccine Pfizer COVID-19 Vaccine Unknown Completed [facility] Pneumovax (PPSV23) Pneumovax (PPSV23) Unknown Completed [facility] FLUZONE HIGH DOSE OVER 65 FLUZONE HIGH DOSE OVER 65 Unknown Completed [facility] Pfizer COVID-19 Vaccine Pfizer COVID-19 Vaccine Unknown Completed [facility] Pneumovax (PPSV23) Pneumovax (PPSV23) Unknown Completed [facility] FLUZONE HIGH DOSE OVER 65 FLUZONE HIGH DOSE OVER 65 Unknown Completed [facility] Pfizer COVID-19 Vaccine Pfizer COVID-19 Vaccine Unknown Completed [facility] Pneumovax (PPSV23) Pneumovax (PPSV23) Unknown Completed [facility] FLUZONE HIGH DOSE OVER 65 FLUZONE HIGH DOSE OVER 65 Unknown Completed [facility] Pfizer COVID-19 Vaccine Pfizer COVID-19 Vaccine Unknown Completed [facility] Pneumovax (PPSV23) Pneumovax (PPSV23) Unknown Completed [facility] FLUZONE HIGH DOSE OVER 65 FLUZONE HIGH DOSE OVER 65 Unknown Completed [facility] SARS-COV-2 COVID-19 PFIZER VACCINE Unknown Completed [facility] SARS-COV-2 COVID-19 PFIZER VACCINE Unknown Completed [facility] SARS-COV-2 COVID-19 PFIZER VACCINE Unknown Completed [facility] SARS-COV-2 COVID-19 PFIZER VACCINE Unknown Completed [facility] SARS-COV-2 COVID-19 PFIZER VACCINE Unknown Completed [facility] SARS-COV-2 COVID-19 PFIZER VACCINE Unknown Completed [facility] SARS-COV-2 COVID-19 PFIZER VACCINE Unknown Completed [facility] SARS-COV-2 COVID-19 PFIZER VACCINE Unknown Completed [facility] SARS-COV-2 COVID-19 PFIZER VACCINE Unknown Completed [facility] SARS-COV-2 COVID-19 PFIZER VACCINE Unknown Completed [facility] SARS-COV-2 COVID-19 PFIZER VACCINE Unknown Completed [facility] SARS-COV-2 COVID-19 PFIZER VACCINE Unknown Completed [facility] Vital Signs Vital Name Observation Time Observation Value Comments S [place] height 2024-07-22 15:20:00 67 [in_i] [facility] weight 2024-07-22 15:20:00 245 [lb_av] Comm on [facility] temperature 2024-07-22 15:20:00 98.0 [degF] Com mon [facility] bmi 2024-07-22 15:20:00 38.37 kg/m2 Comm on [facility] blood pressure systolic 2024-07-22 15:20:00 138 mm[Hg] Common [facility] blood pressure diastolic 2024-07-22 15:20:00 86 mm[Hg] [facility] height 2024-05-17 10:00:00 67 [in_i] Commo n [facility] weight 2024-05-17 10:00:00 259.8 [lb_av] Co mmon [facility] temperature 2024-05-17 10:00:00 97.0 [degF] Com mon [facility] bmi 2024-05-17 10:00:00 40.69 kg/m2 Comm on [facility] oximetry 2024-05-17 10:00:00 97 % Com[facility] respiratory rate 2024-05-17 10:00:00 16 /min Common [facility] blood pressure systolic 2024-05-17 10:00:00 134 mm[Hg] Common [facility] blood pressure diastolic 2024-05-17 10:00:00 70 mm[Hg] Common [facility] height 2024-04-28 15:30:00 67 [in_i] Commo n [facility] weight 2024-04-28 15:30:00 252 [lb_av] Comm on [facility] bmi 2024-04-28 15:30:00 39.46 kg/m2 Comm on [facility] height 2023-12-17 17:00:00 67 [in_i] Commo n [facility] weight 2023-12-17 17:00:00 252 [lb_av] Comm on [facility] temperature 2023-12-17 17:00:00 97.9 [degF] Com mon [facility] bmi 2023-12-17 17:00:00 39.46 kg/m2 Comm on [facility] oximetry 2023-12-17 17:00:00 94 % Commo [facility] blood pressure systolic 2023-12-17 17:00:00 168 mm[Hg] [facility] blood pressure diastolic 2023-12-17 17:00:00 87 mm[Hg] [facility] height 2023-11-25 15:20:00 67 [in_i] Commo n [facility] weight 2023-11-25 15:20:00 253.6 [lb_av] Co mmon [facility] temperature 2023-11-25 15:20:00 97.2 [degF] Com mon [facility] bmi 2023-11-25 15:20:00 39.72 kg/m2 Comm on [facility] oximetry 2023-11-25 15:20:00 96 % Commo [facility] blood pressure systolic 2023-11-25 15:20:00 139 mm[Hg] [facility] blood pressure diastolic 2023-11-25 15:20:00 87 mm[Hg] [facility] height 2023-11-25 15:20:00 67 [in_i] Commo n [facility] weight 2023-11-25 15:20:00 253.6 [lb_av] Co mmon [facility] temperature 2023-11-25 15:20:00 97.2 [degF] Com [facility] bmi 2023-11-25 15:20:00 39.72 kg/m2 Comm on [facility] oximetry 2023-11-25 15:20:00 96 % Commo [facility] blood pressure systolic 2023-11-25 15:20:00 139 mm[Hg] [facility] blood pressure diastolic 2023-11-25 15:20:00 87 mm[Hg] Common [facility] height 2023-10-16 11:30:00 67 [in_i] Commo n [facility] weight 2023-10-16 11:30:00 251.4 [lb_av] Co [facility] temperature 2023-10-16 11:30:00 97.3 [degF] Com [facility] bmi 2023-10-16 11:30:00 39.37 kg/m2 Comm on [facility] oximetry 2023-10-16 11:30:00 93 % Commo [facility] respiratory rate 2023-10-16 11:30:00 18 /min [facility] blood pressure systolic 2023-10-16 11:30:00 171 mm[Hg] [facility] blood pressure diastolic 2023-10-16 11:30:00 85 mm[Hg] [facility] height 2023-08-14 15:45:00 67 [in_i] Commo n [facility] weight 2023-08-14 15:45:00 257.2 [lb_av] [facility] 2023-08-14 15:45:00 97.8 [degF] Com [facility] bmi 2023-08-14 15:45:00 40.28 kg/m2 Comm on [facility] oximetry 2023-08-14 15:45:00 99 % Commo [facility] respiratory rate 2023-08-14 15:45:00 18 /min [facility] blood pressure systolic 2023-08-14 15:45:00 162 mm[Hg] Common [facility] blood pressure diastolic 2023-08-14 15:45:00 77 mm[Hg] Common [facility] height 2023-07-17 13:50:00 67 [in_i] Commo n [facility] weight 2023-07-17 13:50:00 250.0 [lb_av] Co mmon [facility] temperature 2023-07-17 13:50:00 97.4 [degF] Com mon [facility] bmi 2023-07-17 13:50:00 39.15 kg/m2 Comm on [facility] oximetry 2023-07-17 13:50:00 96 % Com[facility] respiratory rate 2023-07-17 13:50:00 17 /min [facility] blood pressure systolic 2023-07-17 13:50:00 130 mm[Hg] [facility] blood pressure diastolic 2023-07-17 13:50:00 73 mm[Hg] [facility] Systolic blood pressure 2023-06-10 20:16:00 134 mm[Hg] [facility] Diastolic blood pressure 2023-06-10 20:16:00 79 mm[Hg] [facility] Heart rate 2023-06-10 16:41:00 82 /min [facility] Body temperature 2023-06-10 16:41:00 36.72 Joya [facility] Respiratory rate 2023-06-10 16:41:00 18 /min [facility] Body height 2023-06-10 16:41:00 170.2 cm [facility] Body weight 2023-06-10 16:41:00 116.574 kg General acute hospital BMI 2023-06-10 16:41:00 40.25 kg/m2 General acute hospital Oxygen saturation in Arterial blood by Pulse oximetry 2023-06-10 16:41:00 94 /min [facility] 2023-06-04 15:00:00 67 [in_i] Commo n [facility] weight 2023-06-04 15:00:00 260.0 [lb_av] Co mmon [facility] temperature 2023-06-04 15:00:00 97.7 [degF] Com mon [facility] bmi 2023-06-04 15:00:00 40.72 kg/m2 Comm on [facility] oximetry 2023-06-04 15:00:00 97 % Commo [facility] respiratory rate 2023-06-04 15:00:00 18 /min [facility] blood pressure systolic 2023-06-04 15:00:00 141 mm[Hg] [facility] blood pressure diastolic 2023-06-04 15:00:00 81 mm[Hg] [facility] Systolic blood pressure 2023-04-15 16:34:00 114 mm[Hg] [facility] Diastolic blood pressure 2023-04-15 16:34:00 72 mm[Hg] [facility] Heart rate 2023-04-15 16:34:00 71 /[facility] 2023-04-15 16:34:00 36.28 Joya [facility] Respiratory rate 2023-04-15 16:34:00 18 /min [facility] Body height 2023-04-15 16:34:00 170.2 cm [facility] acute hospital Body weight 2023-04-15 16:34:00 116.711 kg [facility] acute hospital BMI 2023-04-15 16:34:00 40.30 kg/m2 General acute hospital Oxygen saturation in Arterial blood by Pulse oximetry 2023-04-15 16:34:00 95 /min [facility] Systolic blood pressure 2023-03-25 20:07:00 141 mm[Hg] [facility] Diastolic blood pressure 2023-03-25 20:07:00 88 mm[Hg] [facility] Heart rate 2023-03-25 19:50:00 58 /min Unive [facility] Body height 2023-03-25 19:50:00 170.2 cm [facility] acute hospital Body weight 2023-03-25 19:50:00 115.577 kg General acute hospital BMI 2023-03-25 19:50:00 39.91 kg/m2 [facility] acute hospital height 2023-03-20 10:50:00 67 [in_i] [facility] weight 2023-03-20 10:50:00 252.0 [lb_av] Co mmon [facility] temperature 2023-03-20 10:50:00 97.7 [degF] Com mon [facility] bmi 2023-03-20 10:50:00 39.46 kg/m2 Comm on [facility] oximetry 2023-03-20 10:50:00 98 % Commo [facility] respiratory rate 2023-03-20 10:50:00 16 /min [facility] blood pressure systolic 2023-03-20 10:50:00 138 mm[Hg] Common [facility] blood pressure diastolic 2023-03-20 10:50:00 74 mm[Hg] [facility] Systolic blood pressure 2023-03-02 23:30:00 145 mm[Hg] [facility] Diastolic blood pressure 2023-03-02 23:30:00 88 mm[Hg] [facility] Heart rate 2023-03-02 23:30:00 62 /min [facility] Respiratory rate 2023-03-02 23:30:00 20 /min [facility] Oxygen saturation in Arterial blood by Pulse oximetry 2023-03-02 23:30:00 96 /min [facility] Body temperature 2023-03-02 21:45:00 36.39 Joya [facility] Body height 2023-03-02 21:45:00 170.2 cm [facility] acute hospital Body weight 2023-03-02 21:45:00 111.131 kg General acute hospital BMI 2023-03-02 21:45:00 38.37 kg/m2 [facility] acute hospital height 2023-02-19 14:20:00 67 [in_i] Commo n [facility] weight 2023-02-19 14:20:00 250 [lb_av] Comm on [facility] bmi 2023-02-19 14:20:00 39.15 kg/m2 Comm on [facility] height 2022-11-26 10:20:00 67 [in_i] Commo n [facility] weight 2022-11-26 10:20:00 254 [lb_av] Comm on [facility] temperature 2022-11-26 10:20:00 97.7 [degF] Com mon [facility] bmi 2022-11-26 10:20:00 39.78 kg/m2 Comm on [facility] oximetry 2022-11-26 10:20:00 93 % Commo [facility] respiratory rate 2022-11-26 10:20:00 16 /min [facility] blood pressure systolic 2022-11-26 10:20:00 138 mm[Hg] [facility] blood pressure diastolic 2022-11-26 10:20:00 80 mm[Hg] [facility] height 2022-11-26 10:40:00 67 [in_i] Commo n [facility] weight 2022-11-26 10:40:00 254 [lb_av] Comm on [facility] temperature 2022-11-26 10:40:00 97.7 [degF] Com mon [facility] bmi 2022-11-26 10:40:00 39.78 kg/m2 Comm on [facility] oximetry 2022-11-26 10:40:00 93 % Commo [facility] respiratory rate 2022-11-26 10:40:00 16 /min [facility] blood pressure systolic 2022-11-26 10:40:00 138 mm[Hg] [facility] blood pressure diastolic 2022-11-26 10:40:00 80 mm[Hg] [facility] height 2022-11-21 08:45:00 67 [in_i] Commo n [facility] weight 2022-11-21 08:45:00 253 [lb_av] Comm on [facility] temperature 2022-11-21 08:45:00 98.0 [degF] Com [facility] bmi 2022-11-21 08:45:00 39.62 kg/m2 Comm on [facility] oximetry 2022-11-21 08:45:00 97 % Commo [facility] respiratory rate 2022-11-21 08:45:00 18 /min [facility] blood pressure systolic 2022-11-21 08:45:00 134 mm[Hg] [facility] blood pressure diastolic 2022-11-21 08:45:00 82 mm[Hg] [facility] height 2022-07-26 10:30:00 67 [in_i] Commo n [facility] weight 2022-07-26 10:30:00 254 [lb_av] Comm on [facility] temperature 2022-07-26 10:30:00 97.4 [degF] Com [facility] bmi 2022-07-26 10:30:00 39.78 kg/m2 Comm on [facility] oximetry 2022-07-26 10:30:00 96 % Commo n [facility] respiratory rate 2022-07-26 10:30:00 16 /min [facility] blood pressure systolic 2022-07-26 10:30:00 139 mm[Hg] [facility] blood pressure diastolic 2022-07-26 10:30:00 87 mm[Hg] [facility] height 2022-04-11 13:00:00 67 [in_i] Commo n [facility] weight 2022-04-11 13:00:00 250 [lb_av] Comm on [facility] temperature 2022-04-11 13:00:00 99.0 [degF] Com mon [facility] bmi 2022-04-11 13:00:00 39.15 kg/m2 Comm on [facility] oximetry 2022-04-11 13:00:00 96 % Commo n [facility] respiratory rate 2022-04-11 13:00:00 16 /min [facility] blood pressure systolic 2022-04-11 13:00:00 161 mm[Hg] [facility] blood pressure diastolic 2022-04-11 13:00:00 96 mm[Hg] [facility] height 2022-04-09 11:20:00 67 [in_i] Commo n [facility] weight 2022-04-09 11:20:00 250 [lb_av] Comm on [facility] temperature 2022-04-09 11:20:00 97.5 [degF] Com mon [facility] bmi 2022-04-09 11:20:00 39.15 kg/m2 Comm on [facility] height 2022-03-19 09:20:00 67 [in_i] Commo n [facility] weight 2022-03-19 09:20:00 250.0 [lb_av] Co mmon [facility] temperature 2022-03-19 09:20:00 97.2 [degF] Com mon [facility] bmi 2022-03-19 09:20:00 39.15 kg/m2 Comm on [facility] oximetry 2022-03-19 09:20:00 94 % Commo n [facility] respiratory rate 2022-03-19 09:20:00 16 /min [facility] blood pressure systolic 2022-03-19 09:20:00 139 mm[Hg] [facility] blood pressure diastolic 2022-03-19 09:20:00 74 mm[Hg] [facility] height 2022-03-19 09:30:00 67 [in_i] Commo n [facility] weight 2022-03-19 09:30:00 250.0 [lb_av] Co mmon [facility] temperature 2022-03-19 09:30:00 97.2 [degF] Com mon [facility] bmi 2022-03-19 09:30:00 39.15 kg/m2 Comm on [facility] oximetry 2022-03-19 09:30:00 94 % Commo n [facility] respiratory rate 2022-03-19 09:30:00 16 /min [facility] blood pressure systolic 2022-03-19 09:30:00 139 mm[Hg] [facility] blood pressure diastolic 2022-03-19 09:30:00 74 mm[Hg] [facility] height 2022-01-10 13:00:00 67 [in_i] Commo n [facility] weight 2022-01-10 13:00:00 257 [lb_av] Comm on [facility] temperature 2022-01-10 13:00:00 97.2 [degF] Com [facility] bmi 2022-01-10 13:00:00 40.25 kg/m2 Comm on [facility] oximetry 2022-01-10 13:00:00 99 % Commo n [facility] respiratory rate 2022-01-10 13:00:00 16 /min [facility] blood pressure systolic 2022-01-10 13:00:00 183 mm[Hg] [facility] blood pressure diastolic 2022-01-10 13:00:00 104 mm[Hg] [facility] height 2021-12-12 10:00:00 67 [in_i] Commo n [facility] weight 2021-12-12 10:00:00 253 [lb_av] Comm on [facility] temperature 2021-12-12 10:00:00 98.2 [degF] Com mon [facility] bmi 2021-12-12 10:00:00 39.62 kg/m2 Comm on [facility] oximetry 2021-12-12 10:00:00 99 % Commo [facility] respiratory rate 2021-12-12 10:00:00 18 /min [facility] blood pressure systolic 2021-12-12 10:00:00 135 mm[Hg] [facility] blood pressure diastolic 2021-12-12 10:00:00 76 mm[Hg] [facility] height 2021-11-13 09:50:00 67 [in_i] Commo n [facility] weight 2021-11-13 09:50:00 250 [lb_av] Comm on [facility] temperature 2021-11-13 09:50:00 97 [degF] Comm on [facility] bmi 2021-11-13 09:50:00 39.15 kg/m2 Comm on [facility] blood pressure systolic 2021-11-13 09:50:00 129 mm[Hg] [facility] blood pressure diastolic 2021-11-13 09:50:00 84 mm[Hg] [facility] height 2021-10-02 15:00:00 67 [in_i] Commo n [facility] weight 2021-10-02 15:00:00 256 [lb_av] Comm on [facility] bmi 2021-10-02 15:00:00 40.09 kg/m2 Comm on [facility] height 2021-09-12 11:45:00 67 [in_i] Commo n [facility] weight 2021-09-12 11:45:00 256 [lb_av] Comm on [facility] temperature 2021-09-12 11:45:00 97.6 [degF] Com mon [facility] bmi 2021-09-12 11:45:00 40.09 kg/m2 Comm on [facility] oximetry 2021-09-12 11:45:00 96 % Commo n [facility] respiratory rate 2021-09-12 11:45:00 16 /min [facility] blood pressure systolic 2021-09-12 11:45:00 176 mm[Hg] [facility] blood pressure diastolic 2021-09-12 11:45:00 91 mm[Hg] [facility] height 2021-08-22 13:00:00 67 [in_i] Commo n [facility] weight 2021-08-22 13:00:00 252 [lb_av] Comm on [facility] temperature 2021-08-22 13:00:00 97.7 [degF] Com mon [facility] bmi 2021-08-22 13:00:00 39.46 kg/m2 Comm on [facility] oximetry 2021-08-22 13:00:00 94 % Commo n [facility] respiratory rate 2021-08-22 13:00:00 16 /min [facility] blood pressure systolic 2021-08-22 13:00:00 149 mm[Hg] [facility] blood pressure diastolic 2021-08-22 13:00:00 81 mm[Hg] [facility] height 2021-07-19 13:30:00 67 [in_i] Commo n [facility] weight 2021-07-19 13:30:00 252 [lb_av] Comm on [facility] temperature 2021-07-19 13:30:00 97.0 [degF] Com [facility] bmi 2021-07-19 13:30:00 39.46 kg/m2 Comm on [facility] oximetry 2021-07-19 13:30:00 96 % Commo n [facility] respiratory rate 2021-07-19 13:30:00 17 /min [facility] blood pressure systolic 2021-07-19 13:30:00 140 mm[Hg] [facility] blood pressure diastolic 2021-07-19 13:30:00 89 mm[Hg] Common [facility] height 2021-07-03 09:40:00 67 [in_i] Commo n [facility] weight 2021-07-03 09:40:00 257 [lb_av] Comm on [facility] temperature 2021-07-03 09:40:00 97.3 [degF] Com [facility] bmi 2021-07-03 09:40:00 40.25 kg/m2 Comm on [facility] oximetry 2021-07-03 09:40:00 96 % Commo n [facility] respiratory rate 2021-07-03 09:40:00 19 /min [facility] blood pressure systolic 2021-07-03 09:40:00 134 mm[Hg] [facility] blood pressure diastolic 2021-07-03 09:40:00 82 mm[Hg] [facility] height 2021-06-22 10:30:00 67 [in_i] Commo n [facility] weight 2021-06-22 10:30:00 244 [lb_av] Comm on [facility] temperature 2021-06-22 10:30:00 97.8 [degF] Com mon [facility] bmi 2021-06-22 10:30:00 38.21 kg/m2 Comm on [facility] oximetry 2021-06-22 10:30:00 99 % Commo n [facility] respiratory rate 2021-06-22 10:30:00 18 /min [facility] blood pressure systolic 2021-06-22 10:30:00 160 mm[Hg] [facility] blood pressure diastolic 2021-06-22 10:30:00 83 mm[Hg] [facility] height 2021-05-28 16:45:00 67 [in_i] Commo n [facility] weight 2021-05-28 16:45:00 245 [lb_av] Comm on [facility] temperature 2021-05-28 16:45:00 98 [degF] Comm on [facility] bmi 2021-05-28 16:45:00 38.37 kg/m2 Comm on [facility] oximetry 2021-05-28 16:45:00 98 % Commo n [facility] respiratory rate 2021-05-28 16:45:00 18 /min [facility] blood pressure systolic 2021-05-28 16:45:00 111 mm[Hg] [facility] blood pressure diastolic 2021-05-28 16:45:00 65 mm[Hg] [facility] height 2021-05-23 11:00:00 67 [in_i] Commo n [facility] weight 2021-05-23 11:00:00 245 [lb_av] Comm on [facility] temperature 2021-05-23 11:00:00 97.5 [degF] Com mon [facility] bmi 2021-05-23 11:00:00 38.37 kg/m2 Comm on [facility] oximetry 2021-05-23 11:00:00 97 % Commo n [facility] respiratory rate 2021-05-23 11:00:00 18 /min [facility] blood pressure systolic 2021-05-23 11:00:00 165 mm[Hg] [facility] blood pressure diastolic 2021-05-23 11:00:00 85 mm[Hg] [facility] height 2021-03-15 13:30:00 67 [in_i] Commo n [facility] weight 2021-03-15 13:30:00 253 [lb_av] Comm on [facility] temperature 2021-03-15 13:30:00 97.2 [degF] Com mon [facility] bmi 2021-03-15 13:30:00 39.62 kg/m2 Comm on [facility] oximetry 2021-03-15 13:30:00 96 % Commo n [facility] blood pressure systolic 2021-03-15 13:30:00 137 mm[Hg] [facility] blood pressure diastolic 2021-03-15 13:30:00 72 mm[Hg] [facility] height 2021-03-07 08:50:00 67 [in_i] Commo n [facility] weight 2021-03-07 08:50:00 251.2 [lb_av] Co mmon [facility] temperature 2021-03-07 08:50:00 97.0 [degF] Com [facility] bmi 2021-03-07 08:50:00 39.34 kg/m2 Comm on [facility] oximetry 2021-03-07 08:50:00 86 % Commo n [facility] respiratory rate 2021-03-07 08:50:00 18 /min [facility] blood pressure systolic 2021-03-07 08:50:00 133 mm[Hg] [facility] blood pressure diastolic 2021-03-07 08:50:00 82 mm[facility]Hg[facility] Procedures Procedure Date / Time Performed Performing Clinician Source PVR 2023-08-14 00:00:00 [facility] DISCLOSURE AND CONSENT, MEDICAL AND SURGICAL PROCEDURES 2023-06-19 06:01:00 Doctor Unassigned, [facility]ain [facility] PATIENT QUESTIONNAIRE 2023-06-10 06:01:00 Doctor Unassigned, [facility]ain [facility] INSURANCE CORRESPONDENCE 2023-05-15 06:01:00 Doc tor Unassigned, [facility]ain [facility] TRANSTHORACIC ECHO (TTE) COMPLETE W/ CONTRAST 2023-05-14 22:03:51 Adri Infante [facility] INSURANCE CORRESPONDENCE 2023-05-07 06:01:00 Doc tor Unassigned, [place]ain [facility] URINALYSIS 2023-03-02 23:05:00 Neisha Bruce [facility] CT STROKE ANGIOGRAM HEAD 2023-03-02 22:22:25 Garcia Bruce [facility] CT STROKE ANGIOGRAM NECK 2023-03-02 22:22:25 Garcia Bruce [facility] POCT GLUCOSE(AGE >30DAYS) 2023-03-02 21:55:00 Neisha Bruce [facility] POCT GLUCOSE (AUTOMATED) 2023-03-02 21:54:00 Garcia Bruce [facility] TROPONIN I 2023-03-02 21:51:00 [facility] [facility] BASIC METABOLIC PANEL (NA, K, CL, CO2, GLUCOSE, BUN, CREATININE, CA) 2023-03-02 21:51:00 Neisha Bruce [facility] CBC WITHOUT DIFF 2023-03-02 21:51:00 Neisha Bruce [facility] PROTHROMBIN TIME / INR 2023-03-02 21:51:00 Edgard Bruce [facility] ACTIVATED PARTIAL THRMPLAS JUAN ALBERTO 2023-03-02 21:51:00 Neisha Bruce [facility] NOTICE OF PRIVACY PRACTICES 2023-03-02 21:35:44 Doctor Unassigned, Blain [facility] CONSENT/REFUSAL FOR DIAGNOSIS AND TREATMENT 2023-03-02 21:35:17 Doctor Unassigned, Blain [facility] PVR 2022-11-21 00:00:00 [facility] Encounters Start Date/Time End Date/Time Encounter Type Admission Type Attending [facility] Care Facility Care Department Encounter ID Source 2024-05-17 07:38:00 Outpatient Bro, Galo [facility] [id number] [facility] 2024-03-26 11:30:00 Outpatient Bro, Galo [facility] [id number] [facility] 2023-11-20 09:12:00 Outpatient Bro, Galo [facility] STLC [id number] [facility] 2023-11-12 08:50:00 Outpatient Bro, Galo [facility] [id number] [facility] 2023-07-17 13:43:00 Outpatient Bro, Galo [facility] STLC [id number] [facility] 2023-07-15 15:06:00 Outpatient Bro, Galo STLC STLMLC [id number] [facility] 2023-07-14 11:14:00 Outpatient Bro, Galo [facility] STLC [id number] [facility] 2022-11-26 10:24:00 Outpatient Bro, Galo STLC STLMLC [id number] [facility] 2022-03-21 14:37:01 Outpatient Bro, Galo [facility] STLC [id number] [facility] 2022-03-15 10:09:00 Outpatient Bro, Galo STLMLC STLMLC [id number] [facility] 2021-10-02 10:41:01 Outpatient Bro, Galo STLMLC STLMLC [id number] [facility] 2021-07-03 09:55:00 Outpatient Bro, Galo STLMLC STLMLC [id number] [facility] 2021-06-06 14:08:59 Outpatient Bro, Galo STLMLC STLMLC [id number] [facility] 2021-06-06 13:56:13 Outpatient Bro, Galo STLMLC STLMLC [id number] [facility] 2021-06-06 13:55:45 Outpatient Bro, Galo STLMLC STLMLC [id number] [facility] 2021-06-06 13:55:30 Outpatient Bro, Galo STLMLC STLMLC [id number] [facility] 2021-06-06 13:48:21 Outpatient Bro, Galo STLMLC STLMLC [id number] [facility] 2021-06-06 13:38:04 Outpatient Bro, Galo STLMLC STLMLC [id number] [facility] 2021-06-06 12:54:27 Outpatient Bro, Galo STLMLC STLMLC [id number] [facility] 2021-06-06 12:32:42 Outpatient Bro, Galo STLMLC STLMLC [id number] [facility] 2021-06-06 12:31:53 Outpatient Bro, Galo STLMLC STLMLC [id number] [facility] 2021-06-06 12:24:28 Outpatient Bro, Galo STLMLC STLMLC [id number] [facility] 2021-06-06 12:07:49 Outpatient STLMLC STLMLC [id number] [facility] 2021-06-06 12:07:22 Outpatient Manjula Duval STLMLC STLMLC [id number] [facility] 2021-06-06 11:02:56 Outpatient Manjula Duval STLMLC STLMLC [id number] [facility] 2021-06-06 11:02:49 Outpatient Manjula Duval STLMLC STLMLC [id number] [facility] 2024-10-05 16:00:00 2024-10-05 16:00:00 Outpatient [facility] [id number] [facility] 2024-09-02 00:00:00 2024-09-02 00:00:00 OFFICE VISIT ESTAB PT LEVEL 5 STLMLC STLMLC [id number] [facility] 2024-08-31 00:00:00 2024-08-31 00:00:00 (TEL) STLMLC STLMLC [id number] [facility] 2024-08-03 09:30:00 2024-08-03 09:30:00 Outpatient [facility] [id number] [facility] 2024-08-03 09:30:00 2024-08-03 09:30:00 Outpatient [facility] [id number] [facility] 2024-07-27 15:30:00 2024-07-27 15:30:00 Outpatient [facility] [id number] [facility] 2024-07-27 15:30:00 2024-07-27 15:30:00 Outpatient [facility] [id number] [facility] 2024-07-22 00:00:00 2024-07-22 00:00:00 OFFICE VISIT ESTAB PT LEVEL 4 STLMLC STLMLC [id number] [facility] 2024-07-21 00:00:00 2024-07-21 00:00:00 (TEL) STLMLC STLMLC [id number] [facility] 2024-06-16 00:00:00 2024-06-16 00:00:00 OFFICE VISIT ESTAB PT LEVEL 3 STLMLC STLMLC [id number] [facility] 2024-06-15 00:00:00 2024-06-15 00:00:00 (TEL) STLMLC STLMLC [id number] [facility] 2024-06-01 13:30:00 2024-06-01 13:30:00 Outpatient [facility]Y [facility] [id number] [facility] 2024-06-01 13:30:00 2024-06-01 13:30:00 Outpatient BREEZY [facility] [id number] [facility] 2024-05-17 00:00:00 2024-05-17 00:00:00 OFFICE VISIT ESTAB PT LEVEL 4 STLMLC STLMLC [id number] [facility] 2024-05-14 00:00:00 2024-05-14 00:00:00 (TEL) STLMLC STLMLC [id number] [facility] 2024-05-11 14:30:00 2024-05-11 14:30:00 Outpatient BREEZY [facility] [id number] [facility] 2024-05-11 14:30:00 2024-05-11 14:30:00 Outpatient BREEZY [facility] [id number] [facility] 2024-05-09 00:00:00 2024-05-09 00:00:00 (TEL) STLMLC STLMLC [id number] [facility] 2024-04-28 00:00:00 2024-04-28 00:00:00 (TEL) STLMLC STLMLC [id number] [facility] 2024-04-28 00:00:00 2024-04-28 00:00:00 OFFICE VISIT ESTAB PT LEVEL 3 STLMLC STLMLC [id number] [facility] 2024-04-06 00:00:00 2024-04-06 00:00:00 (TEL) STLMLC STLMLC [id number] [facility] 2024-03-03 14:00:00 2024-03-03 14:00:00 [facility]patient [facility] [id number] [facility] 2024-03-03 14:00:00 2024-03-03 14:00:00 Outpatient [facility] [id number] [facility] 2024-02-26 00:00:00 2024-02-26 00:00:00 (TEL) STLMLC STLMLC [id number] [facility] 2024-01-07 14:30:00 2024-01-07 14:30:00 Outpatient [facility] [id number] [facility] 2024-01-07 14:30:00 2024-01-07 14:30:00 Outpatient Thony [facility] [id number] [facility] 2023-12-17 00:00:00 2023-12-17 00:00:00 OFFICE VISIT ESTAB PT LEVEL 4 STLMLC STLMLC [id number] [facility] 2023-11-25 00:00:00 2023-11-25 00:00:00 SUB ANNUAL [facility] WELLNESS VISIT STLMLC STLMLC [id number] [facility] 2023-11-25 00:00:00 2023-11-25 00:00:00 OFFICE VISIT ESTAB PT LEVEL 4 STLMLC STLMLC [id number] [facility] 2023-11-21 00:00:00 2023-11-21 00:00:00 (TEL) STLMLC STLMLC [id number] [facility] 2023-11-20 00:00:00 2023-11-20 00:00:00 (TEL) STLMLC STLMLC [id number] [facility] 2023-10-16 00:00:00 2023-10-16 00:00:00 OFFICE VISIT ESTAB PT LEVEL 4 STLMLC STLC [id number] [facility] 2023-08-15 00:00:00 2023-08-15 00:00:00 Telephone Adri Infante [facility] 1..840.114 350.1.13.10 4.2.7.2.686 [id number] [facility] 2023-08-14 00:00:00 2023-08-14 00:00:00 OFFICE VISIT ESTAB PT LEVEL 4 STLC STLC [id number] [facility] 2023-08-12 00:00:00 2023-08-12 00:00:00 (TEL) STLC STLC [id number] [facility] 2023-08-05 13:00:00 2023-08-05 14:00:00 Initial D2Me Sera Iyanoye 2.16.840. [id number]. [id number] 2.16.840.1. [id number] [address] 2023-07-28 00:00:00 2023-07-28 00:00:00 (TEL) STLC STLC [id number] [facility] 2023-07-17 00:00:00 2023-07-17 00:00:00 OFFICE VISIT ESTAB PT LEVEL 4 STLC STLC [id number] [facility] 2023-06-19 00:00:00 2023-06-19 00:00:00 Orders Only Doctor Unassigned, Blain [facility] 1..840.114 350.1.13.10 4.2.7.2.686 [id number] [facility] 2023-06-17 14:30:00 2023-06-17 14:30:00 Outpatient R ITA [facility] [id number] [facility] 2023-06-10 10:30:00 2023-06-10 12:18:41 Outpatient R ITA [facility] [id number] [facility] 2023-06-10 10:30:00 2023-06-10 12:18:41 Office Visit Ita [facility] 1.2840.114 350.1.13.10 4.2.7.2.686 [id number] [facility] 2023-06-10 00:00:00 2023-06-10 00:00:00 Orders Only Doctor Unassigned, Blain [facility] 1.2840.114 350.1.13.10 4.2.7.2.686 [id number] [facility] 2023-06-04 00:00:00 2023-06-04 00:00:00 OFFICE VISIT ESTAB PT LEVEL 5 STLC [facility] [id number] [facility] 2023-05-28 00:00:00 2023-05-28 00:00:00 (TEL) [facility] [id number] [facility] 2023-05-25 00:00:00 2023-05-25 00:00:00 (TEL) [facility] [id number] [facility] 2023-05-15 00:00:00 2023-05-15 00:00:00 Orders Only Doctor Unassigned, Blain [facility] 1.2840.114 350.1.13.10 4.2.7.2.686 [id number] [facility] 2023-05-14 15:56:26 2023-05-14 23:59:00 Outpatient R [facility] [id number] [facility] 2023-05-14 15:56:26 2023-05-14 23:59:00 Hospital Encounter Armani Infanteammed [facility] 1.2.840.114 350.1.13.10 4.2.7.2.686 [id number] [facility] 2023-05-14 15:00:00 2023-05-14 15:55:[address] [facility] 1.2.840.114 350.1.13.10 4.2.7.2.686 [id number] [facility] 2023-05-07 00:00:00 2023-05-07 00:00:00 Orders Only Doctor Unassigned, Blain [facility] 1.2.840.114 350.1.13.10 4.2.7.2.686 [id number] [facility] 2023-04-15 10:30:00 2023-04-15 11:15:50 Office [address] [facility] 1.2.840.114 350.1.13.10 4.2.7.2.686 [id number] [facility] 2023-04-15 10:30:00 2023-04-15 11:15:50 Outpatient R ADRI [facility] [id number] [facility] 2023-04-01 00:00:00 2023-04-01 00:00:00 Cam [facility] 1.2.840.114 350.1.13.10 4.2.7.2.686 [id number] [facility] 2023-03-25 14:00:00 2023-03-25 16:09:54 Outpatient R CAM [facility] [id number] [facility] 2023-03-25 14:00:00 2023-03-25 16:09:54 Office Visit Cam Del Valle [facility] 1.2.840.114 350.1.13.10 4.2.7.2.686 [id number] [facility] 2023-03-20 00:00:00 2023-03-20 00:00:00 OFFICE VISIT ESTAB PT LEVEL 4 STLMLC STLMLC [id number] [facility] 2023-03-02 16:35:00 2023-03-02 18:47:00 Emergency X NEISHA [facility]CE [facility] ERT [id number] [facility] 2023-03-02 16:35:00 2023-03-02 18:47:00 Emergency Edgard Brucenell [facility] 1.2.840.114 350.1.13.10 4.2.7.2.686 [id number] [facility] 2023-02-19 00:00:00 2023-02-19 00:00:00 OFFICE VISIT ESTAB PT LEVEL 3 STLMLC STLMLC [id number] [facility] 2023-02-19 00:00:00 2023-02-19 00:00:00 (TEL) STLMLC STLMLC [id number] [facility] 2023-01-16 00:00:00 2023-01-16 00:00:00 (TEL) STLMLC STLMLC [id number] [facility] 2022-11-26 00:00:00 2022-11-26 00:00:00 OFFICE VISIT ESTAB PT LEVEL 4 STLMLC STLMLC [id number] [facility] 2022-11-26 00:00:00 2022-11-26 00:00:00 SUB ANNUAL MCR WELLNESS VISIT STLMLC STLMLC [id number] [facility] 2022-11-26 00:00:00 2022-11-26 00:00:00 (TEL) STLMLC STLMLC [id number] [facility] 2022-11-21 00:00:00 2022-11-21 00:00:00 OFFICE VISIT ESTAB PT LEVEL 4 STLMLC STLMLC [id number] [facility] 2022-10-10 00:00:00 2022-10-10 00:00:00 (PROC) Procedure STLMLC STLMLC [id number] [facility] 2022-09-27 00:00:00 2022-09-27 00:00:00 (TEL) STLMLC STLMLC [id number] [facility] 2022-07-26 00:00:00 2022-07-26 00:00:00 OFFICE VISIT ESTAB PT LEVEL 4 STLMLC STLMLC [id number] [facility] 2022-06-19 00:00:00 2022-06-19 00:00:00 (TEL) STLMLC STLMLC [id number] [facility] 2022-04-12 00:00:00 2022-04-12 00:00:00 (TEL) STLMLC STLMLC [id number] [facility] 2022-04-11 00:00:00 2022-04-11 00:00:00 OFFICE VISIT EST PT LEVEL 3 STLMLC STLMLC [id number] [facility] 2022-04-09 00:00:00 2022-04-09 00:00:00 (TEL) STLMLC STLMLC [id number] [facility] 2022-04-09 00:00:00 2022-04-09 00:00:00 OFFICE VISIT EST PT LEVEL 3 STLMLC STLMLC [id number] [facility] 2022-04-08 00:00:00 2022-04-08 00:00:00 (TEL) STLMLC STLMLC [id number] [facility] 2022-04-08 00:00:00 2022-04-08 00:00:00 (TEL) STLMLC STLMLC [id number] [facility] 2022-04-08 00:00:00 2022-04-08 00:00:00 (TEL) STLMLC STLMLC [id number] [facility] 2022-03-21 00:00:00 2022-03-21 00:00:00 (TEL) STLMLC STLMLC [id number] [facility] 2022-03-19 00:00:00 2022-03-19 00:00:00 OFFICE VISIT ESTAB PT LEVEL 4 STLMLC STLMLC [id number] [facility] 2022-03-19 00:00:00 2022-03-19 00:00:00 SUB ANNUAL [facility] WELLNESS VISIT STLMLC STLMLC [id number] [facility] 2022-02-14 00:00:00 2022-02-14 00:00:00 (TEL) STLMLC STLMLC [id number] [facility] 2022-01-10 00:00:00 2022-01-10 00:00:00 OFFICE VISIT EST PT LEVEL 3 STLMLC STLMLC [id number] [facility] 2021-12-17 00:00:00 2021-12-17 00:00:00 (TEL) STLMLC STLMLC [id number] [facility] 2021-12-12 00:00:00 2021-12-12 00:00:00 OFFICE VISIT ESTAB PT LEVEL 4 STLMLC STLMLC [id number] [facility] 2021-11-30 00:00:00 2021-11-30 00:00:00 (TEL) STLMLC STLMLC [id number] [facility] 2021-11-13 00:00:00 2021-11-13 00:00:00 OFFICE VISIT ESTAB PT LEVEL 4 STLMLC STLMLC [id number] [facility] 2021-10-02 00:00:00 2021-10-02 00:00:00 OFFICE VISIT EST PT LEVEL 3 STLMLC STLMLC [id number] [facility] 2021-10-02 00:00:00 2021-10-02 00:00:00 (TEL) STLMLC STLMLC [id number] [facility] 2021-09-20 00:00:00 2021-09-20 00:00:00 (TEL) STLMLC STLMLC [id number] [facility] 2021-09-12 00:00:00 2021-09-12 00:00:00 OFFICE VISIT ESTAB PT LEVEL 5 STLMLC STLMLC [id number] [facility] 2021-09-12 00:00:00 2021-09-12 00:00:00 (TEL) STLMLC STLMLC [id number] [facility] 2021-08-22 00:00:00 2021-08-22 00:00:00 OFFICE VISIT EST PT LEVEL 3 STLMLC STLMLC [id number] [facility] 2021-07-19 00:00:00 2021-07-19 00:00:00 OFFICE VISIT ESTAB PT LEVEL 2 STLMLC STLMLC [id number] [facility] 2021-07-03 00:00:00 2021-07-03 00:00:00 OFFICE VISIT ESTAB PT LEVEL 4 STLMLC STLMLC [id number] [facility] 2021-07-03 00:00:00 2021-07-03 00:00:00 (TEL) STLMLC STLMLC [id number] [facility] 2021-06-29 00:00:00 2021-06-29 00:00:00 (TEL) STLMLC STLMLC [id number] [facility] 2021-06-22 00:00:00 2021-06-22 00:00:00 Postop visit STLMLC STLMLC [id number] [facility] 2021-05-28 00:00:00 2021-05-28 00:00:00 OFFICE VISIT ESTAB PT LEVEL 2 STLMLC STLMLC [id number] [facility] 2021-05-23 00:00:00 2021-05-23 00:00:00 OFFICE VISIT ESTAB PT LEVEL 4 STLMLC STLMLC [id number] [facility] 2021-03-15 00:00:00 2021-03-15 00:00:00 OFFICE VISIT NEW PT LEVEL 5 STLMLC STLMLC [id number] [facility] 2021-03-07 00:00:00 2021-03-07 00:00:00 OFFICE VISIT EST PT LEVEL 3 STLMLC STLMLC [id number] [facility] 2021-02-26 00:00:00 2021-02-26 00:00:00 (TEL) STLMLC STLMLC [id number] [facility] 2021-02-12 00:00:00 2021-02-12 00:00:00 Outpatient STLMLC STLMLC [id number] [facility] 2021-02-12 00:00:00 2021-02-12 00:00:00 Outpatient STLMLC STLMLC [id number] [facility] 2021-02-12 00:00:00 2021-02-12 00:00:00 Outpatient STLMLC STLMLC [id number] [facility] 2021-01-03 00:00:00 2021-01-03 00:00:00 Outpatient STLMLC STLMLC [id number] [facility] 2021-01-03 00:00:00 2021-01-03 00:00:00 Outpatient STLMLC STLMLC [id number] [facility] 2020-12-29 00:00:00 2020-12-29 00:00:00 Outpatient STLMLC STLMLC [id number] [facility] 2020-08-30 00:00:00 2020-08-30 00:00:00 Outpatient STLMLC STLMLC [id number] [facility] 2020-07-07 10:30:00 2020-07-07 10:30:00 Outpatient R [facility] [id number] [facility] 2020-07-07 10:30:00 2020-07-07 10:30:00 Outpatient MARISEL BRADY [facility] [id number] [facility] 2020-06-30 10:30:00 2020-06-30 10:30:00 Outpatient MARISEL BRADY [facility] [id number] [facility] 2020-06-30 10:30:00 2020-06-30 10:30:00 Outpatient Thony REJIMARISEL SWAN [facility] [id number] [facility] 2020-06-09 09:50:00 2020-06-09 09:50:00 Outpatient MARISEL BRADY [facility] [id number] [facility] 2020-05-23 00:00:00 2020-05-23 00:00:00 Outpatient STLMLC STLMLC [id number] [facility] 2020-05-19 00:00:00 2020-05-19 00:00:00 Outpatient STLMLC STLMLC [id number] [facility] 2020-05-14 00:00:00 2020-05-14 00:00:00 Outpatient STLMLC STLMLC [id number] [facility] 2020-05-10 00:00:00 2020-05-10 00:00:00 Outpatient STLMLC STLMLC [id number] [facility] 2020-05-09 00:00:00 2020-05-09 00:00:00 Outpatient STLMLC STLMLC [id number] [facility] 2020-04-20 00:00:00 2020-04-20 00:00:00 Outpatient STLMLC STLMLC [id number] [facility] 2020-04-04 00:00:00 2020-04-04 00:00:00 Outpatient STLMLC STLMLC [id number] [facility] 2019-12-22 13:19:00 2019-12-22 13:19:00 [facility] [id number] [facility] 2019-12-19 01:36:00 2019-12-19 01:36:00 [facility] [id number] [facility] 2019-12-17 14:34:00 2019-12-17 14:34:00 Out[facility] [id number] [facility] 2019-12-14 16:40:00 2019-12-14 16:40:00 [facility] [id number] [facility] 2019-10-05 16:31:00 2019-10-05 16:31:00 Outpatient [facility] [id number] [facility] 2019-06-29 11:00:00 2019-06-29 11:00:00 [facility] [id number] [facility] 2019-06-03 14:00:00 2019-06-03 14:00:00 [facility] [id number] [facility] Results Test Description Test Time Test Comments Results Result Co mments Source [facility] [id number] [facility]:00:00* Test Item Value Reference Range Interpretation Comme nts HEMOGLOBIN A1c (test code = 4548-4) 5.2 % See_Comment [Automated [employer]] The system which generated this result transmitted reference range: 4.2-5.6 %. The reference range was not used to interpret this result as normal/abnormal. Troponin I - Code [id number] 22:19:23* Test Item Value Reference Range Interpretation Comme nts TROPONIN I (test code = 3695764089) 0.001 ng/mL <=0.034 REY (test code = [...] of biotin. Lab Interpretation (test code = 38130-6) Normal [facility] - Code [id number] 22:09:00* Test Item Value Reference Range Interpretation Comme nts APTT Patient (test code = 3173-2) 25 See_Comment [Automated message] The system which generated this result transmitted reference range: 23 - 38 Seconds. The reference range was not used to interpret this result as normal/abnormal. REY (test code = REY) The [facility] patient population mean normal value for aPTT is 30 seconds. Lab Interpretation (test code = 92691-3) Normal [facility] (NA, K, CL, CO2, Glucose, BUN, Creatinine, CA) - Code [id number] 22:07:20* Test Item Value Reference Range Interpretation Comme [facility] NA (test code = 6983946632) 139 mmol/L 135-145 K (test code = 6705933962) 3.9 mmol/L 3.5-5.0 CL (test code = 8090915782) 105 mmol/L 98-108 CO2 TOTAL (test code = 5745474509) 25 mmol/L 23-31 AGAP (test code = 6310746915) 9 2-16 BUN (test code = 2665864937) 21 mg/dL 7-23 GLUCOSE (test code = 6695341244) 89 mg/dL 70-110 CREATININE (test code = 4737109870) 0.87 mg/dL 0.60-1.25 CALCIUM (test code = 9939144158) 8.6 mg/dL 8.6-10.6 eGFR (test code = 9251510163) 83.6 mL/min/1.73m2 REY (test code = REY) [...] or urine or abnormalities in imaging tests). [facility] - Code [id number] 22:06:59* Test Item Value Reference Range Interpretation Comme nts PROTIME PATIENT (test code = 5964-2) 13.4 See_Comment [[employer]] The system which generated this result transmitted reference range: 12.0 - 14.7 Seconds. The reference range was not used to interpret this result as normal/abnormal. INR (test code = 6301-6) 1.0 Normal INR <1.1; Warfarin Therapeutic range 2.0 to 3.0 or 2.5 to 3.5, depending upon the indications. Lab Interpretation (test code = 14295-8) Normal [facility] - Code [id number] 21:58:20* Test Item Value Reference Range Interpretation Comme [facility] WBC (test code = 6690-2) 5.90 See_Comment [[employer]] The system which generated this result transmitted [...] (test code = 777-3) 169 See_Comment [Automated [employer]] The system which generated this result transmitted reference range: 150 - 328 10*3/?L. The reference range was not used to interpret this result as normal/abnormal. MPV (test code = 31849-7) 10.1 fL 9.8-13.0 RDW-CV (test code = 788-0) 13.3 % 12.1-15.4 RDW-SD (test code = 13300-2) 44.8 fL 38.5-51.6 NRBC x10^3 (test code = 0639663489) See_Comment [[employer]] The system which generated this result transmitted reference range: 10*3/?L. The reference range was not used to interpret this result as normal/abnormal. NRBC/100 WBC (test code = 0089114756) 0.0 See_Comment [Automated [employer]] The system which generated this result transmitted reference range: 0.0 - 10.0 /100 WBCs. The reference range was not used to interpret this result as normal/abnormal. IPF % (test code = 8704631361) [facility] GLUCOSE (AUTOMATED)2023-03-02 21:57:10* Test Item Value Reference Range Interpretation Comme nts POCT GLU (test code = 0889497506) 54 mg/dL 70-110 L Lab Interpretation (test cod e = 46824-8) [facility] (Age >30 Days) - Code Stroke 2023-03-02 21:55:00* Test Item Value Reference Range Interpretation Comme [facility] POCT Glu (age>30days) (test code = 3342) 54 mg/dL 70-110 A Lab Interpretation (test cod e = 31925-6) [facility]normal [facility] SMEAR [id number] 00:00:00* Test Item Value Reference Range Interpretation Comme [facility] BASOPHILS (test code = 00188-3) 0.8 % DIAGNOSIS: (test code = 59656-2) (NOTE) COMMENTS (test code = 50171-2) (NOTE) EOSINOPHILS (test code = 89444-1) 10.9 % HEMATOCRIT (test code = 71480-0) 37.4 % See_Comment L [Automated messa ge] [...] result as normal/abnormal. LYMPHOCYTES (test code = 08054-8) 41.4 % MCH (test code = 94666-2) 28.8 PG See_Comment [Automated messa ge] The system which generated this result transmitted reference range: 25.0-33.0 PG. The reference range was not used to interpret this result as normal/abnormal. MCHC (test code = 88482-0) 32.1 G/DL See_Comment [Automated messa ge] The system which generated this result transmitted reference range: 31.0-36.0 G/DL. The reference range was not used to interpret this result as normal/abnormal. MCV (test code = 45232-1) 89.9 fL See_Comment [Automated messa ge] The system which generated this result transmitted reference range: 80.0-99.0 fL. The reference range was not used to interpret this result as normal/abnormal. MICROSCOPIC DESCRIPTION: (test code = 79663-1) (NOTE) MONOCYTES (test code = 23473-8) 9.5 % NEUTROPHILS (test code = 48563-0) 37.0 % NUCLEATED RBCS (test code = 56240-0) 0.0 /100 WBC'S See_Comment [Automated messa ge] The system which generated this result transmitted reference range: 0.0 /100 WBC'S. The reference range was not used to interpret this result as normal/abnormal. PATHOLOGIST: (test code = 38383-7) (NOTE) PLATELET COUNT (test code = 45103-8) 190 K/UL See_Comment [Automated messa ge] The system which generated this result transmitted reference range: 130-400 K/UL. The reference range was not used to interpret this result as normal/abnormal. RBC (test code = 68811-4) 4.16 M/UL See_Comment L [Automated messa ge] The system which generated this result transmitted reference range: 4.50-6.10 M/UL. The reference range was not used to interpret this result as normal/abnormal. RDW (test code = 94868-5) 12.1 % See_Comment [Automated messa ge] The system which generated this result transmitted reference range: 11.5-15.0 %. The reference range was not used to interpret this result as normal/abnormal. WBC (test code = 89799-9) 4.9 K/UL See_Comment [Automated messa ge] The [...] titus. He verbalized understanding via teach back. Infante, Adri, MD P Cardiology Nurse Please let Mr. [...] tolerated) and atorvastatin. Regards, Adri Infante MD microeconomics professor. Division of cardiovascular medicine [facility] Sanjana Glover RN [facility] [place]"
[2024-12-27] MEDS ORDERED: ASPIRIN 81 MG CHEWABLE TABLET ONE (16:12)
[2024-12-27 16:21] LABS: Absolute Lymphocytes (CBC) 2.2 K/uL (0.7-4.9); Hematocrit 37.7 % (39.6-49.0); Hemoglobin 12.4 g/dL (13.6-17.9); MCH 29.5 pg (27.0-35.0); MCHC 33.0 g/dL (32.0-36.0); MCV 89.6 fL (80-100); MPV 7.8 fL (7.6-11.3); Nucleated RBC Absolute Count 0.0 (0-0); Nucleated Red Blood Cells % 0.3 % (0-0); RBC Red Blood Cell Count 4.21 M/uL (4.33-5.43); White Blood Count 5.50 thou/uL (4.3-10.9)
--- NOTE | 2024-12-27 16:42 | RAD REPORT ---
EXAM: CT brain without contrast HISTORY: Headache COMPARISON: 2014 TECHNIQUE: Multiple contiguous axial images were obtained and a CT of the brain without contrast.. Sagittal and coronal reconstruction performed. Automated exposure control, adjustment of the mA and/or kV according to patient size, and/or iterative reconstruction. Unless otherwise specified, incidental f indings do not require dedicated imaging follow-up FINDINGS: An intracranial bleed is not seen Ventricles are normal caliber No extra-axial fluid collection noted No significant hypodensity within the brain Left aspect of the sphenoid sinus chronically opacified consistent with chronic sinusitis IMPRESSION: No acute intracranial abnormality noted. Chronic sphenoid sinusitis If the patient continues to have symptoms to suggest an acute intracranial abnormality then MRI of th e brain would be recommended.
[2024-12-27 16:43] LABS: ALT/SGPT 24 U/L (16-61); Albumin 2.9 g/dL (3.4-5.0); Albumin/Globulin Ratio 0.9 (1.1-1.8); Alkaline Phosphatase 53 U/L (45-117); Anion Gap 7.9 mEq/L (5.0-15.0); BUN Blood Urea Nitrogen 18 mg/dL (7-18); Globulin 3.2 g/dL (2.3-3.5); Glucose Level 89 mg/dL (74-106); Magnesium 2.2 mg/dL (1.6-2.4); NT PRO-BNP 38 pg/mL (<450); Potassium 3.9 mEq/L (3.5-5.1); Troponin High Sensitivity 5.1 pg/mL (<58.9)
[2024-12-27 16:44] LABS: AST/SGOT < 10 U/L (15-37); Bilirubin Indirect, Calculated 0.3 mg/dL (0.2-0.8)
--- NOTE | 2024-12-27 16:45 | RAD REPORT ---
EXAMINATION: CTA CHEST PE CLINICAL INDICATION: Shortness of breath TECHNIQUE: 100 cc 370 Isovue administered intravenously. This examination was performed according to an angiographic protocol with 3D post-processing. This involves 3D reconstructions, MIPs, volume rendered images and/or shaded surface rendering. One or more of the following dose reduction techniqu es were used: Automated exposure control, adjustment of the mA and/or kV according to patient size, and/or iterative reconstruction. Unless otherwise specified, incidental findings do not require dedic ated imaging follow-up. [id number]. COMPARISON: 2019 FINDINGS: A pulmonary embolus is not seen. An aortic aneurysm not noted. No pleural effusion. No pericardial effusion. Lungs are clear. IMPRESSION: No evidence of a pulmonary embolism
--- NOTE | 2024-12-27 16:46 | RAD REPORT ---
Procedure: Chest Single View HISTORY: Chest pain COMPARISON: July 2024 FINDINGS: The lungs appear clear of acute infiltrate. No significant pleural effusion noted. The heart is mildly to moderately enlarged. IMPRESSION: No acute abnormality is displayed.
[2024-12-27] MEDS ORDERED: ONDANSETRON 4 MG/2 ML VIAL IV PRN (17:02)
--- NOTE | 2024-12-27 17:03 | ER ---
Nurse's Notes [facility] Name: Ruperto Villegas Age: 84 yrs Sex: Male : 1940 Arrival Date: 12/27/2024 Time: 15:32 Bed 14 Private MD: Diagnosis: Chest pain, unspecified Presentation: 12/27 15:38 Chief complaint: Patient states: c/o chest pain, headache and fatigue that started 3 nh2 weeks ago, with a cough that started on 12/17. Coronavirus screen: Client presents with at least one sign or symptom that may indicate coronavirus-19. Standard/surgical mask placed on the client. Ebola Screen: Patient denies travel to an Ebola-affected area in the 21 days before illness onset. No symptoms or risks identified at this time. Initial Sepsis Screen: Does the patient meet any 2 criteria? No. Patient's initial sepsis screen is negative. Does the patient have a suspected source of infection? No. Patient's initial sepsis screen is negative. Risk Assessment: Do you want to hurt yourself or someone else? Patient reports no desire to harm self or others. Onset of symptoms was December 08, 2024. 15:38 Method Of Arrival: Ambulatory nh2 15:38 Acuity: HENRIK 3 nh2 Triage Assessment: 15:42 General: Appears in no apparent distress. Behavior is calm, cooperative, appropriate nh2 for age. Pain: Complains of pain in chest Pain currently is 8 out of 10 on a pain scale. Quality of pain is described as sharp, Pain began 3 weeks ago. Pain: Is intermittent. Historical: - PMHx: 15:42 Hypertension; Myocardial infarction; Prostate Cancer; nh2 - PSHx: 15:42 Appendectomy; right shoulder; nh2 - Immunization history:: Adult Immunizations up to date. - Infectious Disease History:: Denies. - Social history:: Smoking status: Patient denies any tobacco usage or history of. Screenin:50 [facility] ED Fall Risk Assessment (Adult) History of falling in the last 3 months, me1 including since admission No falls in past 3 months (0 pts) Confusion or Disorientation No (0 pts) Intoxicated or Sedated No (0 pts) Impaired Gait No (0 pts) Mobility Assist Device Used No (0 pt) Altered Elimination No (0 pt) Score/Fall Risk Level 0 - 2 = Low Risk Maintained a safe environment, Provided non-skid footwear, Hourly rounding (assess needs \T\ fall precautionary measures) done. Abuse screen: Denies threats or abuse. Nutritional screening: No deficits noted. Tuberculosis screening: No symptoms or risk factors identified. Assessment: 15:50 General: Appears uncomfortable, well groomed, well developed, well nourished, Behavior me1 is calm, cooperative, appropriate for age, Reports c/o chest pain, headache and fatigue that started 3 weeks ago, with a cough that started on 08. Pain: Complains of pain in head and chest Pain radiates to left arm Pain currently is 7 out of 10 on a pain scale. Quality of pain is described as pressure, Pain began gradually, Is intermittent. Neuro: Level of Consciousness is awake, alert, obeys commands, Oriented to person, place, time, situation, Appropriate for age Reports headache. Cardiovascular: Reports chest pain, diaphoresis, shortness of breath, Patient's skin is warm and dry. Respiratory: Airway is patent Respiratory effort is even, unlabored, Respiratory pattern is regular, symmetrical. GI: No signs and/or symptoms were reported involving the gastrointestinal system. : No signs and/or symptoms were reported regarding the genitourinary system. EENT: No signs and/or symptoms were reported regarding the EENT system. Derm: Skin is intact, is healthy with good turgor, Skin is pink, warm \T\ dry. Musculoskeletal: No signs and/or symptoms reported regarding the musculoskeletal system. Vital Signs: 15:38 BP 122 / 84; Pulse 56; Resp 18; Temp 97.9(TE); Pulse Ox 98% on R/A; nh2 15:43 BP 122 / 84; Pulse 53; Resp 18; Temp 97.9; Pulse Ox 99% ; Weight 114.31 kg; Height 5 nh2 ft. 7 in. ; Pain 8/10; 16:30 BP 155 / 78; Pulse 66; Resp 18; Pulse Ox 94% ; me1 17:00 BP 127 / 87; Pulse 57; Resp 16; Pulse Ox 97% ; me1 17:56 BP 164 / 71; Pulse 64; Resp 16; Pulse Ox 99% ; me1 15:43 Body Mass Index 39.47 (114.31 kg, 170.18 cm) nh2 15:43 Pain Scale: Adult nh2 ED Course: 15:35 Patient arrived in ED. im 15:35 Jayne Bess FNP-C [facility] kb 15:35 Med Joyce DO is Attending Physician. kb 15:42 Triage completed. nh2 15:50 No provider procedures requiring assistance completed. Patient maintains SpO2 me1 saturation greater than 95% on room air. 15:50 Patient has correct armband on for positive identification. Bed in low position. Call me1 light in reach. Side rails up X2. Provided Education on: POC. Verbalized understanding.. Client placed on continuous cardiac and pulse oximetry monitoring. NIBP monitoring applied. cardiac monitor technician on. Pulse ox on. NIBP on. 15:53 EKG done, by ED staff, reviewed by Jayne BANGURA. nh2 16:00 Yohana Patterson, DELIO is Primary Nurse. me1 16:15 Initial lab(s) drawn, by ED staff, sent to lab. Inserted saline lock: 20 gauge in left me1 antecubital area, using aseptic technique. 16:17 XRAY Chest (1 view) In Process Unspecified. EDMS 16:24 Basic Metabolic Panel Sent. me1 16:24 LFT's Sent. me1 16:24 Magnesium Sent. me1 16:24 NT PRO-BNP Sent. me1 16:24 Troponin HS Sent. me1 16:31 CT Head Brain wo Cont In Process Unspecified. EDMS 16:38 CT Chest For PE Angio In Process Unspecified. EDMS 17:02 Madhavi Kraus MD is Hospitalizing Provider. kb 18:13 Patient admitted, IV remains in place. me1 18:13 Arm band placed on Patient placed in an exam room. me1 Administered Medications: 16:23 Drug: Aspirin PO Chewable Tablet 324 mg PO once; 81 mg tablets x 4 Route: PO; me1 16:30 Follow up: Response: No adverse reaction me1 Medication: 15:50 VIS not applicable for this client. me1 Outcome: 17:02 Decision to Hospitalize by Provider. kb 18:13 Admitted to Tele accompanied by tech, via wheelchair, room 427, with chart, Report me1 called to tubed up, receipt confirmed with Rachael. 18:13 Condition: stable 18:13 Instructed on the need for admit, 18:33 Patient left the ED. me1 Signatures: Dispatcher [employer] EDMS Jayne Bess, COMPLIANCE INTERN-C COMPLIANCE INTERN-Ckb Erika Noonan Michelle, RN RN me1 Jose Ricketts Jr, RN RN nh2 Corrections: (The following items were deleted from the chart) 15:53 15:38 Chief complaint: Patient states: c/o chest pain, headache and fatigue that nh2 started 3 weeks ago, and a cough that started on 12/17 nh2 16:25 15:38 Chief complaint: Patient states: c/o chest pain, headache and fatigue that me1 started 3 weeks ago, with a cough that started on 12/17 nh2
--- NOTE | 2024-12-27 17:03 | EDPHYS ---
Physician Documentation [facility] Name: Ruperto Villegas Age: 84 yrs Sex: Male : 1940 Arrival Date: 12/27/2024 Time: 15:32 Bed 14 Private MD: ED Physician Med Joyce HPI: 12/27 15:51 This 84 yrs old Black Male presents to ER via Ambulatory with complaints of Chest Pain, kb Fatigue. 15:51 Pt is an 84 year old male who presents for chest pain (constant, but worse with kb exertion), fatigue, cough, congestion, headache, weakness for 3 weeks. Was seen by PCP on 12/17/24 and prescribed steroids and antibiotics, but symptoms have persisted. Denies shortness of breath, nausea,vomiting, fever. States he called his PCP today and was told to come to the ER for a CT of his head and chest. . Historical: - PMHx: 15:42 Hypertension; Myocardial infarction; Prostate Cancer; nh2 - PSHx: 15:42 Appendectomy; right shoulder; nh2 - Immunization history:: Adult Immunizations up to date. - Infectious Disease History:: Denies. - Social history:: Smoking status: Patient denies any tobacco usage or history of. ROS: 15:51 Constitutional: As per HPI kb Exam: 15:51 Constitutional: This is a well developed, well nourished patient who is awake, alert, kb and in no acute distress. Head/Face: Normocephalic, atraumatic. ENT: Moist Mucous membranes Cardiovascular: Regular rate Respiratory: Respirations even and unlabored. No increased work of breathing. Talking in full sentences Abdomen/GI: Soft, non-tender. No distention Skin: Warm, dry with normal turgor. Normal color. MS/ Extremity: Pulses equal, no cyanosis. Neurovascular intact. Full, normal range of motion. Neuro: Awake and alert, GCS 15, oriented to person, place, time, and situation. 15:51 ECG was reviewed by the Attending Physician. Vital Signs: 15:38 BP 122 / 84; Pulse 56; Resp 18; Temp 97.9(TE); Pulse Ox 98% on R/A; nh2 15:43 BP 122 / 84; Pulse 53; Resp 18; Temp 97.9; Pulse Ox 99% ; Weight 114.31 kg; Height 5 nh2 ft. 7 in. ; Pain 8/10; 16:30 BP 155 / 78; Pulse 66; Resp 18; Pulse Ox 94% ; me1 17:00 BP 127 / 87; Pulse 57; Resp 16; Pulse Ox 97% ; me1 17:56 BP 164 / 71; Pulse 64; Resp 16; Pulse Ox 99% ; me1 15:43 Body Mass Index 39.47 (114.31 kg, 170.18 cm) nh2 15:43 Pain Scale: Adult nh2 MDM: 15:36 Medical Screening Exam initiated kb 15:51 Data reviewed: vital signs, nurses notes. kb 17:01 Differential diagnosis: PE, pulmonary edema, arrhythmia, acute mi. Consideration of kb Admission/Observation Patient was admitted/placed on observation. Escalation of care including admission/observation considered. Management of patient was discussed with the following: Hospitalist: hospitalist team, pt accepted for admission under Dr Kraus. Counseling: I had a detailed discussion with the patient and/or guardian regarding the historical points, exam findings, and any diagnostic results supporting the discharge/admit diagnosis, lab results, radiology results, the need for further work-up and treatment in the hospital. 17:02 ED course: heart score 5. kb 12/27 15:41 Order name: Basic Metabolic Panel; Complete Time: 16:48 kb 12/27 15:41 Order name: CBC with Diff; Complete Time: 16:26 kb 12/27 15:41 Order name: LFT's; Complete Time: 16:48 kb 12/27 15:41 Order name: Magnesium; Complete Time: 16:48 kb 12/27 15:41 Order name: NT PRO-BNP; Complete Time: 16:48 kb 12/27 15:41 Order name: Troponin HS; Complete Time: 16:48 kb 12/27 16:50 Order name: CREATININE WHOLE BLOOD; Complete Time: 16:51 EDMS 12/27 17:06 Order name: CBC with Automated Diff EDMS 12/27 17:06 Order name: CBC with Automated Diff EDMS 12/27 17:06 Order name: CBC with Automated Diff EDMS 12/27 17:06 Order name: Comprehensive Metabolic Panel EDMS 12/27 17:06 Order name: Comprehensive Metabolic Panel EDMS 12/27 17:06 Order name: Comprehensive Metabolic Panel EDMS 12/27 17:06 Order name: Troponin High Sensitivity EDMS 12/27 17:06 Order name: Troponin High Sensitivity [facility] 12/27 17:06 Order name: Troponin High Sensitivity [facility] 12/27 15:41 Order name: XRAY Chest (1 view); Complete Time: 16:48 kb 12/27 15:41 Order name: CT Head Brain wo Cont; Complete Time: 16:42 kb 12/27 15:41 Order name: CT Chest For PE Angio; Complete Time: 16:48 kb 12/27 15:41 Order name: EKG; Complete Time: 15:42 kb 12/27 15:41 Order name: Cardiac monitoring; Complete Time: 15:51 kb 12/27 15:41 Order name: EKG - Nurse/Tech; Complete Time: 15:51 kb 12/27 15:41 Order name: IV Saline Lock; Complete Time: 16:24 kb 12/27 15:41 Order name: Labs collected and sent; Complete Time: 16:24 kb 12/27 15:41 Order name: O2 Per Protocol; Complete Time: 16:24 kb 12/27 15:41 Order name: O2 Sat Monitoring; Complete Time: 16:24 kb EC:51 Rate is 56 beats/min. Rhythm is regular. QRS Warren is Normal. IA interval is normal at kb 152 msec. QRS interval is normal at 84 msec. QT interval is normal at 401 msec. Administered Medications: 16:23 Drug: Aspirin PO Chewable Tablet 324 mg PO once; 81 mg tablets x 4 Route: PO; me1 16:30 Follow up: Response: No adverse reaction me1 Disposition: 20:07 I was immediately available on-site in the Emergency Department for consultation in the ms3 care of the patient. Disposition Summary: 12/27/24 17:02 Hospitalization Ordered Notes: Hospitalization Status: Observation kb Provider: Madhavi Kraus Location: Telemetry/MedSurg (observation) kb Condition: Stable kb Problem: new kb Symptoms: are unchanged kb Bed/Room Type: Standard Room Assignment: 422(12/27/24 17:38) bd Diagnosis - Chest pain, unspecified kb Forms: - Medication Reconciliation Form kb - SBAR form kb - Leadership Thank You Letter kb Signatures: Dispatcher [employer] EDJayne Farmer FNP-C FNP-Mulu Bruno Marcus, DO DO ms3 Yohana Patterson, RN RN me1 Jamarcus Roberts, Jose RN RN nh2 Corrections: (The following items were deleted from the chart) 17:38 17:02 kb
--- NOTE | 2024-12-27 17:26 | P.HP ---
Certification for Inpatient Patient admitted to: Observation With expected LOS: <2 Midnights Patient will require the following post-hospital care: None Practitioner: I am a practitioner with admitting privileges, knowledge of patient current condition, hospital course, and medical plan of care. Services: Services provided to patient in accordance with Admission requirements found in Title 42 Section 412.3 of the Code of Federal Regulations <SoniaosmanyHarris Marvin - Last Filed: 12/27/24 17:24> Patient History Date of Service: 12/27/24 Reason for admission: Chest pain History of Present Illness: 84-year-old male with history of hypertension, reported previous myocardial infarction in 1991 presents emergency room with chief complaint of chest pain for the last 3 weeks that is on and off, also has a cough that started about 10 days ago. Patient reports his last coronary angiogram was in 1991 without intervention, his last tress test was 2 to 3 years ago. Patient was evaluated here in the emergency department his initial high sensitive troponin was normal at 5.1, EKG without STEMI criteria showed sinus bradycardia at 56 CT PE protocol was performed which showed no evidence of PE or other acute findings. Patient will be admitted under observation for ACS rule out. 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 - Family History Mother -: Diabetes Father -: GI disease Notes: in accident - Social History Alcohol use: No CD- Drugs: No Caffeine use: Yes Place of Residence: Home <Harris Zhu - Last Filed: 12/27/24 17:24> Date of Service: 12/27/24 <Madhavi Kraus - Last Filed: 12/28/24 00:27> Allergies No Known Allergies Allergy (Verified 12/27/24 21:31) Home Medications: Aspirin [Aspirin EC 81 MG] 81 mg PO DAILY 06/14/21 Bimatoprost [Lumigan Opthalmic Drops*] 1 drop OP BEDTIME 06/14/21 Losartan Potassium [Cozaar] 100 mg PO DAILYPRN PRN 06/14/21 Omeprazole 20 mg PO DAILYPRN PRN 06/14/21 Codeine/APAP [Tylenol W/Codeine #3 tab] 1 tab PO Q6HP PRN #12 tab 06/19/21 Smz./Tmp. [Bactrim Ds 800 MG/160 MG] 1 tab PO BID #8 tab 06/19/21 Review of Systems 10-point ROS is otherwise unremarkable Respiratory: Cough Cardiovascular: Chest Pain <Harris Zhu - Last Filed: 12/27/24 17:24> Physical Examination - Physical Exam General: Alert, In no apparent distress, Oriented x3 HEENT: Atraumatic, PERRLA, EOMI Neck: Supple Respiratory: Clear to auscultation bilaterally, Normal air movement Cardiovascular: Regular rate/rhythm, Normal S1 S2 Gastrointestinal: Normal bowel sounds Musculoskeletal: No tenderness Integumentary: No rashes Neurological: Normal gait, Normal speech, Normal affect - Studies Laboratory Data (last 24 hrs) 12/27/24 12/27/24 16:14 16:14 WBC 5.50 Hgb 12.4 L Hct 37.7 L Plt Count 163 Sodium 143 Potassium 3.9 BUN 18 Creatinine 1.04 Glucose 89 Magnesium 2.2 Total Bilirubin 0.5 AST < 10 L ALT 24 Alkaline Phosphatase 53 <Harris Zhu - Last Filed: 12/27/24 17:24> - Studies Laboratory Data (last 24 hrs) 12/27/24 12/27/24 16:14 16:14 WBC 5.50 Hgb 12.4 L Hct 37.7 L Plt Count 163 Sodium 143 Potassium 3.9 BUN 18 Creatinine 1.04 Glucose 89 Magnesium 2.2 Total Bilirubin 0.5 AST < 10 L ALT 24 Alkaline Phosphatase 53 <Madhavi Kraus - Last Filed: 12/28/24 00:27> Assessment and Plan - Plan Assessment: Chest pain rule out ACS Hypertension Plan: Chest pain rule out ACS Trend troponins and monitor on telemetry Cardiology consultation Reports had a heart cath in 1991 with no intervention Last tress test through the years ago Continue aspirin, statin, beta-titus, as needed pain medications Appreciate further blood from cardiology Hypertension Enalapril and metoprolol continued Continue other home medications when verified DVT PPX: Lovenox Code status: Full code Discharge Plan: Home Plan to discharge in: 24 Hours - Advance Directives Does patient have a Living Will: No Does patient have a Durable POA for Healthcare: No - Code Status/Comfort Care Code Status Assessed: Yes (Full code) Critical Care: No Time Spent Managing Pts Care (In Minutes): 67 <Harris Zhu - Last Filed: 12/27/24 17:24> Date of Service: 12/27/24 Patient was seen and examined. Events of the last 24 hours have been noted. Spoke with with HALIMA regarding patient's clinical picture after evaluating and examining the patient independently. I performed a substantial part of the MDM during this patient's care today. I personally made or approved the documented management plan and acknowledge its risk of complications. I agree with the findings and documentation provided in the HALIMA's notes. <Madhavi Kraus - Last Filed: 12/28/24 00:27>
[2024-12-27] MEDS: ATORVASTATIN 40 MG TAB PO SCH (21:34)
[2024-12-27] MEDS: METOPROLOL TAR 25 MG TAB PO SCH (21:34)
[2024-12-27 23:02] VITALS: BMI 38.8
[2024-12-27] MEDS: MORPHINE 2 MG/ML SYR IV PRN (23:48)
[2024-12-28] MEDS ORDERED: BENZONATATE 100 MG CAP PO PRN (04:21)
[2024-12-28 05:27] LABS: Absolute Lymphocytes (CBC) 2.4 K/uL (0.7-4.9); Hematocrit 37.8 % (39.6-49.0); Hemoglobin 12.5 g/dL (13.6-17.9); MCH 29.9 pg (27.0-35.0); MCHC 33.2 g/dL (32.0-36.0); MCV 90.3 fL (80-100); MPV 8.8 fL (7.6-11.3); Nucleated RBC Absolute Count 0.0 (0-0); Nucleated Red Blood Cells % 0.1 % (0-0); RBC Red Blood Cell Count 4.19 M/uL (4.33-5.43); White Blood Count 5.70 thou/uL (4.3-10.9)
[2024-12-28 05:43] LABS: ALT/SGPT 26.0 U/L (16-61); AST/SGOT 18.0 U/L (15-37); Albumin 2.7 g/dL (3.4-5.0); Albumin/Globulin Ratio 0.9 (1.1-1.8); Alkaline Phosphatase 66.0 U/L (45-117); Anion Gap 7.6 mEq/L (5.0-15.0); BUN Blood Urea Nitrogen 15.0 mg/dL (7-18); Globulin 3.1 g/dL (2.3-3.5); Glucose Level 148.0 mg/dL (74-106); Potassium 3.6 mEq/L (3.5-5.1); Troponin High Sensitivity 8.1 pg/mL (<58.9)
[2024-12-28] MEDS: DONEPEZIL HCL 5 MG TAB PO SCH (08:53)
[2024-12-28] MEDS: ISOSORBIDE MONO 10 MG TAB PO SCH (08:53)
[2024-12-28] MEDS: PANTOPRAZOLE 40MG TABLET PO SCH (08:54)
[2024-12-28] MEDS: MEMANTINE HCL 10 MG TABLET PO SCH (08:54)
[2024-12-28] MEDS: POTASSIUM CL SA 10 MEQ TAB PO ONE (08:54)
[2024-12-28] MEDS: ENALAPRIL 10 MG TAB PO SCH (08:54)
[2024-12-28] MEDS: ENOXAPARIN 40 MG/0.4 ML SQ SCH (08:54)
[2024-12-28] MEDS: ASPIRIN EC 81 MG TAB PO SCH (08:56)
[2024-12-28] MEDS: SERTRALINE HCL 50 MG TAB PO SCH (08:56)
[2024-12-28] MEDS ORDERED: ASPIRIN EC 81 MG TAB PO SCH (09:00)
[2024-12-28] MEDS ORDERED: HOME MED 1 EA UNK (Omeprazole [Omeprazole] 20 MG Capsule.Dr) PO SCH (09:00)
--- NOTE | 2024-12-28 11:21 | P.CNS ---
Date of Consult: 12/28/24 Chief Complaint: Chest pain History of Present Illness: Patient with PMH of HTN, presented with chest pain that has been going for few weeks, patient mention that he has been having phlegm with cough and trying to clear it but unable to do so, chest pain radiate to his right side of the chest and neck, sharp in nature. no other cardiac symptoms. Allergies No Known Allergies Allergy (Verified 12/27/24 21:31) Home medications list reviewed: Yes Home Medications: Aspirin [Aspirin EC 81 MG] 81 mg PO DAILY 06/14/21 Omeprazole 20 mg PO DAILY 06/14/21 Atorvastatin Calcium [Lipitor] 40 mg PO BEDTIME 12/28/24 Benzonatate 200 mg PO TIDP PRN 12/28/24 Donepezil HCl 10 mg PO DAILY 12/28/24 Isosorbide Mononitrate 20 mg PO DAILY 12/28/24 Memantine HCl 1 tab PO DAILY 12/28/24 Metoprolol Tartrate [Lopressor] 12.5 mg PO BID 12/28/24 Naproxen 250 mg PO BIDP PRN 12/28/24 Sertraline [Zoloft] 25 mg PO DAILY 12/28/24 Solifenacin [Vesicare*] 1 tab PO BEDTIME 12/28/24 - Past Medical/Surgical History Diabetic: No -: Prostate CA -: [place] -: Pulmonary embolism -: Dizziness -: Vertigo -: acute sinusitis -: HTN -: Depression -: Appendectomy -: Rt rotator cuff sx -: M[place]cus tear repair rt knee -: angioplasty Psychosocial/ Personal History: . [employer]. 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 moist/pink, EOMI, Sclerae nonicteric Neck: Supple, 2+ carotid pulse no bruit, No LAD, Without JVD or thyroid abnormality Respiratory: Clear to auscultation bilaterally, Normal air movement Cardiovascular: Regular rate/rhythm, Normal S1 S2 Gastrointestinal: Normal bowel sounds, No tenderness Musculoskeletal: No tenderness Integumentary: No rashes Neurological: Normal gait, Normal speech, Normal tone, Normal affect Lymphatics: No axilla or inguinal lymphadenopathy Laboratory Data (last 24 hrs) 12/27/24 12/27/24 16:14 16:14 WBC 5.50 Hgb 12.4 L Hct 37.7 L Plt Count 163 Sodium 143 Potassium 3.9 BUN 18 Creatinine 1.04 Glucose 89 Magnesium 2.2 Total Bilirubin 0.5 AST < 10 L ALT 24 Alkaline Phosphatase 53 - Problems (1) HTN (hypertension) Current Visit: Yes Status: Acute Plan: continue lopressor 12.5 mg po BID Continue Enalapril 10 mg daily (2) CAD (coronary artery disease) Onset Date: 03/14/15 Current Visit: No Status: Acute Plan: patient chest pain is atypical, EKG no ischemia, troponin negative x3 no further cardiac work up needed Patient to follow up with cardiology as outpatient for cardiac PET scan.
--- NOTE | 2024-12-28 14:53 | P.DS ---
Admission Date: 12/27/24 Discharge Date: 12/28/24 Disposition: ROUTINE DISCHARGE Discharge Condition: GOOD Reason for Admission: Chest pain Vital Signs/Physical Exam: Temp Pulse Resp BP Pulse Ox 97.5 F 55 18 110/75 95 12/28/24 12:00 12/28/24 12:00 12/28/24 12:00 12/28/24 12:00 12/28/24 12:00 Laboratory Data at Discharge: WBC 5.70 thou/uL (4.3-10.9) 12/28/24 04:23 Hgb 12.5 g/dL (13.6-17.9) L 12/28/24 04:23 Hct 37.8 % (39.6-49.0) L 12/28/24 04:23 Plt Count 153 thou/uL (152-406) 12/28/24 04:23 Sodium 141 mEq/L (136-145) 12/28/24 04:23 Potassium 3.6 mEq/L (3.5-5.1) 12/28/24 04:23 BUN 15 mg/dL (7-18) 12/28/24 04:23 Creatinine 1.01 mg/dL (0.70-1.30) 12/28/24 04:23 Glucose 148 mg/dL (74-106) H 12/28/24 04:23 Magnesium 2.2 mg/dL (1.6-2.4) 12/27/24 16:14 Total Bilirubin 0.3 mg/dL (0.2-1.0) 12/28/24 04:23 AST 18 U/L (15-37) 12/28/24 04:23 ALT 26 U/L (16-61) 12/28/24 04:23 Alkaline Phosphatase 66 U/L (45-117) D 12/28/24 04:23 Home Medications: Aspirin [Aspirin EC 81 MG] 81 mg PO DAILY 06/14/21 Omeprazole 20 mg PO DAILY 06/14/21 Atorvastatin Calcium [Lipitor] 40 mg PO BEDTIME 12/28/24 Benzonatate 200 mg PO TIDP PRN 12/28/24 Donepezil HCl 10 mg PO DAILY 12/28/24 Enalapril [Vasotec*] 10 mg PO DAILY 30 Days #30 tab 12/28/24 Isosorbide Mononitrate 20 mg PO DAILY 12/28/24 Memantine HCl 1 tab PO DAILY 12/28/24 Metoprolol Tartrate [Lopressor*] 12.5 mg PO BID 12/28/24 Metoprolol Tartrate [Lopressor*] 12.5 mg PO BID 6AM 6PM tab 12/28/24 Naproxen 250 mg PO BIDP PRN 12/28/24 Sertraline [Zoloft*] 25 mg PO DAILY 12/28/24 Solifenacin [Vesicare*] 1 tab PO BEDTIME 12/28/24 New Medications: Enalapril [Vasotec*] 10 mg PO DAILY 30 Days #30 tab Physician Discharge Instructions: -DC IV and DC home after echocardiogram completed -Follow-up with PCP in 1 to 2 weeks -Follow-up with Dr. Krause for a cardiac PET scan, Started enalapril -Check your blood pressure twice daily and keep a record for review with Dr. Krause -Please call Dr. Kraus at [phone] if any questions regarding hospital stay -Please call nursing station at [phone] if any nursing or medication questions -Return to the emergency room if symptoms worsen Diet: AHA Activity: Ad adama Followup: Alfredo Bro, [Primary Care Provider] -
[2024-12-28 16:24] VITALS: BP 140/79; TEMP 97.9
[2024-12-28 17:02] VITALS: O2SAT 99
[2024-12-28] MEDS ORDERED: SOLIFENACIN SUCCIN 5 MG TAB PO SCH (21:00)
--- NOTE | 2024-12-29 12:38 | ECHO ---
HEIGHT: 5 ft 7 in WEIGHT: 252 lb 0 oz DATE OF STUDY: 12/28/[address]: Madhavi Kraus MD 2-DIMENSIONAL: YES M.MODE: YES DOPPLER: YES COLOR FLOW: YES TDS: PORTABLE: YES DEFINITY: BUBBLE STUDY: DIAGNOSIS: CONGESTIVE HEART FAILURE CARDIAC HISTORY: CATHERIZATION: NO SURGERY: NO PROSTHETIC VALVE: NO PACEMAKER: NO MEASUREMENTS (cm) DIASTOLIC (NORMALS) SYSTOLIC (NORMALS) IVSd 1.3 (0.6-1.2) LA Diam 3.0 (1.9-4.0) LVEF 55-60% LVIDd 4.6 (3.5-5.7) LVIDs 3.1 (2.0-3.5) %FS 31% LVPWd 1.4 (0.6-1.2) Ao Diam 3.4 (2.0-3.7) 2 DIMENSIONAL ASSESSMENT: RIGHT ATRIUM: NORMAL LEFT ATRIUM: NORMAL RIGHT VENTRICLE: NORMAL LEFT VENTRICLE: NORMAL TRICUSPID VALVE: TRACE TRICUSPID REGURGITATION MITRAL VALVE: NORMAL PULMONIC VALVE: NORMAL AORTIC VALVE: NORMAL PERICARDIAL EFFUSION: NONE AORTIC ROOT: NORMAL LEFT VENTRICULAR WALL MOTION: NORMAL DOPPLER/COLOR FLOW: GRADE I DIASTOLIC DYSFUNCTION COMMENTS: 1. NORMAL LEFT VENTRICULAR SYSTOLIC FUNCTION, EJECTION FRACTION 55-60%, NORMAL WALL MOTION 2. GRADE I DIASTOLIC DYSFUNCTION TECHNOLOGIST: SABRINA GRANT
== END 2024-12-28 17:20 | disposition home or self-care (01) ==
LOC: ER 15:32 → ERHOLD 17:02 → 4TH 18:08
PROVIDERS: ADMIT Hospitalist; ATTEND Hospitalist
DX: R07.9 Chest pain, unspecified (principal); I10 Essential (primary) hypertension; I25.2 Old myocardial infarction; R05.9 Cough, unspecified; I25.10 Atherosclerotic heart disease of native coronary artery without angina pectoris; Z85.46 Personal history of malignant neoplasm of prostate; Z79.82 Long term (current) use of aspirin
CPT/HCPCS: 93005; 93306; 85025 ×2; 80048; 36415; 83735; 82565; 80076; 84484 ×3; 80053; 83880; 70450; 71275; 71045; 99285; J1650; J2270; G0378